=== PATIENT | female | born 1945 | race Caucasian/White ===

== ENCOUNTER 2018-12-29 05:45 | Inpatient (IN) | payer OTHER ==
[2018-12-29] MEDS ORDERED: NA CHLORIDE 0.9% 1,000 ML ONE (06:03)
[2018-12-29 06:37] LABS: Absolute Lymphocytes (CBC) 1.5 K/uL (0.7-4.9); Basophils % 0.6 % (0-1.3); Lymphocytes % 9.4 % (15.3-44.8); MPV 8.2 fL (7.6-11.3); RBC Red Blood Cell Count 4.22 M/uL (3.86-4.86)
[2018-12-29 06:40] LABS: Protime INR 1.18
[2018-12-29 07:00] LABS: ALT/SGPT 39 U/L (12-78); AST/SGOT 20 U/L (15-37); Albumin 3.2 g/dL (3.4-5.0); Alkaline Phosphatase 92 U/L (45-117); BUN Blood Urea Nitrogen 15 mg/dL (7-18); Bicarbonate 20 mmol/L (21-32); Bilirubin Direct 0.2 mg/dL (0-0.2); Bilirubin Total 0.7 mg/dL (0.2-1.0); Lipase 77 U/L (73-393); Magnesium 1.7 mg/dL (1.8-2.4); NT PRO-BNP 267 pg/mL (<125); Potassium 4.3 mmol/L (3.5-5.1); Protein, Total 8.7 g/dL (6.4-8.2); Sodium Level 134 mmol/L (136-145); Troponin (Emerg Dept Use Only) < 0.02 ng/mL (0.0-0.045)
[2018-12-29 07:01] LABS: Glucose Level 401 mg/dL (74-106)
--- NOTE | 2018-12-29 07:37 | EDPHYS ---
Physician Documentation [facility] Name: Sissy Padron Age: 73 yrs Sex: Female : 1945 Arrival Date: 12/29/2018 Time: 05:49 Bed 13 Private MD: Rolando Ward T ED Physician Jd Herrera HPI: 12/29 06:22 This 73 yrs old Female presents to ER via Ambulatory with complaints of krystle Abdominal Pain. 06:22 The patient presents with abdominal pain in the upper abdomen, in the right upper krystle quadrant, right lower quadrant, abdominal distention. Onset: The symptoms/episode began/occurred last night. The symptoms radiate to both flanks. Associated signs and symptoms: none. Severity of pain: At its worst the pain was moderate in the emergency department the pain is unchanged. The patient has not experienced similar symptoms in the past. Historical: - Allergies: 06:06 PENICILLINS; ak1 06:06 Codeine; ak1 - Home Meds: 06:06 aspirin 81 mg Oral TbEC 1 tab once daily [Active]; gabapentin 600 mg oral tab [Active]; ak1 Lovastatin 18mg Oral [Active]; alprazolam 1 mg Oral tab [Active]; tramadol 50 mg Oral tab [Active]; metformin 500 mg Oral tab [Active]; metoprolol tartrate 100 mg Oral tab [Active]; losartan oral 10mg oral [Active]; - PSHx: 06:06 Hysterectomy; Cholecystectomy; right ankle; right knee sx; left hip replacement; ak1 - Immunization history:: Adult Immunizations unknown. - Social history:: Smoking status: Patient/guardian denies using tobacco. - Ebola Screening: : No symptoms or risks identified at this time. - Family history:: not pertinent. ROS: 06:22 Constitutional: Negative for fever, chills, and weight loss, Eyes: Negative for injury, krystle pain, redness, and discharge, ENT: Negative for injury, pain, and discharge, Neck: Negative for injury, pain, and swelling, Cardiovascular: Negative for chest pain, palpitations, and edema, Respiratory: Negative for shortness of breath, cough, wheezing, and pleuritic chest pain, Back: Negative for injury and pain, : Negative for injury, bleeding, discharge, and swelling, MS/Extremity: Negative for injury and deformity, Skin: Negative for injury, rash, and discoloration, Neuro: Negative for headache, weakness, numbness, tingling, and seizure. 06:22 Abdomen/GI: Positive for abdominal pain, of the right upper quadrant. Exam: 06:22 Constitutional: This is a well developed, well nourished patient who is awake, alert, krystle and in no acute distress. Head/Face: Normocephalic, atraumatic. Eyes: Pupils equal round and reactive to light, extra-ocular motions intact. Lids and lashes normal. Conjunctiva and sclera are non-icteric and not injected. Cornea within normal limits. Periorbital areas with no swelling, redness, or edema. ENT: Nares patent. No nasal discharge, no septal abnormalities noted. Tympanic membranes are normal and external auditory canals are clear. Oropharynx with no redness, swelling, or masses, exudates, or evidence of obstruction, uvula midline. Mucous membranes moist. Neck: Trachea midline, no thyromegaly or masses palpated, and no cervical lymphadenopathy. Supple, full range of motion without nuchal rigidity, or vertebral point tenderness. No Meningismus. Chest/axilla: Normal chest wall appearance and motion. Nontender with no deformity. No lesions are appreciated. Cardiovascular: Regular rate and rhythm with a normal S1 and S2. No gallops, murmurs, or rubs. Normal PMI, no JVD. No pulse deficits. Respiratory: Lungs have equal breath sounds bilaterally, clear to auscultation and percussion. No rales, rhonchi or wheezes noted. No increased work of breathing, no retractions or nasal flaring. Back: No spinal tenderness. No costovertebral tenderness. Full range of motion. Female : Normal external genitalia. Skin: Warm, dry with normal turgor. Normal color with no rashes, no lesions, and no evidence of cellulitis. Neuro: Awake and alert, GCS 15, oriented to person, place, time, and situation. Cranial nerves II-XII grossly intact. Motor strength 5/5 in all extremities. Sensory grossly intact. Cerebellar exam normal. Normal gait. Psych: Awake, alert, with orientation to person, place and time. Behavior, mood, and affect are within normal limits. 06:22 Abdomen/GI: Inspection: abdomen appears normal, Bowel sounds: normal, Palpation: mild abdominal tenderness, in the right upper quadrant and right lower quadrant. Vital Signs: 06:00 BP 180 / 100; Pulse 92; Resp 16; Temp 97.6; Pulse Ox 98% on R/A; Weight 90.72 kg (R); ak1 Height 5 ft. 5 in. (165.10 cm) (R); Pain 9/10; 07:00 BP 211 / 97; Pulse 87; Resp 16; Pulse Ox 99% on R/A; ph 08:00 BP 198 / 104; Pulse 112; Resp 18; Pulse Ox 97% on R/A; ph 09:14 BP 158 / 72; Pulse 108; Resp 20; Temp 98.3(TE); Pulse Ox 98% on R/A; ph 06:00 Body Mass Index 33.28 (90.72 kg, 165.10 cm) ak1 MDM: 05:55 Patient medically screened. [facility] 06:29 Data reviewed: vital signs, nurses notes, lab test result(s), EKG, radiologic studies. krystle 09:32 Physician consultation: Rose Noonan MD was contacted at 09:32, regarding admission, pm1 patient's condition, and will see patient would like further tests performed, lactate and blood cultures in ER. Place patient in observation. 12/29 05:56 Order name: Basic Metabolic Panel; Complete Time: 07:11 [facility] 12/29 05:56 Order name: CBC with Diff; Complete Time: 06:54 [facility] 12/29 05:56 Order name: LFT's; Complete Time: 07:11 [facility] 12/29 05:56 Order name: Magnesium; Complete Time: 07:11 [facility] 12/29 05:56 Order name: NT PRO-BNP; Complete Time: 07:11 [facility] 12/29 05:56 Order name: PT-INR; Complete Time: 06:54 [facility] 12/29 05:56 Order name: Troponin (emerg Dept Use Only); Complete Time: 07:11 [facility] 12/29 05:56 Order name: Lipase; Complete Time: 07:11 [facility] 12/29 05:56 Order name: Urine Culture [facility] 12/29 07:48 Order name: Urine Dipstick--Ancillary (enter results) bd 12/29 07:59 Order name: Urine Microscopic Only; Complete Time: 09:27 pm1 12/29 09:29 Order name: Blood Culture Adult (2) pm1 12/29 09:29 Order name: Lactate pm1 12/29 10:25 Order name: Glucose, Ancillary Testing EDMS 12/29 05:56 Order name: XRAY Chest (1 view); Complete Time: 09:20 [facility] 12/29 05:56 Order name: EKG; Complete Time: 05:58 [facility] 12/29 05:56 Order name: Cardiac monitoring; Complete Time: 06:23 krystle 12/29 05:56 Order name: EKG - Nurse/Tech; Complete Time: 06:23 [facility] 12/29 05:56 Order name: IV Saline Lock; Complete Time: 06:23 [facility] 12/29 07:11 Order name: Abdomen ; Complete Time: 07:56 EDMS 12/29 10:32 Order name: Glucose, Ancillary Testing EDME 12/29 05:56 Order name: Labs collected and sent; Complete Time: 06:22 [facility] 12/29 05:56 Order name: O2 Per Protocol; Complete Time: 06:23 [facility] 12/29 05:56 Order name: O2 Sat Monitoring; Complete Time: 06:23 [facility] 12/29 05:56 Order name: Urine Dipstick-Ancillary (obtain specimen); Complete Time: 08:22 [facility] Administered Medications: 06:20 Drug: NS 0.9% 1000 ml Route: IV; Rate: 125 ml/hr; Site: right hand; fu 08:15 Drug: Insulin Regular Human 10 units {Co-Signature: ss (Damaris Doan RN).} Route: IVP; ph Site: left antecubital; 08:21 Drug: Rocephin 1 grams Route: IV; Rate: per protocol; Site: left antecubital; ph 08:21 Drug: Magnesium Sulfate 1 grams Route: IVPB; Infused Over: 1 hrs; Site: left ph antecubital; 08:22 Drug: morphine 4 mg Route: IVP; Site: left antecubital; ph 08:24 Drug: Zofran 4 mg Route: IVP; Site: left antecubital; ph 08:46 Drug: Metoprolol 100 mg Route: PO; ph Point of Care Testing: Blood Glucose: 09:21 Blood Glucose: 365 mg/dL; ph Ranges: Critical Glucose Levels:Adult <50 mg/dl or >400 mg/dl <40 mg/dl or >180 mg/dl Disposition: 12/30 06:38 Co-signature as Attending Physician, Jd Herrera MD I agree with the assessment and [facility] plan of care. Disposition: 12/29/18 07:35 Hospitalization ordered by Rose Noonan for Observation. Preliminary diagnosis are Abdominal tenderness, Elevated white blood cell count, Type 2 diabetes mellitus, Hypomagnesemia. - Bed requested for Telemetry/MedSurg (observation). - Status is Observation. ph - Condition is Fair. - Problem is new. - Symptoms have improved. UTI on Admission? No Signatures: Dispatcher [employer] EDMS Leesa Mondragon Corey, MD MD cha Krenek, Amber, RN RN ak1 Jayde Barrera, RN RN Ruslan Nicholson, TOE CLOSING MACHINE TENDER TOE CLOSING MACHINE TENDER pm1 Romulo Parker, RN RN Tl Gómez, RN RN ja1 Damaris Doan RN ss Corrections: (The following items were deleted from the chart) 12/29 07:11 06:21 Abdomen Pelvis W Con+CT.RAD.BRZ ordered. EDME EDMS 07:27 06:21 Abdomen Limited+US.RAD.BRZ ordered. EDME EDME 07:40 07:35 Hospitalization Ordered by Rose Noonan MD for Inpatient Admission. Preliminary [facility] diagnosis is Abdominal tenderness; Elevated white blood cell count; Type 2 diabetes mellitus. Bed requested for Telemetry/MedSurg (Inpatient). Status is Inpatient Admission. Condition is Fair. Problem is new. Symptoms have improved. UTI on Admission? No. krystle 08:52 07:40 12/29/2018 07:35 Hospitalization Ordered by Rose Noonan MD for Inpatient ja1 Admission. Preliminary diagnosis is Abdominal tenderness; Elevated white blood cell count; Type 2 diabetes mellitus; Hypomagnesemia. Bed requested for Telemetry/MedSurg (Inpatient). Status is Inpatient Admission. Condition is Fair. Problem is new. Symptoms have improved. UTI on Admission? No. krystle 09:33 08:52 12/29/2018 07:35 Hospitalization Ordered by Rose Noonan MD for Inpatient pm1 Admission. Preliminary diagnosis is Abdominal tenderness; Elevated white blood cell count; Type 2 diabetes mellitus; Hypomagnesemia. Bed requested for Telemetry/MedSurg (Inpatient). Status is Inpatient Admission. Condition is Fair. Problem is new. Symptoms have improved. UTI on Admission? No. ja1 09:40 09:33 12/29/2018 07:35 Hospitalization Ordered by Rose Noonan MD for Observation. bd Preliminary diagnosis is Abdominal tenderness; Elevated white blood cell count; Type 2 diabetes mellitus; Hypomagnesemia. Bed requested for Telemetry/MedSurg (observation). Status is Observation. Condition is Fair. Problem is new. Symptoms have improved. UTI on Admission? No. pm1 11:13 09:40 12/29/2018 07:35 Hospitalization Ordered by Rose Noonan MD for Observation. ph Preliminary diagnosis is Abdominal tenderness; Elevated white blood cell count; Type 2 diabetes mellitus; Hypomagnesemia. Bed requested for Telemetry/MedSurg (observation). Status is Observation. Condition is Fair. Problem is new. Symptoms have improved. UTI on Admission? No. bd
--- NOTE | 2018-12-29 07:37 | ER ---
Nurse's Notes [facility] Name: Sissy Padron Age: 73 yrs Sex: Female : 1945 Arrival Date: 12/29/2018 Time: 05:49 Bed 13 Private MD: Rolando Ward T Diagnosis: Abdominal tenderness;Elevated white blood cell count;Type 2 diabetes mellitus;Hypomagnesemia Presentation: 12/29 06:01 Presenting complaint: Patient states: right lower quadrant pain, right lower back pain ak1 since last night. increased urinary frequency. Transition of care: patient was not received from another setting of care. Onset of symptoms was December 29, 2018. Risk Assessment: Do you want to hurt yourself or someone else? Patient reports no desire to harm self or others. Initial Sepsis Screen: Does the patient meet any 2 criteria? No. Patient's initial sepsis screen is negative. Does the patient have a suspected source of infection? No. Patient's initial sepsis screen is negative. Care prior to arrival: None. 06:01 Method Of Arrival: Ambulatory ak1 06:01 Acuity: MARCELO 3 ak1 Triage Assessment: 06:06 General: Appears in no apparent distress. Behavior is calm, cooperative. ak1 Historical: - Allergies: 06:06 PENICILLINS; ak1 06:06 Codeine; ak1 - Home Meds: 06:06 aspirin 81 mg Oral TbEC 1 tab once daily [Active]; gabapentin 600 mg oral tab [Active]; ak1 Lovastatin 18mg Oral [Active]; alprazolam 1 mg Oral tab [Active]; tramadol 50 mg Oral tab [Active]; metformin 500 mg Oral tab [Active]; metoprolol tartrate 100 mg Oral tab [Active]; losartan oral 10mg oral [Active]; - PSHx: 06:06 Hysterectomy; Cholecystectomy; right ankle; right knee sx; left hip replacement; ak1 - Immunization history:: Adult Immunizations unknown. - Social history:: Smoking status: Patient/guardian denies using tobacco. - Ebola Screening: : No symptoms or risks identified at this time. - Family history:: not pertinent. Screenin:07 Abuse screen: Denies threats or abuse. Denies injuries from another. Nutritional ak1 screening: No deficits noted. Tuberculosis screening: No symptoms or risk factors identified. Fall Risk None identified. Assessment: 05:57 General: Appears uncomfortable, Behavior is calm, cooperative, appropriate for age, fu Denies fever, chills. Pain: Complains of pain in right lower quadrant Pain radiates to right mid back Pain currently is 8 out of 10 on a pain scale. Quality of pain is described as sharp, Pain began last night Is intermittent. Neuro: Level of Consciousness is awake, alert, obeys commands, Oriented to person, place, time, situation, Cardiovascular: Denies chest pain, Capillary refill < 3 seconds. Respiratory: No deficits noted. GI: Bowel sounds present X 4 quads. pain on palpation. : Reports frequency of urination. EENT:. Musculoskeletal: No signs and/or symptoms reported regarding the musculoskeletal system. 07:14 Reassessment: Patient appears in no apparent distress at this time. Patient and/or ph family updated on plan of care and expected duration. Pain level reassessed. Patient is alert, oriented x 3, equal unlabored respirations, skin warm/dry/pink. Pt taken to radiology via stretcher. Vital Signs: 06:00 BP 180 / 100; Pulse 92; Resp 16; Temp 97.6; Pulse Ox 98% on R/A; Weight 90.72 kg (R); ak1 Height 5 ft. 5 in. (165.10 cm) (R); Pain 9/10; 07:00 BP 211 / 97; Pulse 87; Resp 16; Pulse Ox 99% on R/A; ph 08:00 BP 198 / 104; Pulse 112; Resp 18; Pulse Ox 97% on R/A; ph 09:14 BP 158 / 72; Pulse 108; Resp 20; Temp 98.3(TE); Pulse Ox 98% on R/A; ph 06:00 Body Mass Index 33.28 (90.72 kg, 165.10 cm) ak1 ED Course: 05:49 Patient arrived in ED. es 05:50 Rolando Ward MD is Private Physician. es 05:55 Romulo Parker, FRAN is Primary Nurse. fu 05:55 Jd Herrera MD is Attending Physician. [facility] 06:00 Arm band placed on Patient placed in an exam room, on a stretcher, on pulse oximetry, ak1 Patient notified of wait time. 06:02 Triage completed. ak1 06:06 Patient has correct armband on for positive identification. ak1 06:20 Initial lab(s) drawn, by me, sent to lab. Inserted saline lock: 22 gauge in right hand, fu using aseptic technique. 06:48 Inserted saline lock: 20 gauge in left antecubital area, using aseptic technique. fu ,using aseptic technique. by histotechnician. 06:50 metal sash setter on. Pulse ox on. NIBP on. fu 06:57 Radiology exam delayed due to lab results not completed at this time. (BUN/Creatinine). kw1 07:07 XRAY Chest (1 view) In Process Unspecified. EDMS 07:33 Abdomen In Process Unspecified. EDMS 07:33 Rose Noonan MD is Hospitalizing Provider. krystle 09:16 No provider procedures requiring assistance completed. Patient admitted, IV remains in ph place. Administered Medications: 06:20 Drug: NS 0.9% 1000 ml Route: IV; Rate: 125 ml/hr; Site: right hand; fu 08:15 Drug: Insulin Regular Human 10 units {Co-Signature: ss (Damaris Doan RN).} Route: IVP; ph Site: left antecubital; 08:21 Drug: Rocephin 1 grams Route: IV; Rate: per protocol; Site: left antecubital; ph 08:21 Drug: Magnesium Sulfate 1 grams Route: IVPB; Infused Over: 1 hrs; Site: left ph antecubital; 08:22 Drug: morphine 4 mg Route: IVP; Site: left antecubital; ph 08:24 Drug: Zofran 4 mg Route: IVP; Site: left antecubital; ph 08:46 Drug: Metoprolol 100 mg Route: PO; ph Point of Care Testing: Blood Glucose: 09:21 Blood Glucose: 365 mg/dL; ph Ranges: Outcome: 07:35 Decision to Hospitalize by Provider. krystle 11:13 Patient left the ED. ph Signatures: Dispatcher [employer] Jd Ruiz MD MD cha Salyer, Edna es Krenek, Amber RN RN ak1 Jayde Barrera RN RN Romulo Parker, FRAN PETERS Rosario Shepherd kw1 Damaris Doan RN ss Corrections: (The following items were deleted from the chart) 07:27 07:12 In radiology for Abdomen Limited+US.RAD.BRZ. EDMS EDMS
[2018-12-29] MEDS ORDERED: INSULIN -REGULAR HUMAN 50 UNIT/0.5 ML ML ONE ×2 (07:48→07:50)
[2018-12-29] MEDS ORDERED: CEFTRIAXONE/SWI 1gm 1 GM/10 ML SYR ONE (07:49)
[2018-12-29] MEDS ORDERED: MAGNESIUM SULFATE 1 gm IVPB 1 GM/100 ML BAG IV ONE (07:49)
--- NOTE | 2018-12-29 07:50 | RAD REPORT ---
EXAM DESCRIPTION: CT - Abdomen Pelvis Wo Contrast - 12/29/2018 7:33 am CLINICAL HISTORY: ABD PAIN COMPARISON: Abdomen Pelvis W Contrast dated 11/14/2016 TECHNIQUE: Axial [address] imaging of the abdomen and pelvis was performed without IV contrast. No IV contrast was given because of allergy, abnormal renal function, patient refusal or physician re quest. No oral contrast was given. All CT scans are performed using dose optimization technique as appropriate and may include automated exposure control or mA/KV adjustment according to patient size. FINDINGS: No suspicious findings in the lung bases. Fatty infiltration pattern is present in the liver. No focal liver lesion is identifiable. Spleen and pancreas show no suspicious findings. Cholecystectomy clips are present. No biliary tree dilatation. Moderately severe right-sided hydronephrosis and hydroureter are present down to the UVJ. No obstruct ing or nonobstructing calculi present. Urinary bladder is fully contracted. The pelvic floor assessme nt is limited by left hip prosthesis spray artifact. A UVJ or bladder calculus is not suspected. No s imilar finding seen in 2017. Patient could have had a recently passed stone with hydronephrosis due t o edema at the UVJ. Stricture or small mass lesion are possible as well. Blood or inflammatory debris within the ureter can result in hydronephrosis. Perinephric stranding is present on the right with r ight-sided renal parenchymal edema evident. Left kidney shows no hydronephrosis or acute process. No significant adrenal finding. Isodense renal masses and pyelonephritis cannot be excluded in the absence of IV contrast. No dilated bowel loops or bowel wall thickening. Moderate sigmoid diverticulosis present without dive rticulitis. No acute GI process seen. No free air, free fluid or pneumatosis. No other area of inflam matory stranding. No hernia, mass or bulky lymphadenopathy. Disc and bony degenerative changes are present. No acute bone process seen. IMPRESSION: Moderately severe right hydronephrosis and hydroureter down to the UVJ. No obstructing o r nonobstructing calculi seen. Hydronephrosis could be due to a recently passed stone with edema at the UVJ. Blood and inflammatory debris within the ureter can cause hydronephrosis. Post inflammatory stricture or mass at the UVJ als o considerations. Urinary bladder is fully contracted. This limits assessment. Left hip prosthesis spray artifact also limits pelvic floor assessment. Fatty infiltration of the liver. Patient is status post cholecystectomy. Full assessment is limited is the absence of IV contrast.
[2018-12-29] MEDS ORDERED: ONDANSETRON 4 MG/2 ML VIAL ONE (07:59)
[2018-12-29] MEDS ORDERED: MORPHINE 4 MG/ML SYR ONE (07:59)
[2018-12-29] MEDS ORDERED: METOPROLOL TAR 50 MG TAB ONE (08:37)
--- NOTE | 2018-12-29 08:43 | RAD REPORT ---
EXAM DESCRIPTION: RAD - Chest Single View - 12/29/2018 7:07 am CLINICAL HISTORY: Abdominal pain, abdominal distention COMPARISON: May 2011 chest film TECHNIQUE: AP portable chest image was obtained [id number] hours . FINDINGS: Lungs are clear. Heart and vasculature are normal. No measurable pleural effusion and no p neumothorax. No acute bony abnormality seen. No acute aortic findings suspected. IMPRESSION: No acute cardiopulmonary process.
[2018-12-29 09:20] LABS: Urine Bacteria NONE SEEN /HPF (<20); Urine Culture Reflex Order NOT NEEDED; Urine RBC <5 /HPF (NONE SEEN)
[2018-12-29] MEDS ORDERED: ONDANSETRON 4 MG/2 ML VIAL IV PRN (11:40)
[2018-12-29] MEDS ORDERED: NA CHLORIDE 0.9% 1,000 ML IV SCH ×2 (11:40→17:00)
[2018-12-29] MEDS ORDERED: D50W 25 GM/50 ML SYRINGE IV PRN (11:40)
[2018-12-29] MEDS ORDERED: GLUCAGON 1 MG/VIAL IM PRN (11:40)
[2018-12-29] MEDS ORDERED: MORPHINE 4 MG/ML SYR IV PRN (11:40)
[2018-12-29] MEDS: INSULIN -REGULAR HUMAN 50 UNIT/0.5 ML ML SQ SCH ×3 (11:40→21:19)
[2018-12-29] MEDS ORDERED: NA CHLORIDE 0.9% 500 ML ONE (11:57)
--- NOTE | 2018-12-29 12:08 | P.HP ---
Certification for Inpatient Patient admitted to: Observation With expected LOS: <2 Midnights Patient will require the following post-hospital care: None Practitioner: I am a practitioner with admitting privileges, knowledge of patient current condition, hospital course, and medical plan of care. Services: Services provided to patient in accordance with Admission requirements found in Title 42 Section 412.3 of the Code of Federal Regulations Patient History Date of Service: 12/29/18 Primary Care Provider: Dr DE LEON Reason for admission: LLQ abdominal pain History of Present Illness: This is a 73-year-old female with significant past medical history of hypertension, hyperlipidemia, diabetes, obesity who presented to the ED complaining of having left lower quadrant abdominal pain. Patient stated that the pain started about 9 p.m. last night and has gotten progressively worse. Patient also complained of having some nausea vomiting whenever abdominal pain started. Patient has been having increased urination recently and has been having a lot of pain every time she goes to the bathroom. Patient's at bedside denies having any fever chills diarrhea or any other associated symptoms at this time. Patient has not had similar complaints in the past. Patient has also been taking Victoza for her diabetes however has not been able to take it for past 2 days that she forgot to take her home medication. Patient does have a history of noncompliance with medication due to being forgetful. In the ER patient was seen and evaluated lab work and imaging was done. Patient was initially found to be hyperglycemic along with CT scan findings of hydronephrosis with a KI and thus patient was admitted to the hospital for further care. Allergies naproxen Allergy (Intermediate, Verified 06/05/11 13:29) Hives/Rash Home medications list reviewed: Yes - Past Medical/Surgical History Has patient received pneumonia vaccine in the past: Yes Diabetic: Yes -: Hypertension -: Diabetes -: Hyperlipidemia -: Obesity Past Surgical History: Reviewed- Non-Contributory - Family History Family History: Reviewed- Non-Contributory - Social History Smoking Status: Never smoker Counseled patient to stop smoking for: less than 10 minutes Smoking therapy provided: Yes Patient receptive to therapy: Yes Alcohol use: No CD- Drugs: No Caffeine use: Yes Place of Residence: Home Review of Systems 10-point ROS is otherwise unremarkable Physical Examination - Vital Signs Temperature: 98.3 F Blood Pressure: 158/72 Pulse: 108 Respirations: 20 - Physical Exam General: In no apparent distress, Oriented x3, Other (Lethargic but he is easily arousable) HEENT: Atraumatic, PERRLA, Mucous membr. moist/pink, EOMI, Sclerae nonicteric Neck: Supple, 2+ carotid pulse no bruit, No LAD, Without JVD or thyroid abnormality Respiratory: Clear to auscultation bilaterally, Normal air movement Cardiovascular: Regular rate/rhythm, Normal S1 S2 Gastrointestinal: Normal bowel sounds, Tenderness (Left lower quadrant tenderness and right upper quadrant tenderness noted) Musculoskeletal: No tenderness Integumentary: No rashes Neurological: Normal speech, Normal tone Lymphatics: No axilla or inguinal lymphadenopathy - Studies Laboratory Data (last 24 hrs) 12/29/18 06:17: PT 13.8 H, INR 1.18 12/29/18 06:17: WBC 15.9 H, Hgb 12.6, Hct 37.0, Plt Count 256 12/29/18 06:17: Sodium 134 L, Potassium 4.3, BUN 15, Creatinine 1.63 H, Glucose 401 H*, Magnesium 1.7 L, Total Bilirubin 0.7, AST 20, ALT 39, Alkaline Phosphatase 92, Lipase 77 Assessment and Plan - Problems (Diagnosis) (1) Abdominal pain Current Visit: Yes Status: Acute Plan: Left lower quadrant abdominal pain with nausea and vomiting -abdominal CT consistent with hydronephrosis and inflammation and agrees by UPJ. Patient may have passed a kidney stone -lab work also consistent with hyperglycemia with anion gap of 12 -will go ahead and start patient on IV Rocephin at this time along with insulin sliding scale -urology has been consulted. Awaiting recommendations -blood cultures and urine cultures pending at this time as well Qualifiers: Abdominal location: left lower quadrant Qualified Code(s): R10.32 - Left lower quadrant pain (2) Hyperglycemia Current Visit: Yes Status: Acute Plan: Patient with hyperglycemia due to noncompliance with her medication -anion gap is 12 at this time. Patient wear well may have HHS, -will get acetone level at this time and repeat BMP -patient received 10 units of long-acting insulin in the ER -was give patient bolus of 500 mL ns and start patient on NS at 125 mL an hr after the (3) Acute renal failure Current Visit: Yes Status: Acute Plan: Patient with acute renal failure most likely secondary to obstructive uropathy versus UTI -abdominal CT consistent with hydronephrosis with inflammation and possible degrees at the UPJ -IV fluids at this time -await nephrotoxic agent and monitor for improvement Qualifiers: Acute renal failure type: unspecified Qualified Code(s): N17.9 - Acute kidney failure, unspecified (4) Hydronephrosis Current Visit: Yes Status: Acute Plan: Hydronephrosis with possible stone passage and debris collection at the UPJ -urology is consulted. Awaiting recommendations -will place patient on Gramajo catheter at this time Qualifiers: Hydronephrosis type: with ureteropelvic junction obstruction Qualified Code (s): Q62.11 - Congenital occlusion of ureteropelvic junction (5) Hypertension Current Visit: Yes Status: Chronic Plan: Will restart home medication Qualifiers: Hypertension type: essential hypertension Qualified Code(s): I10 - Essential (primary) hypertension (6) Diabetes Current Visit: Yes Status: Chronic Plan: Will start patient on insulin sliding scale and a.c.hs at this time Qualifiers: Diabetes mellitus type: type 2 Diabetes mellitus [facility] insulin use: with [facility] use Diabetes mellitus complication status: with hyperglycemia Qualified Code(s): E11.65 - Type 2 diabetes mellitus with hyperglycemia; 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
--- NOTE | 2018-12-29 12:10 | EKG ---
Test Date: 2018-12-29 Test Time: 06:19:02 Mathematics Instructor: BLUE MEASUREMENT RESULTS: Intervals: Rate: 88 NC: 190 QRSD: 82 QT: 382 QTc: 462 [place]: P: 51 NC: 190 QRS: -11 T: 47 INTERPRETIVE STATEMENTS: Normal sinus rhythm Anterior infarct, age undetermined Abnormal ECG Compared to ECG 06/05/2011 12:50:13 No significant changes Electronically Signed On 12-29-18 12:08:52 CDT by Spencer Marquez
[2018-12-29] MEDS ORDERED: NA CHLORIDE 0.9% 500 ML IV ONE (13:00)
[2018-12-29] MEDS ORDERED: SODIUM CHL 0.9% 1000 ML BAG IV SCH (13:00)
[2018-12-29 13:10] LABS: Urine Blood TRACE (NEG); Urine Glucose 2+ (NEG); Urine Protein TRACE (NEG); Urine pH 5.5 (5.0-7.0)
[2018-12-29 13:54] LABS: Albumin 3.2 g/dL (3.4-5.0); Bilirubin Total 0.8 mg/dL (0.2-1.0); Potassium 4.5 mmol/L (3.5-5.1)
[2018-12-29] MEDS: METOPROLOL TAR 50 MG TAB PO SCH (17:00)
[2018-12-29 17:22] LABS: BUN Blood Urea Nitrogen 17 mg/dL (7-18); Bicarbonate 23 mmol/L (21-32); Glucose Level 322 mg/dL (74-106); Potassium 4.3 mmol/L (3.5-5.1); Sodium Level 135 mmol/L (136-145)
--- NOTE | 2018-12-29 17:56 | CON ---
History Of Present Illness: A 73-year-old female with medical history hypertension, hyperlipidemia, diabetes, obesity, presented to the ER, complaining of left lower quadr ant pain. She also gives me a history of right lower quadrant pain that happened in the last 24 hour s. She had a CT scan that showed moderate right hydronephrosis with hydroureter down to the UVJ with no stones seen. She is not a smoker. She has never had any gross hematuria, never had a history of stones, but she may have possibly passed the stone when she did have some pain on that side. I have to observe her and see how she does. Now I think it could be a stricture versus a possible ureteral tumor or bladder tumor, but this does not go along with her history and the fact that she does not h ave any hematuria and that she is not a smoker either, but we could follow up as an outpatient for th is issue, hematuria resolves or possibly do further workup if necessary. She is admitted now because she did have some nausea and vomiting and abdominal pain and the left-sided pain, not really sure wh at the etiology for that is either. Allergies: NAPROSYN. Past Medical History: Hypertension, diabetes, hyperlipidemia, obesity. Past Surgical History: Noncontributory. Social History: Patient never smoked. Drugs, none. Caffeine use at home. Resides at home. Review of Systems: 10-point review of systems otherwise unremarkable. Physical Examination: Vital Signs: Latest vital signs; 98.3, 108, 20, BP 158/72, 90% saturation. HEENT: Atraumatic, normocephalic. Neck: Supple. Respiratory: Clear. Cardiovascular: S1, S2. Gastrointestinal: Normal sounds. No tenderness. Musculoskeletal: Normal. Skin: No rashes. Neurologic: Normal speech, normal tone. Laboratory Data: White count 15.9, H and H is 12.6 and 37.0, platelet count 256. Coagulation normal . Chemistry; glucose 341, the latest sodium 134, potassium 4.3, chloride 102, carbon dioxide 20, BUN 15, creatinine 1.3, GFR 31. Urine study shows pH 5.5, specific gravity 1.010, ketones 1+, blood tra ce, but rbc's less than 5. Assessment And Plan: History of right lower quadrant pain. Now CT scan shows right hydroureter down to the right UVJ. Patient may have possibly passed a stone, could have some inflammation there now, possible stricture, possible tumor. We will have to follow and see how she does, if she needs any f urther workup. The hydro does not resolve in a few weeks or so and she may need cystoscopy, possible retrogrades. We can follow up as an outpatient for this. History of hyperglycemia, acute renal malaika lure, hypertension, and diabetes. Continue plan of care for the patient. We will follow with you. BETINA Voice ID: [id number] Report ID: [id number]
--- NOTE | 2018-12-29 17:59 | RAD REPORT ---
EXAM DESCRIPTION: [facility] Single View12/29/2018 4:30 pm CLINICAL HISTORY: sob COMPARISON: December 29, 2017 FINDINGS: The lungs appear clear of acute infiltrate. The heart is normal size IMPRESSION: No acute abnormalities displayed
[2018-12-29] MEDS: LOSARTAN POTASSIUM 50 MG TABLET PO SCH (18:38)
[2018-12-29] MEDS: ATORVASTATIN 10 MG TAB PO SCH (21:19)
[2018-12-30 01:33] LABS: BUN Blood Urea Nitrogen 20 mg/dL (7-18); Bicarbonate 24 mmol/L (21-32); Glucose Level 241 mg/dL (74-106); Potassium 4.4 mmol/L (3.5-5.1); Sodium Level 135 mmol/L (136-145)
[2018-12-30 05:39] LABS: Absolute Lymphocytes (CBC) 1.7 K/uL (0.7-4.9); Basophils % 0.7 % (0-1.3); Hematocrit 34.4 % (36.0-45.0); Lymphocytes % 10.5 % (15.3-44.8); MPV 8.2 fL (7.6-11.3); RBC Red Blood Cell Count 3.93 M/uL (3.86-4.86)
[2018-12-30 06:13] LABS: Albumin 2.6 g/dL (3.4-5.0); Bilirubin Direct 0.2 mg/dL (0-0.2); Bilirubin Total 0.6 mg/dL (0.2-1.0); Potassium 4.2 mmol/L (3.5-5.1); Protein, Total 7.8 g/dL (6.4-8.2)
[2018-12-30] MEDS: LOSARTAN POTASSIUM 50 MG TABLET PO SCH (08:28)
[2018-12-30] MEDS: METOPROLOL TAR 50 MG TAB PO SCH (08:28)
[2018-12-30] MEDS: GABAPENTIN 300 MG CAP PO SCH (08:28)
[2018-12-30] MEDS: INSULIN -REGULAR HUMAN 50 UNIT/0.5 ML ML SQ SCH ×4 (08:29→20:22)
[2018-12-30] MEDS: CEFTRIAXONE/SWI 1gm 1 GM/10 ML SYR IV SCH (08:32)
[2018-12-30] MEDS ORDERED: HOME MED 1 EA UNK (Lovastatin [Lovastatin] 10 MG) PO SCH (09:00)
[2018-12-30] MEDS ORDERED: ATORVASTATIN 10 MG TAB PO SCH (09:00)
[2018-12-30] MEDS ORDERED: HOME MED 1 EA UNK (Gabapentin [Gabapentin] 600 MG) PO SCH (09:00)
[2018-12-30] MEDS ORDERED: ASPIRIN 81 MG CHEWABLE TABLET PO SCH (09:00)
[2018-12-30] MEDS ORDERED: CEFTRIAXONE 1 GM/NS 50 ML 1 GM/50 ML BAG IV SCH (09:00)
[2018-12-30] MEDS ORDERED: HOME MED 1 EA UNK (Losartan Potassium [Cozaar] 1 TAB) PO SCH (09:00)
[2018-12-30] MEDS ORDERED: NA CIT/CITRIC AC 30 ML ORAL UDC ONE (11:21)
[2018-12-30] MEDS ORDERED: NA CHLORIDE 0.9% 1,000 ML ONE (11:23)
[2018-12-30] MEDS ORDERED: PROPOFOL 200 MG/20 ML VIAL IV ONE (11:52)
[2018-12-30] MEDS ORDERED: FENTANYL CITR 100 MCG/2 ML ONE (11:53)
[2018-12-30] MEDS ORDERED: LIDOCAINE 1% MPF 5 ML VIAL ONE (11:53)
[2018-12-30] MEDS: NA CHLORIDE 0.9% 1,000 ML IV SCH ×2 (12:00→20:22)
--- NOTE | 2018-12-30 12:00 | P.PN ---
Subjective Date of Service: 12/30/18 Primary Care Provider: Dr DE LEON Chief Complaint: LLQ abdominal pain Subjective: Ambulating, C/O voiced (c.o LLQ pain and difficulity urinating), NPO , Working w/ PT Review of Systems 10-point ROS is otherwise unremarkable Physical Examination - Vital Signs Temperature: 98.9 F Blood Pressure: 110/56 Pulse: 104 Respirations: 20 Pulse Ox (%): 93 - Physical Exam General: Alert, In no apparent distress HEENT: Atraumatic, PERRLA, EOMI Neck: Supple, JVD not distended Respiratory: Clear to auscultation bilaterally, Normal air movement Cardiovascular: Regular rate/rhythm, Normal S1 S2 Gastrointestinal: Normal bowel sounds, No tenderness Musculoskeletal: No tenderness Integumentary: No rashes Neurological: Normal speech, Normal tone, Normal affect Lymphatics: No axilla or inguinal lymphadenopathy - Studies Medications List Reviewed: Yes Assessment And Plan - Current Problems (Diagnosis) (1) Abdominal pain Current Visit: Yes Status: Acute Plan: Left lower quadrant abdominal pain with nausea and vomiting -abdominal CT consistent with hydronephrosis and inflammation and debris by UPJ. Patient may have passed a kidney stone -urology has been consulted. Recommendations appreciated -blood cultures and urine cultures pending at this time as well -CR elevated today with abdominal pain still persistent. Qualifiers: Abdominal location: left lower quadrant Qualified Code(s): R10.32 - Left lower quadrant pain (2) Acute renal failure Current Visit: Yes Status: Acute Plan: Patient with acute renal failure most likely secondary to obstructive uropathy versus UTI -BUN/CR worse today. Pt with difficulity urinating. -abdominal CT consistent with hydronephrosis with inflammation and possible debris or stricture at the UPJ -Nephrology consulted. Appreciated Reccs -Hold fluids for now and proceed with cystoscopy -await nephrotoxic agent and monitor for improvement Qualifiers: Acute renal failure type: unspecified Qualified Code(s): N17.9 - Acute kidney failure, unspecified (3) Hydronephrosis Current Visit: Yes Status: Acute Plan: Hydronephrosis with possible stone passage and debris collection at the UPJ -urology is consulted. appreciated recommendations -S/P Gramajo placement and cystoscopy scheduled for today Qualifiers: Hydronephrosis type: with ureteropelvic junction obstruction Qualified Code (s): Q62.11 - Congenital occlusion of ureteropelvic junction (4) Hyperglycemia Current Visit: Yes Status: Acute Plan: Patient with hyperglycemia due to noncompliance with her medication. 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
[2018-12-30] MEDS ORDERED: GENTAMICIN 100 MG/100 ML BAG 100 ML IV ONE (12:29)
[2018-12-30] MEDS ORDERED: NS 0.9% VIAL 10 ML ONE (12:48)
[2018-12-30] MEDS ORDERED: EPHEDRINE SULF 50 MG/ML VIAL ONE (12:48)
[2018-12-30] MEDS ORDERED: ONDANSETRON 4 MG/2 ML VIAL ONE (13:08)
--- NOTE | 2018-12-30 13:21 | RAD REPORT ---
EXAM DESCRIPTION: RAD - Urography Retrograde - 12/30/2018 1:12 pm CLINICAL HISTORY: ICD N 20.0 FINDINGS: Thirteen fluoroscopic spot images obtained. Fluoroscopy time 1.1 minutes Right ureter was cannulated and contrast administered. Subsequently a right ureteral stent was placed . Examination was performed by
[2018-12-30 14:16] LABS: Urine Appearance TURBID; Urine Bilirubin NEGATIVE (NEG); Urine Blood 3+ (NEG); Urine Color DK YELLOW; Urine Glucose NEGATIVE (NEG); Urine Protein 3+ (NEG); Urine Urobilinogen 0.2 mg/dL (0.2-1.0); Urine pH 6.5 (5.0-7.0)
[2018-12-30 15:00] LABS: Urine Amorphous Sediment 1+ /HPF (NONE SEEN); Urine Bacteria >50 /HPF (<20); Urine Culture Reflex Order REFLEXED; Urine RBC >50 /HPF (NONE SEEN)
[2018-12-30 17:25] LABS: Absolute Lymphocytes (CBC) 2.3 K/uL (0.7-4.9); Basophils % 0.4 % (0-1.3); Hematocrit 37.7 % (36.0-45.0); Lymphocytes % 15.5 % (15.3-44.8); MPV 8.6 fL (7.6-11.3); RBC Red Blood Cell Count 4.27 M/uL (3.86-4.86)
[2018-12-30 17:47] LABS: Albumin 2.8 g/dL (3.4-5.0); Bilirubin Total 0.6 mg/dL (0.2-1.0); Potassium 4.4 mmol/L (3.5-5.1); Protein, Total 8.4 g/dL (6.4-8.2)
[2018-12-30] MEDS: ATORVASTATIN 10 MG TAB PO SCH (20:21)
[2018-12-31 00:31] LABS: Urine Protein/Creatinine Ratio 1.78 ratio (<0.15)
[2018-12-31 05:40] LABS: Albumin 2.2 g/dL (3.4-5.0); Phosphorus 3.5 mg/dL (2.5-4.9); Potassium 3.7 mmol/L (3.5-5.1); Thyroid Stimulating Hormone 1.29 uIU/mL (0.360-3.740)
[2018-12-31] MEDS: NA CHLORIDE 0.9% 1,000 ML IV SCH ×2 (05:50→17:13)
[2018-12-31 06:47] LABS: Absolute Lymphocytes (CBC) 1.4 K/uL (0.7-4.9); Basophils % 0.5 % (0-1.3); Hematocrit 28.5 % (36.0-45.0); MPV 8.3 fL (7.6-11.3); RBC Red Blood Cell Count 3.26 M/uL (3.86-4.86)
[2018-12-31] MEDS: CEFTRIAXONE/SWI 1gm 1 GM/10 ML SYR IV SCH (07:54)
[2018-12-31] MEDS: METOPROLOL TAR 25 MG TAB PO SCH (07:54)
[2018-12-31] MEDS: GABAPENTIN 300 MG CAP PO SCH (07:54)
[2018-12-31] MEDS: INSULIN -REGULAR HUMAN 50 UNIT/0.5 ML ML SQ SCH ×4 (07:55→21:24)
[2018-12-31] MEDS: TAMSULOSIN 0.4 MG SR CAP PO SCH (07:55)
[2018-12-31 11:52] VITALS: BMI 37.1
--- NOTE | 2018-12-31 15:14 | P.PN ---
Subjective Date of Service: 12/31/18 Primary Care Provider: Dr DE LEON Chief Complaint: LLQ abdominal pain Subjective: Improving Physical Examination - Vital Signs Temperature: 98.2 F Blood Pressure: 107/52 Pulse: 99 Respirations: 20 Pulse Ox (%): 92 - Physical Exam General: Alert, In no apparent distress, Cooperative HEENT: Atraumatic Neck: Supple Respiratory: Clear to auscultation bilaterally, Normal air movement Cardiovascular: Normal pulses, Regular rate/rhythm Gastrointestinal: Normal bowel sounds, Soft and benign, Non-distended, No tenderness, No masses, No rebound, No guarding Musculoskeletal: No erythema, No tenderness, No warmth Integumentary: No erythema, No warmth, No cyanosis Neurological: Normal speech, Normal strength at 5/5 x4 extr, Normal tone, Normal affect - Studies Microbiology Data (last 24 hrs): 12/30/18 12:59 Wound - Drainage Gram Stain - Final 12/29/18 07:45 Clean Catch Urine [place] Count - Final <10,000 CFU/ML. 12/29/18 07:45 Clean Catch Urine - Final MIXED DENITA. Medications List Reviewed: Yes Assessment & Plan Discharge Plan: Home Plan to discharge in: 48 Hours Physician Review Additional Text: Impression: Abdominal pain secondary to hydronephrosis, inflammation/debride by UPJ, pyelonephritis secondary to recently passed stone status post cystoscopy/right ureteral stent Acute renal failure secondary to above Hypertension Diabetes mellitus type 2 insulin dependent with hyperglycemia Plan: Abdominal pain secondary to hydronephrosis, inflammation/debride by UPJ, pyelonephritis secondary to recently passed stone status post cystoscopy/right ureteral stent: Case discussed with nephrology and urology. Culture still pending showing Gram negative rods. Continue IV antibiotic therapy. Continue IV fluid for hydration and improvement of renal function. Patient will likely require 2 weeks of antibiotic therapy. Patient may be able to be discharged with oral antibiotic therapy. Await culture results. Will discuss further with specialty care. Acute renal failure secondary to above: Continue with recommendations by nephrology. Continue to monitor renal function closely. IV fluids to be continued and adjusted. Hypertension: Continue current medication. Will monitor and adjust appropriately. 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 Will monitor and adjust appropriately. A1c 10.2. Patient will require insulin therapy at discharge. Time Spent Managing Pts Care (In Minutes): 55
--- NOTE | 2018-12-31 17:08 | PN ---
Date of Progress Note: 12/31/2018 Subjective: Patient was admitted with acute kidney injury secondary to obstructive uropathy, complic ated UTI. Patient undergo cystoscopy yesterday, tolerated the procedure without any complication. Physical Examination: Vital Signs: When I saw the patient, blood pressure 111/59, pulse of 94. Patient had good urine out put of 1300. Chest: Clear to auscultation. Heart: S1, S2. Regular. Abdomen: Mild tenderness on the left quadrant. No guarding or rebound. Extremities: Trace edema. Laboratory Data: WBC 10.1; H and H of 10.2/28.5; platelets 180. Sodium 137; potassium 3.7; bicarb 2 3; BUN 35; creatinine 2.6, trending down; GFR 18; calcium 7.9; phosphorus 3.5; PTH 158. Medications: Current medications the patient on include Flomax, ceftriaxone, atorvastatin, metoprolo l 25 b.i.d., gabapentin, IV fluid, normal saline at 100 per hour. Assessment And Plan: 1.Acute kidney injury secondary to obstructive uropathy/acute tubular necrosis secondary to toxic ac tone tubular necrosis secondary to urosepsis, status post cystoscopy showing pulse coming from the ure thra. We are going to continue current antibiotic. We will follow up culture. 2.Hypertension, controlled, optimal. Continue current treatment. 3.Obstructive uropathy, status post cystoscopy as above. Continue Flomax. 4.Complicated urinary tract infection, urosepsis. Continue current antibiotic. Follow up with . Advice for full 2 weeks of IV antibiotic. YASIR/SAMUEL Voice ID: [id number] Report ID: [id number]
--- NOTE | 2018-12-31 18:53 | PN ---
The white count came down from 15,000 to 10,000 today. Her GFR is gone up to 35. Her creatinine akila t was at 3.0, is now 2.6. So it seems like the stent has helped her that was placed on the right marck e. She has a Gramajo catheter in. We will need to remove that soon and the patient can go home and fo llow up with me in a week or 2 for cystoscopy, ureteroscopy, and stent removal. KAYLA/SAMUEL Voice ID: [id number] Report ID: [id number]
[2018-12-31] MEDS: HEPARIN 5000 UNIT/ML 1 ML VIAL SQ SCH (21:24)
[2018-12-31] MEDS: ATORVASTATIN 10 MG TAB PO SCH (21:24)
[2019-01-01] MEDS ORDERED: NACHLORIDE 0.45% 1,000 ML IV ONE (02:35)
[2019-01-01] MEDS: NACHLORIDE 0.45% 1,000 ML IV SCH ×2 (03:00→14:58)
[2019-01-01 06:02] LABS: Basophils % 0.7 % (0-1.3); Hematocrit 27.7 % (36.0-45.0); Lymphocytes % 16.2 % (15.3-44.8); MPV 8.4 fL (7.6-11.3); RBC Red Blood Cell Count 3.16 M/uL (3.86-4.86)
[2019-01-01 06:23] LABS: Albumin 2.1 g/dL (3.4-5.0); Phosphorus 3.3 mg/dL (2.5-4.9); Potassium 3.9 mmol/L (3.5-5.1)
[2019-01-01] MEDS ORDERED: INSULIN GLARGINE 100 UNITS/ML SQ SCH (08:00)
[2019-01-01 08:16] LABS: Ferritin 189.9 ng/mL (8-388)
[2019-01-01] MEDS: TAMSULOSIN 0.4 MG SR CAP PO SCH (09:10)
[2019-01-01] MEDS: GABAPENTIN 300 MG CAP PO SCH (09:10)
[2019-01-01] MEDS: HEPARIN 5000 UNIT/ML 1 ML VIAL SQ SCH ×2 (09:10→20:05)
[2019-01-01] MEDS: CEFTRIAXONE/SWI 1gm 1 GM/10 ML SYR IV SCH (09:10)
[2019-01-01] MEDS: METOPROLOL TAR 25 MG TAB PO SCH (09:10)
[2019-01-01] MEDS: INSULIN -REGULAR HUMAN 50 UNIT/0.5 ML ML SQ SCH ×4 (09:11→20:11)
[2019-01-01] MEDS: INSULIN GLARGINE 100 UNITS/ML SQ SCH (09:12)
[2019-01-01] MEDS ORDERED: CYANOCOBALAMIN 1000MCG/ML INJ IM ONE (12:17)
--- NOTE | 2019-01-01 12:17 | P.PN ---
Subjective Date of Service: 01/01/19 Primary Care Provider: Dr DE LEON Chief Complaint: LLQ abdominal pain Subjective: Improving Physical Examination - Vital Signs Temperature: 98.4 F Blood Pressure: 141/77 Pulse: 97 Respirations: 18 Pulse Ox (%): 95 - Physical Exam General: Alert, In no apparent distress, Oriented x3, Cooperative HEENT: Atraumatic Neck: Supple Respiratory: Clear to auscultation bilaterally, Normal air movement Cardiovascular: Normal pulses, Regular rate/rhythm Gastrointestinal: Normal bowel sounds, Soft and benign, Non-distended, No tenderness, No masses, No rebound, No guarding Musculoskeletal: No erythema, No tenderness, No warmth Integumentary: No erythema, No warmth, No cyanosis Neurological: Normal speech, Normal strength at 5/5 x4 extr, Normal tone, Normal affect - Studies Microbiology Data (last 24 hrs): 12/30/18 12:59 Wound - Drainage Gram Stain - Final 12/30/18 12:59 Catheterized Urine [place] Count - Final 12/30/18 12:59 Catheterized Urine - Final No growth. 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 Culture still pending showing Gram negative rods. Await results. Continue current IV antibiotic therapy. Renal function improved. Will continue with IV fluids. Anticipate transition to oral medication tomorrow with possible discharge if cultures return. Acute renal failure secondary to above: Continue with recommendations by nephrology. Renal function improved. Continue with IV fluids. Hypertension: Continue current medication. Will monitor and adjust appropriately. 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 Will monitor and adjust appropriately. A1c 10.2. Patient will likely require insulin therapy at discharge. Anemia with iron and B12 deficiency: Will start IV iron. Will also provide B12 supplementation. This will need to be continued as an outpatient by mouth. Will monitor hemoglobin. Time Spent Managing Pts Care (In Minutes): 55
--- NOTE | 2019-01-01 12:27 | P.PN ---
Subjective Date of Service: 01/01/19 Primary Care Provider: Dr DE LEON Chief Complaint: LLQ abdominal pain Subjective: Improving Pt admitted for abdominal pain, found to have MALGORZATA and Hydronephrosis with pyleonephritis Today Cr improved feels much better can DC IVF tomorrow plan to remove chan today pending culture results Physical Examination - Vital Signs Temperature: 98.4 F Blood Pressure: 141/77 Pulse: 97 Respirations: 18 Pulse Ox (%): 95 - Physical Exam General: In no apparent distress, Oriented x3, Obese HEENT: Atraumatic Neck: Supple, JVD not distended Respiratory: Clear to auscultation bilaterally, Normal air movement Cardiovascular: No edema, Regular rate/rhythm, No gallops, No rubs, No murmurs Gastrointestinal: Soft and benign - Studies Microbiology Data (last 24 hrs): 12/30/18 12:59 Wound - Drainage Gram Stain - Final 12/30/18 12:59 Catheterized Urine [place] Count - Final 12/30/18 12:59 Catheterized Urine - Final No growth. Medications List Reviewed: Yes Assessment And Plan - Plan Acute kidney injury DUe to obstructive uropath S/P Rt stent placement cont IVF for 1 more day renal dose med Hydronephrosis S/P Rt stent placement DM as per primary Pyleonephritis cont Abx F/U culture results to ont 2 wks of Abx
[2019-01-01] MEDS: ATORVASTATIN 10 MG TAB PO SCH (20:05)
--- NOTE | 2019-01-01 21:03 | PN ---
Subjective: Patient feels well, feels great and wants to go home soon. Objective: General: She is afebrile and stable. Laboratory Data: Her white count today is 6.1, down from 10.1 yesterday, going in the right direction; H and H stable at 9.5 and 27.7; platelet count 195. Chemistries show creatinine is 2.0 which is down from yesterday of 2.6, high was 3.0 few days ago. DJ Stent really help her kidneys to improve. At this point, await on the urine culture and will adjust antibiotics to be given for about 2 weeks. She can follow up with me in the office and plan is to do cysto, stent removal, ureteroscopy to evaluate obstruction. KAYLA/SAMUEL Voice ID: [id number] Report ID: [id number] MTDD
[2019-01-02] MEDS: NACHLORIDE 0.45% 1,000 ML IV SCH ×2 (03:24→18:52)
[2019-01-02 04:57] LABS: Absolute Lymphocytes (CBC) 1.3 K/uL (0.7-4.9); Basophils % 0.9 % (0-1.3); Hematocrit 28.1 % (36.0-45.0); Lymphocytes % 22.1 % (15.3-44.8); MPV 8.2 fL (7.6-11.3); RBC Red Blood Cell Count 3.22 M/uL (3.86-4.86)
[2019-01-02 05:10] LABS: Albumin 2.1 g/dL (3.4-5.0); Magnesium 1.7 mg/dL (1.8-2.4); Phosphorus 3.1 mg/dL (2.5-4.9); Potassium 3.5 mmol/L (3.5-5.1)
[2019-01-02] MEDS: CEFTRIAXONE/SWI 1gm 1 GM/10 ML SYR IV SCH (08:40)
[2019-01-02] MEDS: GABAPENTIN 300 MG CAP PO SCH (08:41)
[2019-01-02] MEDS: METOPROLOL TAR 25 MG TAB PO SCH (08:41)
[2019-01-02] MEDS: CYANOCOBALAMIN 1,000 MCG TAB PO SCH (08:41)
[2019-01-02] MEDS: TAMSULOSIN 0.4 MG SR CAP PO SCH (08:41)
[2019-01-02] MEDS: INSULIN -REGULAR HUMAN 50 UNIT/0.5 ML ML SQ SCH ×4 (08:42→21:51)
[2019-01-02] MEDS: HEPARIN 5000 UNIT/ML 1 ML VIAL SQ SCH ×2 (08:43→21:51)
[2019-01-02] MEDS: INSULIN GLARGINE 100 UNITS/ML SQ SCH (08:43)
[2019-01-02] MEDS ORDERED: MAGNESIUM SULFATE 1 gm IVPB 1 GM/100 ML BAG IV ONE (09:00)
[2019-01-02] MEDS: SOD FERRIC GLUC COMPLX/SUCROSE 125 MG in NA CHLORIDE 0.9% 100 ML IV SCH (09:33)
--- NOTE | 2019-01-02 13:14 | P.PN ---
Subjective Date of Service: 01/02/19 Primary Care Provider: Dr DE LEON Chief Complaint: LLQ abdominal pain Subjective: No new changes, Doing well Patient denies any complaint today. Culture result is still pending. Serum creatinine has trended down. No fever. Physical Examination - Vital Signs Temperature: 97.4 F Blood Pressure: 153/76 Pulse: 81 Respirations: 15 Pulse Ox (%): 99 - Physical Exam General: Alert, In no apparent distress, Oriented x3 HEENT: Mucous membr. moist/pink Neck: JVD not distended Respiratory: Clear to auscultation bilaterally, Normal air movement Cardiovascular: No edema, Normal pulses, Regular rate/rhythm, Normal S1 S2, No murmurs Capillary refill: <2 Seconds Gastrointestinal: Normal bowel sounds, Soft and benign, Non-distended, No tenderness Musculoskeletal: No swelling Integumentary: No rashes Neurological: Normal speech - Studies Microbiology Data (last 24 hrs): 12/30/18 12:59 Wound - Drainage Gram Stain - Final Medications List Reviewed: Yes Assessment And Plan - Current Problems (Diagnosis) (1) Abdominal pain Current Visit: Yes Status: Acute Qualifiers: Abdominal location: left lower quadrant Qualified Code(s): R10.32 - Left lower quadrant pain (2) Acute renal failure Current Visit: Yes Status: Acute Qualifiers: Acute renal failure type: unspecified Qualified Code(s): N17.9 - Acute kidney failure, unspecified (3) Hydronephrosis Current Visit: Yes Status: Acute Qualifiers: Hydronephrosis type: with ureteropelvic junction obstruction Qualified Code (s): Q62.11 - Congenital occlusion of ureteropelvic junction (4) Diabetes Current Visit: Yes Status: Chronic Qualifiers: Diabetes mellitus type: type 2 Diabetes mellitus longterm insulin use: 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 Nephrology input appreciated Culture is growing gram-negative rods. I called microbiology and was told sample had to be recultured and organism identification and sensitivity will be available tomorrow. Continue current antibiotics Discontinue IV fluids for nephrology Increase activity as tolerated. Continue IV iron and B12 supplementation Continue Lantus insulin and insulin sliding scale for glucose management. Physician Review Additional Text: Impression:
[2019-01-02] MEDS: ATORVASTATIN 10 MG TAB PO SCH (21:51)
--- NOTE | 2019-01-03 00:16 | PN ---
Subjective: The patient is stable. We are just waiting for the culture from right renal pelvis to return. She seems to be growing gram-negative rods. Would like to know the culture and sensitivity prior to send her home on 14 days of antibiotics. Otherwise, should be ready to go back tomorrow once the cultures are finalized. KAYLA/SAMUEL Voice ID: [id number] Report ID: [id number] YARELI
--- NOTE | 2019-01-03 03:11 | PN ---
Date of Progress Note: 01/02/2019 Chief Complaint: Acute kidney injury, urinary tract infection, hydronephrosis with pyelonephritis. Creatinine level has improved. History Of Present Illness: Patient responded to IV fluids. Patient has been treated with antibiotics for urinary tract infection. Review of Systems: Denies fever or chills. Physical Examination: Lungs: Few crackles at bases. Heart: S1, S2. Abdomen: Soft and benign. Extremities: Slight edema. Laboratory Work: Hemoglobin 9.8, WBC 6.0, platelet count 236,000. Sodium 143, potassium 3.5, chloride 113, CO2 of 22, BUN 22, creatinine 1.7, glucose 187, magnesium 1.7, phosphorus 3.1, calcium 8.0. Impression And Plan: 1. Acute kidney injury. Creatinine level has gradually improved from 3.02 to 1.7. Continue IV fluids as needed. Patient is advancing with p.o. hydration. Continue antibiotics for urinary tract infection. Monitor electrolytes. Patient will receive replacement for hypomagnesemia, monitor potassium level and adjust replacement as needed. 2. Diabetes mellitus. Continue insulin. 3. Hydronephrosis, status post right stent placement. Follow up with Urology. VITOR/MODL Voice ID: [id number] Report ID: [id number] YARELI
[2019-01-03 06:07] LABS: Absolute Lymphocytes (CBC) 1.6 K/uL (0.7-4.9); Basophils % 1.3 % (0-1.3); Hematocrit 28.2 % (36.0-45.0); Lymphocytes % 25.5 % (15.3-44.8); MPV 8.2 fL (7.6-11.3); RBC Red Blood Cell Count 3.24 M/uL (3.86-4.86)
[2019-01-03 06:24] LABS: Albumin 2.2 g/dL (3.4-5.0); Magnesium 1.9 mg/dL (1.8-2.4); Phosphorus 3.6 mg/dL (2.5-4.9); Potassium 3.4 mmol/L (3.5-5.1)
[2019-01-03] MEDS: METOPROLOL TAR 25 MG TAB PO SCH (09:17)
[2019-01-03] MEDS: INSULIN GLARGINE 100 UNITS/ML SQ SCH (09:18)
[2019-01-03] MEDS: GABAPENTIN 300 MG CAP PO SCH (09:18)
[2019-01-03] MEDS: CYANOCOBALAMIN 1,000 MCG TAB PO SCH (09:18)
[2019-01-03] MEDS: TAMSULOSIN 0.4 MG SR CAP PO SCH (09:18)
[2019-01-03] MEDS: CEFTRIAXONE/SWI 1gm 1 GM/10 ML SYR IV SCH (09:18)
[2019-01-03] MEDS: INSULIN -REGULAR HUMAN 50 UNIT/0.5 ML ML SQ SCH (09:19)
[2019-01-03] MEDS: HEPARIN 5000 UNIT/ML 1 ML VIAL SQ SCH (09:19)
--- NOTE | 2019-01-03 09:34 | P.DS ---
Admission Date: 12/30/18 Discharge Date: 01/03/19 Primary Care Provider: Dr WARD Disposition: ROUTINE DISCHARGE Discharge Condition: GOOD Reason for Admission: LLQ abdominal pain Consultations: Nephrology Urology Procedures: Urography and Ureteral stent placement. 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 Patient was noted to be hyperglycemic in the ED. Blood work suggested the presence of MALGORZATA. CT abdomen and pelvis reported right hydronephrosis and hydroureter right down to the UPJ. UA also suggested the presence of UTI. Patient was admitted for further management. Hospital Course: Patient admitted to the medical floor and started on IV antibiotics. Nephrology and urology were consulted. Urogram was done and right ureteral stent was placed by Dr. Garcia. Her renal function and urine output improved after the ureteral stent placement. Her pain also resolved. Urine culture grew Escherichia Fergusoni which is murphy sensitive to several antibiotics. The patient will be discharged with oral Bactrim for [address] Garcia recommendation. Noted patient blood sugar was elevated. She was on Victoza for glucose management. Her hemoglobin A1c was 10. Patient was placed on Lantus insulin and insulin sliding scale. She will be discharged with Lantus insulin 15 units daily. She is informed to stop using the Victoza. Patient was noted to be anemic. Vitamin B12 level checked was borderline low and she was mildly iron deficient. Patient is prescribed by to B12 and iron supplementation. Vital Signs/Physical Exam: Temp Pulse Resp BP Pulse Ox 98.0 F 105 H 18 142/71 H 94 01/03/19 04:00 01/03/19 04:00 01/03/19 04:00 01/03/19 04:00 01/03/19 04:00 General: Alert, In no apparent distress, Oriented x3 HEENT: Mucous membr. moist/pink Neck: Supple, JVD not distended Respiratory: Clear to auscultation bilaterally, Normal air movement Cardiovascular: No edema, Regular rate/rhythm, Normal S1 S2, No murmurs Capillary refill: <2 Seconds Gastrointestinal: Normal bowel sounds, Soft and benign, Non-distended, No tenderness Musculoskeletal: No swelling, No tenderness Integumentary: No rashes Laboratory Data at Discharge: WBC 6.3 K/uL (4.3-10.9) 01/03/19 05:18 Hgb 9.8 g/dL (12.0-15.0) L 01/03/19 05:18 Hct 28.2 % (36.0-45.0) L 01/03/19 05:18 Plt Count 269 K/uL (152-406) 01/03/19 05:18 PT 13.8 SECONDS (9.5-12.5) H 12/29/18 06:17 INR 1.18 12/29/18 06:17 Sodium 144 mmol/L (136-145) 01/03/19 05:18 Potassium 3.4 mmol/L (3.5-5.1) L 01/03/19 05:18 BUN 16 mg/dL (7-18) 01/03/19 05:18 Creatinine 1.55 mg/dL (0.55-1.3) H 01/03/19 05:18 Glucose 167 mg/dL (74-106) H 01/03/19 05:18 Phosphorus 3.6 mg/dL (2.5-4.9) 01/03/19 05:18 Magnesium 1.9 mg/dL (1.8-2.4) 01/03/19 05:18 Total Bilirubin 0.6 mg/dL (0.2-1.0) 12/30/18 17:02 AST 28 U/L (15-37) 12/30/18 17:02 ALT 31 U/L (12-78) 12/30/18 17:02 Alkaline Phosphatase 86 U/L (45-117) 12/30/18 17:02 Lipase 41 U/L (73-393) L 12/30/18 05:29 Home Medications: ALPRAZolam [Alprazolam] 1 mg PO DAILY 12/29/18 Aspirin [Doug Chewable Aspirin] 1 tab PO DAILY 12/29/18 Gabapentin 600 mg PO DAILY 12/29/18 Losartan Potassium [Cozaar] 1 tab PO DAILY 12/29/18 Lovastatin 10 mg PO DAILY 12/29/18 Tramadol HCl [Ultram] 1 tab PO DAILY 12/29/18 Cyanocobalamin [Vitamin B-12*] 1,000 mcg PO DAILY 30 Days #30 tab 01/03/19 Ferrous Gluconate 324 mg PO DAILY 30 Days #30 tablet 01/03/19 Insulin Glargine Human [Lantus*] 15 units SQ DAILY WITH BREAKFAST 30 Days #1 vial 01/03/19 Metoprolol Tartrate [Lopressor*] 25 mg PO DAILY 30 Days #30 tab 01/03/19 Sulfamethoxazole/Trimethoprim [Bactrim Ds Tablet] 1 each PO BID #14 tablet 01/03 Tamsulosin [Flomax*] 0.4 mg PO DAILY 30 Days #30 cap 01/03/19 New Medications: Cyanocobalamin [Vitamin B-12*] 1,000 mcg PO DAILY 30 Days #30 tab Ferrous Gluconate 324 mg PO DAILY 30 Days #30 tablet Insulin Glargine Human [Lantus*] 15 units SQ DAILY WITH BREAKFAST 30 Days #1 vial Metoprolol Tartrate [Lopressor*] 25 mg PO DAILY 30 Days #30 tab Sulfamethoxazole/Trimethoprim [Bactrim Ds Tablet] 1 each PO BID #14 tablet Tamsulosin [Flomax*] 0.4 mg PO DAILY 30 Days #30 cap Diet: ADA Activity: Ad mata Followup: Rolando Ward MD [Primary Care Provider] - 1-2 Weeks (Call to schedule an appointment) Franchesca Garcia MD [ACTIVE - CAN ADMIT] - 1-2 Weeks (urologist- Call to schedule an appointment within 2 weeks) Time spent managing pt's care (in minutes): 38
[2019-01-03 09:36] VITALS: BP 182/84; TEMP 96.9
[2019-01-03] MEDS: SOD FERRIC GLUC COMPLX/SUCROSE 125 MG in NA CHLORIDE 0.9% 100 ML IV SCH (09:49)
[2019-01-03 10:29] VITALS: O2SAT 96
--- NOTE | 2019-01-04 15:00 | PN ---
Date of Progress Note: 01/03/2019 Ms. Padron is stable. Her urine culture finally came back that was sent from the right renal pelvis gr owing E coli, sensitive to Bactrim. We will send her home on 2 weeks of Bactrim DS 1 p.o. b.i.d. x14 days. Should follow up with me after that for ureteroscopy to evaluate the right distal ureter. KAYLA/SAMUEL Voice ID: [id number] Report ID: [id number]
== END 2019-01-03 11:23 | disposition home or self-care (01) | DRG 690 ==
LOC: ER 05:45 → ERHOLD 08:12 → INTOOBSV 08:12 → 4TH 10:36 → OBSVTOIN 12-30 16:23
PROVIDERS: ADMIT Family Medicine; ATTEND Family Medicine
PROC: 0T767DZ Dilation of Right Ureter with Intraluminal Device, Via Natural or Artificial Opening (ICD-10-PCS; 2018-12-30)
PROC: BT1DYZZ Fluoroscopy of Right Kidney, Ureter and Bladder using Other Contrast (ICD-10-PCS; principal; 2018-12-30 12:00)
DX: N13.6 Pyonephrosis (principal); B96.20 Unspecified Escherichia coli [E. coli] as the cause of diseases classified elsewhere; N17.0 Acute kidney failure with tubular necrosis; E11.65 Type 2 diabetes mellitus with hyperglycemia; Z79.4 Long term (current) use of insulin; N12 Tubulo-interstitial nephritis, not specified as acute or chronic; E66.9 Obesity, unspecified; Z68.37 Body mass index [BMI] 37.0-37.9, adult
CPT/HCPCS: 36415; 71045; 74176; 74420; 80048; 80053; 80069; 80076; 81001; 81003; 81015; 82010; 82570; 82607; 82728; 82947; 83036; 83540; 83605; 83690; 83735; 83880; 83970; 84156; 84443; 84466; 84484; 85025; 85610; 87070; 87077; 87086; 87088; 87186; 87205; 93005; 96374; 96375; 97116; 97161; 97530; 99284; G0378; J0696; J1580; J1644; J1815; J2405; J2704; J2916; J3010; J3420; J3475; J7030; J7040

== ENCOUNTER 2019-07-08 10:18 | Inpatient (IN) | payer OTHER ==
--- NOTE | 2019-07-08 11:00 | RAD REPORT ---
EXAM DESCRIPTION: [facility] Single View07/08/2019 10:48 am CLINICAL HISTORY: Chest pain COMPARISON: 2018 FINDINGS: The lungs appear clear of acute infiltrate. The heart is normal size IMPRESSION: No acute abnormalities displayed
[2019-07-08 11:17] LABS: Absolute Lymphocytes (CBC) 1.6 K/uL (0.7-4.9); Basophils % 0.8 % (0-1.3); Hematocrit 38.7 % (36.0-45.0); Lymphocytes % 16.9 % (15.3-44.8); MPV 8.5 fL (7.6-11.3); RBC Red Blood Cell Count 4.36 M/uL (3.86-4.86)
--- NOTE | 2019-07-08 11:17 | RAD REPORT ---
EXAM DESCRIPTION: CT - Head Brain Wo Cont - 07/08/2019 10:53 am CLINICAL HISTORY: Alteration of awareness/confusion COMPARISON: None TECHNIQUE: Computed axial tomography of the head was obtained. IV contrast was not requested. All CT scans are performed using dose optimization technique as appropriate and may include automated exposure control or mA/KV adjustment according to patient size. FINDINGS: An intracranial bleed is not seen . The ventricles are normal in caliber. No extra-axial fluid collection is noted. A 8.5 centimeter low-density area prominently left occipital lobe. A portion of left temporal lobe is involved Fluid within the sinuses/ mastoids is not seen. IMPRESSION: 8.5 centimeter low-density area predominantly left occipital lobe consistent with acute infarction. Julian of the emergency room notified 11:10 a.m. July 08, 2019
[2019-07-08 11:18] LABS: Protime INR 1.12
[2019-07-08 11:25] LABS: Urine Blood TRACE (NEG); Urine Glucose 2+ (NEG); Urine Protein 1+ (NEG); Urine Specific Gravity 1.025 (1.005-1.030); Urine pH 5.5 (5.0-7.0)
[2019-07-08 11:25] LABS: ALT/SGPT 29 U/L (12-78); AST/SGOT 22 U/L (15-37); Albumin 3.1 g/dL (3.4-5.0); Alkaline Phosphatase 83 U/L (45-117); BUN Blood Urea Nitrogen 16 mg/dL (7-18); Bicarbonate 26 mmol/L (21-32); Bilirubin Direct < 0.1 mg/dL (0-0.2); Bilirubin Total 0.3 mg/dL (0.2-1.0); Creatine Phosphokinase 65 U/L (26-192); Glucose Level 327 mg/dL (74-106); Lipase 88 U/L (73-393); Potassium 4.5 mmol/L (3.5-5.1); Protein, Total 8.5 g/dL (6.4-8.2); Sodium Level 135 mmol/L (136-145); Troponin (Emerg Dept Use Only) < 0.02 ng/mL (0.0-0.045)
[2019-07-08 11:31] LABS: Barbiturates NEGATIVE (NEGATIVE); Benzodiazepines POSITIVE (NEGATIVE); Cocaine NEGATIVE (NEGATIVE); METHAMPHETAM NEGATIVE (NEGATIVE); Methadone NEGATIVE (NEGATIVE); Opiates NEGATIVE (NEGATIVE); Phencyclidine NEGATIVE (NEGATIVE); THC Cannibis NEGATIVE (NEGATIVE)
[2019-07-08 11:35] LABS: Urine Bacteria >50 /HPF (<20); Urine Culture Reflex Order REFLEXED; Urine RBC 20-50 /HPF (NONE SEEN); Urine White Blood Cell Casts 0-5 /LPF (NONE SEEN)
--- NOTE | 2019-07-08 12:10 | ER ---
Nurse's Notes [facility] Name: Sissy Padron Age: 73 yrs Sex: Female : 1945 Arrival Date: 07/08/2019 Time: 10:19 Bed 4 Private MD: Diagnosis: Cerebral infarction;Urinary tract infection, site not specified;Altered mental status, unspecified Presentation: 07/07 10:19 Chief complaint: EMS states: Son reports that he heard pt fall 2 nights ago, helped her ph back into bed, states that pt has been confused since fall, pt able to ambulate to stretcher w/ no difficulty, oriented to person only, BP 175/90, HR 80s, BGL 354, pt is a diabetic but it is unknown if pt has been taking medication. Coronavirus screen: Patient denies a cough. Patient denies shortness of breath or difficulty breathing. Patient denies measured and/or subjective temperature greater than 100.4F prior to today's visit. Patient denies travel on a cruise ship or to a country the [facility] currently lists as an affected area. Patient denies contact with known and/or suspected case of COVID-19. Ebola Screen: No symptoms or risks identified at this time. Onset of symptoms was July 08, 2019. 10:19 Method Of Arrival: EMS: [facility] ph 10:19 Acuity: MARCELO 2 ph 10:24 Initial Sepsis Screen: Does the patient meet any 2 criteria? Altered Mental Status. ph Does the patient have a suspected source of infection? No. Patient's initial sepsis screen is negative. Risk Assessment: Do you want to hurt yourself or someone else? Patient reports no desire to harm self or others. Historical: - Allergies: 10:24 Codeine; ph 10:24 PENICILLINS; ph - Home Meds: 10:26 aspirin 81 mg Oral TbEC 1 tab once daily [Active]; duloxetine 60 mg oral cpDR 1 cap em once daily [Active]; tramadol 50 mg Oral tab [Active]; losartan 50 mg oral tab [Active]; gabapentin 600 mg Oral tab [Active]; omeprazole 20 mg Oral cpDR [Active]; metoprolol tartrate 100 mg Oral tab [Active]; alprazolam 1 mg Oral tab [Active]; - PMHx: 10:24 Diabetes - IDDM; Hypertension; Anxiety; neuropathy; ph - PSHx: 10:24 Hysterectomy; Cholecystectomy; right ankle; right knee sx; left hip replacement; ph - Immunization history:: Adult Immunizations unknown. - Social history:: Smoking status: unknown. Screenin:25 Abuse screen: Denies threats or abuse. Denies injuries from another. Nutritional ph screening: No deficits noted. Tuberculosis screening: No symptoms or risk factors identified. Fall Risk None identified. 12:24 Patient has been NPO before screening. The patient is alert, able to follow commands. ph The patient does not exhibit slurred or garbled speech The patient is not exhibiting difficulty speaking. The patient does not exhibit difficulty understanding words. The patient is able to swallow own secretions with no drooling or need for suction. Patient tolerated one teaspoon of water. No drooling, immediate coughing, gurgling, or clearing of the throat was noted. The patient tolerated 90mL of water. No drooling, immediate coughing, gurgling, or clearing of the throat was noted. The patient passed the bedside swallow screening. Oral medications may be given as ordered. Contact Physician for further diet orders. Provider notified of bedside swallow screening results: Melo PONCE. Assessment: 10:43 General: Appears in no apparent distress. comfortable, obese, well groomed, Behavior is ph cooperative, flat, quiet. Pain: Denies pain. Neuro: Level of Consciousness is awake, obeys commands, confused, Oriented to person, Moves all extremities. Cardiovascular: Capillary refill < 3 seconds in bilateral fingers Patient's skin is warm and dry. Respiratory: Airway is patent Respiratory effort is even, unlabored. GI: Abdomen is round non-distended, Patient currently denies abdominal pain. Derm: Skin is intact, Skin is pink, warm \T\ dry. redness noted to forehead and bilateral cheeks. Musculoskeletal: Circulation, motion, and sensation intact. Range of motion: intact in all extremities. 12:27 Reassessment: Patient appears in no apparent distress at this time. Patient and/or ph family updated on plan of care and expected duration. Pain level reassessed. Pt awake and alert, oriented to person only, passed swallow screen w/ no difficulty noted, VSS, awaiting room assignment. 15:00 Reassessment: Patient appears in no apparent distress at this time. Patient and/or ph family updated on plan of care and expected duration. Pain level reassessed. Pt taken to MRI via stretcher. 15:28 Reassessment: Report called to Arabella PETERS, pt to be taken to floor after returning from MRI. 16:09 Reassessment: Pt remains in MRI. ph 17:05 Reassessment: Pt returned from MRI, preparing to go to inpatient room. ph 17:28 Reassessment: Patient appears in no apparent distress at this time. No changes from previously documented assessment. Patient and/or family updated on plan of care and expected duration. Pain level reassessed. PT d/c own IV, catheter appears intact. Vital Signs: 10:24 BP 164 / 93; Pulse 90; Resp 18; Pulse Ox 95% on R/A; ph 10:31 Temp 98.3(O); em 11:15 BP 171 / 78; Pulse 74; Resp 16; Pulse Ox 98% on R/A; ph 12:06 BP 160 / 93; Pulse 74; Resp 16; Temp 98.1; Pulse Ox 100% on R/A; mh5 17:08 BP 156 / 93; Pulse 59; Resp 18; Temp 97.9; Pulse Ox 95% on R/A; ph NIH Stroke Scale Scores: 11:49 NIHSS Score: 7 jr8 ED Course: 10:19 Patient arrived in ED. ph 10:22 Triage completed. ph 10:25 Melo Sands PA is PHCP. jr8 10:25 Jd Herrera MD is Attending Physician. jr8 10:25 Patient has correct armband on for positive identification. Bed in low position. Call ph light in reach. Side rails up X 1. Pulse ox on. NIBP on. Door closed. Noise minimized. Warm blanket given. 10:25 Arm band placed on Patient placed in an exam room. ph 10:27 Jayde Barrera, FRAN is Primary Nurse. ph 10:44 Initial lab(s) drawn, by me, sent to lab. Maintain EMS IV. Dressing intact. Good blood ph return noted. Site clean \T\ dry. Gauge \T\ site: 20 LAC. 10:48 Chest Single View XRAY In Process Unspecified. EDMS 10:52 CT Head Brain wo Cont In Process Unspecified. EDMS 11:14 Straight cath inserted, using sterile technique, 14 Fr. Specimen obtained. Returned ph clear yellow urine. Patient tolerated well. 12:10 Ana Maria Laughlin MD is Hospitalizing Provider. jr8 15:29 No provider procedures requiring assistance completed. Patient transferred, IV remains ph in place. 17:28 Inserted saline lock: 22 gauge in left antecubital area, using aseptic technique. ph Administered Medications: 12:26 Drug: foLIC Acid 1 mg Route: IVPB; Site: left forearm; ph 15:16 Follow up: Response: No adverse reaction; IV Status: Completed infusion ph 12:26 Drug: PlaVIX 75 mg Route: PO; ph 15:16 Follow up: Response: No adverse reaction ph 12:26 Drug: Aspirin 81 mg Route: PO; ph 15:16 Follow up: Response: No adverse reaction ph 14:25 Drug: Insulin Regular Human 10 units {Co-Signature: elizabeth (Mich Blake RN).} Route: IVP; ph Site: left antecubital; 15:17 Follow up: Response: No adverse reaction ph 14:25 Drug: NS 0.9% 500 ml Route: IV; Rate: bolus; Site: left antecubital; ph 15:15 Follow up: Response: No adverse reaction; IV Status: Completed infusion; IV Intake: ph 500ml 14:28 Drug: Rocephin 1 grams Route: IV; Rate: calculated rate; Site: left antecubital; ph 14:45 Follow up: Response: No adverse reaction; IV Status: Completed infusion ph 15:35 Drug: Ativan 1 mg Route: IVP; Site: left antecubital; hb 17:29 Follow up: Response: No adverse reaction ph 16:20 Drug: Ativan 1 mg Route: IVP; Site: left antecubital; ph 17:29 Follow up: Response: No adverse reaction ph Intake: 15:15 IV: 500ml; Total: 500ml. ph Outcome: 12:10 Decision to Hospitalize by Provider. jr8 17:28 Admitted to Tele accompanied by tech, via stretcher, room 213, with chart, Report ph called to Barb PETERS 17:28 Condition: stable 17:28 Instructed on the need for admit. 17:31 Patient left the ED. ph NIH Stroke Scale - NIH Stroke Score Date: 07/08/2019 Time: 11:49 Total Score = 7 1a. Level of Consciousness (LOC) - 0(Alert) 1b. Level of Consciousness (LOC) (Year \T\ Age) - 2(Neither) 1c. LOC Commands (Open \T\ Closes Eyes/Nutrition Worker) - 0(Both) 2. Best Gaze (Lateral Gaze Paresis) - 0(Normal) 3. Visual Field Loss - 1(Partial hemianopia) 4. Facial Palsy - 0(Normal) 5a. Left Arm: Motor (10-second hold) - 0(No drift) 5b. Right Arm: Motor (10-second hold) - 0(No drift) 6a. Left Leg: Motor (5-second hold - always test supine) - 0(No drift) 6b. Right Leg: Motor (5-second hold - always test supine) - 0(No drift) 7. Limb Ataxia (finger/nose \T\ heel/[place] - test with eyes open) - 2(Present in two limbs) 8. Sensory Loss (pinprick arms/legs/face) - 0(Normal) 9. Best Language: Aphasia (description/naming/reading) - 2(Severe aphasia) 10. Dysarthria (speech clarity - read or repeat words) - 0(Normal) 11. Extinction and Inattention (visual/tactile/auditory/spatial/personal) - 0(No abnormality) Initials: isaac Signatures: Dispatcher [employer] Mich Tim, FRAN PETERS em Melo Sands PA PA jr8 Jayde Barrera RN RN Yasmin Bowman RN RN hb Martinez, Maria [facility] Mich Blake RN
--- NOTE | 2019-07-08 12:11 | EDPHYS ---
Physician Documentation [facility] Name: Sissy Padron Age: 73 yrs Sex: Female : 1945 Arrival Date: 07/08/2019 Time: 10:19 Bed 4 Private MD: ED Physician Jd Herrera HPI: 07/07 11:37 This 73 yrs old Female presents to ER via EMS with complaints of Altered jr8 Mental Status. 11:37 The patient presents with confusion, decreased mental status, decreased responsiveness. jr8 Onset: The symptoms/episode began/occurred gradually, 2 week(s) ago, and became persistent 2 days ago. Possible causes: unknown. Associated signs and symptoms: Pertinent positives: gait abnormality, falls. Current symptoms: In the emergency department the patient's symptoms are unchanged from the initial presentation. Patient's baseline: Neuro: alert and fully oriented, Motor: no deficits, Ambulation: walks without assistance, Speech: normal. The patient has not experienced similar symptoms in the past. The patient has not recently seen a physician. 11:37 Family called EMS after altered mentation became worse. Thought it may be her diabetes jr8 which is why they had not brought her in until now. EMS stated that they had told them that they were hoping it was going to resolve . Historical: - Allergies: 10:24 Codeine; ph 10:24 PENICILLINS; ph - Home Meds: 10:26 aspirin 81 mg Oral TbEC 1 tab once daily [Active]; duloxetine 60 mg oral cpDR 1 cap em once daily [Active]; tramadol 50 mg Oral tab [Active]; losartan 50 mg oral tab [Active]; gabapentin 600 mg Oral tab [Active]; omeprazole 20 mg Oral cpDR [Active]; metoprolol tartrate 100 mg Oral tab [Active]; alprazolam 1 mg Oral tab [Active]; - PMHx: 10:24 Diabetes - IDDM; Hypertension; Anxiety; neuropathy; ph - PSHx: 10:24 Hysterectomy; Cholecystectomy; right ankle; right knee sx; left hip replacement; ph - Immunization history:: Adult Immunizations unknown. - Social history:: Smoking status: unknown. ROS: 11:37 Unable to obtain ROS due to altered mental status. jr8 Exam: 11:37 Head/Face: Normocephalic, atraumatic. jr8 11:37 Constitutional: The patient appears alert, awake, non-toxic. 11:37 Eyes: Periorbital structures: appear normal, Pupils: right pupil slow/sluggish to respond with direct visual light. Accommodated appropriately. Left pupil normal , Extraocular movements: intact throughout, Conjunctiva: normal, Corneas: are normal, Sclera: no appreciated abnormality, Anterior chamber: normal, Lids and lashes: appear normal. 11:37 ENT: Exam is negative for nasal discharge, pharyngitis, exudate, abnormal voice. 11:37 Neck: External neck: is normal, ROM/movement: is normal, Lymph nodes: no appreciated lymphadenopathy. 11:37 Cardiovascular: Rate: normal, Rhythm: regular, Pulses: Pulses are 2+ in right radial artery and left radial artery. Heart sounds: normal, normal S1and S2, no S3 or S4, no murmur, no rub, no gallop, Edema: is not appreciated, JVD: is not appreciated. 11:37 ECG was reviewed by the Attending Physician. 11:49 Respiratory: Lungs have equal breath sounds bilaterally, clear to auscultation and jr8 percussion. No rales, rhonchi or wheezes noted. No increased work of breathing, no retractions or nasal flaring. Abdomen/GI: Soft, non-tender, with normal bowel sounds. No distension or tympany. No guarding or rebound. No evidence of tenderness throughout. Back: No spinal tenderness. No costovertebral tenderness. Full range of motion. Skin: Warm, dry with normal turgor. Normal color with no rashes, no lesions, and no evidence of cellulitis. 11:49 Neuro: Orientation: to person, Not oriented to place, time, situation, Mentation: able to follow commands, slow to respond, confused, Memory: unable to test, Cranial nerves: CN I not tested, hononymous hemianopia noted, extraocular movements are intact, Facial palsy and sensory deficits are absent. Cerebellar function: dysmetria is noted on both sides, Motor: moves all fours, Sensation: no obvious gross deficits, Gait: not tested. seizure activity, is not displayed by the patient, Abnormal movements: there are no abnormal movements. Vital Signs: 10:24 BP 164 / 93; Pulse 90; Resp 18; Pulse Ox 95% on R/A; ph 10:31 Temp 98.3(O); em 11:15 BP 171 / 78; Pulse 74; Resp 16; Pulse Ox 98% on R/A; ph 12:06 BP 160 / 93; Pulse 74; Resp 16; Temp 98.1; Pulse Ox 100% on R/A; mh5 17:08 BP 156 / 93; Pulse 59; Resp 18; Temp 97.9; Pulse Ox 95% on R/A; ph NIH Stroke Scale Scores: 11:49 NIHSS Score: 7 jr8 MDM: 10:25 Patient medically screened. jr8 12:09 Data reviewed: vital signs, nurses notes, lab test result(s), EKG, radiologic studies, jr CT scan, plain films. Data interpreted: Pulse oximetry: on room air is 100 %. Interpretation: normal. Counseling: I had a detailed discussion with the patient and/or guardian regarding: the historical points, exam findings, and any diagnostic results supporting the discharge/admit diagnosis, lab results, radiology results, the need for further work-up and treatment in the hospital. Physician consultation: Yordan Gomez MD regarding consult, and will see patient in inpatient room. ED course: Dr. Laughlin will admit to [facility] . 07/07 10:27 Order name: Basic Metabolic Panel [facility] 07/07 10:27 Order name: Blood Culture Adult (2) [facility] 07/07 10:27 Order name: CBC with Diff 07/07 10:27 Order name: CPK; Complete Time: 11:30 07/07 10:27 Order name: Lactate; Complete Time: 11:30 [facility] 07/07 10:27 Order name: LFT's; Complete Time: 11:30 07/07 10:27 Order name: Lipase; Complete Time: 11:30 07/07 10:27 Order name: Procalcitonin; Complete Time: 12:07 07/07 10:27 Order name: Protime (+inr); Complete Time: 11:30 07/07 10:27 Order name: Ptt, Activated; Complete Time: 11:30 07/07 10:27 Order name: Troponin (emerg Dept Use Only); Complete Time: 11:30 07/07 10:27 Order name: Urine Microscopic Only; Complete Time: 11:36 07/07 10:27 Order name: AMMONIA; Complete Time: 11:30 jr8 07/07 10:27 Order name: ABG jr8 07/07 10:27 Order name: Chest Single View XRAY; Complete Time: 11:29 jr8 07/07 10:27 Order name: CT Head Brain wo Cont; Complete Time: 11:30 jr8 07/07 10:27 Order name: UDS; Complete Time: 11:32 jr8 07/07 10:27 Order name: Basic Metabolic Panel; Complete Time: 11:30 EDMS 07/07 10:27 Order name: Blood Culture EDMS 07/07 10:27 Order name: CBC with Automated Diff; Complete Time: 11:30 EDMS 07/07 10:40 Order name: Glucose, Ancillary Testing; Complete Time: 11:29 EDMS 07/07 11:15 Order name: Urine Dipstick--Ancillary (enter results); Complete Time: 11:30 em1 07/07 11:37 Order name: Urine Culture EDMS 07/07 13:44 Order name: Echo with Doppler EDMS 07/07 13:44 Order name: Protime (+INR); Complete Time: 16:47 EDMS 07/07 13:44 Order name: PTT, Activated Partial Thromb; Complete Time: 16:47 EDMS 07/07 13:44 Order name: Troponin I; Complete Time: 16:47 EDMS 07/07 13:44 Order name: Troponin I; Complete Time: 21:32 EDMS 07/07 13:44 Order name: MRA Head Wo Cont; Complete Time: 21:32 EDMS 07/07 15:17 Order name: Lactate Sepsis 2 HR Follow-up; Complete Time: 16:47 EDMS 07/07 10:27 Order name: Cath; Complete Time: 11:14 8 07/07 10:27 Order name: Accucheck; Complete Time: 10:31 jr8 07/07 10:27 Order name: Cardiac monitoring; Complete Time: 10:31 jr8 07/07 10:27 Order name: EKG - Nurse/Tech; Complete Time: 10:55 8 07/07 10:27 Order name: IV Saline Lock - Large Bore; Complete Time: 10:31 8 07/07 10:27 Order name: Labs collected and sent; Complete Time: 10:8 07/07 10:27 Order name: O2 Per Protocol; Complete Time: 10:31 jr8 07/07 10:27 Order name: O2 Sat Monitoring; Complete Time: 10:31 jr8 07/07 10:27 Order name: Urine Dipstick-Ancillary (obtain specimen); Complete Time: 11:14 jr8 07/07 13:43 Order name: Case Management Consult EDMS 07/07 13:43 Order name: CONS Pharmacy Consult EDMS 07/07 13:44 Order name: CONS Physician Consult EDMS 07/07 13:44 Order name: CONS Physician Consult EDMS 07/07 13:44 Order name: CONS Rehab Consult EDMS 07/07 13:44 Order name: Occupational Therapy Consult EDMS 07/07 13:44 Order name: Physical Therapy Consult EDMS 07/07 13:44 Order name: Consistent Carb (ADA) [address] EDMS 07/07 13:44 Order name: MRA Neck With Cont EDMS 07/07 13:44 Order name: Carotid Artery Bilateral; Complete Time: 16:47 EDMS 07/07 17:06 Order name: MRI; Complete Time: 21:32 EDMS EC:37 Rate is 79 beats/min. Rhythm is regular, Normal Sinus Rhythm. QRS [place] is Normal. [place] jr8 interval is normal at 196 msec. QRS interval is normal at 78 msec. QT interval is normal at 410 msec. Q waves are Present in leads III, V1. T waves are Flattened. No ST changes noted. Clinical impression: NSR w/ Non-specific ST/T Changes and No evidence of ischemia. Interpreted by me. Reviewed by me. Administered Medications: 12:26 Drug: foLIC Acid 1 mg Route: IVPB; Site: left forearm; ph 15:16 Follow up: Response: No adverse reaction; IV Status: Completed infusion ph 12:26 Drug: PlaVIX 75 mg Route: PO; ph 15:16 Follow up: Response: No adverse reaction ph 12:26 Drug: Aspirin 81 mg Route: PO; ph 15:16 Follow up: Response: No adverse reaction ph 14:25 Drug: Insulin Regular Human 10 units {Co-Signature: em (Mich Blake RN).} Route: IVP; ph Site: left antecubital; 15:17 Follow up: Response: No adverse reaction ph 14:25 Drug: NS 0.9% 500 ml Route: IV; Rate: bolus; Site: left antecubital; ph 15:15 Follow up: Response: No adverse reaction; IV Status: Completed infusion; IV Intake: ph 500ml 14:28 Drug: Rocephin 1 grams Route: IV; Rate: calculated rate; Site: left antecubital; ph 14:45 Follow up: Response: No adverse reaction; IV Status: Completed infusion ph 15:35 Drug: Ativan 1 mg Route: IVP; Site: left antecubital; hb 17:29 Follow up: Response: No adverse reaction ph 16:20 Drug: Ativan 1 mg Route: IVP; Site: left antecubital; ph 17:29 Follow up: Response: No adverse reaction ph Disposition: 07/08 11:27 Co-signature as Attending Physician, Jd Herrera MD I agree with the assessment and krystle plan of care. Disposition: 07/08/19 12:10 Hospitalization ordered by Ana Maria Laughlin for Inpatient Admission. Preliminary diagnosis are Cerebral infarction, Urinary tract infection, site not specified, Altered mental status, unspecified. - Bed requested for Telemetry/MedSurg (Inpatient). - Status is Inpatient Admission. ph - Condition is Fair. - Problem is new. - Symptoms are unchanged. NIH Stroke Scale - NIH Stroke Score Date: 07/08/2019 Time: 11:49 Total Score = 7 1a. Level of Consciousness (LOC) - 0(Alert) 1b. Level of Consciousness (LOC) (Year \T\ Age) - 2(Neither) 1c. LOC Commands (Open \T\ Closes Eyes/Software Engineer Backend) - 0(Both) 2. Best Gaze (Lateral Gaze Paresis) - 0(Normal) 3. Visual Field Loss - 1(Partial hemianopia) 4. Facial Palsy - 0(Normal) 5a. Left Arm: Motor (10-second hold) - 0(No drift) 5b. Right Arm: Motor (10-second hold) - 0(No drift) 6a. Left Leg: Motor (5-second hold - always test supine) - 0(No drift) 6b. Right Leg: Motor (5-second hold - always test supine) - 0(No drift) 7. Limb Ataxia (finger/nose \T\ heel/[place] - test with eyes open) - 2(Present in two limbs) 8. Sensory Loss (pinprick arms/legs/face) - 0(Normal) 9. Best Language: Aphasia (description/naming/reading) - 2(Severe aphasia) 10. Dysarthria (speech clarity - read or repeat words) - 0(Normal) 11. Extinction and Inattention (visual/tactile/auditory/spatial/personal) - 0(No abnormality) Initials: jr8 Signatures: Dispatcher [employer] Jd Ruiz MD MD cha Munoz, Edgar, FRAN RN em Jaren Barbosa em1 Melo Sands PA PA jr8 Jayde Barrera RN RN Yasmin Bowman RN RN Mich Blake RN em Corrections: (The following items were deleted from the chart) 07/07 12:48 12:10 Hospitalization Ordered by Ana Maria Laughlin MD for Inpatient Admission. jr8 Preliminary diagnosis is Cerebral infarction. Bed requested for Telemetry/MedSurg (Inpatient). Status is Inpatient Admission. Condition is Fair. Problem is new. Symptoms are unchanged. jr8 14:21 12:48 07/08/2019 12:10 Hospitalization Ordered by Ana Maria Laughlin MD for em1 Inpatient Admission. Preliminary diagnosis is Cerebral infarction; Urinary tract infection, site not specified; Altered mental status, unspecified. Bed requested for Telemetry/MedSurg (Inpatient). Status is Inpatient Admission. Condition is Fair. Problem is new. Symptoms are unchanged. jr8 17:31 14:21 07/08/2019 12:10 Hospitalization Ordered by Ana Maria Laughlin MD for ph Inpatient Admission. Preliminary diagnosis is Cerebral infarction; Urinary tract infection, site not specified; Altered mental status, unspecified. Bed requested for Telemetry/MedSurg (Inpatient). Status is Inpatient Admission. Condition is Fair. Problem is new. Symptoms are unchanged. em1
[2019-07-08] MEDS ORDERED: CLOPIDOGREL 75 MG TABLET ONE (12:25)
[2019-07-08] MEDS ORDERED: ASPIRIN 81 MG CHEWABLE TABLET ONE (12:25)
[2019-07-08] MEDS ORDERED: FOLIC ACID 5 MG/ML VIAL ONE (12:27)
[2019-07-08] MEDS ORDERED: ONDANSETRON 4 MG/2 ML VIAL IV PRN (13:35)
[2019-07-08] MEDS ORDERED: ACETAMINOPHEN 500 MG TAB PO PRN (13:35)
[2019-07-08] MEDS ORDERED: ALBUTEROL 2.5 MG/3 ML NEB SOL NEB PRN (13:35)
--- NOTE | 2019-07-08 13:35 | P.HP ---
Certification for Inpatient With expected LOS: >2 Midnights Patient will require the following post-hospital care: Custodial Practitioner: I am a practitioner with admitting privileges, knowledge of patient current condition, hospital course, and medical plan of care. Services: Services provided to patient in accordance with Admission requirements found in Title 42 Section 412.3 of the Code of Federal Regulations Patient History Date of Service: 07/08/19 Reason for admission: Recurrent falls, altered mental status History of Present Illness: 73-year-old female with past medical history of HTN, dm, HLD, admitted because of progressive weakness, lethargy and intermittent confusion since the last 3 weeks. She has also been having recurrent falls. Family has initially felt it was due to her own controlled diabetes. However patient had a fall yesterday and shows but today because of persistent confusion. In the ER she had elevated glucose as well as evidence of urinary tract infection. A head CT done for noted poor right eye movement shows evidence of left occipital lobe infarct of 8 mm size. Neurology has been consulted. She has been admitted for CVA with encephalopathy. Allergies naproxen Allergy (Intermediate, Verified 06/05/11 13:29) Hives/Rash codeine Allergy (Verified 12/29/18 16:30) Itching/Hives/Rash Penicillins Allergy (Verified 12/29/18 16:30) Itching/Hives/Rash morphine Adverse Reaction (Mild, Verified 12/30/18 01:10) confusion Home Medications: ALPRAZolam [Alprazolam] 1 mg PO DAILY 12/29/18 Aspirin [Doug Chewable Aspirin] 1 tab PO DAILY 12/29/18 Gabapentin 600 mg PO DAILY 12/29/18 Losartan Potassium [Cozaar] 1 tab PO DAILY 12/29/18 Lovastatin 10 mg PO DAILY 12/29/18 Tramadol HCl [Ultram] 1 tab PO DAILY 12/29/18 Cyanocobalamin [Vitamin B-12*] 1,000 mcg PO DAILY 30 Days #30 tab 01/03/19 Ferrous Gluconate 324 mg PO DAILY 30 Days #30 tablet 01/03/19 Insulin Glargine Human [Lantus*] 15 units SQ DAILY WITH BREAKFAST 30 Days #1 vial 01/03/19 Metoprolol Tartrate [Lopressor*] 25 mg PO DAILY 30 Days #30 tab 01/03/19 Sulfamethoxazole/Trimethoprim [Bactrim Ds Tablet] 1 each PO BID #14 tablet 01/03/19 Tamsulosin [Flomax*] 0.4 mg PO DAILY 30 Days #30 cap 01/03/19 - Past Medical/Surgical History Diabetic: Yes -: Hypertension -: Diabetes -: Hyperlipidemia -: Obesity -: hysterectomy -: right knee surgery -: left hip replacement -: both wrist surgery -: cholecystectomy - Social History Alcohol use: No CD- Drugs: No Caffeine use: Yes Physical Examination - Studies Laboratory Data (last 24 hrs) 07/08/19 10:35: PT 13.2 H, INR 1.12, APTT 28.2 07/08/19 10:35: WBC 9.7, Hgb 13.1, Hct 38.7, Plt Count 227 07/08/19 10:35: Sodium 135 L, Potassium 4.5, BUN 16, Creatinine 1.39 H, Glucose 327 H, Total Bilirubin 0.3, AST 22, ALT 29, Alkaline Phosphatase 83, Lipase 88 Assessment and Plan - Advance Directives Does patient have a Living Will: No Does patient have a Durable POA for Healthcare: No
[2019-07-08] MEDS ORDERED: HYDRALAZINE HCL 20 MG/ML VIAL IV PRN (13:37)
[2019-07-08] MEDS ORDERED: GLUCAGON 1 MG/VIAL IM PRN (13:42)
[2019-07-08] MEDS ORDERED: D50W 25 GM/50 ML SYRINGE/VIAL IV PRN (13:42)
[2019-07-08] MEDS ORDERED: CLOPIDOGREL 75 MG TABLET PO SCH (13:52)
[2019-07-08] MEDS: FOLIC ACID 1 MG TABLET PO SCH (14:00)
[2019-07-08] MEDS ORDERED: NA CHLORIDE 0.9% 500 ML ONE (14:14)
[2019-07-08] MEDS ORDERED: INSULIN -REGULAR HUMAN 50 UNIT/0.5 ML ML ONE (14:14)
[2019-07-08] MEDS ORDERED: CEFTRIAXONE/SWI 1gm 1 GM/10 ML SYR ONE (14:14)
--- NOTE | 2019-07-08 15:06 | RAD REPORT ---
EXAM DESCRIPTION: - CP - 07/08/2019 2:51 pm CLINICAL HISTORY: cva Headache, drowsiness COMPARISON: CAROTID ARTERY BILATERAL dated 03/26/2007 TECHNIQUE: Real-time sonographic evaluation of both carotid systems was performed. Doppler interroga tion was performed with waveform tracing bilaterally. FINDINGS: Normal high resistance waveforms are noted in both external carotid arteries. The common c arotid arteries and internal carotid arteries show normal low resistance waveforms. The right internal carotid artery could not be well visualized. The left internal carotid artery show s mild hard plaque in the proximal left ICA. Antegrade flow seen in both vertebral arteries. IMPRESSION: Mild hard plaquing proximal left internal carotid artery. The right internal carotid artery could not be well visualized or evaluated sonographically.
[2019-07-08 15:16] LABS: Protime INR 1.16
--- NOTE | 2019-07-08 15:21 | ECHO ---
HEIGHT: ft in WEIGHT: lb oz DATE OF STUDY: 07/08/[address]: Ana Maria Laughlin MD 2-DIMENSIONAL: YES M.MODE: YES DOPPLER: YES COLOR FLOW: YES TDS: PORTABLE: DEFINITY: BUBBLE STUDY: DIAGNOSIS: CEREBRAL VASCULAR ACCIDENT, RULE OUT VEGETATION CARDIAC HISTORY: CATHERIZATION: SURGERY: PROSTHETIC VALVE: PACEMAKER: MEASUREMENTS (cm) DIASTOLIC (NORMALS) SYSTOLIC (NORMALS) IVSd 0.8 (0.6-1.2) LA Diam 3.9 (1.9-4.0) LVEF 77% LVIDd 4.8 (3.5-5.7) LVIDs 2.6 (2.0-3.5) %FS 46% LVPWd 0.9 (0.6-1.2) Ao Diam 3.3 (2.0-3.7) 2 DIMENSIONAL ASSESSMENT: RIGHT ATRIUM: NORMAL LEFT ATRIUM: NORMAL RIGHT VENTRICLE: NORMAL LEFT VENTRICLE: NORMAL TRICUSPID VALVE: NORMAL MITRAL VALVE: NORMAL PULMONIC VALVE: NORMAL AORTIC VALVE: NORMAL PERICARDIAL EFFUSION: NONE AORTIC ROOT: NORMAL LEFT VENTRICULAR WALL MOTION: NORMAL DOPPLER/COLOR FLOW: NORMAL COMMENTS: NORMAL 2-DIMENSIONAL ECHOCARDIOGRAM. NO VEGETATION. NO THROMBUS. NO WALL MOTION ABNORMALITY. NO EFFUSION. TECHNOLOGIST: MAG VERA
[2019-07-08] MEDS ORDERED: LORazepam 2 MG/ML VIAL ONE ×2 (15:34→16:32)
--- NOTE | 2019-07-08 16:21 | P.HP ---
Certification for Inpatient With expected LOS: >2 Midnights Patient will require the following post-hospital care: Fdc Practitioner: I am a practitioner with admitting privileges, knowledge of patient current condition, hospital course, and medical plan of care. Services: Services provided to patient in accordance with Admission requirements found in Title 42 Section 412.3 of the Code of Federal Regulations Patient History Date of Service: 07/08/19 Reason for admission: Recurrent falls, altered mental status History of Present Illness: 73-year-old female with past medical history of HTN, dm, HLD, admitted because of progressive weakness, lethargy and intermittent confusion since the last 3 weeks. She has also been having recurrent falls. Family has initially felt it was due to her own controlled diabetes. However patient had a fall yesterday and shows but today because of persistent confusion. In the ER she had elevated glucose as well as evidence of urinary tract infection. A head CT done for noted poor right eye movement shows evidence of left occipital lobe infarct of 8 mm size. Neurology has been consulted. She has been admitted for CVA with encephalopathy. Patient is confused and an unable to give more history. Allergies naproxen Allergy (Intermediate, Verified 06/05/11 13:29) Hives/Rash codeine Allergy (Verified 12/29/18 16:30) Itching/Hives/Rash Penicillins Allergy (Verified 12/29/18 16:30) Itching/Hives/Rash morphine Adverse Reaction (Mild, Verified 12/30/18 01:10) confusion Home Medications: ALPRAZolam [Alprazolam] 1 mg PO DAILY 12/29/18 Aspirin [Doug Chewable Aspirin] 1 tab PO DAILY 12/29/18 Gabapentin 600 mg PO DAILY 12/29/18 Losartan Potassium [Cozaar] 1 tab PO DAILY 12/29/18 Lovastatin 10 mg PO DAILY 12/29/18 Tramadol HCl [Ultram] 1 tab PO DAILY 12/29/18 Cyanocobalamin [Vitamin B-12*] 1,000 mcg PO DAILY 30 Days #30 tab 01/03/19 Ferrous Gluconate 324 mg PO DAILY 30 Days #30 tablet 01/03/19 Insulin Glargine Human [Lantus*] 15 units SQ DAILY WITH BREAKFAST 30 Days #1 vial 01/03/19 Metoprolol Tartrate [Lopressor*] 25 mg PO DAILY 30 Days #30 tab 01/03/19 Sulfamethoxazole/Trimethoprim [Bactrim Ds Tablet] 1 each PO BID #14 tablet 01/03/19 Tamsulosin [Flomax*] 0.4 mg PO DAILY 30 Days #30 cap 01/03/19 - Past Medical/Surgical History Diabetic: Yes -: Hypertension -: Diabetes -: Hyperlipidemia -: Obesity -: hysterectomy -: right knee surgery -: left hip replacement -: both wrist surgery -: cholecystectomy - Family History Family History: Reviewed- Non-Contributory - Social History Smoking Status: Unknown if ever smoked Alcohol use: No CD- Drugs: No Caffeine use: Yes Review of Systems is unable to be obtained Physical Examination - Physical Exam General: Confused, Obese, Other (confused ) HEENT: Atraumatic, Normocephalic, Mucous membr. moist/pink Neck: 2+ carotid pulse no bruit, JVD not distended Respiratory: Clear to auscultation bilaterally, Normal air movement Cardiovascular: Normal pulses, Regular rate/rhythm, Normal S1 S2 Gastrointestinal: Normal bowel sounds, Soft and benign, No ascites, No tenderness Musculoskeletal: No erythema, No tenderness Neurological: Abnormal gait (non tested), Abnormal speech (marked receptive aphasia but poor comprehension , ) - Studies Laboratory Data (last 24 hrs) 07/08/19 10:35: PT 13.2 H, INR 1.12, APTT 28.2 07/08/19 10:35: WBC 9.7, Hgb 13.1, Hct 38.7, Plt Count 227 07/08/19 10:35: Sodium 135 L, Potassium 4.5, BUN 16, Creatinine 1.39 H, Glucose 327 H, Total Bilirubin 0.3, AST 22, ALT 29, Alkaline Phosphatase 83, Lipase 88 Assessment and Plan - Problems (Diagnosis) (1) Left sided cerebral hemisphere cerebrovascular accident (CVA) Current Visit: Yes Status: Acute (2) Wernicke's receptive aphasia Current Visit: Yes Status: Acute (3) Acute renal failure Current Visit: No Status: Acute Qualifiers: Acute renal failure type: unspecified Qualified Code(s): N17.9 - Acute kidney failure, unspecified (4) Diabetes Current Visit: No Status: Chronic Qualifiers: Diabetes mellitus type: type 2 Diabetes mellitus watermelon inspector insulin use: with fci use Diabetes mellitus complication status: with hyperglycemia Qualified Code(s): E11.65 - Type 2 diabetes mellitus with hyperglycemia; Z79.4 - superintendent terminal (current) use of insulin (5) Hypertension Current Visit: No Status: Chronic Qualifiers: Hypertension type: essential hypertension Qualified Code(s): I10 - Essential (primary) hypertension - Advance Directives Does patient have a Living Will: No Does patient have a Durable POA for Healthcare: No Physician Review: Patient Assessed, Agree with Above Assessment and Plan Physician Review Additional Text: # Left CVA - with receptive Aphasia- will admit to telemetry unit -will obtain MRI of the head and neck -will obtain carotid ultrasound to rule out stenosis -will obtain echo -will start patient on aspirin and Plavix -Monitor was swallowing eval -May need for mild dysphagia evaluation - will obtain lipid panel - rehab and case mgt consult now # Diabetes mellitus that is uncontrolled, restart home insulin regimen -Accu-Chek with insulin ski #Hypertension-elevated, keep him BP greater than 100 mm Hg given acute CVA -we do IV hydralazine p.r.n. -we start low-dose losartan for now #UTI-start empirical antibiotics with Levaquin #Advanced directive-will discussed with family Time Spent Managing Pts Care (In Minutes): 70
[2019-07-08] MEDS: INSULIN -REGULAR HUMAN 50 UNIT/0.5 ML ML SQ SCH ×2 (16:30→22:09)
[2019-07-08] MEDS: PANTOPRAZOLE 40MG TABLET PO SCH (16:30)
[2019-07-08] MEDS ORDERED: HEPARIN 5000 UNIT/ML 1 ML VIAL SQ SCH (17:00)
--- NOTE | 2019-07-08 17:00 | RAD REPORT ---
EXAM DESCRIPTION: MRI - MRA Head Wo Cont - 07/08/2019 4:48 pm CLINICAL HISTORY: cva CVA COMPARISON: Head Brain Wo Cont dated 07/08/2019 FINDINGS: 3D noncontrast [id number] MR angiography of the [place] was performed. No evidence of aneurysm or vascular malformation. Lack of flow is seen in the left posterior cerebral artery compatible with occlusion. Forward flow seen in right-sided dominant vertebral arteries. The visualized dural venous sinuses appear patent. 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
--- NOTE | 2019-07-08 17:03 | RAD REPORT ---
EXAM DESCRIPTION: MRI - MRA Neck W/Wo Cont - 07/08/2019 4:50 pm CLINICAL HISTORY: cva Headache, drowsiness, CVA COMPARISON: No comparisons FINDINGS: Contrast enhance 2D [id number] MR angiography of the neck vessels was performed. A left aortic arch is identified with normal great vessel branching pattern. Both subclavian arteries and common carotid arteries appear patent. Mild narrowing of the right proxi mal internal carotid artery is seen estimated at 50% or less based on NASCET criteria. Mild narrowing of the carotid bulb also seen estimated at less than 50% based on NASCET criteria. No significant in ternal carotid artery flow abnormality seen. Antegrade flow seen in both vertebral arteries, right-sided dominant. IMPRESSION: No significant carotid artery stenosis is seen.
[2019-07-08 19:54] VITALS: BMI 26.6
[2019-07-08] MEDS: Levofloxacin500mg IV 500 MG/100 ML BAG IV SCH (19:59)
[2019-07-08 22:52] LABS: Urine Appearance CLOUDY; Urine Bilirubin NEGATIVE (NEG); Urine Blood NEGATIVE (NEG); Urine Color YELLOW; Urine Glucose 3+ (NEG); Urine Protein 1+ (NEG); Urine Specific Gravity 1.025 (1.005-1.030); Urine Urobilinogen 0.2 mg/dL (0.2-1.0); Urine pH 5.5 (5.0-7.0)
[2019-07-08 22:59] LABS: Urine Microscopic Reflex ORDER UMIC
[2019-07-08 23:35] LABS: Urine Culture Reflex Order NOT NEEDED
[2019-07-08 23:40] LABS: Urine Yeast FEW (NONE SEEN)
[2019-07-08 23:41] LABS: Urine Bacteria <20 /HPF (<20); Urine RBC <5 /HPF (NONE SEEN)
[2019-07-09] MEDS: HEPARIN 5000 UNIT/ML 1 ML VIAL SQ SCH ×3 (04:52→20:35)
[2019-07-09 05:38] LABS: Absolute Lymphocytes (CBC) 1.9 K/uL (0.7-4.9); Basophils % 0.7 % (0-1.3); Hematocrit 38.3 % (36.0-45.0); Lymphocytes % 18.4 % (15.3-44.8); MPV 8.3 fL (7.6-11.3); RBC Red Blood Cell Count 4.35 M/uL (3.86-4.86)
[2019-07-09 06:01] LABS: Bilirubin Total 0.4 mg/dL (0.2-1.0); Potassium 4.5 mmol/L (3.5-5.1); Protein, Total 8.5 g/dL (6.4-8.2)
[2019-07-09] MEDS: PANTOPRAZOLE 40MG TABLET PO SCH ×2 (07:30→16:51)
[2019-07-09] MEDS ORDERED: INSULIN GLARGINE 100 UNITS/ML SQ SCH (08:00)
[2019-07-09] MEDS: CLOPIDOGREL 75 MG TABLET PO SCH (09:00)
[2019-07-09] MEDS: ASPIRIN EC 81 MG TAB PO SCH (09:00)
[2019-07-09] MEDS: LOSARTAN POTASSIUM 50 MG TABLET PO SCH (09:00)
[2019-07-09] MEDS ORDERED: VANCOMYCIN 1 GM in NA CHLORIDE 0.9% 250 ML IVPB SCH (09:00)
[2019-07-09] MEDS: FOLIC ACID 1 MG TABLET PO SCH (09:00)
[2019-07-09] MEDS ORDERED: HOME MED 1 EA UNK (Losartan Potassium [Cozaar] 1 TAB) PO SCH (09:00)
--- NOTE | 2019-07-09 09:53 | EKG ---
Test Date: 2019-07-08 Test Time: 10:43:38 Gas Combustion Engineer: HAILEY MEASUREMENT RESULTS: Intervals: Rate: 79 NH: 196 QRSD: 78 QT: 358 QTc: 410 [place]: P: 37 NH: 196 QRS: -7 T: 38 INTERPRETIVE STATEMENTS: Normal sinus rhythm Anterior infarct, age undetermined Abnormal ECG Compared to ECG 12/29/2018 06:19:02 No significant changes Electronically Signed On 07-09-19 09:53:26 CDT by Spencer Marquez
[2019-07-09] MEDS: VANCOMYCIN 1.25 GM in NA CHLORIDE 0.9% 250 ML IVPB SCH (10:28)
[2019-07-09] MEDS: INSULIN -REGULAR HUMAN 50 UNIT/0.5 ML ML SQ SCH ×4 (10:29→20:34)
--- NOTE | 2019-07-09 12:24 | RAD REPORT ---
EXAM DESCRIPTION: RAD - Barium Swallow Modified - 07/09/2019 11:41 am CLINICAL HISTORY: cva COMPARISON: None. TECHNIQUE: The patient was given liquid, semi-solid and solid forms of barium. Lateral view fluorosc opic imaging was performed in conjunction with speech pathology service. FINDINGS: Cineloop acquisitions: 19 Fluoro time: 3 minutes 0 seconds Pharyngeal residue: mild to moderate in the vallecular and pyriforms. Mild reduced lingual coordination. Oral transit time is approximately 2-3 sec, with pureed and mech soft. There is mild to moderate oral residue with mechanical soft. Swallow onset is timely for age. There is no penetration or aspiration observed with thin, nectar, pureed or mechanical soft. There was mild to moderate residue on the base of tongue, valleculae and pyriforms. Reswallow reduced res idue. The barium tablet was swallowed with thin liquid without penetration or aspiration. The final pureed bolus passed to the lower esophagus without incident. The upper esophageal sphincter could n ot be viewed clearly due to body habitus and positioning. IMPRESSION: Modified barium swallow as summarized above and fully detailed on speech pathology malachi queen
--- NOTE | 2019-07-09 14:24 | PN ---
Date of Progress Note: 07/09/2019 Subjective: Patient seen and examined. Chart reviewed and case discussed with RN. Code Status: Full. Medications: List reviewed. Physical Examination: Vital Signs: Temperature 97.8, heart rate 74, blood pressure 145/68, respirations 18, O2 95% on room air. General: Awake, alert, oriented x3. Elderly female, not in any acute distress. CV: S1, S2. Regular rate and rhythm. Peripheral pulses present. Respiratory: Moving air well bilaterally. No wheezing or stridor. Gastrointestinal: Abdomen is soft, nontender, nondistended. Positive bowel sounds. Extremities: No clubbing, cyanosis, or edema. Neuro: Patient has abnormal speech with receptive aphasia and abnormal gait. Does seem to move all 4 extremities. Strength in the upper extremities is 5/5. Lower extremities, patient either is unable to follow commands; however, did move both lower extremities, however, did not lift them off the bed. Laboratory Data: Sodium 139, potassium 4.5, chloride 106, CO2 of 22, BUN 16, creatinine 1.05, glucose 270, calcium 8.7, albumin is 3. Triglycerides 140, cholesterol 181, LDL 106, HDL 47. WBC 10.2, H and H 12.9 and 38.3, platelets 204. Urine culture growing out mixed kandy. Blood cultures showing gram- positive cocci in clusters. ID and sensitivities currently pending. 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 Neck MRA shows no significant carotid artery stenosis. Echocardiogram shows EF 77%. No vegetation. No thrombus. No wall motion abnormality. No effusion. Assessment: A 73-year-old female with: 1. Left-sided cerebrovascular accident with occlusion in the left posterior cerebral artery. We will continue with stroke guidelines. Neurology has been consulted. Continue with aspirin and statin. Lipid panel has been reviewed. Patient will likely need rehab placement. Case management has been made aware of and patient will be referred. 2. 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 3. Acute kidney injury. Creatinine is improved back to baseline. Appreciate Nephrology input. We will continue to monitor. 4. Bacteremia, unclear etiology, growing gram-positive cocci in clusters, currently on Levaquin and vancomycin. We will continue to monitor for ID and sensitivity. 5. Diabetes mellitus type 2 with long-term use of insulin with hyperglycemia. We will continue to monitoring blood glucose levels and continue sliding scale insulin. 6. Essential hypertension, stable. Reviewed echocardiogram, ejection fraction is normal. No thrombus. Continue with aspirin, Plavix, statin. PT, OT and ST evaluation. 7. Urinary tract infection, acute cystitis without hematuria. We will continue with IV antibiotics. Cultures growing mixed kandy. /SAMUEL Voice ID: [id number] Report ID: [id number] YARELI
--- NOTE | 2019-07-09 15:13 | RAD REPORT ---
EXAM DESCRIPTION: CT - Head Brain Wo Cont - 07/09/2019 3:02 pm CLINICAL HISTORY: acute CVA, r/out hemorrhagic conversion, AMS Headache, drowsiness, CVA COMPARISON: Head Brain Wo Cont dated 07/08/2019; MRA Head Wo Cont dated 07/08/2019 TECHNIQUE: All CT scans are performed using dose optimization technique as appropriate and may inclu de automated exposure control or mA/KV adjustment according to patient size. FINDINGS: Large area of diminished density is seen in the distribution of the left posterior cerebra l artery compatible with subacute infarction. No evidence of hemorrhagic conversion seen. No midline shift.No intracranial hemorrhage or hydrocephalus. Moderate generalized brain atrophy is seen. The paranasal sinuses and mastoids are clear. The calvarium is intact. IMPRESSION: Large subacute left posterior cerebral artery territory infarct is present without evide nce of hemorrhagic conversion.
[2019-07-09] MEDS ORDERED: FLUCONAZOLE 100 MG TAB PO ONE (15:25)
--- NOTE | 2019-07-09 16:17 | P.CNS ---
Date of Consult: 07/09/19 Reason for Consult: MALGORZATA Requesting Physician: Ana Maria Laughlin Chief Complaint: Recurrent falls, altered mental status History of Present Illness: 73 yo WF Obese presented to the ER with 2 days of severe, progressive confusion in the setting of a UTI. Limited HPI/ ROS due to AMS. 73-year-old female with past medical history of HTN, dm, HLD, admitted because of progressive weakness, lethargy and intermittent confusion since the last 3 weeks. She has also been having recurrent falls. Family has initially felt it was due to her own controlled diabetes. However patient had a fall yesterday and shows but today because of persistent confusion. In the ER she had elevated glucose as well as evidence of urinary tract infection. A head CT done for noted poor right eye movement shows evidence of left occipital lobe infarct of 8 mm size. Neurology has been consulted. She has been admitted for CVA with encephalopathy. Patient is confused and an unable to give more history 11:37 This 73 yrs old Female presents to ER via EMS with complaints of Altered jr8 Mental Status. 11:37 The patient presents with confusion, decreased mental status, decreased responsiveness. jr8 Onset: The symptoms/episode began/occurred gradually, 2 week(s) ago, and became persistent 2 days ago. Possible causes: unknown. Associated signs and symptoms: Pertinent positives: gait abnormality, falls. Current symptoms: In the emergency department the patient's symptoms are unchanged from the initial presentation. Patient's baseline: Neuro: alert and fully oriented, Motor: no deficits, Ambulation: walks without assistance, Speech: normal. The patient has not experienced similar symptoms in the past. The patient has not recently seen a physician. 11:37 Family called EMS after altered mentation became worse. Thought it may be her diabetes jr8 which is why they had not brought her in until now. EMS stated that they had told them that they were hoping it was going to resolve . Allergies naproxen Allergy (Intermediate, Verified 06/05/11 13:29) Hives/Rash codeine Allergy (Verified 12/29/18 16:30) Itching/Hives/Rash Penicillins Allergy (Verified 12/29/18 16:30) Itching/Hives/Rash morphine Adverse Reaction (Mild, Verified 12/30/18 01:10) confusion Home medications list reviewed: Yes Home Medications: ALPRAZolam [Alprazolam] 1 mg PO DAILY 12/29/18 Aspirin [Doug Chewable Aspirin] 1 tab PO DAILY 12/29/18 Gabapentin 600 mg PO DAILY 12/29/18 Losartan Potassium [Cozaar] 50 mg PO BID 12/29/18 Lovastatin 10 mg PO DAILY 12/29/18 Tramadol HCl [Ultram] 1 tab PO TID PRN 12/29/18 Insulin Glargine Human [Lantus*] 15 units SQ DAILY WITH BREAKFAST 30 Days #1 vial 01/03/19 Metoprolol Succinate [Toprol Xl] 100 mg PO DAILY 07/08/19 - Past Medical/Surgical History Diabetic: Yes -: Hypertension -: Diabetes I -: Hyperlipidemia -: Obesity -: cva L occipital lobe 07/06/19 -: neuropathy -: anxiety -: hysterectomy -: right knee surgery -: left hip replacement -: both wrist surgery -: cholecystectomy - Social History Smoking Status: Unknown if ever smoked Alcohol use: No CD- Drugs: No Caffeine use: Yes Place of Residence: Home Review of Systems is unable to be obtained ([facility]) Physical Examination Temp Pulse Resp BP Pulse Ox 97.6 F 62 18 182/98 H 96 07/09/19 12:00 07/09/19 12:00 07/09/19 12:00 07/09/19 12:00 07/09/19 12:00 General: In no apparent distress, Confused HEENT: Atraumatic Neck: Supple Respiratory: Clear to auscultation bilaterally Cardiovascular: No edema, Regular rate/rhythm Gastrointestinal: Non-distended, No rebound, No guarding, Tenderness Musculoskeletal: No clubbing, No contractures Integumentary: No rashes, No cyanosis Neurological: Abnormal speech Blood work reviewed in the chart. Na 135 Imagings Data: NORMAL 2-DIMENSIONAL ECHOCARDIOGRAM. NO VEGETATION. NO THROMBUS. NO WALL MOTION ABNORMALITY. NO EFFUSION. EXAM DESCRIPTION: [facility] Single View07/08/2019 10:48 am CLINICAL HISTORY: Chest pain COMPARISON: 2018 FINDINGS: The lungs appear clear of acute infiltrate. The heart is normal size IMPRESSION: No acute abnormalities displayed Conclusions/Impression: A/ MALGORZATA Hyponatremia CKD with proteinuria HTN with CKD DM I with CKD Toxic metabolic encephalopathy Acute cystitis P/ Continue current POC and Medications. Gentle IVF. Continue abx. Titrate insulin. May benefit from amlodipine. Advance diet as tolerated. No NSAIDs. AM labs. Daily weight. Thank you kindly for the consultation.
[2019-07-09] MEDS: Levofloxacin500mg IV 500 MG/100 ML BAG IV SCH (16:51)
[2019-07-09] MEDS: NACHLORIDE 0.45% 1,000 ML IV SCH (17:47)
[2019-07-09] MEDS: ATORVASTATIN 40 MG TAB PO SCH (20:34)
--- NOTE | 2019-07-09 21:09 | CON ---
Reason For Consultation: Consultation called because of stroke. History Of Present Illness: Ms. Padron is a 73-year-old right-handed patient with hypertensi on, diabetes mellitus, dyslipidemia, who was brought in by family after 3 weeks of intermittent progr essive confusion and falls. In the emergency room in [facility] on 07/07, she was found to have elevated blood glucose and have a urinary tract infection, on urinalysis. Her head CT scan iden tified a large left occipital infarct measuring 8.5 cm. She was not able to give a history because o f aphasia and disorientation and is not following verbal commands. Past Medical History: As indicated. Obesity. Allergies: NAPROSYN, CODEINE, PENICILLIN, MORPHINE. Home Medications: Alprazolam 1 mg daily, aspirin 81 mg daily, gabapentin 600 mg daily, Cozaar daily, losartan 10 mg daily, tramadol 50 mg daily as needed, vitamin B12 1000 mcg daily, ferrous gluconate 324 mg daily, Lantus insulin 15 units subcutaneously at breakfast, Lopressor 25 mg daily, is on Bactr im Double Strength 1 tablet twice daily and that should have completed, and Flomax 0.4 mg daily. Past Surgical History: Hysterectomy, right knee surgery, left hip replacement, wrist surgery, cholec ystectomy. Family History: Noncontributory. Social History: No reported alcohol, tobacco, or IV drug use. Review of Systems: The patient at this point is not capable of giving review of systems. Physical Examination: Neurologic: She is densely aphasic. Her NIH stroke scale on my evaluation is 26. She was arousable with little stimulation without the attention to face or arm presenting her specially on the right hemifield. She has had slight decreased nasolabial fold on the right. She then look aroun d eventually. She did have equal tone in the upper and lower extremities. She did move the right ar m across the chest and also the left. Not lift the lower extremities and could not fully assess coor dination and full strength and sensation, but seemed to react equally to touch on both sides to asses s her gait. Lungs: She is otherwise clear to auscultation. Abdomen: Soft. Extremities: Show no significant edema or cyanosis. Vital Signs: Show blood pressure 182/98, pulse 60, respiratory rate 18, temperature 97.6, oxygen sat uration 96% on room air. Weight 106 pounds, height 5 feet 5 inches. Laboratory Studies: Complete blood count with differential is unremarkable. Coagulation panel, INR 1.16. Chemistries showed glucose ranged from 263 to 310. Liver function studies are normal. Kidney function is normal. Total cholesterol 181, LDL cholesterol 106, HDL cholesterol 47. Urinalysis renée ws elevated white blood cells, greater than 50 bacteria, trace esterase, budding yeast present. Her blood and nitrite negative. Tox screen positive for benzodiazepines. Repeat head CT scan shows a la rge subacute left posterior cerebral artery territory stroke. No evidence of hemorrhagic conversion. Carotid artery ultrasound shows mild plaque in the left internal carotid artery. The right interna l carotid could not be well visualized. Brain MRA shows occlusion of the left posterior cerebral art rupert. Echocardiogram shows normal study with ejection fraction 77%. Assessment: Ms. Padron is a 73-year-old patient with a large left posterior cerebral artery stroke wit h occlusion and she has a marked global aphasia, right homonymous hemianopsia and neglect of the righ t side and arms and legs appear symmetrical and fully assess. Repeat head CT scan showed no hemorrha gic conversion compared to the study done yesterday and her clinical symptoms of been present for abo ut 3 weeks. She has multiple comorbid conditions and stroke risk factors including hypertension, dale betes mellitus, dyslipidemia. She is on aspirin 81 mg daily, Lipitor 40 mg at bedtime, Plavix 75 mg daily, folate 1 mg daily, and with management of hypertension, diabetes mellitus. Plan: Continue management as indicated at this stage depending on the level of responsiveness. She may be evaluated for intermediate. However, if she is completely unable to follow any instruction s and does not improve in functioning, the family may want to consider hospice care at this time. Ho melissa, we will see how the patient does and it should be noted that earlier in the day when the hospi talist evaluated the patient, said she was interactive, following instructions, although there were s ome degree of difficulty with communication. She appeared much different this afternoon than this mo rning. Consider EEG, although unavailable at this point and may consider starting Keppra. The patient does not have any rhythmic activity in the eyes, arms, face to suggest ongoing seizure, although she may h ave status partialis and become confused. In any event, we will consider antiepileptic medication an d EEG as soon as possible. AIDAN/MODL Voice ID: [id number] Report ID: [id number]
[2019-07-10] MEDS: HEPARIN 5000 UNIT/ML 1 ML VIAL SQ SCH ×3 (04:16→20:30)
[2019-07-10] MEDS: NACHLORIDE 0.45% 1,000 ML IV SCH (06:20)
[2019-07-10 06:49] LABS: Magnesium 1.8 mg/dL (1.8-2.4); Phosphorus 2.4 mg/dL (2.5-4.9); Potassium 3.5 mmol/L (3.5-5.1); Uric Acid 4.2 mg/dL (2.6-6.0)
[2019-07-10] MEDS: INSULIN -REGULAR HUMAN 50 UNIT/0.5 ML ML SQ SCH ×4 (09:46→20:30)
[2019-07-10] MEDS: VANCOMYCIN 1.25 GM in NA CHLORIDE 0.9% 250 ML IVPB SCH (09:47)
[2019-07-10] MEDS: CLOPIDOGREL 75 MG TABLET PO SCH (09:48)
[2019-07-10] MEDS: PANTOPRAZOLE 40MG TABLET PO SCH ×2 (09:48→16:59)
[2019-07-10] MEDS: ASPIRIN EC 81 MG TAB PO SCH (09:48)
[2019-07-10] MEDS: LOSARTAN POTASSIUM 50 MG TABLET PO SCH (09:48)
[2019-07-10] MEDS: FOLIC ACID 1 MG TABLET PO SCH (09:49)
[2019-07-10] MEDS: INSULIN GLARGINE 100 UNITS/ML SQ SCH (09:49)
--- NOTE | 2019-07-10 10:34 | PN ---
Date of Progress Note: 07/10/2019 History Of Present Illness: Patient seen and examined. Chart reviewed and case discussed with RN, Cesar Gomez. Patient is doing significantly better today than yesterday. Yesterday, she was unable to cooperate with physical therapist. The head CT scan was repeated to rule out hemorrhagic conversi on, which was negative. Spoke with the at length and updated him on the patient's condition and explained to him that she requires inpatient rehab. He was agreeable. Medications: List reviewed. Physical Examination: Vital Signs: Temperature 97.1, heart rate 63, blood pressure 172/78, respirations 17, O2 97% on room air. General: Awake, alert, oriented x3, not in any acute distress. Elderly female, obese. BMI 32. CV: S1, S2. Regular rate and rhythm. Peripheral pulses present. Respiratory: Moving air well bilaterally. No wheezing, no stridor. Gastrointestinal: Abdomen is soft, nontender, nondistended. Positive bowel sounds. Extremities: No clubbing, cyanosis, or edema. Neuro: Patient's strength is 5/5 bilateral upper and lower extremities. Speech is normal. Laboratory Data: Sodium 137, potassium 3.5, chloride 105, CO2 of 23, BUN 17, creatinine 1.11, glucos e 237, uric acid 4.2, calcium 9.1, phosphorus 2.4, magnesium 1.8. CBC is pending. Urine culture jazmine wing out mixed kandy. Blood culture growing out Staph, coagulase negative, 4/4 bottles, which is lik donta contaminant. Imaging: Head CT scan from yesterday shows large subacute left posterior cerebral artery territory i nfarct is present without evidence of hemorrhagic conversion. Assessment: A 73-year-old female with. 1.Acute left-sided cerebrovascular accident in the left posterior cerebral artery. Continue with as pirin and statin. Patient will likely need rehab placement. PT/OT eval today. Appreciate Dr. César stockton's input. 2.Receptive aphasia, likely Wernicke's, secondary to above, somewhat improved today. 3.Acute kidney injury. Creatinine is back to baseline. We will continue to monitor. Appreciate Ne phrology input. 4.Bacteremia. This is secondary to staph, coagulase negative, which is likely skin contaminant. We will discontinue vancomycin. 5.Diabetes mellitus type 2 with long-term use of insulin with hyperglycemia. We will continue monit oring blood glucose levels and sliding scale insulin. 6.Essential hypertension. We will allow permissive hypertension due to acute stroke, still within t he 72 hour window. 7.Acute cystitis without hematuria, cultures growing mixed kandy. We will discontinue Levaquin. 8.Deep vein thrombosis prophylaxis with heparin. Plan: Plan is to have patient referred to inpatient rehab. Patient was given a dose of fluconazole for yeast in the urine. SA/MODL Voice ID: [id number] Report ID: [id number]
[2019-07-10 14:31] LABS: Absolute Lymphocytes (CBC) 4.5 K/uL (0.7-4.9); Basophils % 0.9 % (0-1.3); Hematocrit 42.5 % (36.0-45.0); Lymphocytes % 27.9 % (15.3-44.8); MPV 8.5 fL (7.6-11.3); RBC Red Blood Cell Count 4.81 M/uL (3.86-4.86)
[2019-07-10] MEDS: ATORVASTATIN 40 MG TAB PO SCH (20:29)
--- NOTE | 2019-07-10 21:34 | P.PN ---
Date of Service: 07/10/19 Vital Signs Temp Pulse Resp BP Pulse Ox 98.2 F 95 H 16 155/81 H 100 07/10/19 20:00 07/10/19 20:00 07/10/19 20:00 07/10/19 20:00 07/10/19 20:00 Medications Acetaminophen (Tylenol -Extra Strength) 500 mg PO Q6H PRN PRN Reason: Pain scale 2-4 (Mild) Stop: 08/07/19 13:36 Albuterol Sulfate (Proventil 0.083% Neb Soln) 2.5 mg NEB [id number] PRN PRN Reason: SHORTNESS OF BREATH Stop: 08/07/19 13:36 Aspirin (Aspirin Ec) 81 mg PO DAILY [facility] Stop: 08/08/19 09:01 Last Admin: 07/10/19 09:48 Dose: 81 mg Documented by: Atorvastatin Calcium (Lipitor) 40 mg PO BEDTIME ALF Stop: 08/08/19 21:01 Last Admin: 07/10/19 20:29 Dose: 40 mg Documented by: Clopidogrel Bisulfate (Plavix) 75 mg PO DAILY [facility] Stop: 08/08/19 09:01 Last Admin: 07/10/19 09:48 Dose: 75 mg Documented by: Dextrose (Dextrose 50% Syringe/Vial) 12.5 gm IV PRN PRN; Protocol PRN Reason: HYPOGLYCEMIA Stop: 08/07/19 13:43 Folic Acid (Folic Acid) 5 mg PO DAILY [facility] Stop: 08/07/19 14:01 Last Admin: 07/10/19 09:49 Dose: 5 mg Documented by: Gabapentin (Neurontin) 600 mg PO DAILY [facility] Stop: 08/10/19 09:01 Glucagon (Glucagen) 1 mg IM 1X PRN; Protocol PRN Reason: HYPOGLYCEMIA Stop: 08/07/19 13:43 Heparin Sodium (Porcine) (Heparin 5,000 Units/Ml) 5,000 unit SQ Q8H ALF Stop: 08/08/19 04:01 Last Admin: 07/10/19 20:30 Dose: 5,000 unit Documented by: Hydralazine HCl (Apresoline) 10 mg IV Q6HP PRN PRN Reason: FOR SBP>160 OR DBP>100 MMHG Stop: 08/07/19 13:38 Last Admin: 07/10/19 04:25 Dose: 10 mg Documented by: Insulin Glargine (Lantus) 20 units SQ DAILY WITH BREAKFAST [facility] Stop: 08/09/19 08:01 Last Admin: 07/10/19 09:49 Dose: 20 units Documented by: Insulin Human Regular (Novolin -R) 0 unit SQ ACHS [facility]; Protocol Stop: 08/07/19 16:31 Last Admin: 07/10/19 20:30 Dose: 5 unit Documented by: Losartan Potassium (Cozaar) 100 mg PO DAILY [facility] Stop: 08/08/19 09:01 Last Admin: 07/10/19 09:48 Dose: 100 mg Documented by: Ondansetron HCl (Zofran) 4 mg IV Q8H PRN PRN Reason: NAUSEA / VOMITING Stop: 08/07/19 13:36 Pantoprazole Sodium (Protonix Tab) 40 mg PO BIDAC [facility]; Protocol Stop: 08/07/19 16:31 Last Admin: 07/10/19 16:59 Dose: 40 mg Documented by: Sodium Chloride (Normal Saline Flush) 10 ml IV BID [facility] Stop: 08/07/19 21:01 Last Admin: 07/10/19 20:31 Dose: 10 ml Documented by: Microbiology Results 07/08/19 11:10 Clean Catch Urine [place] Count - Final BETWEEN 10,000 & 100,000 CFU/ML 07/08/19 11:10 Clean Catch Urine - Final MIXED DENITA. 07/08/19 10:35 Blood - Blood Aerobic Blood Culture - Preliminary 07/08/19 10:35 Blood - Blood Blood Culture Gram Stain - Preliminary 07/08/19 10:35 Blood - Blood Anaerobic Blood Culture - Preliminary 07/08/19 10:35 Blood - Blood Gram Stain - Preliminary 07/08/19 11:00 Blood - Blood Aerobic Blood Culture - Preliminary 07/08/19 11:00 Blood - Blood Blood Culture Gram Stain - Final 07/08/19 11:00 Blood - Blood Anaerobic Blood Culture - Preliminary 07/08/19 11:00 Blood - Blood Gram Stain - Final Assessment/ Plan: Nephrology Feeling better today. Improved confusion and verbal communication. CPS stable without CP or SOB. No acute events overnight. Vitals, medications, blood work and imaging reviewed in the chart. General: In no apparent distress, Confused HEENT: Atraumatic Neck: Supple Respiratory: Clear to auscultation bilaterally Cardiovascular: No edema, Regular rate/rhythm Gastrointestinal: Non-distended, No rebound, No guarding, Tenderness Musculoskeletal: No clubbing, No contractures Integumentary: No rashes, No cyanosis Neurological: Abnormal speech Blood work reviewed in the chart. Na 135 Imagings Data: NORMAL 2-DIMENSIONAL ECHOCARDIOGRAM. NO VEGETATION. NO THROMBUS. NO WALL MOTION ABNORMALITY. NO EFFUSION. EXAM DESCRIPTION: [facility] Single View07/08/2019 10:48 am CLINICAL HISTORY: Chest pain COMPARISON: 2018 FINDINGS: The lungs appear clear of acute infiltrate. The heart is normal size IMPRESSION: No acute abnormalities displayed Conclusions/Impression: A/ MALGORZATA Hyponatremia CKD with proteinuria HTN with CKD DM I with CKD Toxic metabolic encephalopathy Acute cystitis P/ Continue current POC and Medications. Gentle IVF. Replete lytes as needed. Start amlodipine 5mg daily. Continue abx. Titrate insulin. Advance diet as tolerated. No NSAIDs. AM labs. Daily weight.
[2019-07-11] MEDS: HEPARIN 5000 UNIT/ML 1 ML VIAL SQ SCH ×3 (04:17→21:19)
[2019-07-11 04:45] LABS: Absolute Lymphocytes (CBC) 1.9 K/uL (0.7-4.9); Basophils % 0.8 % (0-1.3); Hematocrit 39.2 % (36.0-45.0); Lymphocytes % 19.7 % (15.3-44.8); MPV 8.2 fL (7.6-11.3); RBC Red Blood Cell Count 4.51 M/uL (3.86-4.86)
[2019-07-11 05:07] LABS: Phosphorus 3.4 mg/dL (2.5-4.9); Potassium 3.2 mmol/L (3.5-5.1); Uric Acid 4.4 mg/dL (2.6-6.0)
[2019-07-11] MEDS: PANTOPRAZOLE 40MG TABLET PO SCH ×2 (07:30→16:48)
[2019-07-11] MEDS ORDERED: HOME MED 1 EA UNK (Gabapentin [Gabapentin] 600 MG) PO SCH (09:00)
[2019-07-11] MEDS: GABAPENTIN 300 MG CAP PO SCH (09:00)
[2019-07-11] MEDS: INSULIN GLARGINE 100 UNITS/ML SQ SCH (09:03)
[2019-07-11] MEDS: INSULIN -REGULAR HUMAN 50 UNIT/0.5 ML ML SQ SCH ×4 (09:03→21:20)
[2019-07-11] MEDS: ASPIRIN EC 81 MG TAB PO SCH (09:04)
[2019-07-11] MEDS: LOSARTAN POTASSIUM 50 MG TABLET PO SCH (09:04)
[2019-07-11] MEDS: AMLODIPINE 5 MG TAB PO SCH (09:04)
[2019-07-11] MEDS: FOLIC ACID 1 MG TABLET PO SCH (09:05)
[2019-07-11] MEDS: CLOPIDOGREL 75 MG TABLET PO SCH (09:05)
--- NOTE | 2019-07-11 15:02 | PN ---
Date of Progress Note: 07/11/2019 Subjective: Patient seen and examined. Chart reviewed and case discussed with RN. Patient is doing significantly better. She is much more cooperative and talkative. Spoke with the yesterday and updated on the plan which is for rehab. Patient participated in PT. Medications: List reviewed. Physical Examination: Vital Signs: Temperature 98.3, heart rate 71, blood pressure 140/69, respirations 18, O2 of 98% on r oom air. General: Awake, alert, oriented x3. Elderly female, obese. CV: S1, S2. Regular rate and rhythm. Peripheral pulses present. Respiratory: Moving air well bilaterally. No wheezing or stridor. Gastrointestinal: Abdomen is soft, nontender, nondistended. Positive bowel sounds. No guarding or rigidity. Extremities: No clubbing, cyanosis, or edema. Neurologic: No focal neurological deficit. Patient states her vision has improved slightly. Does h ave symptoms consistent with hemianopsia. Laboratory Data: Sodium 136, potassium 3.2, chloride 102, CO2 of 23, BUN 16, creatinine 1.22, glucos e 194, calcium 8.6, uric acid is 4.4, phosphorus 3.4. BNP 565. WBC 9.4, H and H of 13.5 and 39.2, p latelets 221. Procalcitonin less than 0.05. Blood cultures growing Staphylococcus haemolyticus, 4/4 bottles; initially was being reported as staph coagulase negative. Assessment: A 73-year-old female with: 1.Acute left-sided cerebrovascular accident, left posterior cerebral artery distribution. We will c ontinue aspirin and statin. Continue rehab. Heparin for deep venous thrombosis prophylaxis. Contin ue PT/OT eval. Patient will likely benefit from rehab placement. Appreciate Neurology input. 2.Receptive aphasia, improving. 3.Acute kidney injury. Creatinine now back to baseline. Continue to monitor. Avoid NSAIDs. Appre félix Nephrology input. 4.Bacteremia, secondary to Staphylococcus haemolyticus. This may still be skin contaminant. We nasra l discuss with Infectious Disease. For now, we will start on doxycycline. 5.Diabetes mellitus type 2 with termite control servicer use of insulin with hyperglycemia. We will continue slidi ng scale insulin. Monitor Accu-Cheks. 6.Essential hypertension. Continue permissive hypertension for the acute 72-hour window. 7.Premature atrial contractions. Patient's beta-leydi currently being held due to permissive hype rtension. We will resume after a 72-hour period is over. 8.Acute cystitis without hematuria. Cultures growing mixed kandy. Levaquin is discontinued. 9.Deep venous thrombosis prophylaxis. Patient is on heparin. Plan: Discharge to inpatient rehab once accepted. /SAMUEL Voice ID: [id number] Report ID: [id number]
[2019-07-11] MEDS ORDERED: POTASSIUM CL SA 10 MEQ TAB PO ONE (16:48)
--- NOTE | 2019-07-11 16:50 | P.PN ---
Date of Service: 07/11/19 Vital Signs Temp Pulse Resp BP Pulse Ox 98 F 85 18 146/75 H 97 07/11/19 12:00 07/11/19 12:00 07/11/19 12:00 07/11/19 12:00 07/11/19 12:00 Medications Acetaminophen (Tylenol -Extra Strength) 500 mg PO Q6H PRN PRN Reason: Pain scale 2-4 (Mild) Stop: 08/07/19 13:36 Albuterol Sulfate (Proventil 0.083% Neb Soln) 2.5 mg NEB [id number] PRN PRN Reason: SHORTNESS OF BREATH Stop: 08/07/19 13:36 Amlodipine Besylate (Norvasc) 5 mg PO DAILY [facility] Stop: 08/10/19 09:01 Last Admin: 07/11/19 09:04 Dose: 5 mg Documented by: Aspirin (Aspirin Ec) 81 mg PO DAILY ALF Stop: 08/08/19 09:01 Last Admin: 07/11/19 09:04 Dose: 81 mg Documented by: Atorvastatin Calcium (Lipitor) 40 mg PO BEDTIME ALF Stop: 08/08/19 21:01 Last Admin: 07/10/19 20:29 Dose: 40 mg Documented by: Clopidogrel Bisulfate (Plavix) 75 mg PO DAILY ALF Stop: 08/08/19 09:01 Last Admin: 07/11/19 09:05 Dose: 75 mg Documented by: Dextrose (Dextrose 50% Syringe/Vial) 12.5 gm IV PRN PRN; Protocol PRN Reason: HYPOGLYCEMIA Stop: 08/07/19 13:43 Folic Acid (Folic Acid) 5 mg PO DAILY ALF Stop: 08/07/19 14:01 Last Admin: 07/11/19 09:05 Dose: 5 mg Documented by: Gabapentin (Neurontin) 600 mg PO DAILY [facility]F Stop: 08/10/19 09:01 Last Admin: 07/11/19 09:00 Dose: 600 mg Documented by: Glucagon (Glucagen) 1 mg IM 1X PRN; Protocol PRN Reason: HYPOGLYCEMIA Stop: 08/07/19 13:43 Heparin Sodium (Porcine) (Heparin 5,000 Units/Ml) 5,000 unit SQ Q8H [facility] Stop: 08/08/19 04:01 Last Admin: 07/11/19 11:53 Dose: 5,000 unit Documented by: Hydralazine HCl (Apresoline) 10 mg IV Q6HP PRN PRN Reason: FOR SBP>160 OR DBP>100 MMHG Stop: 08/07/19 13:38 Last Admin: 07/10/19 04:25 Dose: 10 mg Documented by: Doxycycline Hyclate 100 mg/ (Sodium Chloride) 100 mls @ 100 mls/hr IVPB Q12HR [facility]; Protocol Stop: 08/10/19 21:01 Insulin Glargine (Lantus) 20 units SQ DAILY WITH BREAKFAST [facility] Stop: 08/09/19 08:01 Last Admin: 07/11/19 09:03 Dose: 20 units Documented by: Insulin Human Regular (Novolin -R) 0 unit SQ ACHS [facility]; Protocol Stop: 08/07/19 16:31 Last Admin: 07/11/19 11:52 Dose: 5 unit Documented by: Losartan Potassium (Cozaar) 100 mg PO DAILY [facility] Stop: 08/08/19 09:01 Last Admin: 07/11/19 09:04 Dose: 100 mg Documented by: Ondansetron HCl (Zofran) 4 mg IV Q8H PRN PRN Reason: NAUSEA / VOMITING Stop: 08/07/19 13:36 Pantoprazole Sodium (Protonix Tab) 40 mg PO BIDAC [facility]; Protocol Stop: 08/07/19 16:31 Last Admin: 07/11/19 07:30 Dose: 40 mg Documented by: Sodium Chloride (Normal Saline Flush) 10 ml IV BID [facility] Stop: 08/07/19 21:01 Last Admin: 07/11/19 09:06 Dose: 10 ml Documented by: Microbiology Results 07/08/19 10:35 Blood - Blood Aerobic Blood Culture - Final Staphylococcus Haemolyticus 07/08/19 10:35 Blood - Blood Blood Culture Gram Stain - Final 07/08/19 10:35 Blood - Blood Anaerobic Blood Culture - Final Staphylococcus Haemolyticus 07/08/19 10:35 Blood - Blood Gram Stain - Final 07/08/19 11:00 Blood - Blood Aerobic Blood Culture - Final Staphylococcus Haemolyticus 07/08/19 11:00 Blood - Blood Blood Culture Gram Stain - Final 07/08/19 11:00 Blood - Blood Anaerobic Blood Culture - Final Staphylococcus Haemolyticus 07/08/19 11:00 Blood - Blood Gram Stain - Final 07/08/19 11:10 Clean Catch Urine [place] Count - Final BETWEEN 10,000 & 100,000 CFU/ML 07/08/19 11:10 Clean Catch Urine - Final MIXED DENITA. Assessment/ Plan: Nephrology Feeling better today. Nurse reports weakness and unsteadiness. CPS stable without CP or SOB. No acute events overnight. Vitals, medications, blood work and imaging reviewed in the chart. General: In no apparent distress, Confused HEENT: Atraumatic Neck: Supple Respiratory: Clear to auscultation bilaterally Cardiovascular: No edema, Regular rate/rhythm Gastrointestinal: Non-distended, No rebound, No guarding, Tenderness Musculoskeletal: No clubbing, No contractures Integumentary: No rashes, No cyanosis Neurological: Abnormal speech Blood work reviewed in the chart. Na 135 Imagings Data: NORMAL 2-DIMENSIONAL ECHOCARDIOGRAM. NO VEGETATION. NO THROMBUS. NO WALL MOTION ABNORMALITY. NO EFFUSION. EXAM DESCRIPTION: [facility] Single View07/08/2019 10:48 am CLINICAL HISTORY: Chest pain COMPARISON: 2019 FINDINGS: The lungs appear clear of acute infiltrate. The heart is normal size IMPRESSION: No acute abnormalities displayed Conclusions/Impression: A/ MALGORZATA Hyponatremia CKD with proteinuria HTN with CKD DM I with CKD Toxic metabolic encephalopathy Acute cystitis P/ Continue current POC and Medications. Stop IVF. Give potassium today. Titrate amlodipine as needed. Continue abx. Titrate insulin. Advance diet as tolerated. No NSAIDs. AM labs. Daily weight.
[2019-07-11] MEDS: ATORVASTATIN 40 MG TAB PO SCH (21:20)
[2019-07-11] MEDS: DOXYCYCLINE 100 MG in NA CHLORIDE 0.9% 100 ML IVPB SCH (21:20)
[2019-07-12] MEDS: HEPARIN 5000 UNIT/ML 1 ML VIAL SQ SCH ×2 (04:41→12:41)
[2019-07-12 05:45] LABS: Potassium 3.3 mmol/L (3.5-5.1)
[2019-07-12 06:07] LABS: Absolute Lymphocytes (CBC) 2.3 K/uL (0.7-4.9); Basophils % 0.9 % (0-1.3); Lymphocytes % 26.4 % (15.3-44.8); MPV 8.6 fL (7.6-11.3); RBC Red Blood Cell Count 4.51 M/uL (3.86-4.86)
[2019-07-12] MEDS: CLOPIDOGREL 75 MG TABLET PO SCH (08:41)
[2019-07-12] MEDS: FOLIC ACID 1 MG TABLET PO SCH (08:41)
[2019-07-12] MEDS: PANTOPRAZOLE 40MG TABLET PO SCH ×2 (08:43→16:15)
[2019-07-12] MEDS: ASPIRIN EC 81 MG TAB PO SCH (08:44)
[2019-07-12] MEDS: AMLODIPINE 5 MG TAB PO SCH (08:45)
[2019-07-12] MEDS: LOSARTAN POTASSIUM 50 MG TABLET PO SCH (08:45)
[2019-07-12] MEDS: INSULIN -REGULAR HUMAN 50 UNIT/0.5 ML ML SQ SCH ×3 (08:46→16:20)
[2019-07-12] MEDS: INSULIN GLARGINE 100 UNITS/ML SQ SCH (08:46)
[2019-07-12] MEDS: GABAPENTIN 300 MG CAP PO SCH (08:47)
[2019-07-12] MEDS: DOXYCYCLINE 100 MG in NA CHLORIDE 0.9% 100 ML IVPB SCH (08:50)
[2019-07-12] MEDS ORDERED: POTASSIUM CL SA 10 MEQ TAB PO ONE ×2 (09:10→17:00)
--- NOTE | 2019-07-12 10:53 | EKG ---
Test Date: 2019-07-11 Test Time: 00:31:39 Flag Decorator: RT MEASUREMENT RESULTS: Intervals: Rate: 94 UT: 84 QRSD: 134 QT: 446 QTc: 557 [place]: P: -29 UT: 84 QRS: -17 T: -9 INTERPRETIVE STATEMENTS: Sinus rhythm with short UT Nonspecific intraventricular block Inferior infarct, age undetermined Cannot rule out Anteroseptal infarct, age undetermined Abnormal ECG Compared to ECG 07/08/2019 10:43:38 Short UT interval now present Myocardial infarct finding still present Electronically Signed On 07-12-19 10:49:22 CDT by Spencer Marquez
[2019-07-12 13:33] VITALS: O2SAT 97
--- NOTE | 2019-07-12 15:36 | P.CNS ---
Date of Consult: 07/12/19 The subjective: Patient is a 73-year-old female was admitted for progressive weakness, lethargy and intermittent confusion and recurrent falls for the last 3 weeks. Patient was found to have hyperglycemia and left occipital lobe infarct. Patient also found to have bacteremia which I have been consulted for. Patient examined at bedside. PMH/surgical: Hypertension, diabetes, hyperlipidemia, obesity, hysterectomy, right knee surgery, left hip replacement, bilateral wrist surgery, cholecystectomy Famil history: Noncontributory Social: Denies tobacco and alcohol use Allergy/AdvReac Type Severity Reaction Status Date / Time naproxen Allergy Intermediate Hives/Rash Verified 06/05/11 13:29 codeine Allergy Itching/Hiv Verified 12/29/18 16:30 es/Rash Penicillins Allergy Itching/Hiv Verified 12/29/18 16:30 es/Rash morphine AdvReac Mild confusion Verified 12/30/18 01:10 Active Medications Acetaminophen (Tylenol -Extra Strength) 500 mg PO Q6H PRN PRN Reason: Pain scale 2-4 (Mild) Stop: 08/07/19 13:36 Albuterol Sulfate (Proventil 0.083% Neb Soln) 2.5 mg NEB [id number] PRN PRN Reason: SHORTNESS OF BREATH Stop: 08/07/19 13:36 Amlodipine Besylate (Norvasc) 5 mg PO DAILY ALF Stop: 08/10/19 09:01 Last Admin: 07/12/19 08:45 Dose: 5 mg Documented by: Aspirin (Aspirin Ec) 81 mg PO DAILY ALF Stop: 08/08/19 09:01 Last Admin: 07/12/19 08:44 Dose: 81 mg Documented by: Atorvastatin Calcium (Lipitor) 40 mg PO BEDTIME ALF Stop: 08/08/19 21:01 Last Admin: 07/11/19 21:20 Dose: 40 mg Documented by: Clopidogrel Bisulfate (Plavix) 75 mg PO DAILY [facility] Stop: 08/08/19 09:01 Last Admin: 07/12/19 08:41 Dose: 75 mg Documented by: Dextrose (Dextrose 50% Syringe/Vial) 12.5 gm IV PRN PRN; Protocol PRN Reason: HYPOGLYCEMIA Stop: 08/07/19 13:43 Doxycycline Monohydrate (Vibramycin) 100 mg PO BID [facility] Stop: 08/11/19 21:01 Folic Acid (Folic Acid) 5 mg PO DAILY [facility] Stop: 08/07/19 14:01 Last Admin: 07/12/19 08:41 Dose: 5 mg Documented by: Gabapentin (Neurontin) 600 mg PO DAILY [facility] Stop: 08/10/19 09:01 Last Admin: 07/12/19 08:47 Dose: 600 mg Documented by: Glucagon (Glucagen) 1 mg IM 1X PRN; Protocol PRN Reason: HYPOGLYCEMIA Stop: 08/07/19 13:43 Heparin Sodium (Porcine) (Heparin 5,000 Units/Ml) 5,000 unit SQ Q8H [facility] Stop: 08/08/19 04:01 Last Admin: 07/12/19 12:41 Dose: 5,000 unit Documented by: Hydralazine HCl (Apresoline) 10 mg IV Q6HP PRN PRN Reason: FOR SBP>160 OR DBP>100 MMHG Stop: 08/07/19 13:38 Last Admin: 07/10/19 04:25 Dose: 10 mg Documented by: Insulin Glargine (Lantus) 20 units SQ DAILY WITH BREAKFAST [facility] Stop: 08/09/19 08:01 Last Admin: 07/12/19 08:46 Dose: 20 units Documented by: Insulin Human Regular (Novolin -R) 0 unit SQ ACHS [facility]; Protocol Stop: 08/07/19 16:31 Last Admin: 07/12/19 12:41 Dose: 5 unit Documented by: Losartan Potassium (Cozaar) 100 mg PO DAILY [facility] Stop: 08/08/19 09:01 Last Admin: 07/12/19 08:45 Dose: 100 mg Documented by: Ondansetron HCl (Zofran) 4 mg IV Q8H PRN PRN Reason: NAUSEA / VOMITING Stop: 08/07/19 13:36 Pantoprazole Sodium (Protonix Tab) 40 mg PO BIDAC [facility]; Protocol Stop: 08/07/19 16:31 Last Admin: 07/12/19 08:43 Dose: 40 mg Documented by: Sodium Chloride (Normal Saline Flush) 10 ml IV BID [facility] Stop: 08/07/19 21:01 Last Admin: 07/12/19 08:47 Dose: 10 ml Documented by: ROS: CV: Denies chest pain RESP: Denies shortness of breath, cough : Denies burning/difficulty urinating GI: Denies nausea, vomiting, diarrhea Neuro: Reports aphasia Objective: Temp Pulse Resp BP Pulse Ox 97.7 F 86 18 115/59 L 97 07/12/19 12:00 07/12/19 12:00 07/12/19 12:00 07/12/19 12:00 07/12/19 12:00 Labs: Sodium 137, potassium 3.3, BUN 19, creatinine 1.42, GFR 36, WBC 8.6 EXAM DESCRIPTION: CT - Head Brain Wo Cont - 07/08/2019 10:53 am CLINICAL HISTORY: Alteration of awareness/confusion COMPARISON: None TECHNIQUE: Computed axial tomography of the head was obtained. IV contrast was not requested. All CT scans are performed using dose optimization technique as appropriate and may include automated exposure control or mA/KV adjustment according to patient size. FINDINGS: An intracranial bleed is not seen . The ventricles are normal in caliber. No extra-axial fluid collection is noted. A 8.5 centimeter low-density area prominently left occipital lobe. A portion of left temporal lobe is involved Fluid within the sinuses/ mastoids is not seen. IMPRESSION: 8.5 centimeter low-density area predominantly left occipital lobe consistent with acute infarction. ROS: General: Awake, alert, talking on the phone, Aphasia noted CV: S1, S2 RESP: Clear to auscultation ABD: Round, soft, nontender Extremities: No edema Assessment and plan: Bacteremia, Blood cultures positive for Staphylococcus Haemolyticus Currently being treated with Doxycycline, continue Plan is for patient to go to rehab facility, spoke with the patient and she is wanting to be discharged home Will continue to monitor Patient discussed with Dr. Piper
--- NOTE | 2019-07-12 16:47 | P.PN ---
Date of Service: 07/12/19 Vital Signs Temp Pulse Resp BP Pulse Ox 97.7 F 86 18 115/59 L 97 07/12/19 12:00 07/12/19 12:00 07/12/19 12:00 07/12/19 12:00 07/12/19 12:00 Medications Acetaminophen (Tylenol -Extra Strength) 500 mg PO Q6H PRN PRN Reason: Pain scale 2-4 (Mild) Stop: 08/07/19 13:36 Albuterol Sulfate (Proventil 0.083% Neb Soln) 2.5 mg NEB [id number] PRN PRN Reason: SHORTNESS OF BREATH Stop: 08/07/19 13:36 Amlodipine Besylate (Norvasc) 5 mg PO DAILY [facility] Stop: 08/10/19 09:01 Last Admin: 07/12/19 08:45 Dose: 5 mg Documented by: Aspirin (Aspirin Ec) 81 mg PO DAILY [facility] Stop: 08/08/19 09:01 Last Admin: 07/12/19 08:44 Dose: 81 mg Documented by: Atorvastatin Calcium (Lipitor) 40 mg PO BEDTIME [facility] Stop: 08/08/19 21:01 Last Admin: 07/11/19 21:20 Dose: 40 mg Documented by: Clopidogrel Bisulfate (Plavix) 75 mg PO DAILY [facility] Stop: 08/08/19 09:01 Last Admin: 07/12/19 08:41 Dose: 75 mg Documented by: Dextrose (Dextrose 50% Syringe/Vial) 12.5 gm IV PRN PRN; Protocol PRN Reason: HYPOGLYCEMIA Stop: 08/07/19 13:43 Doxycycline Monohydrate (Vibramycin) 100 mg PO BID [facility] Stop: 08/11/19 21:01 Folic Acid (Folic Acid) 5 mg PO DAILY [facility] Stop: 08/07/19 14:01 Last Admin: 07/12/19 08:41 Dose: 5 mg Documented by: Gabapentin (Neurontin) 600 mg PO DAILY [facility] Stop: 08/10/19 09:01 Last Admin: 07/12/19 08:47 Dose: 600 mg Documented by: Glucagon (Glucagen) 1 mg IM 1X PRN; Protocol PRN Reason: HYPOGLYCEMIA Stop: 08/07/19 13:43 Heparin Sodium (Porcine) (Heparin 5,000 Units/Ml) 5,000 unit SQ Q8H [facility] Stop: 08/08/19 04:01 Last Admin: 07/12/19 12:41 Dose: 5,000 unit Documented by: Hydralazine HCl (Apresoline) 10 mg IV Q6HP PRN PRN Reason: FOR SBP>160 OR DBP>100 MMHG Stop: 08/07/19 13:38 Last Admin: 07/10/19 04:25 Dose: 10 mg Documented by: Insulin Glargine (Lantus) 20 units SQ DAILY WITH BREAKFAST [facility] Stop: 08/09/19 08:01 Last Admin: 07/12/19 08:46 Dose: 20 units Documented by: Insulin Human Regular (Novolin -R) 0 unit SQ ACHS [facility]; Protocol Stop: 08/07/19 16:31 Last Admin: 07/12/19 16:20 Dose: Not Given Documented by: Losartan Potassium (Cozaar) 100 mg PO DAILY [facility] Stop: 08/08/19 09:01 Last Admin: 07/12/19 08:45 Dose: 100 mg Documented by: Ondansetron HCl (Zofran) 4 mg IV Q8H PRN PRN Reason: NAUSEA / VOMITING Stop: 08/07/19 13:36 Pantoprazole Sodium (Protonix Tab) 40 mg PO BIDAC [facility]; Protocol Stop: 08/07/19 16:31 Last Admin: 07/12/19 16:15 Dose: 40 mg Documented by: Potassium Chloride (Klor-Con 10 Meq Tab) 40 meq PO 1X ONE Stop: 07/12/19 17:01 Sodium Chloride (Normal Saline Flush) 10 ml IV BID [facility] Stop: 08/07/19 21:01 Last Admin: 07/12/19 08:47 Dose: 10 ml Documented by: Microbiology Results 07/08/19 10:35 Blood - Blood Aerobic Blood Culture - Final Staphylococcus Haemolyticus 07/08/19 10:35 Blood - Blood Blood Culture Gram Stain - Final 07/08/19 10:35 Blood - Blood Anaerobic Blood Culture - Final Staphylococcus Haemolyticus 07/08/19 10:35 Blood - Blood Gram Stain - Final 07/08/19 11:00 Blood - Blood Aerobic Blood Culture - Final Staphylococcus Haemolyticus 07/08/19 11:00 Blood - Blood Blood Culture Gram Stain - Final 07/08/19 11:00 Blood - Blood Anaerobic Blood Culture - Final Staphylococcus Haemolyticus 07/08/19 11:00 Blood - Blood Gram Stain - Final 07/08/19 11:10 Clean Catch Urine [place] Count - Final BETWEEN 10,000 & 100,000 CFU/ML 07/08/19 11:10 Clean Catch Urine - Final MIXED DENITA. Assessment/ Plan: Nephrology Feeling better today. Nurse reports weakness and unsteadiness. CPS stable without CP or SOB. No acute events overnight. Vitals, medications, blood work and imaging reviewed in the chart. General: In no apparent distress, Confused HEENT: Atraumatic Neck: Supple Respiratory: Clear to auscultation bilaterally Cardiovascular: No edema, Regular rate/rhythm Gastrointestinal: Non-distended, No rebound, No guarding, Tenderness Musculoskeletal: No clubbing, No contractures Integumentary: No rashes, No cyanosis Neurological: Abnormal speech Blood work reviewed in the chart. Na 135 Imagings Data: NORMAL 2-DIMENSIONAL ECHOCARDIOGRAM. NO VEGETATION. NO THROMBUS. NO WALL MOTION ABNORMALITY. NO EFFUSION. EXAM DESCRIPTION: [facility] Single View07/08/2019 10:48 am CLINICAL HISTORY: Chest pain COMPARISON: 2018 FINDINGS: The lungs appear clear of acute infiltrate. The heart is normal size IMPRESSION: No acute abnormalities displayed Conclusions/Impression: A/ MALGORZATA, waxing and waning. Hyponatremia Hypokalemia CKD with proteinuria HTN with CKD DM I with CKD Toxic metabolic encephalopathy Staph bacteremia. Acute cystitis P/ Continue current POC and Medications. Restart IVF as needed. Give potassium today. Titrate amlodipine as needed. Continue abx. Titrate insulin. Encourage nutrition. No NSAIDs. AM labs. Daily weight.
[2019-07-12 18:00] VITALS: BP 131/62; TEMP 99.8
[2019-07-12] MEDS ORDERED: DOXYCYCLINE 100 MG CAP PO SCH (21:00)
--- NOTE | 2019-07-13 04:14 | DS ---
Date of Discharge: 07/12/2019 Consultants: 1.Dr. Barron, Nephrology. 2.Dr. Gomez with Neurology. 3.Dr. Piper with Infectious Disease. Admitting Diagnoses: 1.Acute cerebrovascular accident, left-sided. 2.Receptive aphasia. 3.Acute kidney injury. 4.Diabetes mellitus type 2 with long-term use of insulin with hyperglycemia. 5.Essential hypertension. 6.Obesity, BMI 32. 7.Mixed hyperlipidemia. Discharge Diagnoses: 1.Acute left-sided cerebrovascular accident in the left posterior cerebral artery distribution, on a spirin, statin. 2.Receptive aphasia, improved. 3.Acute kidney injury, improved back to baseline. 4.Bacteremia secondary to Staphylococcus haemolyticus. We will continue with doxycycline. 5.Diabetes mellitus type 2 with long-term use of insulin with hyperglycemia. We will continue slidi ng scale insulin. 6.Essential hypertension, stable. 7.Premature atrial contractions. Continue beta-leydi. 8.Acute cystitis without hematuria. Culture grew out mixed kandy, was treated with antibiotics. Hospital Course: Patient is a 73-year-old female with past medical history of hypertension, diabetes , hyperlipidemia, obesity, comes in with confusion, falls. Head CTA was done, which showed a left oc cipital lobe infarct of 8 mm size. Patient was admitted for acute CVA and Neurology was consulted. Further workup including MRI showed left SKID ADZER distribution. She was started on stroke guidelines with aspirin, statin. Echocardiogram showed EF of 77%. No thrombus or vegetation was seen. Patient was seen by neurologist, Dr. Gomez. Patient did have some acute kidney injury and was seen by Nephro logy. Kidney function improved, however, has bounced back up to 1.42. May need to adjust her losart an dose. Did have UTI with some budding yeast present, was given Diflucan. Her culture grew out mix ed kandy. Therefore, antibiotics were discontinued. Patient was then found to have Staphylococcus h aemolyticus in her blood, which had initially been treated with vancomycin. She was switched over to doxycycline. ID was also consulted. Patient overall did well. She was able to recover from her aph luis pretty quickly. She does have some hemianopsia and will need inpatient rehab. Patient was refe rred over to inpatient rehab and will be discharged once accepted. Medications: As per medication reconciliation list. Activity: As per rehab. Diet: Diabetic. Followup: 1.Follow up with primary care physician in 1 to 2 weeks. 2.Follow up with neurologist, Dr. Gomez in 2 to 4 weeks. 3.Return to ER for worsening condition. 4.Follow up with associate professor of media arts, Dr. Barron in 2 weeks. 5.Repeat blood cultures once antibiotics completed. Medications: As per medication reconciliation list. Physical Examination: General: Awake, alert, oriented x3. Elderly female, obese. CV: S1, S2. Respiratory: Moving air well bilaterally. Abdomen: Soft, nontender, nondistended. Positive bowel sounds. Extremities: No clubbing, cyanosis, edema. Neurologic: Nonfocal. Does have some visual disturbance. Time Spent: Total time spent discharging patient was 38 minutes. /SAMUEL Voice ID: [id number] Report ID: [id number]
== END 2019-07-12 18:49 | DRG 64 ==
LOC: ER 10:18 → ERHOLD 13:36 → 2ND 17:08
PROVIDERS: ADMIT Internal Medicine; ATTEND Family Medicine
DX: I63.9 Cerebral infarction, unspecified (principal); G92 Toxic encephalopathy; N17.9 Acute kidney failure, unspecified; N30.00 Acute cystitis without hematuria; R78.81 Bacteremia; E87.1 Hypo-osmolality and hyponatremia; Z91.81 History of falling; Z88.5 Allergy status to narcotic agent; Z88.0 Allergy status to penicillin; Z88.8 Allergy status to other drugs, medicaments and biological substances; Z79.82 Long term (current) use of aspirin; Z79.4 Long term (current) use of insulin; Z79.899 Other long term (current) drug therapy; Z90.710 Acquired absence of both cervix and uterus; Z96.642 Presence of left artificial hip joint; Z90.49 Acquired absence of other specified parts of digestive tract; E66.9 Obesity, unspecified; F80.2 Mixed receptive-expressive language disorder; E11.65 Type 2 diabetes mellitus with hyperglycemia; E11.40 Type 2 diabetes mellitus with diabetic neuropathy, unspecified; R29.707 NIHSS score 7; Z68.32 Body mass index [BMI] 32.0-32.9, adult; E78.2 Mixed hyperlipidemia; B95.7 Other staphylococcus as the cause of diseases classified elsewhere; I49.1 Atrial premature depolarization; H53.47 Heteronymous bilateral field defects; E87.6 Hypokalemia; I12.9 Hypertensive chronic kidney disease with stage 1 through stage 4 chronic kidney disease, or unspecified chronic kidney disease; E11.22 Type 2 diabetes mellitus with diabetic chronic kidney disease; N18.9 Chronic kidney disease, unspecified
CPT/HCPCS: 36415; 51702; 70450; 70544; 70548; 70549; 71045; 74230; 80048; 80053; 80061; 80076; 80202; 80307; 81003; 81015; 82140; 82550; 82570; 82947; 83605; 83690; 83735; 83880; 84100; 84145; 84300; 84484; 84550; 85025; 85610; 85730; 87040; 87077; 87086; 87088; 87186; 87205; 92611; 93005; 93306; 93880; 97112; 97116; 97161; 97530; 99285; A9577; J0360; J0696; J1644; J1815; J7030; J7040

== ENCOUNTER 2019-07-12 18:48 | Inpatient (IN) | payer OTHER ==
--- NOTE | 2019-07-12 17:26 | R.PREADM ---
SCREENING DATE AND TIME 07/12/2019 16:26 (CDT) ANTICIPATED REHAB ADMISSION DATE 07/14/2019 REFERRING FACILITY [facility] REFERRAL DATE AND TIME 07/08/2019 13:38 (CDT) REFERRAL ROOM# 213 ACUTE ADMIT DATE 07/08/2019 Previous Rehabilitation(s): No. 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 Carrasco REHAB FACILITY [facility] CLINICAL LIAISON Laura Carl PHYSICIAN REVIEWER Dr. Yordan Gomez M.D. [facility] [id number] [id number] NAME KEANU PADRON ADDRESS [address] [facility] [place]ONE ZIP [address] DATE OF 1945 AGE 73 SSN# [id number] GENDER female MARITAL STATUS RACE white ADMIT FROM 02 - [facility] [place] PRE-HOSPITAL LIVING SETTING 01 - Home (private home/apt. board/care, assisted living, [place] [facility], transitional living) HOME TYPE AND DETAILS Type of home: 2 story Home # of steps to enter the residence: 1 # of levels in the residence: 1 # of steps within the residence: 2 2 mainor home, 1 step to front door, ambulate w/o an A.D., has 2 showers, she stands in the shower pe r pt PRE-HOSPITAL LIVING WITH Family/Relatives FAMILY SUPPORT Yes PRIMARY FAMILY CONTACT NAME Baltazar Padron PRIMARY FAMILY CONTACT PHONE [phone] PRIMARY FAMILY CONTACT RELATIONSHIP IS PRIMARY FAMILY CONTACT AUTH. REP.? no 1ST EMERGENCY CONTACT Baltazar Padron 1ST CONTACT PHONE [phone] 1ST CONTACT RELATIONSHIP IS 1ST CONTACT AUTH. REP.? no PHONE 2ND CONTACT ON ADM.? no PATIENT EMPLOYMENT STATUS Retired (for age) PATIENT EMPLOYER No Employer PAYOR INFORMATION: 1ST PAYOR NAME Medicare 1ST PAYOR PHONE 1ST PAYOR INJURY/ILLNESS DUE TO ACCIDENT? No ANOTHER REPUBLICAN RESPONSIBLE? 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 ONSET DATE 07/08/2019 REHAB IMPAIRMENT CATEGORY (CLAUDETTE): 01 Stroke (STR) MEETS 60% rule AFFECTED EXTREMITIES: RLE, and RUE PRIMARY DIAGNOSIS-RELATED SURGERIES: Emergency Stroke(Right Body (Left Brain)) - performed by Dr. Carrasco on 07/08/2019 SUMMARY OF ACUTE HOSPITALIZATION: Pt. is a 73 yo Right-handed white female. On 07/08/2019 Pt. presented to [facility] with sudden onset of right-side weakness. On 07/08/2019 she was admitted to [facility] and underwent emergency surgery for Large subacute left posterior cerebral artery territory infarct is present without evidence of hemorrhagic conversion. (Stroke(Right Body (Left Brain))) by Dr. Carrasco. Pre-morbidly, Pt. was independent/mod-I in Transfers Control, Locomotion, and Self-Care; and she had good Balance, Safety Awareness, Social Cognition, Sphincter Control, and Communication. Currently, she has deficits of Transfers Control, Balance, Locomotion, Self-Care, Safety Awareness, a nd Social Cognition. Pt. is now referred to [facility] for acute in-patient rehabilitation in order to maximize patient's functional independence in activities of daily living, strength, ROM, and mobi lity. Patient has realistic goal of being discharged at assistance level 6-Angelica to reside at Home with Fam renny/Relatives. PAST MEDICAL HISTORY Diabetes HTN HLD Obesity PAST SURGICAL HISTORY: HYSTERECTOMY Right Knee Arthroplasty Left Hip Arthroplasty Both Wrists SX Aneurysmrepair, right hip nailing, and cholecystectomy. MEDICATION ALLERGIES: naproxen CODEINE Penicillins Morphine ENVIRONMENTAL ALLERGIES: None Known - Substance Allergies None Known - Other Allergies None Known CODE STATUS: Full code WEIGHT/HEIGHT/BMI: WEIGHT 196 lbs HEIGHT 5' 5" BMI 32.6 DIET: - Diet Type Regular - Diet - Solid Texture Regular - Diet - Liquid Texture Regular - Tube Feed N/A REVIEW OF SYSTEMS: - Gen Alert and awake Lying in bed No apparent distress Oriented to: person, time, and place - Vital Signs Vital signs stable, afebrile - CVS RRR VITAL SIGNS Temperature: 97.7 F SBP/DBP: 115/59 Pulse: 86 Resp: 18 Vital signs stable, afebrile MEDICATIONS/TREATMENT: Other- See attached MAR (Medication Administration Record). CURRENT SPHINCTER CONTROL: Pre-hospital bladder status: continent Pre-hospital bowel status: continent Last Bowel Movement Date: 07/12/2019 CURRENT LOCOMOTION STATUS: distance walked 210 feet DETAILED CURRENT FUNCTIONAL STATUS: - Walking score based on distance walked: 3(>=150ft) QI SCORES: - Self-Care A. Eating 05-Setup or clean-up assistance B. Oral hygiene 05-Setup or clean-up assistance C. Toileting hygiene 03-Partial/moderate assistance E. Shower/bathe self 10-Not attempted due to environmental limitations F. Upper body dressing 03-Partial/moderate assistance G. Lower body dressing 01-Dependent H. Putting on/taking off footwear 01-Dependent - Mobility A. Roll left and right 03-Partial/moderate assistance B. Sit to lying 03-Partial/moderate assistance C. Lying to sitting on side of bed 03-Partial/moderate assistance D. Sit to stand 03-Partial/moderate assistance E. Chair/tck-js-jemwa transfer 03-Partial/moderate assistance F. Toilet transfer 03-Partial/moderate assistance G. Car transfer 88-Not attempted due to medical condition or safety concerns I. Walk 10 feet 03-Partial/moderate assistance J. Walk 50 feet with two turns 03-Partial/moderate assistance K. Walk 150 feet 03-Partial/moderate assistance L. Walking 10 feet on uneven surfaces 88-Not attempted due to medical condition or safety concerns M. 1 step (curb) 88-Not attempted due to medical condition or safety concerns N. 4 steps 88-Not attempted due to medical condition or safety concerns O. 12 steps 88-Not attempted due to medical condition or safety concerns P. Picking up object 88-Not attempted due to medical condition or safety concerns - Bladder and Bowel Bladder continence 0-Always continent Bowel continence 0-Always continent - Endurance Poor - Balance Poor - Safety Awareness Poor CURRENT FUNC. DEFICITS: Self-Care, Mobility, Endurance, Balance, and Safety Awareness CURRENT / PREVIOUS ASSISTIVE DEVICES: Rolling Walker HISTORY OF FALLS. HAS THE PATIENT HAD TWO OR MORE FALLS IN THE PAST YEAR OR ANY FALL WITH INJURY IN T HE PAST YEAR?: Yes PRIOR SURGERY. DID THE PATIENT HAVE MAJOR SURGERY DURING THE 100 DAYS PRIOR TO ADMISSION?: No THERAPY NOTES FROM ACUTE CARE: Attached. SPECIAL NEEDS: - Safety Concerns Skin breakdown precautions needed due to skin breakdown risk PRECAUTIONS: - Weight Bearing Precaution WBAT right LE PATIENT NEEDS ACTIVE AND ONGOING THERAPEUTIC INTERVENTION OF MULTIPLE THERAPY DISCIPLINES, INCLUDING: - Occupational Therapy Cognitive Retraining. Visual Perceptual Training. - Dietary and Nutrition Adequate Nutrition. Nutritional Education. Nutritional Supplements. - Speech Therapy Cognitive Training. Expressive Language Skills. Memory Strategies. Receptive Language Skills. Speech Intelligibility Training. PATIENT NEEDS CLOSE MEDICAL SUPERVISION BY A REHABILITATION PHYSICIAN FOR: Coordination of Treatment Team Post-Op Complications PATIENT REQUIRES 24X7 REHAB NURSING FOR MEDICAL AND FUNCTIONAL MGT. OF THE FOLLOWING DEFICITS: Disease Management Medication Management Patient/Family Education Providing Safe Environment PATIENT REQUIRES INTENSIVE, COORDINATED INTERDISCIPLINARY APPROACH TO REHAB: Arranging Home Equipment/Services Discharge Planning Family Intervention/Training Crosscutter/Case Management PATIENT REHAB POTENTIAL: Nandini LEE is able and expected to receive 3 hours of individualized therapy daily on at least 5 of every 7 days Nandini LEE's prognosis for significant practical improvement within a reasonable period of time appe ars Good Expected level of measurable improvement will be of a practical value to Nandini LEE's functional cap acity or adaptations to impairments Has a viable Discharge Plan Medically appropriate; condition is sufficiently stable to participate in intensive rehab program DISCHARGE PLAN: - Estimated Length of Stay (days) 17. - Consensus on plan Discharge plan has been discussed with primary caregiver. Patient/Family is in agreement with the dia n. Primary caregiver is in agreement with the plan. - Patient/Family Goals Return home with assistance. - Planned Living Setting Upon Discharge Home, to live with Family/Relatives. RECOMMENDED CARE LEVEL: IRF RECOMMENDATION DETAILS: Recommended Admission to Comprehensive Rehabilitation Program to Increase Functional [place] SCREENER'S COMPLETENESS CONFIRMATION: - Screening Confirmation The patient data collection on this preadmission screening form is finished PHYSICIANS REVIEW AND ADMISSION DETERMINATION Admit - Based on my review of the Pre-Admission Screening results, in my medical judgment and experie nce, I concur with the findings and recommend admission to [facility], as this patient requires an IRF level of care. SIGNATURE PANEL: Clinical Liaison - [electronically] signed by Jocelyn Meza Outreach Analyst on 07/12/2019 at 16:46 (C DT) Clinical Liaison - [electronically] signed by Laura Montanez RN on 07/12/2019 at 16:55 (CDT) Physician Reviewer - [electronically] signed by Dr. Yordan Gomez M.D. on 07/12/2019 at 17:25 (CDT )
[2019-07-12] MEDS ORDERED: D50W 25 GM/50 ML SYRINGE/VIAL IV PRN (19:18)
[2019-07-12] MEDS ORDERED: GLUCAGON 1 MG/VIAL IM PRN (19:18)
[2019-07-12] MEDS: DOCUSATE NA/SENNA CONC 1 TAB PO PRN (20:55)
[2019-07-12] MEDS: ATORVASTATIN 40 MG TAB PO SCH (20:55)
[2019-07-12] MEDS: MELATONIN 3 MG TABLET PO PRN (20:55)
[2019-07-12] MEDS: DOXYCYCLINE 100 MG CAP PO SCH (20:55)
[2019-07-13 06:08] LABS: Absolute Lymphocytes (CBC) 2.4 K/uL (0.7-4.9); Basophils % 0.9 % (0-1.3); Hematocrit 37.3 % (36.0-45.0); Lymphocytes % 28.8 % (15.3-44.8); MPV 8.2 fL (7.6-11.3)
[2019-07-13 06:22] LABS: Albumin 2.9 g/dL (3.4-5.0); Magnesium 2.2 mg/dL (1.8-2.4); Potassium 4.3 mmol/L (3.5-5.1); Prealbumin 16.3 mg/dL (20-40)
[2019-07-13] MEDS: TRAMADOL HCL 50 MG TAB PO PRN (06:28)
[2019-07-13] MEDS: ENOXAPARIN 40 MG/0.4 ML SQ SCH (07:40)
[2019-07-13] MEDS ORDERED: GABAPENTIN 300 MG CAP PO SCH (08:00)
[2019-07-13] MEDS: ALPRAZOLAM 1 MG TABLET PO SCH (08:00)
[2019-07-13] MEDS: INSULIN -REGULAR HUMAN 50 UNIT/0.5 ML ML SQ SCH ×4 (08:19→20:29)
[2019-07-13] MEDS: INSULIN GLARGINE 100 UNITS/ML SQ SCH (08:20)
[2019-07-13] MEDS ORDERED: PNEUMOCOCCAL VACCINE 0.5 ML IMVAC ONE (09:00)
[2019-07-13] MEDS: DOXYCYCLINE 100 MG CAP PO SCH ×2 (09:27→20:22)
[2019-07-13] MEDS: METOPROLOL XL 100 MG TAB PO SCH (09:28)
[2019-07-13] MEDS: LOSARTAN POTASSIUM 50 MG TABLET PO SCH (09:28)
[2019-07-13] MEDS: AMLODIPINE 5 MG TAB PO SCH (09:29)
[2019-07-13] MEDS: ASPIRIN 81 MG CHEWABLE TABLET PO SCH (09:29)
[2019-07-13] MEDS: FOLIC ACID 1 MG TABLET PO SCH (09:30)
[2019-07-13] MEDS: CLOPIDOGREL 75 MG TABLET PO SCH (09:30)
[2019-07-13] MEDS: TOPIRAMATE 25 MG TAB PO SCH (10:37)
[2019-07-13] MEDS: GABAPENTIN 300 MG CAP PO SCH ×2 (16:39→20:23)
--- NOTE | 2019-07-13 17:14 | R.HP ---
FACILITY: [facility] ENCOUNTER DATE AND TIME: 07/13/2019 17:07 (CDT) MR#: [id number] NAME KEANU HARLEY ADDRESS: [address] CITY: [place] [address]IP [address] PHONE: DATE OF : 1945 AGE: 73 SSN# [id number] GENDER: Female DEXTERITY Right-handed MARITAL STATUS RACE White PRE-HOSPITAL LIVING SETTING 01 - Home (private home/apt. board/care, assisted living, half-way, transitional living) PRE-HOSPITAL LIVING WITH Family/Relatives ENCOUNTER PHYSICIAN: Dr. Yordan Gomez M.D. REFERRING DOCTOR: Dr. Carrasco DATE OF ADMISSION: 07/12/2019 18:48 (CDT) REFERRING FACILITY [facility] HOME TYPE AND DETAILS: Type of home: 2 story Home # of steps to enter the residence: 1 # of levels in the residence: 1 # of steps within the residence: 2 2 mainor home, 1 step to front door, ambulate w/o an A.D., has 2 showers, she stands in the shower pe r pt ONSET DATE: 07/08/2019 PRIMARY DIAGNOSIS-RELATED SURGERIES: Emergency Stroke(Right Body (Left Brain)) - performed by Dr. Carrasco on 07/08/2019 HISTORY OF PRESENT ILLNESS (HPI): Pt. is a 73 yo Right-handed white female. On 07/08/2019 Pt. presented to [facility] with sudden onset of right-side weakness. On 07/08/2019 she was admitted to [facility] and underwent emergency surgery for Large subacute left posterior cerebral artery territory infarct is present without evidence of hemorrhagic conversion. (Stroke(Right Body (Left Brain))) by Dr. Carrasco. Pre-morbidly, Pt. was independent/mod-I in Transfers Control, Locomotion, and Self-Care; and she had good Balance, Safety Awareness, Social Cognition, Sphincter Control, and Communication. Currently, she has deficits of Transfers Control, Balance, Locomotion, Self-Care, Safety Awareness, a nd Social Cognition. Pt. is now referred to [facility] for acute in-patient rehabilitation in order to maximize patient's functional independence in activities of daily living, strength, ROM, and mobi lity. Patient has realistic goal of being discharged at assistance level 6-Angelica to reside at Home with Fam renny/Relatives. MEDICATION ALLERGIES: naproxen CODEINE Penicillins Morphine ENVIRONMENTAL ALLERGIES: None Known - Substance Allergies None Known - Other Allergies None Known PAST MEDICAL HISTORY: Diabetes HTN HLD Obesity PAST SURGICAL HISTORY: HYSTERECTOMY Right Knee Arthroplasty Left Hip Arthroplasty Both Wrists SX Aneurysmrepair, right hip nailing, and cholecystectomy. FAMILY HISTORY: Family history is not contributory. SOCIAL HISTORY: - Home Living Family/Relatives REVIEW OF SYSTEMS: - Gen No Chills Fatigue No Fever - Eyes Double Vision No itchiness - ENMT Difficulty Swallowing - CVS No Chest Discomfort No Chest Pain Fatigue No Weight Gain - Resp No Cough No Shortness of Breath - GI Continent No Abdominal Pain No Constipation No Diarrhea - Continent No Kidney Pain No Painful Urination No Urinary Urgency - MSK No Joint Pain No Muscle Cramps No Stiffness - Skin No Itching No Rash No Suspicious Lesions - Neuro Coordination Difficulty Difficulty with Concentration Memory Loss No Seizures Weakness - Psych No Anxiety No Depression No HIV Exposure No Persistent Infections No Seasonal Allergies - Endo No Cold/Heat Intolerance No Excessive Hunger No Excessive Thirst No Excessive Urination PHYSICAL EXAM - Gen Alert and awake Lying in bed No apparent distress Oriented to: person, time, and place - Skin No skin breakdown. Normacephalic - Eyes No abnormalities - ENMT No abnormalities - Neck No abnormalities - CVS RRR - Chest No abnormalities - Resp Clear to auscultation - Abd Soft - GI Obese Deferred - No abnormalities - Ext No significant edema - MSK 4+/5 weakness in right lower extremity - Neuro 4/5 strength right lower extremity. - Psych Mild anxiety. VITAL SIGNS Temperature: 97.7 F SBP/DBP: 115/59 Pulse: 86 Resp: 18 NURSING: - Shower allowing shower - Bladder care per protocol - Skin care per protocol PRECAUTIONS: - Weight Bearing Precaution WBAT right LE ACTIVITIES OOB only with supervision QI SCORES: - Self-Care A. Eating 05-Setup or clean-up assistance B. Oral hygiene 05-Setup or clean-up assistance C. Toileting hygiene 03-Partial/moderate assistance E. Shower/bathe self 10-Not attempted due to environmental limitations F. Upper body dressing 03-Partial/moderate assistance G. Lower body dressing 01-Dependent H. Putting on/taking off footwear 01-Dependent - Mobility A. Roll left and right 03-Partial/moderate assistance B. Sit to lying 03-Partial/moderate assistance C. Lying to sitting on side of bed 03-Partial/moderate assistance D. Sit to stand 03-Partial/moderate assistance E. Chair/gjj-al-wmxoz transfer 03-Partial/moderate assistance F. Toilet transfer 03-Partial/moderate assistance G. Car transfer 88-Not attempted due to medical condition or safety concerns I. Walk 10 feet 03-Partial/moderate assistance J. Walk 50 feet with two turns 03-Partial/moderate assistance K. Walk 150 feet 03-Partial/moderate assistance L. Walking 10 feet on uneven surfaces 88-Not attempted due to medical condition or safety concerns M. 1 step (curb) 88-Not attempted due to medical condition or safety concerns N. 4 steps 88-Not attempted due to medical condition or safety concerns O. 12 steps 88-Not attempted due to medical condition or safety concerns P. Picking up object 88-Not attempted due to medical condition or safety concerns - Bladder and Bowel Bladder continence 0-Always continent Bowel continence 0-Always continent - Endurance Poor - Balance Poor - Safety Awareness Poor CURRENT FUNC. DEFICITS: Self-Care, Mobility, Endurance, Balance, and Safety Awareness MEDICATIONS: - Other See attached MAR (Medication Administration Record) ASSESSMENT: Pt. is a 73 yo Right-handed white female.On 07/08/2019 Pt. presented to [facility] with sudd en onset of right-side weakness.On 07/08/2019 she was admitted to [facility] and underwent e mergency surgery for Large subacute left posterior cerebral artery territory infarct is present without evidence of hemorrhagic conversion. (Stroke(Right Body (Left Brain))) by Dr. Carrasco.Pre-morbidly, Pt. was independent/mod-I in Transfers Control, Locomotion, and Self-Care; and she had good Balance, Safe ty Awareness, Social Cognition, Sphincter Control, and Communication.Currently, she has deficits of T ransfers Control, Balance, Locomotion, Self-Care, Safety Awareness, and Social Cognition.Pt. is now r eferred to [facility] for acute in-patient rehabilitation in order to maximize patient's functional independence in activities of daily living, strength, ROM, and mobility.- Rehab Goal Patient has realistic goal of being discharged at assistance level 6-Angelica to reside at Home with Fam renyn/Relatives. REHAB PLAN: for Dementia, TBI, Stroke, or others - Physical Therapy Gait dysfunction - to improve, our physical therapists will perform initial evaluation of pt's status upon admission and devise an individualized program for Gait Training, and Wheel Chair mobility Inability to transfer - to improve, our physical therapists will perform initial evaluation of pt's s tatus upon admission and devise an individualized program for Bed mobility Need for home safety evaluation - to improve, our physical therapists will perform initial evaluation of pt's status upon admission and devise an individualized program for Home Evaluation Need in caregiver upon discharge - to improve, our physical therapists will perform initial evaluatio n of pt's status upon admission and devise an individualized program for Caregiver Training Edema - to improve, our physical therapists will perform initial evaluation of pt's status upon admi ssion and devise an individualized program for Elevation Training, and Lymphedema Therapy New precaution - to improve, our physical therapists will perform initial evaluation of pt's status u dave admission and devise an individualized program for Patient precaution education Poor balance - to improve, our physical therapists will perform initial evaluation of pt's status upo n admission and devise an individualized program for Balance Training Weakness - to improve, our physical therapists will perform initial evaluation of pt's status upon ad mission and devise an individualized program for Aquatic Therapy, Neuromuscular Reeducation, and Stre ngthening Achieving independence - to improve, our physical therapists will perform initial evaluation of pt's status upon admission and devise an individualized program for Community Reintegration Activities - Occupational Therapy ADL deficits - to improve, our occupation therapists will perform initial evaluation of pt's status u dave admission and devise an individualized program for Bathing, Bed mobility, Community Reintegration , Cooking, Dressing, Eating, Fine Motor Skills, Grooming, Homemaking, Kitchen Mobility, Laundry, Alena ent Education, Safety Awareness, Splinting - Positioning, Transfers(Toilet, Tub, Shower), and Wheel C hair Management Cognitive deficits - to improve, our occupation therapists will perform initial evaluation of pt's st atus upon admission and devise an individualized program for Cognition - orientation Need for rn coronary care unit - to improve, our occupation therapists will perform initial evaluation of pt's s tatus upon admission and devise an individualized program for Caregiver Training Weakness - to improve, our occupation therapists will perform initial evaluation of pt's status upon admission and devise an individualized program for Aquatic Therapy, Balance, Endurance, UE ROM, and U E strengthening MEDICAL PLAN: - Diet Type Start Regular - Diet - Liquid Texture Start Regular - Tube Feed Start N/A - Bladder care per protocol - Weight Bearing Precaution WBAT right LE - Skin care per protocol - Other See attached MAR (Medication Administration Record) - Diet - Solid Texture Regular - Shower shower DISCHARGE PLAN: - Estimated Length of Stay (days) 17. - Consensus on plan Discharge plan has been discussed with primary caregiver. Patient/Family is in agreement with the dia n. Primary caregiver is in agreement with the plan. - Patient/Family Goals Return home with assistance. - Planned Living Setting Upon Discharge Home, to live with Family/Relatives. SIGNATURE PANEL: (CDT)
--- NOTE | 2019-07-13 17:17 | PAPE ---
PATIENT: [facility] MR# [id number] REFERRING DOCTOR Dr. Carrasco EVALUATION DATE AND TIME 07/13/2019 17:15 (CDT) NAME KEANU HARLEY DATE OF 1945 AGE 73 PHONE SSN# [id number] GENDER female EVALUATING PHYSICIAN Dr. Yordan Gomez M.D. 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 ONSET DATE 07/08/2019 POST-ADMISSION FUNCTIONAL/MEDICAL STATUS: - Walking Same score based on distance walked: 3(>=150ft) STATUS CHANGE EVALUATION: No change in Functional or Medical Status is identified compared with Pre-Admission screening. PATIENT NEEDS CLOSE MEDICAL SUPERVISION BY A REHABILITATION PHYSICIAN FOR: Coordination of Treatment Team Post-Op Complications PATIENT REQUIRES 24X7 REHAB NURSING FOR MEDICAL AND FUNCTIONAL MGT. OF THE FOLLOWING DEFICITS: Disease Management Medication Management Patient/Family Education Providing Safe Environment PATIENT REQUIRES INTENSIVE, COORDINATED INTERDISCIPLINARY APPROACH TO REHAB: Arranging Home Equipment/Services Discharge Planning Family Intervention/Training Hydraulic Jack Mechanic/Case Management LIST OF IDENTIFIED AND POTENTIAL PROBLEMS: Alteration in leisure activities Infection, Actual or Potential Mobility Impaired Pain, Alteration in Comfort Self Care Deficit Skin Integrity, Actual or Potential Urinary Tract Infection (UTI), Actual or Potential PATIENT COULD BE AT RISK FOR COMPLICATIONS FROM ADVERSE MEDICAL CONDITIONS DUE TO HIS/HER COMORBIDITI ES AND THE RIGORS OF THE INTENSIVE REHABILLITATION PROGRAM. METHODS OR INTERVENTIONS TO AVOID COMPLIC ATIONS INCLUDE: - Bleeding Stroke patients assessed for lethargy or change in status. - Infection Clinical staff to assess and manage the signs and symptoms of infection including fever, redness, war mth, etc. - Urinary Tract Infection - Aspiration Clinical staff will assess and manage coughing, drooling, congestion. - Falls Patient will be evaluated for Fall Precautions and will be placed on Fall Precautions as indicated pe r protocol. - Skin Breakdown Nursing will assess skin daily using assessment tool and will place on Skin Breakdown Precautions as indicated per protocol. - Pain Clinical staff may employ non-medication methods such as massage, distraction, decrease stimulus, etc . as needed. Clinical staff will assess patient's pain level every shift per protocol to assess and e nsure pain management effectiveness. Medications will be given and the pain level re-assessed. PRELIMINARY PLAN OF CARE: - Physical Therapy Patient needs Physical Therapy for a daily minimum of 1.5 hours at least 5 out of 7 days, to improve: Mobility, Strengthening, Transfers, Stretching, ROM, Endurance, Ability to manage stairs, Gait, and Balance. - Speech Therapy Patient needs Speech Therapy for a daily minimum of 0.5 hours at least 5 out of 7 days, to improve: S wallowing, Cognition, Language Skills, and Compensatory Strategies. - Rehabilitation Nursing Patient requires 24x7 Rehabilitation Nursing for: Pain Issues, Identifying and preventing risk factor s, Monitoring and reporting current medical conditions, Assisting with ambulation and transfer, Dena ting with all ADL-s, Teaching patients about disease process and medications, Family teaching, Provid ing safe environment, Bowel and Bladder Issues, Skin Integrity, and Medication Management. Patient needs Hydraulic Jack Mechanic and/or Case Management for: Discharge Planning, Arranging Home Equipmen t or Services, and Family Interventions. - Dietary and Nutrition Services Patient needs Dietary and Nutrition Services for: Adequate Nutrition, Nutritional Supplements, and Nu tritional Education. - Occupational Therapy Patient needs Occupational Therapy for a daily minimum of 1.5 hours at least 5 out of 7 days, to impr ove Activities of Daily Living, including: Eating, Grooming, Bathing, Dressing, Toileting, Toilet Tra nsfers, Community Reintegration, Higher functional activities, Adaptive Equipment, Splinting, Househo ld Tasks, and Other activities as determined. QI SCORES: - Self-Care A. Eating 05-Setup or clean-up assistance B. Oral hygiene 05-Setup or clean-up assistance C. Toileting hygiene 03-Partial/moderate assistance E. Shower/bathe self 10-Not attempted due to environmental limitations F. Upper body dressing 03-Partial/moderate assistance G. Lower body dressing 01-Dependent H. Putting on/taking off footwear 01-Dependent - Mobility A. Roll left and right 03-Partial/moderate assistance B. Sit to lying 03-Partial/moderate assistance C. Lying to sitting on side of bed 03-Partial/moderate assistance D. Sit to stand 03-Partial/moderate assistance E. Chair/[id number]-[id number] transfer 03-Partial/moderate assistance F. Toilet transfer 03-Partial/moderate assistance G. Car transfer 88-Not attempted due to medical condition or safety concerns I. Walk 10 feet 03-Partial/moderate assistance J. Walk 50 feet with two turns 03-Partial/moderate assistance K. Walk 150 feet 03-Partial/moderate assistance L. Walking 10 feet on uneven surfaces 88-Not attempted due to medical condition or safety concerns M. 1 step (curb) 88-Not attempted due to medical condition or safety concerns N. 4 steps 88-Not attempted due to medical condition or safety concerns O. 12 steps 88-Not attempted due to medical condition or safety concerns P. Picking up object 88-Not attempted due to medical condition or safety concerns - Bladder and Bowel Bladder continence 0-Always continent Bowel continence 0-Always continent - Endurance Poor - Balance Poor - Safety Awareness Poor POTENTIAL FUNCTIONAL GOALS FOR PATIENT TO ACHIEVE BY DISCHARGE: - Safety Precaution Patient will remain free from falls or injury at time of discharge. - Bed Mobility Patient will perform bed mobility at 4-Scott level of assistance. - Transfers Patient will complete transfers from bed to chair at 4-Scott level of assistance. - Mobility Patient will ambulate 150 ft with 4-Scott level of assistance with RW. PATIENT REHAB POTENTIAL Nandini LEE is able and expected to receive 3 hours of individualized therapy daily on at least 5 of every 7 days Nandini LEE's prognosis for significant practical improvement within a reasonable period of time appe ars Good Expected level of measurable improvement will be of a practical value to Nandini HARLEYCHERRI's functional cap acity or adaptations to impairments Has a viable Discharge Plan Medically appropriate; condition is sufficiently stable to participate in intensive rehab program DISCHARGE PLAN: - Estimated Length of Stay (days) 17. - Consensus on plan Discharge plan has been discussed with primary caregiver. Patient/Family is in agreement with the dia n. Primary caregiver is in agreement with the plan. - Patient/Family Goals Return home with assistance. - Planned Living Setting Upon Discharge Home, to live with Family/Relatives. CONCLUSION ON REHABILITATION NECESSITY: I have evaluated patient's pre-admission functional status and, comparing it to the patient's post-ad mission functional status now, I conclude that the pre-admission assessment was accurate. Patient's c ondition on admission supports the medical necessity of admission to IR[facility]. It is safe to proceed with patient's therapy program. SIGNATURE PANEL: (CDT)
[2019-07-13] MEDS: DOCUSATE NA/SENNA CONC 1 TAB PO PRN (20:22)
[2019-07-13] MEDS: MELATONIN 3 MG TABLET PO PRN (20:23)
[2019-07-13] MEDS: ATORVASTATIN 40 MG TAB PO SCH (20:23)
[2019-07-13] MEDS: PROMOD 30 ML DOSE PO SCH (20:23)
[2019-07-14] MEDS: INSULIN -REGULAR HUMAN 50 UNIT/0.5 ML ML SQ SCH ×4 (07:30→20:37)
[2019-07-14] MEDS ORDERED: PANTOPRAZOLE 40MG TABLET PO SCH (07:30)
[2019-07-14] MEDS: ENOXAPARIN 40 MG/0.4 ML SQ SCH (07:31)
[2019-07-14] MEDS: METOPROLOL XL 100 MG TAB PO SCH (08:00)
[2019-07-14] MEDS: ALPRAZOLAM 1 MG TABLET PO SCH (08:00)
[2019-07-14] MEDS: GABAPENTIN 300 MG CAP PO SCH ×3 (08:59→20:36)
[2019-07-14] MEDS: DOXYCYCLINE 100 MG CAP PO SCH ×2 (08:59→20:37)
[2019-07-14] MEDS: ENSURE HIGH PROTEIN 237 ML CAN PO SCH ×2 (09:00→14:37)
[2019-07-14] MEDS: CLOPIDOGREL 75 MG TABLET PO SCH (09:00)
[2019-07-14] MEDS: ASPIRIN 81 MG CHEWABLE TABLET PO SCH (09:00)
[2019-07-14] MEDS: FOLIC ACID 1 MG TABLET PO SCH (09:00)
[2019-07-14] MEDS: TOPIRAMATE 25 MG TAB PO SCH (09:00)
[2019-07-14] MEDS: LOSARTAN POTASSIUM 50 MG TABLET PO SCH (09:01)
[2019-07-14] MEDS: AMLODIPINE 5 MG TAB PO SCH (09:01)
[2019-07-14] MEDS: INSULIN GLARGINE 100 UNITS/ML SQ SCH (10:01)
[2019-07-14] MEDS: PROMOD 30 ML DOSE PO SCH ×2 (10:02→20:37)
[2019-07-14] MEDS: TRAMADOL HCL 50 MG TAB PO PRN (10:35)
[2019-07-14] MEDS ORDERED: ALPRAZOLAM 1 MG TABLET PO PRN (16:07)
[2019-07-14] MEDS: MELATONIN 3 MG TABLET PO PRN (20:36)
[2019-07-14] MEDS: TAMSULOSIN 0.4 MG SR CAP PO SCH (20:36)
[2019-07-14] MEDS: ATORVASTATIN 40 MG TAB PO SCH (20:36)
[2019-07-14] MEDS: DOCUSATE NA/SENNA CONC 1 TAB PO PRN (20:37)
[2019-07-14] MEDS: CRANBERRY FRUIT EXTRACT 200 MG CAP PO SCH (20:37)
[2019-07-14] MEDS ORDERED: ALPRAZOLAM 1 MG TABLET PO SCH (21:00)
[2019-07-15 06:02] LABS: Albumin 3.1 g/dL (3.4-5.0); Magnesium 2.2 mg/dL (1.8-2.4); Potassium 3.9 mmol/L (3.5-5.1); Prealbumin 17.1 mg/dL (20-40)
[2019-07-15 06:40] LABS: Absolute Lymphocytes (CBC) 2.8 K/uL (0.7-4.9); Basophils % 0.6 % (0-1.3); Hematocrit 38.7 % (36.0-45.0); Lymphocytes % 26.7 % (15.3-44.8); MPV 8.7 fL (7.6-11.3); RBC Red Blood Cell Count 4.31 M/uL (3.86-4.86)
[2019-07-15] MEDS: ENOXAPARIN 40 MG/0.4 ML SQ SCH (07:02)
[2019-07-15] MEDS: PANTOPRAZOLE 40MG TABLET PO SCH (07:02)
[2019-07-15] MEDS: INSULIN -REGULAR HUMAN 50 UNIT/0.5 ML ML SQ SCH ×4 (08:03→20:02)
[2019-07-15] MEDS: INSULIN GLARGINE 100 UNITS/ML SQ SCH (08:03)
[2019-07-15] MEDS: DOXYCYCLINE 100 MG CAP PO SCH ×2 (08:04→19:39)
[2019-07-15] MEDS: CRANBERRY FRUIT EXTRACT 200 MG CAP PO SCH ×2 (08:05→19:39)
[2019-07-15] MEDS: GABAPENTIN 300 MG CAP PO SCH ×3 (08:05→20:02)
[2019-07-15] MEDS: CLOPIDOGREL 75 MG TABLET PO SCH (08:05)
[2019-07-15] MEDS: TOPIRAMATE 25 MG TAB PO SCH (08:06)
[2019-07-15] MEDS: METOPROLOL XL 100 MG TAB PO SCH (08:06)
[2019-07-15] MEDS: AMLODIPINE 5 MG TAB PO SCH (08:06)
[2019-07-15] MEDS: FOLIC ACID 1 MG TABLET PO SCH (08:06)
[2019-07-15] MEDS: LOSARTAN POTASSIUM 50 MG TABLET PO SCH (08:07)
[2019-07-15] MEDS: TRAMADOL HCL 50 MG TAB PO PRN (08:07)
[2019-07-15] MEDS: ASPIRIN 81 MG CHEWABLE TABLET PO SCH (08:07)
[2019-07-15] MEDS: ENSURE HIGH PROTEIN 237 ML CAN PO SCH ×3 (08:10→12:56)
[2019-07-15] MEDS: PROMOD 30 ML DOSE PO SCH ×2 (08:26→19:43)
--- NOTE | 2019-07-15 09:47 | FAST ---
SHIFT START DATE/TIME: 07/15/2019 07:00 (CDT) SHIFT END DATE/TIME: 07/15/2019 19:00 (CDT) NAME KEANU HARLEY DATE OF : 1945 DATE OF ADMISSION: 07/12/2019 18:48 (CDT) PHONE: AGE: 73 N# [id number] GENDER: Female ENCOUNTER PHYSICIAN: Dr. Yordan Gomez M.D. 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 EATING: EATING - STEP 1: Does the patient complete the activity by him/herself with no assistance (physical, verbal/nonverbal cueing, setup/clean-up)? No. EATING - STEP 2: Does the patient need only setup/clean-up assistance from one helper? No. EATING - STEP 3: Does the patient need only verbal/nonverbal cueing or touching/steadying/contact guard assistance fro m one helper? Yes. 1. [id number] ADMISSION PERFORMANCE: Supervision or touching assistance CODE: 04 ORAL HYGIENE: ORAL HYGIENE - STEP 1: Does the patient complete the activity by him/herself with no assistance (physical, verbal/nonverbal cueing, setup/clean-up)? No. ORAL HYGIENE - STEP 2: Does the patient need only setup/clean-up assistance from one helper? No. ORAL HYGIENE - STEP 3: Does the patient need only verbal/nonverbal cueing or touching/steadying/contact guard assistance fro m one helper? No. ORAL HYGIENE - STEP 4: Does the patient need physical assistance - for example lifting or trunk support from one helper - wi th the helper providing less than half of the effort? Yes. 1. [id number] ADMISSION PERFORMANCE: Partial/moderate assistance CODE: 03 TOILETING HYGIENE: TOILETING HYGIENE - STEP 1: Does the patient complete the activity by him/herself with no assistance (physical, verbal/nonverbal cueing, setup/clean-up)? No. TOILETING HYGIENE - STEP 2: Does the patient need only setup/clean-up assistance from one helper? No. TOILETING HYGIENE - STEP 3: Does the patient need only verbal/nonverbal cueing or touching/steadying/contact guard assistance fro m one helper? Yes. 1. [id number] ADMISSION PERFORMANCE: Supervision or touching assistance CODE: 04 BATHING: Not assessed/no information CODE: - DRESSING - UPPER BODY: Not assessed/no information CODE: - DRESSING - LOWER BODY: Not assessed/no information CODE: - PUTTING ON/TAKING OFF FOOTWEAR: Not assessed/no information CODE: - ROLL LEFT AND RIGHT: Not assessed/no information CODE: - SIT TO LYING: Not assessed/no information CODE: - LYING TO SITTING: Not assessed/no information CODE: - SIT TO STAND: SIT TO STAND - STEP 1: Does the patient complete the activity by him/herself with no assistance (physical, verbal/nonverbal cueing, setup/clean-up)? No. SIT TO STAND - STEP 2: Does the patient need only setup/clean-up assistance from one helper? No. SIT TO STAND - STEP 3: Does the patient need only verbal/nonverbal cueing or touching/steadying/contact guard assistance fro m one helper? Yes. 1. [id number] ADMISSION PERFORMANCE: Supervision or touching assistance CODE: 04 TRANSFERS: BED, CHAIR: CHAIR/[id number] TRANSFER - STEP 1: Does the patient complete the activity by him/herself with no assistance (physical, verbal/nonverbal cueing, setup/clean-up)? No. CHAIR/[id number] TRANSFER - STEP 2: Does the patient need only setup/clean-up assistance from one helper? No. CHAIR/[id number] TRANSFER - STEP 3: Does the patient need only verbal/nonverbal cueing or touching/steadying/contact guard assistance fro m one helper? Yes. 1. [id number] ADMISSION PERFORMANCE: Supervision or touching assistance CODE: 04 TRANSFER TOILET: TOILET TRANSFER - STEP 1: Does the patient complete the activity by him/herself with no assistance (physical, verbal/nonverbal cueing, setup/clean-up)? No. TOILET TRANSFER - STEP 2: Does the patient need only setup/clean-up assistance from one helper? No. TOILET TRANSFER - STEP 3: Does the patient need only verbal/nonverbal cueing or touching/steadying/contact guard assistance fro m one helper? No. TOILET TRANSFER - STEP 4: Does the patient need physical assistance - for example lifting or trunk support from one helper - wi th the helper providing less than half of the effort? Yes. 1. [id number] ADMISSION PERFORMANCE: Partial/moderate assistance CODE: 03 TRANSFERS: CAR: Not assessed/no information CODE: - WALK 10 FEET: Not assessed/no information CODE: - 1 STEP (CURB): Not assessed/no information CODE: - PICKING UP OBJECT: Not assessed/no information CODE: - DOES THE PATIENT USE A WHEELCHAIR/SCOOTER? CODE: EXPR WHEEL 50 FEET WITH TWO TURNS: Not assessed/no information CODE: - INDICATE THE TYPE OF WHEELCHAIR/SCOOTER USED: CODE: EXPR WHEEL 150 FEET: Not assessed/no information CODE: - INDICATE THE TYPE OF WHEELCHAIR/SCOOTER USED: CODE: EXPR BLADDER AND BOWEL: H350. BLADDER CONTINENCE (3-DAY ASSESSMENT PERIOD): Always continent (no documented incontinence) CODE: 0 H400. BOWEL CONTINENCE (3-DAY ASSESSMENT PERIOD): Always continent CODE: 0 SIGNATURE PANEL: The following modified sections: 1. [id number] Admission Performance, 1. [id number] Admission Performance, 1. [id number] Admission Performance, 1. [id number] Admission Performance, 1. [id number] Admission Performance, 1. [id number] Admission Performance, Code, H350. Bladder Continence (3-day assessment period), H400. Janes wel Continence (3-day assessment period) were [electronically] signed by José Miguel Soto on FriJuly 14 0 09:47:37 GMT-0500 (Central Daylight Time)
[2019-07-15] MEDS: ACETAMINOPHEN 500 MG TAB PO PRN (10:11)
[2019-07-15] MEDS: LIDOCAINE 4% PATCH TOP SCH (13:50)
--- NOTE | 2019-07-15 17:07 | R.PN ---
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 Pt denied any Shortness of Breath. CBC with differential is normal. Flight Line Service Attendant is elevated to 1.53 with [id number] to 224, prealbumin 17.1. Ambulated 400' with minimum to contact guard assistance. VITAL SIGNS Temperature: 98.6 F SBP/DBP: 115/59 Pulse: 86 Resp: 16 MEDICATION ALLERGIES: naproxen CODEINE Penicillins Morphine ENVIRONMENTAL ALLERGIES: None Known - Substance Allergies None Known - Other Allergies None Known NURSING: - Shower allowing shower - Bladder care per protocol - Skin care per protocol PRECAUTIONS: - Weight Bearing Precaution WBAT right LE ACTIVITIES OOB only with supervision THERAPIES: - Occupational Therapy Cognitive Retraining. Visual Perceptual Training. - Dietary and Nutrition Adequate Nutrition. Nutritional Education. Nutritional Supplements. - Speech Therapy Cognitive Training. Expressive Language Skills. Memory Strategies. Receptive Language Skills. Speech Intelligibility Training. PHYSICAL EXAM - Gen Alert and awake Lying in bed No apparent distress Oriented to: person, time, and place - Skin No skin breakdown. Normacephalic - Eyes No abnormalities - ENMT No abnormalities - Neck No abnormalities - CVS RRR - Chest No abnormalities - Resp Clear to auscultation - Abd Soft - GI Obese Deferred - No abnormalities - Ext No significant edema - MSK 4+/5 weakness in right lower extremity - Neuro 4/5 strength right lower extremity. - Psych Mild anxiety. ASSESSMENT: Pt. is a 73 yo Right-handed white female.On 07/08/2019 Pt. 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 (Stroke(Right Body (Left Brain))) by Dr. Carrasco.Pre-morbidly, Pt. was independent/mod-I in Transfers Control, Locomotion, and Self-Care; and she had good Balance, Safe ty Awareness, Social Cognition, Sphincter Control, and Communication.Currently, she has deficits of T ransfers Control, Balance, Locomotion, Self-Care, Safety Awareness, and Social Cognition.Pt. is now r eferred to [facility] for acute in-patient rehabilitation in order to maximize patient's functional independence in activities of daily living, strength, ROM, and mobility.- Rehab Goal Patient has realistic goal of being discharged at assistance level 6-Angelica to reside at Home with Fam renny/Relatives. MDM/PLAN: - Physical Therapy Gait dysfunction - to improve, our physical therapists will perform initial evaluation of pt's statu s upon admission and devise an individualized program for Gait Training, and Wheel Chair mobility Inability to transfer - to improve, our physical therapists will perform initial evaluation of pt's status upon admission and devise an individualized program for Bed mobility Need for home safety evaluation - to improve, our physical therapists will perform initial evaluatio n of pt's status upon admission and devise an individualized program for Home Evaluation Need in caregiver upon discharge - to improve, our physical therapists will perform initial evaluati on of pt's status upon admission and devise an individualized program for Caregiver Training Edema - to improve, our physical therapists will perform initial evaluation of pt's status upon admis wero and devise an individualized program for Elevation Training, and Lymphedema Therapy New precaution - to improve, our physical therapists will perform initial evaluation of pt's status upon admission and devise an individualized program for Patient precaution education Poor balance - to improve, our physical therapists will perform initial evaluation of pt's status up on admission and devise an individualized program for Balance Training Weakness - to improve, our physical therapists will perform initial evaluation of pt's status upon a dmission and devise an individualized program for Aquatic Therapy, Neuromuscular Reeducation, and Str engthening Achieving independence - to improve, our physical therapists will perform initial evaluation of pt's status upon admission and devise an individualized program for Community Reintegration Activities - Occupational Therapy ADL deficits - to improve, our occupation therapists will perform initial evaluation of pt's status upon admission and devise an individualized program for Bathing, Bed mobility, Community Reintegratio n, Cooking, Dressing, Eating, Fine Motor Skills, Grooming, Homemaking, Kitchen Mobility, Laundry, Pat ient Education, Safety Awareness, Splinting - Positioning, Transfers(Toilet, Tub, Shower), and Wheel Chair Management Cognitive deficits - to improve, our occupation therapists will perform initial evaluation of pt's s tatus upon admission and devise an individualized program for Cognition - orientation Need for child care group leader - to improve, our occupation therapists will perform initial evaluation of pt's status upon admission and devise an individualized program for Caregiver Training Weakness - to improve, our occupation therapists will perform initial evaluation of pt's status upon admission and devise an individualized program for Aquatic Therapy, Balance, Endurance, UE ROM, and UE strengthening - Other See attached MAR (Medication Administration Record) - Diet Type Continue Regular - Diet - Liquid Texture Continue Regular - Tube Feed Continue N/A - Bladder care per protocol - Weight Bearing Precaution WBAT right LE - Skin care per protocol - Diet - Solid Texture Continue Regular - Shower allowing shower for Dementia, TBI, Stroke, or others FUNCTIONAL STATUS: UPDATED AT WEEKLY TEAM CONFERENCE - Walking Same score based on distance walked: 3(>=150ft) FUNCTIONAL STATUS: - Self-Care A. Eating Angelica B. Grooming Angelica C. Bathing Scott D. Dressing - Upper Scott E. Dressing - Lower modA F. Toileting Scott - Sphincter Control G. Bladder control Scott H. Bowel control Scott - Transfers Control I. Bed/Chair/Wheelchair Scott J. Toilet Scott K. Tub/Shower modA - Locomotion L. Walk/Wheelchair (B) modA M. Stairs ADNO - Communication N. Comprehension (B) sup O. Expression (B) Scott - Social Cognition P. Social Interaction sup Q. Problem Solving sup R. Memory sup - Endurance Fair - Balance Fair - Safety Awareness Fair QI SCORES: - Self-Care A. Eating 05-Setup or clean-up assistance B. Oral hygiene 05-Setup or clean-up assistance C. Toileting hygiene 03-Partial/moderate assistance E. Shower/bathe self 10-Not attempted due to environmental limitations F. Upper body dressing 03-Partial/moderate assistance G. Lower body dressing 01-Dependent H. Putting on/taking off footwear 01-Dependent - Mobility A. Roll left and right 03-Partial/moderate assistance B. Sit to lying 03-Partial/moderate assistance C. Lying to sitting on side of bed 03-Partial/moderate assistance D. Sit to stand 03-Partial/moderate assistance E. Chair/[id number]-[id number] transfer 03-Partial/moderate assistance F. Toilet transfer 03-Partial/moderate assistance G. Car transfer 88-Not attempted due to medical condition or safety concerns I. Walk 10 feet 03-Partial/moderate assistance J. Walk 50 feet with two turns 03-Partial/moderate assistance K. Walk 150 feet 03-Partial/moderate assistance L. Walking 10 feet on uneven surfaces 88-Not attempted due to medical condition or safety concerns M. 1 step (curb) 88-Not attempted due to medical condition or safety concerns N. 4 steps 88-Not attempted due to medical condition or safety concerns O. 12 steps 88-Not attempted due to medical condition or safety concerns P. Picking up object 88-Not attempted due to medical condition or safety concerns - Bladder and Bowel Bladder continence 0-Always continent Bowel continence 0-Always continent - Endurance Poor - Balance Poor - Safety Awareness Poor CURRENT FUNC. DEFICITS: Self-Care, Mobility, Endurance, Balance, and Safety Awareness SIGNATURE PANEL: (CDT)
[2019-07-15] MEDS: MELATONIN 3 MG TABLET PO PRN (20:02)
[2019-07-15] MEDS: TAMSULOSIN 0.4 MG SR CAP PO SCH (20:02)
[2019-07-15] MEDS: ATORVASTATIN 40 MG TAB PO SCH (20:02)
[2019-07-16] MEDS: ENOXAPARIN 40 MG/0.4 ML SQ SCH (06:46)
[2019-07-16] MEDS: INSULIN -REGULAR HUMAN 50 UNIT/0.5 ML ML SQ SCH ×4 (07:30→20:10)
[2019-07-16] MEDS: METOPROLOL XL 100 MG TAB PO SCH (08:00)
[2019-07-16] MEDS: PROMOD 30 ML DOSE PO SCH ×2 (08:00→19:21)
[2019-07-16] MEDS: LOSARTAN POTASSIUM 50 MG TABLET PO SCH (08:00)
[2019-07-16] MEDS: LIDOCAINE 4% PATCH TOP SCH (08:22)
[2019-07-16] MEDS: GABAPENTIN 300 MG CAP PO SCH ×3 (08:23→21:49)
[2019-07-16] MEDS: CRANBERRY FRUIT EXTRACT 200 MG CAP PO SCH ×2 (08:23→19:18)
[2019-07-16] MEDS: AMLODIPINE 5 MG TAB PO SCH (08:24)
[2019-07-16] MEDS: TRAMADOL HCL 50 MG TAB PO PRN (08:24)
[2019-07-16] MEDS: TOPIRAMATE 25 MG TAB PO SCH (08:24)
[2019-07-16] MEDS: FOLIC ACID 1 MG TABLET PO SCH (08:24)
[2019-07-16] MEDS: ASPIRIN 81 MG CHEWABLE TABLET PO SCH (08:25)
[2019-07-16] MEDS: PANTOPRAZOLE 40MG TABLET PO SCH (08:25)
[2019-07-16] MEDS: CLOPIDOGREL 75 MG TABLET PO SCH (08:25)
[2019-07-16] MEDS: DOXYCYCLINE 100 MG CAP PO SCH ×2 (08:26→19:18)
[2019-07-16] MEDS: INSULIN GLARGINE 100 UNITS/ML SQ SCH (08:26)
[2019-07-16] MEDS: ENSURE HIGH PROTEIN 237 ML CAN PO SCH (09:00)
--- NOTE | 2019-07-16 09:36 | P.RH.PN ---
Estimated Length of Stay: 15 Expected Discharge Date: 07/26/19 Discharge Disposition Plan: Home Family Support: Yes Group Home Goal: Mobility, Transfers, Self Care Vital Signs: Last Vital Signs Temp 99.1 F 07/16/19 07:00 Pulse 60 07/16/19 08:24 Resp 16 07/16/19 08:24 BP 131/65 07/16/19 08:24 Pulse Ox 96 07/16/19 08:24 Laboratory: Laboratory Last Values WBC 10.6 K/uL (4.3-10.9) D 07/15/19 05:33 RBC 4.31 M/uL (3.86-4.86) 07/15/19 05:33 Hgb 13.0 g/dL (12.0-15.0) 07/15/19 05:33 Hct 38.7 % (36.0-45.0) 07/15/19 05:33 MCV 89.7 fL (80-100) 07/15/19 05:33 MCH 30.2 pg (27.0-35.0) 07/15/19 05:33 MCHC 33.6 g/dL (32.0-36.0) 07/15/19 05:33 RDW 13.1 % (12.1-15.2) 07/15/19 05:33 Plt Count 264 K/uL (152-406) 07/15/19 05:33 MPV 8.7 fL (7.6-11.3) 07/15/19 05:33 Neutrophils % 62.4 % (41.7-73.7) 07/15/19 05:33 Lymphocytes % 26.7 % (15.3-44.8) 07/15/19 05:33 Monocytes % 7.4 % (3.3-12.3) 07/15/19 05:33 Eosinophils % 2.9 % (0-4.4) 07/15/19 05:33 Basophils % 0.6 % (0-1.3) 07/15/19 05:33 Absolute Neutrophils 6.6 K/uL (1.8-8.0) 07/15/19 05:33 Absolute Lymphocytes 2.8 K/uL (0.7-4.9) 07/15/19 05:33 Absolute Monocytes 0.8 K/uL (0.1-1.3) 07/15/19 05:33 Absolute Eosinophils 0.3 K/uL (0-0.5) 07/15/19 05:33 Absolute Basophils 0.1 K/uL (0-0.5) 07/15/19 05:33 Sodium 140 mmol/L (136-145) 07/15/19 05:33 Potassium 3.9 mmol/L (3.5-5.1) 07/15/19 05:33 Chloride 107 mmol/L (98-107) 07/15/19 05:33 Carbon Dioxide 25 mmol/L (21-32) 07/15/19 05:33 BUN 23 mg/dL (7-18) H 07/15/19 05:33 Creatinine 1.53 mg/dL (0.55-1.3) H 07/15/19 05:33 Estimated GFR 33 mL/min (=/>90) L 07/15/19 05:33 Glucose 207 mg/dL (74-106) H 07/15/19 05:33 POC Glucose 165 mg/dl (65-120) H 07/16/19 07:30 Calcium 8.9 mg/dL (8.5-10.1) 07/15/19 05:33 Magnesium 2.2 mg/dL (1.8-2.4) 07/15/19 05:33 Albumin 3.1 g/dL (3.4-5.0) L 07/15/19 05:33 Prealbumin 17.1 mg/dL (20-40) L 07/15/19 05:33 Weight: 196 lb Wound Present: No Closed Surgical Incision Present: No Negative Pressure Wound Therapy Present: No Physician Update: Labs reviewed and Power Transformer Assembler is elevated to 1.5, glucose is elevated to 242 with low of 177. Will increase insulin to 20 units daily. Walking min assistance at 150'. Her expressive aphasia and vision deficits cause moderate difficulty with activities of daily living. She has moderate with learned behavior. She has frequent post stroke headaches. Will increase topamax to 25 mg bid. She has marked difficulty identifying objects. She does not initiate conversations well. Speech Therapy Update: Moderate receptive/expressive aphasia. Oropharyngeal dysphagia also present; currently on pureed with thin liquids Summary: Patient's care plan and extermination supervisor goals have been reviewed and revised as necessary. Please see the Rehabilitation Signature page for all necessary signatures.
--- NOTE | 2019-07-16 10:59 | FAST ---
SHIFT START DATE/TIME: 07/16/2019 07:00 (CDT) SHIFT END DATE/TIME: 07/16/2019 19:00 (CDT) NAME KEANU HARLEY DATE OF : 1945 DATE OF ADMISSION: 07/12/2019 18:48 (CDT) PHONE: AGE: 73 N# [id number] GENDER: Female ENCOUNTER PHYSICIAN: Dr. Yordan Gomez M.D. 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 EATING: EATING - STEP 1: Does the patient complete the activity by him/herself with no assistance (physical, verbal/nonverbal cueing, setup/clean-up)? No. EATING - STEP 2: Does the patient need only setup/clean-up assistance from one helper? Yes. 1. [id number] ADMISSION PERFORMANCE: Setup or clean-up assistance CODE: 05 ORAL HYGIENE: ORAL HYGIENE - STEP 1: Does the patient complete the activity by him/herself with no assistance (physical, verbal/nonverbal cueing, setup/clean-up)? No. ORAL HYGIENE - STEP 2: Does the patient need only setup/clean-up assistance from one helper? No. ORAL HYGIENE - STEP 3: Does the patient need only verbal/nonverbal cueing or touching/steadying/contact guard assistance fro m one helper? Yes. 1. [id number] ADMISSION PERFORMANCE: Supervision or touching assistance CODE: 04 TOILETING HYGIENE: TOILETING HYGIENE - STEP 1: Does the patient complete the activity by him/herself with no assistance (physical, verbal/nonverbal cueing, setup/clean-up)? No. TOILETING HYGIENE - STEP 2: Does the patient need only setup/clean-up assistance from one helper? No. TOILETING HYGIENE - STEP 3: Does the patient need only verbal/nonverbal cueing or touching/steadying/contact guard assistance fro m one helper? Yes. 1. [id number] ADMISSION PERFORMANCE: Supervision or touching assistance CODE: 04 BATHING: Not assessed/no information CODE: - DRESSING - UPPER BODY: DRESSING - UPPER BODY - STEP 1: Does the patient complete the activity by him/herself with no assistance (physical, verbal/nonverbal cueing, setup/clean-up)? No. DRESSING - UPPER BODY - STEP 2: Does the patient need only setup/clean-up assistance from one helper? No. DRESSING - UPPER BODY - STEP 3: Does the patient need only verbal/nonverbal cueing or touching/steadying/contact guard assistance fro m one helper? No. DRESSING - UPPER BODY - STEP 4: Does the patient need physical assistance - for example lifting or trunk support from one helper - wi th the helper providing less than half of the effort? Yes. 1. [id number] ADMISSION PERFORMANCE: Partial/moderate assistance CODE: 03 DRESSING - LOWER BODY: DRESSING - LOWER BODY - STEP 1: Does the patient complete the activity by him/herself with no assistance (physical, verbal/nonverbal cueing, setup/clean-up)? No. DRESSING - LOWER BODY - STEP 2: Does the patient need only setup/clean-up assistance from one helper? No. DRESSING - LOWER BODY - STEP 3: Does the patient need only verbal/nonverbal cueing or touching/steadying/contact guard assistance fro m one helper? No. DRESSING - LOWER BODY - STEP 4: Does the patient need physical assistance - for example lifting or trunk support from one helper - wi th the helper providing less than half of the effort? Yes. 1. [id number] ADMISSION PERFORMANCE: Partial/moderate assistance CODE: 03 PUTTING ON/TAKING OFF FOOTWEAR: FOOTWEAR - STEP 1: Does the patient complete the activity by him/herself with no assistance (physical, verbal/nonverbal cueing, setup/clean-up)? No. FOOTWEAR - STEP 2: Does the patient need only setup/clean-up assistance from one helper? No. FOOTWEAR - STEP 3: Does the patient need only verbal/nonverbal cueing or touching/steadying/contact guard assistance fro m one helper? No. FOOTWEAR - STEP 4: Does the patient need physical assistance - for example lifting or trunk support from one helper - wi th the helper providing less than half of the effort? Yes. 1. [id number] ADMISSION PERFORMANCE: Partial/moderate assistance CODE: 03 ROLL LEFT AND RIGHT: ROLL LEFT AND RIGHT - STEP 1: Does the patient complete the activity by him/herself with no assistance (physical, verbal/nonverbal cueing, setup/clean-up)? No. ROLL LEFT AND RIGHT - STEP 2: Does the patient need only setup/clean-up assistance from one helper? No. ROLL LEFT AND RIGHT - STEP 3: Does the patient need only verbal/nonverbal cueing or touching/steadying/contact guard assistance fro m one helper? No. ROLL LEFT AND RIGHT - STEP 4: Does the patient need physical assistance - for example lifting or trunk support from one helper - wi th the helper providing less than half of the effort? Yes. 1. [id number] ADMISSION PERFORMANCE: Partial/moderate assistance CODE: 03 SIT TO LYING: SIT TO LYING - STEP 1: Does the patient complete the activity by him/herself with no assistance (physical, verbal/nonverbal cueing, setup/clean-up)? No. SIT TO LYING - STEP 2: Does the patient need only setup/clean-up assistance from one helper? No. SIT TO LYING - STEP 3: Does the patient need only verbal/nonverbal cueing or touching/steadying/contact guard assistance fro m one helper? No. SIT TO LYING - STEP 4: Does the patient need physical assistance - for example lifting or trunk support from one helper - wi th the helper providing less than half of the effort? Yes. 1. [id number] ADMISSION PERFORMANCE: Partial/moderate assistance CODE: 03 LYING TO SITTING: LYING TO SITTING ON SIDE OF BED - STEP 1: Does the patient complete the activity by him/herself with no assistance (physical, verbal/nonverbal cueing, setup/clean-up)? No. LYING TO SITTING ON SIDE OF BED - STEP 2: Does the patient need only setup/clean-up assistance from one helper? No. LYING TO SITTING ON SIDE OF BED - STEP 3: Does the patient need only verbal/nonverbal cueing or touching/steadying/contact guard assistance fro m one helper? No. LYING TO SITTING ON SIDE OF BED - STEP 4: Does the patient need physical assistance - for example lifting or trunk support from one helper - wi th the helper providing less than half of the effort? Yes. 1. [id number] ADMISSION PERFORMANCE: Partial/moderate assistance CODE: 03 SIT TO STAND: SIT TO STAND - STEP 1: Does the patient complete the activity by him/herself with no assistance (physical, verbal/nonverbal cueing, setup/clean-up)? No. SIT TO STAND - STEP 2: Does the patient need only setup/clean-up assistance from one helper? No. SIT TO STAND - STEP 3: Does the patient need only verbal/nonverbal cueing or touching/steadying/contact guard assistance fro m one helper? No. SIT TO STAND - STEP 4: Does the patient need physical assistance - for example lifting or trunk support from one helper - wi th the helper providing less than half of the effort? Yes. 1. [id number] ADMISSION PERFORMANCE: Partial/moderate assistance CODE: 03 TRANSFERS: BED, CHAIR: CHAIR/[id number] TRANSFER - STEP 1: Does the patient complete the activity by him/herself with no assistance (physical, verbal/nonverbal cueing, setup/clean-up)? No. CHAIR/MES-AX-CRTDA TRANSFER - STEP 2: Does the patient need only setup/clean-up assistance from one helper? No. CHAIR/[id number] TRANSFER - STEP 3: Does the patient need only verbal/nonverbal cueing or touching/steadying/contact guard assistance fro m one helper? No. CHAIR/TII-VW-[id number] TRANSFER - STEP 4: Does the patient need physical assistance - for example lifting or trunk support from one helper - wi th the helper providing less than half of the effort? Yes. 1. [id number] ADMISSION PERFORMANCE: Partial/moderate assistance CODE: 03 TRANSFER TOILET: TOILET TRANSFER - STEP 1: Does the patient complete the activity by him/herself with no assistance (physical, verbal/nonverbal cueing, setup/clean-up)? No. TOILET TRANSFER - STEP 2: Does the patient need only setup/clean-up assistance from one helper? No. TOILET TRANSFER - STEP 3: Does the patient need only verbal/nonverbal cueing or touching/steadying/contact guard assistance fro m one helper? No. TOILET TRANSFER - STEP 4: Does the patient need physical assistance - for example lifting or trunk support from one helper - wi th the helper providing less than half of the effort? Yes. 1. [id number] ADMISSION PERFORMANCE: Partial/moderate assistance CODE: 03 TRANSFERS: CAR: Not assessed/no information CODE: - WALK 10 FEET: Not assessed/no information CODE: - 1 STEP (CURB): Not assessed/no information CODE: - PICKING UP OBJECT: Not assessed/no information CODE: - DOES THE PATIENT USE A WHEELCHAIR/SCOOTER? CODE: EXPR INDICATE THE TYPE OF WHEELCHAIR/SCOOTER USED: RR1. INDICATE THE TYPE OF WHEELCHAIR/SCOOTER USED.: Manual CODE: 1 WHEEL 150 FEET: Not assessed/no information CODE: - INDICATE THE TYPE OF WHEELCHAIR/SCOOTER USED: SS1. INDICATE THE TYPE OF WHEELCHAIR/SCOOTER USED.: Manual CODE: 1 BLADDER AND BOWEL: H350. BLADDER CONTINENCE (3-DAY ASSESSMENT PERIOD): Incontinent daily (at least once a day) CODE: 3 H400. BOWEL CONTINENCE (3-DAY ASSESSMENT PERIOD): Occasionally incontinent (one episode of bowel incontinence) CODE: 1 SIGNATURE PANEL: The following modified sections: 1. [id number] Admission Performance, 1. [id number] Admission Performance, 1. RN8560S Admission Performance, 1. [id number] Admission Performance, 1. JY3875d Admission Performance, 1. GN3187u Admission Performance, 1. [id number] Admission Performance, 1. FD0849n Admission Performance , 1. [id number] Admission Performance, 1. [id number] Admission Performance, 1. [id number] Admission Performanc e, 1. [id number] Admission Performance, 1. [id number] Admission Performance, 1. [id number] Admission Performan ce, RR1. Indicate the type of wheelchair/scooter used., Code, SS1. Indicate the type of wheelchair/sc ooter used., H350. Bladder Continence (3-day assessment period), H400. Bowel Continence (3-day assess ment period) were [electronically] signed by Nicolasa MichaelNMicky on FriJul 16 2019 10:58:42 T-050 0 (Central Daylight Time)
[2019-07-16] MEDS: ACETAMINOPHEN 500 MG TAB PO PRN (14:30)
[2019-07-16] MEDS: GLUCERNA SHAKE 237 ML CAN PO SCH (19:21)
[2019-07-16] MEDS: ATORVASTATIN 40 MG TAB PO SCH (21:49)
[2019-07-16] MEDS: TAMSULOSIN 0.4 MG SR CAP PO SCH (21:49)
[2019-07-16] MEDS: MELATONIN 3 MG TABLET PO PRN (21:51)
[2019-07-16] MEDS: DOCUSATE NA/SENNA CONC 1 TAB PO PRN (21:51)
[2019-07-17] MEDS: PANTOPRAZOLE 40MG TABLET PO SCH (07:02)
[2019-07-17] MEDS: ENOXAPARIN 40 MG/0.4 ML SQ SCH ×2 (07:02→07:09)
[2019-07-17] MEDS: INSULIN -REGULAR HUMAN 50 UNIT/0.5 ML ML SQ SCH ×4 (07:30→20:43)
[2019-07-17] MEDS: LOSARTAN POTASSIUM 50 MG TABLET PO SCH (08:00)
[2019-07-17] MEDS: METOPROLOL XL 50 MG TAB PO SCH (08:00)
[2019-07-17] MEDS: GABAPENTIN 300 MG CAP PO SCH ×3 (08:16→20:43)
[2019-07-17] MEDS: INSULIN GLARGINE 100 UNITS/ML SQ SCH (08:16)
[2019-07-17] MEDS: CRANBERRY FRUIT EXTRACT 200 MG CAP PO SCH ×2 (08:17→18:53)
[2019-07-17] MEDS: DOXYCYCLINE 100 MG CAP PO SCH ×2 (08:17→18:53)
[2019-07-17] MEDS: TOPIRAMATE 25 MG TAB PO SCH (08:18)
[2019-07-17] MEDS: ASPIRIN 81 MG CHEWABLE TABLET PO SCH (08:18)
[2019-07-17] MEDS: DULOXETINE 20 MG CAP PO SCH (08:18)
[2019-07-17] MEDS: CLOPIDOGREL 75 MG TABLET PO SCH (08:18)
[2019-07-17] MEDS: FOLIC ACID 1 MG TABLET PO SCH (08:18)
[2019-07-17] MEDS: GLUCERNA SHAKE 237 ML CAN PO SCH ×2 (08:19→18:54)
[2019-07-17] MEDS: PROMOD 30 ML DOSE PO SCH ×2 (08:20→18:54)
[2019-07-17] MEDS: LIDOCAINE 4% PATCH TOP SCH (09:59)
[2019-07-17] MEDS: TRAMADOL HCL 50 MG TAB PO PRN (13:06)
[2019-07-17] MEDS: ATORVASTATIN 40 MG TAB PO SCH (18:53)
[2019-07-17] MEDS: TAMSULOSIN 0.4 MG SR CAP PO SCH (18:55)
[2019-07-18] MEDS: PANTOPRAZOLE 40MG TABLET PO SCH (06:59)
[2019-07-18] MEDS: ENOXAPARIN 40 MG/0.4 ML SQ SCH (07:00)
[2019-07-18] MEDS: LIDOCAINE 4% PATCH TOP SCH (07:00)
[2019-07-18] MEDS: INSULIN -REGULAR HUMAN 50 UNIT/0.5 ML ML SQ SCH ×4 (07:30→19:47)
[2019-07-18] MEDS: INSULIN GLARGINE 100 UNITS/ML SQ SCH (07:58)
[2019-07-18] MEDS: DOXYCYCLINE 100 MG CAP PO SCH ×2 (07:59→19:46)
[2019-07-18] MEDS: CRANBERRY FRUIT EXTRACT 200 MG CAP PO SCH ×2 (07:59→19:46)
[2019-07-18] MEDS: LOSARTAN POTASSIUM 50 MG TABLET PO SCH (07:59)
[2019-07-18] MEDS: GABAPENTIN 300 MG CAP PO SCH ×3 (07:59→19:46)
[2019-07-18] MEDS: PROMOD 30 ML DOSE PO SCH ×2 (07:59→19:46)
[2019-07-18] MEDS: DULOXETINE 20 MG CAP PO SCH (08:00)
[2019-07-18] MEDS: ASPIRIN 81 MG CHEWABLE TABLET PO SCH (08:00)
[2019-07-18] MEDS: METOPROLOL XL 50 MG TAB PO SCH (08:00)
[2019-07-18] MEDS: GLUCERNA SHAKE 237 ML CAN PO SCH ×2 (08:01→19:46)
[2019-07-18] MEDS: FOLIC ACID 1 MG TABLET PO SCH (08:01)
[2019-07-18] MEDS: TOPIRAMATE 25 MG TAB PO SCH (08:01)
[2019-07-18] MEDS: CLOPIDOGREL 75 MG TABLET PO SCH (08:02)
[2019-07-18] MEDS: ACETAMINOPHEN 500 MG TAB PO PRN (13:55)
[2019-07-18] MEDS: ATORVASTATIN 40 MG TAB PO SCH (19:46)
[2019-07-18] MEDS: TAMSULOSIN 0.4 MG SR CAP PO SCH (19:46)
[2019-07-19] MEDS: INSULIN -REGULAR HUMAN 50 UNIT/0.5 ML ML SQ SCH ×4 (07:30→20:11)
[2019-07-19] MEDS: ENOXAPARIN 40 MG/0.4 ML SQ SCH (07:43)
[2019-07-19] MEDS: INSULIN GLARGINE 100 UNITS/ML SQ SCH (08:50)
[2019-07-19] MEDS: FOLIC ACID 1 MG TABLET PO SCH (08:51)
[2019-07-19] MEDS: CLOPIDOGREL 75 MG TABLET PO SCH (08:51)
[2019-07-19] MEDS: LIDOCAINE 4% PATCH TOP SCH (08:51)
[2019-07-19] MEDS: DOXYCYCLINE 100 MG CAP PO SCH ×2 (08:52→20:10)
[2019-07-19] MEDS: METOPROLOL XL 50 MG TAB PO SCH (08:52)
[2019-07-19] MEDS: DULOXETINE 20 MG CAP PO SCH (08:52)
[2019-07-19] MEDS: TOPIRAMATE 25 MG TAB PO SCH ×2 (08:52→20:10)
[2019-07-19] MEDS: ASPIRIN 81 MG CHEWABLE TABLET PO SCH (08:53)
[2019-07-19] MEDS: PANTOPRAZOLE 40MG TABLET PO SCH (08:53)
[2019-07-19] MEDS: CRANBERRY FRUIT EXTRACT 200 MG CAP PO SCH ×2 (08:53→20:09)
[2019-07-19] MEDS: GABAPENTIN 300 MG CAP PO SCH ×3 (08:54→20:10)
[2019-07-19] MEDS: PROMOD 30 ML DOSE PO SCH ×2 (09:44→20:10)
[2019-07-19] MEDS: GLUCERNA SHAKE 237 ML CAN PO SCH ×2 (09:44→20:11)
[2019-07-19] MEDS: LOSARTAN POTASSIUM 50 MG TABLET PO SCH (09:44)
[2019-07-19] MEDS: TRAMADOL HCL 50 MG TAB PO PRN (16:59)
--- NOTE | 2019-07-19 17:04 | R.PN ---
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 Pt denied any Shortness of Breath. CBC with differential is normal. Plan Checker is elevated to 1.53 with glucose 134 to 209, prealbumin 17.1. Ambulated 500' with contact guard assistance. Up and down 5 steps with contact guard assistance. Self -propelled wheelchair 250' with standby assistance. VITAL SIGNS Temperature: 97.7 F SBP/DBP: 109/53 Pulse: 69 Resp: 18 MEDICATION ALLERGIES: naproxen CODEINE Penicillins Morphine ENVIRONMENTAL ALLERGIES: None Known - Substance Allergies None Known - Other Allergies None Known NURSING: - Shower allowing shower - Bladder care per protocol - Skin care per protocol PRECAUTIONS: - Weight Bearing Precaution WBAT right LE ACTIVITIES OOB only with supervision THERAPIES: - Occupational Therapy Cognitive Retraining. Visual Perceptual Training. - Dietary and Nutrition Adequate Nutrition. Nutritional Education. Nutritional Supplements. - Speech Therapy Cognitive Training. Expressive Language Skills. Memory Strategies. Receptive Language Skills. Speech Intelligibility Training. PHYSICAL EXAM - Gen Alert and awake Lying in bed No apparent distress Oriented to: person, time, and place - Skin No skin breakdown. Normacephalic - Eyes No abnormalities - ENMT No abnormalities - Neck No abnormalities - CVS RRR - Chest No abnormalities - Resp Clear to auscultation - Abd Soft - GI Obese Deferred - No abnormalities - Ext No significant edema - MSK 4+/5 weakness in right lower extremity - Neuro 4/5 strength right lower extremity. - Psych Mild anxiety. ASSESSMENT: Pt. is a 73 yo Right-handed white female.On 07/08/2019 Pt. 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 (Stroke(Right Body (Left Brain))) by Dr. Carrasco.Pre-morbidly, Pt. was independent/mod-I in Transfers Control, Locomotion, and Self-Care; and she had good Balance, Safe ty Awareness, Social Cognition, Sphincter Control, and Communication.Currently, she has deficits of T ransfers Control, Balance, Locomotion, Self-Care, Safety Awareness, and Social Cognition.Pt. is now r eferred to [facility] for acute in-patient rehabilitation in order to maximize patient's functional independence in activities of daily living, strength, ROM, and mobility.- Rehab Goal Patient has realistic goal of being discharged at assistance level 6-Angelica to reside at Home with Fam renny/Relatives. MDM/PLAN: - Physical Therapy Gait dysfunction - to improve, our physical therapists will perform initial evaluation of pt's statu s upon admission and devise an individualized program for Gait Training, and Wheel Chair mobility Inability to transfer - to improve, our physical therapists will perform initial evaluation of pt's status upon admission and devise an individualized program for Bed mobility Need for home safety evaluation - to improve, our physical therapists will perform initial evaluatio n of pt's status upon admission and devise an individualized program for Home Evaluation Need in caregiver upon discharge - to improve, our physical therapists will perform initial evaluati on of pt's status upon admission and devise an individualized program for Caregiver Training Edema - to improve, our physical therapists will perform initial evaluation of pt's status upon admi ssion and devise an individualized program for Elevation Training, and Lymphedema Therapy New precaution - to improve, our physical therapists will perform initial evaluation of pt's status upon admission and devise an individualized program for Patient precaution education Poor balance - to improve, our physical therapists will perform initial evaluation of pt's status up on admission and devise an individualized program for Balance Training Weakness - to improve, our physical therapists will perform initial evaluation of pt's status upon a dmission and devise an individualized program for Aquatic Therapy, Neuromuscular Reeducation, and Str engthening Achieving independence - to improve, our physical therapists will perform initial evaluation of pt's status upon admission and devise an individualized program for Community Reintegration Activities - Occupational Therapy ADL deficits - to improve, our occupation therapists will perform initial evaluation of pt's status upon admission and devise an individualized program for Bathing, Bed mobility, Community Reintegratio n, Cooking, Dressing, Eating, Fine Motor Skills, Grooming, Homemaking, Kitchen Mobility, Laundry, Pat ient Education, Safety Awareness, Splinting - Positioning, Transfers(Toilet, Tub, Shower), and Wheel Chair Management Cognitive deficits - to improve, our occupation therapists will perform initial evaluation of pt's s tatus upon admission and devise an individualized program for Cognition - orientation Need for manager urgent care - to improve, our occupation therapists will perform initial evaluation of pt's status upon admission and devise an individualized program for Caregiver Training Weakness - to improve, our occupation therapists will perform initial evaluation of pt's status upon admission and devise an individualized program for Aquatic Therapy, Balance, Endurance, UE ROM, and UE strengthening - Other See attached MAR (Medication Administration Record) - Diet Type Continue Regular - Diet - Liquid Texture Continue Regular - Tube Feed Continue N/A - Bladder care per protocol - Weight Bearing Precaution WBAT right LE - Skin care per protocol - Diet - Solid Texture Continue Regular - Shower allowing shower for Dementia, TBI, Stroke, or others FUNCTIONAL STATUS: UPDATED AT WEEKLY TEAM CONFERENCE - Walking Same score based on distance walked: 3(>=150ft) FUNCTIONAL STATUS: - Self-Care A. Eating Angelica B. Grooming Angelica C. Bathing Scott D. Dressing - Upper Scott E. Dressing - Lower modA F. Toileting Scott - Sphincter Control G. Bladder control Scott H. Bowel control Scott - Transfers Control I. Bed/Chair/Wheelchair Scott J. Toilet Scott K. Tub/Shower modA - Locomotion L. Walk/Wheelchair (B) modA M. Stairs ADNO - Communication N. Comprehension (B) sup O. Expression (B) Scott - Social Cognition P. Social Interaction sup Q. Problem Solving sup R. Memory sup - Endurance Fair - Balance Fair - Safety Awareness Fair QI SCORES: - Self-Care A. Eating 05-Setup or clean-up assistance B. Oral hygiene 05-Setup or clean-up assistance C. Toileting hygiene 03-Partial/moderate assistance E. Shower/bathe self 10-Not attempted due to environmental limitations F. Upper body dressing 03-Partial/moderate assistance G. Lower body dressing 01-Dependent H. Putting on/taking off footwear 01-Dependent - Mobility A. Roll left and right 03-Partial/moderate assistance B. Sit to lying 03-Partial/moderate assistance C. Lying to sitting on side of bed 03-Partial/moderate assistance D. Sit to stand 03-Partial/moderate assistance E. Chair/qtr-ix-[id number] transfer 03-Partial/moderate assistance F. Toilet transfer 03-Partial/moderate assistance G. Car transfer 88-Not attempted due to medical condition or safety concerns I. Walk 10 feet 03-Partial/moderate assistance J. Walk 50 feet with two turns 03-Partial/moderate assistance K. Walk 150 feet 03-Partial/moderate assistance L. Walking 10 feet on uneven surfaces 88-Not attempted due to medical condition or safety concerns M. 1 step (curb) 88-Not attempted due to medical condition or safety concerns N. 4 steps 88-Not attempted due to medical condition or safety concerns O. 12 steps 88-Not attempted due to medical condition or safety concerns P. Picking up object 88-Not attempted due to medical condition or safety concerns - Bladder and Bowel Bladder continence 0-Always continent Bowel continence 0-Always continent - Endurance Poor - Balance Poor - Safety Awareness Poor CURRENT FUNC. DEFICITS: Self-Care, Mobility, Endurance, Balance, and Safety Awareness SIGNATURE PANEL: (CDT)
[2019-07-19] MEDS: ATORVASTATIN 40 MG TAB PO SCH (20:09)
[2019-07-19] MEDS: TAMSULOSIN 0.4 MG SR CAP PO SCH (20:10)
[2019-07-20] MEDS: ENOXAPARIN 40 MG/0.4 ML SQ SCH (06:53)
[2019-07-20] MEDS: PANTOPRAZOLE 40MG TABLET PO SCH (06:53)
[2019-07-20] MEDS: LIDOCAINE 4% PATCH TOP SCH (06:53)
[2019-07-20] MEDS: INSULIN -REGULAR HUMAN 50 UNIT/0.5 ML ML SQ SCH ×4 (07:30→20:05)
[2019-07-20] MEDS: PROMOD 30 ML DOSE PO SCH ×2 (07:53→18:59)
[2019-07-20] MEDS: GLUCERNA SHAKE 237 ML CAN PO SCH ×2 (07:53→18:59)
[2019-07-20] MEDS: TRAMADOL HCL 50 MG TAB PO PRN (07:55)
[2019-07-20] MEDS: LOSARTAN POTASSIUM 50 MG TABLET PO SCH (07:56)
[2019-07-20] MEDS: CRANBERRY FRUIT EXTRACT 200 MG CAP PO SCH ×2 (07:56→18:59)
[2019-07-20] MEDS: GABAPENTIN 300 MG CAP PO SCH ×3 (07:56→20:04)
[2019-07-20] MEDS: CLOPIDOGREL 75 MG TABLET PO SCH (07:57)
[2019-07-20] MEDS: DULOXETINE 20 MG CAP PO SCH (07:57)
[2019-07-20] MEDS: FOLIC ACID 1 MG TABLET PO SCH (07:57)
[2019-07-20] MEDS: TOPIRAMATE 25 MG TAB PO SCH ×2 (07:57→18:59)
[2019-07-20] MEDS: ASPIRIN 81 MG CHEWABLE TABLET PO SCH (07:57)
[2019-07-20] MEDS: METOPROLOL XL 50 MG TAB PO SCH (07:57)
[2019-07-20] MEDS: DOXYCYCLINE 100 MG CAP PO SCH ×2 (07:57→18:59)
[2019-07-20] MEDS: INSULIN GLARGINE 100 UNITS/ML SQ SCH (07:58)
[2019-07-20] MEDS: MAGNESIUM OXIDE 400 MG TAB PO SCH (15:18)
--- NOTE | 2019-07-20 17:29 | R.PN ---
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 Pt denied any Shortness of Breath. CBC with differential is normal. Osd Clerk is elevated to 1.53 with glucose 160 to 171, prealbumin 17.1. Ambulated 500' with contact guard assistance. Up and down 5 steps with contact guard assistance. Self -propelled wheelchair 250' with standby assistance. She was dizzy when climbing steps. Her blood pres sure dropped to 95/56. After lying down her BP improved to 114/62. VITAL SIGNS Temperature: 97.7 F SBP/DBP: 123/55 Pulse: 64 Resp: 16 MEDICATION ALLERGIES: naproxen CODEINE Penicillins Morphine ENVIRONMENTAL ALLERGIES: None Known - Substance Allergies None Known - Other Allergies None Known NURSING: - Shower allowing shower - Bladder care per protocol - Skin care per protocol PRECAUTIONS: - Weight Bearing Precaution WBAT right LE ACTIVITIES OOB only with supervision THERAPIES: - Occupational Therapy Cognitive Retraining. Visual Perceptual Training. - Dietary and Nutrition Adequate Nutrition. Nutritional Education. Nutritional Supplements. - Speech Therapy Cognitive Training. Expressive Language Skills. Memory Strategies. Receptive Language Skills. Speech Intelligibility Training. PHYSICAL EXAM - Gen Alert and awake Lying in bed No apparent distress Oriented to: person, time, and place - Skin No skin breakdown. Normacephalic - Eyes No abnormalities - ENMT No abnormalities - Neck No abnormalities - CVS RRR - Chest No abnormalities - Resp Clear to auscultation - Abd Soft - GI Obese Deferred - No abnormalities - Ext No significant edema - MSK 4+/5 weakness in right lower extremity - Neuro 4/5 strength right lower extremity. - Psych Mild anxiety. ASSESSMENT: Pt. is a 73 yo Right-handed white female.On 07/08/2019 Pt. 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 (Stroke(Right Body (Left Brain))) by Dr. Carrasco.Pre-morbidly, Pt. was independent/mod-I in Transfers Control, Locomotion, and Self-Care; and she had good Balance, Safe ty Awareness, Social Cognition, Sphincter Control, and Communication.Currently, she has deficits of T ransfers Control, Balance, Locomotion, Self-Care, Safety Awareness, and Social Cognition.Pt. is now r eferred to [facility] for acute in-patient rehabilitation in order to maximize patient's functional independence in activities of daily living, strength, ROM, and mobility.- Rehab Goal Patient has realistic goal of being discharged at assistance level 6-Angelica to reside at Home with Fam renny/Relatives. MDM/PLAN: - Physical Therapy Gait dysfunction - to improve, our physical therapists will perform initial evaluation of pt's statu s upon admission and devise an individualized program for Gait Training, and Wheel Chair mobility Inability to transfer - to improve, our physical therapists will perform initial evaluation of pt's status upon admission and devise an individualized program for Bed mobility Need for home safety evaluation - to improve, our physical therapists will perform initial evaluatio n of pt's status upon admission and devise an individualized program for Home Evaluation Need in caregiver upon discharge - to improve, our physical therapists will perform initial evaluati on of pt's status upon admission and devise an individualized program for Caregiver Training Edema - to improve, our physical therapists will perform initial evaluation of pt's status upon admi ssion and devise an individualized program for Elevation Training, and Lymphedema Therapy New precaution - to improve, our physical therapists will perform initial evaluation of pt's status upon admission and devise an individualized program for Patient precaution education Poor balance - to improve, our physical therapists will perform initial evaluation of pt's status up on admission and devise an individualized program for Balance Training Weakness - to improve, our physical therapists will perform initial evaluation of pt's status upon a dmission and devise an individualized program for Aquatic Therapy, Neuromuscular Reeducation, and Str engthening Achieving independence - to improve, our physical therapists will perform initial evaluation of pt's status upon admission and devise an individualized program for Community Reintegration Activities - Occupational Therapy ADL deficits - to improve, our occupation therapists will perform initial evaluation of pt's status upon admission and devise an individualized program for Bathing, Bed mobility, Community Reintegratio n, Cooking, Dressing, Eating, Fine Motor Skills, Grooming, Homemaking, Kitchen Mobility, Laundry, Pat ient Education, Safety Awareness, Splinting - Positioning, Transfers(Toilet, Tub, Shower), and Wheel Chair Management Cognitive deficits - to improve, our occupation therapists will perform initial evaluation of pt's s tatus upon admission and devise an individualized program for Cognition - orientation Need for senior caregiver - to improve, our occupation therapists will perform initial evaluation of pt's status upon admission and devise an individualized program for Caregiver Training Weakness - to improve, our occupation therapists will perform initial evaluation of pt's status upon admission and devise an individualized program for Aquatic Therapy, Balance, Endurance, UE ROM, and UE strengthening - Other See attached MAR (Medication Administration Record) - Diet Type Continue Regular - Diet - Liquid Texture Continue Regular - Tube Feed Continue N/A - Bladder care per protocol - Weight Bearing Precaution WBAT right LE - Skin care per protocol - Diet - Solid Texture Continue Regular - Shower allowing shower for Dementia, TBI, Stroke, or others FUNCTIONAL STATUS: UPDATED AT WEEKLY TEAM CONFERENCE - Walking Same score based on distance walked: 3(>=150ft) FUNCTIONAL STATUS: - Self-Care A. Eating Angelica B. Grooming Angelica C. Bathing Scott D. Dressing - Upper Scott E. Dressing - Lower modA F. Toileting Scott - Sphincter Control G. Bladder control Scott H. Bowel control Scott - Transfers Control I. Bed/Chair/Wheelchair Scott J. Toilet Scott K. Tub/Shower modA - Locomotion L. Walk/Wheelchair (B) modA M. Stairs ADNO - Communication N. Comprehension (B) sup O. Expression (B) Scott - Social Cognition P. Social Interaction sup Q. Problem Solving sup R. Memory sup - Endurance Fair - Balance Fair - Safety Awareness Fair QI SCORES: - Self-Care A. Eating 05-Setup or clean-up assistance B. Oral hygiene 05-Setup or clean-up assistance C. Toileting hygiene 03-Partial/moderate assistance E. Shower/bathe self 10-Not attempted due to environmental limitations F. Upper body dressing 03-Partial/moderate assistance G. Lower body dressing 01-Dependent H. Putting on/taking off footwear 01-Dependent - Mobility A. Roll left and right 03-Partial/moderate assistance B. Sit to lying 03-Partial/moderate assistance C. Lying to sitting on side of bed 03-Partial/moderate assistance D. Sit to stand 03-Partial/moderate assistance E. Chair/[id number] transfer 03-Partial/moderate assistance F. Toilet transfer 03-Partial/moderate assistance G. Car transfer 88-Not attempted due to medical condition or safety concerns I. Walk 10 feet 03-Partial/moderate assistance J. Walk 50 feet with two turns 03-Partial/moderate assistance K. Walk 150 feet 03-Partial/moderate assistance L. Walking 10 feet on uneven surfaces 88-Not attempted due to medical condition or safety concerns M. 1 step (curb) 88-Not attempted due to medical condition or safety concerns N. 4 steps 88-Not attempted due to medical condition or safety concerns O. 12 steps 88-Not attempted due to medical condition or safety concerns P. Picking up object 88-Not attempted due to medical condition or safety concerns - Bladder and Bowel Bladder continence 0-Always continent Bowel continence 0-Always continent - Endurance Poor - Balance Poor - Safety Awareness Poor CURRENT FUNC. DEFICITS: Self-Care, Mobility, Endurance, Balance, and Safety Awareness SIGNATURE PANEL: (CDT)
[2019-07-20] MEDS: MELATONIN 3 MG TABLET PO PRN (20:05)
[2019-07-20] MEDS: ATORVASTATIN 40 MG TAB PO SCH (20:05)
[2019-07-20] MEDS: TAMSULOSIN 0.4 MG SR CAP PO SCH (20:05)
--- NOTE | 2019-07-21 01:50 | FAST ---
SHIFT START DATE/TIME: 07/16/2019 19:00 (CDT) SHIFT END DATE/TIME: 07/17/2019 07:00 (CDT) NAME KEANU HARLEY DATE OF : 1945 DATE OF ADMISSION: 07/12/2019 18:48 (CDT) PHONE: AGE: 73 N# [id number] GENDER: Female ENCOUNTER PHYSICIAN: Dr. Yordan Gomez M.D. 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 EATING: Not assessed/no information CODE: - ORAL HYGIENE: Not assessed/no information CODE: - TOILETING HYGIENE: TOILETING HYGIENE - STEP 1: Does the patient complete the activity by him/herself with no assistance (physical, verbal/nonverbal cueing, setup/clean-up)? No. TOILETING HYGIENE - STEP 2: Does the patient need only setup/clean-up assistance from one helper? No. TOILETING HYGIENE - STEP 3: Does the patient need only verbal/nonverbal cueing or touching/steadying/contact guard assistance fro m one helper? No. TOILETING HYGIENE - STEP 4: Does the patient need physical assistance - for example lifting or trunk support from one helper - wi th the helper providing less than half of the effort? Yes. 1. [id number] ADMISSION PERFORMANCE: Partial/moderate assistance CODE: 03 BATHING: Not assessed/no information CODE: - DRESSING - UPPER BODY: Not assessed/no information CODE: - DRESSING - LOWER BODY: Not assessed/no information CODE: - PUTTING ON/TAKING OFF FOOTWEAR: Not assessed/no information CODE: - ROLL LEFT AND RIGHT: ROLL LEFT AND RIGHT - STEP 1: Does the patient complete the activity by him/herself with no assistance (physical, verbal/nonverbal cueing, setup/clean-up)? No. ROLL LEFT AND RIGHT - STEP 2: Does the patient need only setup/clean-up assistance from one helper? No. ROLL LEFT AND RIGHT - STEP 3: Does the patient need only verbal/nonverbal cueing or touching/steadying/contact guard assistance fro m one helper? Yes. 1. [id number] ADMISSION PERFORMANCE: Supervision or touching assistance CODE: 04 SIT TO LYING: SIT TO LYING - STEP 1: Does the patient complete the activity by him/herself with no assistance (physical, verbal/nonverbal cueing, setup/clean-up)? No. SIT TO LYING - STEP 2: Does the patient need only setup/clean-up assistance from one helper? No. SIT TO LYING - STEP 3: Does the patient need only verbal/nonverbal cueing or touching/steadying/contact guard assistance fro m one helper? Yes. 1. [id number] ADMISSION PERFORMANCE: Supervision or touching assistance CODE: 04 LYING TO SITTING: LYING TO SITTING ON SIDE OF BED - STEP 1: Does the patient complete the activity by him/herself with no assistance (physical, verbal/nonverbal cueing, setup/clean-up)? No. LYING TO SITTING ON SIDE OF BED - STEP 2: Does the patient need only setup/clean-up assistance from one helper? No. LYING TO SITTING ON SIDE OF BED - STEP 3: Does the patient need only verbal/nonverbal cueing or touching/steadying/contact guard assistance fro m one helper? Yes. 1. [id number] ADMISSION PERFORMANCE: Supervision or touching assistance CODE: 04 SIT TO STAND: SIT TO STAND - STEP 1: Does the patient complete the activity by him/herself with no assistance (physical, verbal/nonverbal cueing, setup/clean-up)? No. SIT TO STAND - STEP 2: Does the patient need only setup/clean-up assistance from one helper? No. SIT TO STAND - STEP 3: Does the patient need only verbal/nonverbal cueing or touching/steadying/contact guard assistance fro m one helper? Yes. 1. [id number] ADMISSION PERFORMANCE: Supervision or touching assistance CODE: 04 TRANSFERS: BED, CHAIR: CHAIR/[id number] TRANSFER - STEP 1: Does the patient complete the activity by him/herself with no assistance (physical, verbal/nonverbal cueing, setup/clean-up)? No. CHAIR/[id number] TRANSFER - STEP 2: Does the patient need only setup/clean-up assistance from one helper? No. CHAIR/[id number] TRANSFER - STEP 3: Does the patient need only verbal/nonverbal cueing or touching/steadying/contact guard assistance fro m one helper? Yes. 1. [id number] ADMISSION PERFORMANCE: Supervision or touching assistance CODE: 04 TRANSFER TOILET: TOILET TRANSFER - STEP 1: Does the patient complete the activity by him/herself with no assistance (physical, verbal/nonverbal cueing, setup/clean-up)? No. TOILET TRANSFER - STEP 2: Does the patient need only setup/clean-up assistance from one helper? No. TOILET TRANSFER - STEP 3: Does the patient need only verbal/nonverbal cueing or touching/steadying/contact guard assistance fro m one helper? Yes. 1. [id number] ADMISSION PERFORMANCE: Supervision or touching assistance CODE: 04 TRANSFERS: CAR: Not assessed/no information CODE: - WALK 10 FEET: Not assessed/no information CODE: - 1 STEP (CURB): Not assessed/no information CODE: - PICKING UP OBJECT: Not assessed/no information CODE: - DOES THE PATIENT USE A WHEELCHAIR/SCOOTER? CODE: EXPR WHEEL 50 FEET WITH TWO TURNS: Not assessed/no information CODE: - INDICATE THE TYPE OF WHEELCHAIR/SCOOTER USED: CODE: EXPR WHEEL 150 FEET: Not assessed/no information CODE: - INDICATE THE TYPE OF WHEELCHAIR/SCOOTER USED: CODE: EXPR BLADDER AND BOWEL: H350. BLADDER CONTINENCE (3-DAY ASSESSMENT PERIOD): Always continent (no documented incontinence) CODE: 0 H400. BOWEL CONTINENCE (3-DAY ASSESSMENT PERIOD): Always continent CODE: 0
[2019-07-21] MEDS: ENOXAPARIN 40 MG/0.4 ML SQ SCH (07:00)
[2019-07-21] MEDS: INSULIN -REGULAR HUMAN 50 UNIT/0.5 ML ML SQ SCH ×4 (07:30→20:02)
[2019-07-21] MEDS: METOPROLOL XL 50 MG TAB PO SCH (08:00)
[2019-07-21] MEDS: PROMOD 30 ML DOSE PO SCH ×2 (08:00→19:41)
[2019-07-21] MEDS: LIDOCAINE 4% PATCH TOP SCH (08:15)
[2019-07-21] MEDS: CRANBERRY FRUIT EXTRACT 200 MG CAP PO SCH ×2 (08:16→19:40)
[2019-07-21] MEDS: GABAPENTIN 300 MG CAP PO SCH ×3 (08:16→20:02)
[2019-07-21] MEDS: DOXYCYCLINE 100 MG CAP PO SCH ×2 (08:17→19:41)
[2019-07-21] MEDS: PANTOPRAZOLE 40MG TABLET PO SCH (08:17)
[2019-07-21] MEDS: TOPIRAMATE 25 MG TAB PO SCH ×2 (08:17→19:40)
[2019-07-21] MEDS: LOSARTAN POTASSIUM 50 MG TABLET PO SCH (08:17)
[2019-07-21] MEDS: MAGNESIUM OXIDE 400 MG TAB PO SCH (08:17)
[2019-07-21] MEDS: FOLIC ACID 1 MG TABLET PO SCH (08:18)
[2019-07-21] MEDS: CLOPIDOGREL 75 MG TABLET PO SCH (08:18)
[2019-07-21] MEDS: ACETAMINOPHEN 500 MG TAB PO PRN (08:18)
[2019-07-21] MEDS: DULOXETINE 20 MG CAP PO SCH (08:18)
[2019-07-21] MEDS: ASPIRIN 81 MG CHEWABLE TABLET PO SCH (08:18)
[2019-07-21] MEDS: INSULIN GLARGINE 100 UNITS/ML SQ SCH (08:25)
[2019-07-21] MEDS: GLUCERNA SHAKE 237 ML CAN PO SCH ×2 (12:18→19:41)
[2019-07-21] MEDS: TRAMADOL HCL 50 MG TAB PO PRN (12:31)
--- NOTE | 2019-07-21 14:19 | FAST ---
ENCOUNTER DATE AND TIME: 07/21/2019 08:00 (CDT) NAME KEANU HARLEY DATE OF : 1945 DATE OF ADMISSION: 07/12/2019 18:48 (CDT) PHONE: AGE: 73 N# [id number] GENDER: Female ENCOUNTER PHYSICIAN: Dr. Yordan Gomez M.D. 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 EATING: Not assessed/no information CODE: - ORAL HYGIENE: ORAL HYGIENE - STEP 1: Does the patient complete the activity by him/herself with no assistance (physical, verbal/nonverbal cueing, setup/clean-up)? No. ORAL HYGIENE - STEP 2: Does the patient need only setup/clean-up assistance from one helper? No. ORAL HYGIENE - STEP 3: Does the patient need only verbal/nonverbal cueing or touching/steadying/contact guard assistance fro m one helper? Yes. 1. [id number] ADMISSION PERFORMANCE: Supervision or touching assistance CODE: 04 TOILETING HYGIENE: Not assessed/no information CODE: - BATHING: SHOWER/BATHE SELF - STEP 1: Does the patient complete the activity by him/herself with no assistance (physical, verbal/nonverbal cueing, setup/clean-up)? No. SHOWER/BATHE SELF - STEP 2: Does the patient need only setup/clean-up assistance from one helper? No. SHOWER/BATHE SELF - STEP 3: Does the patient need only verbal/nonverbal cueing or touching/steadying/contact guard assistance fro m one helper? Yes. 1. [id number] ADMISSION PERFORMANCE: Supervision or touching assistance CODE: 04 DRESSING - UPPER BODY: DRESSING - UPPER BODY - STEP 1: Does the patient complete the activity by him/herself with no assistance (physical, verbal/nonverbal cueing, setup/clean-up)? No. DRESSING - UPPER BODY - STEP 2: Does the patient need only setup/clean-up assistance from one helper? No. DRESSING - UPPER BODY - STEP 3: Does the patient need only verbal/nonverbal cueing or touching/steadying/contact guard assistance fro m one helper? Yes. 1. [id number] ADMISSION PERFORMANCE: Supervision or touching assistance CODE: 04 DRESSING - LOWER BODY: DRESSING - LOWER BODY - STEP 1: Does the patient complete the activity by him/herself with no assistance (physical, verbal/nonverbal cueing, setup/clean-up)? No. DRESSING - LOWER BODY - STEP 2: Does the patient need only setup/clean-up assistance from one helper? No. DRESSING - LOWER BODY - STEP 3: Does the patient need only verbal/nonverbal cueing or touching/steadying/contact guard assistance fro m one helper? Yes. 1. [id number] ADMISSION PERFORMANCE: Supervision or touching assistance CODE: 04 PUTTING ON/TAKING OFF FOOTWEAR: FOOTWEAR - STEP 1: Does the patient complete the activity by him/herself with no assistance (physical, verbal/nonverbal cueing, setup/clean-up)? No. FOOTWEAR - STEP 2: Does the patient need only setup/clean-up assistance from one helper? No. FOOTWEAR - STEP 3: Does the patient need only verbal/nonverbal cueing or touching/steadying/contact guard assistance fro m one helper? No. FOOTWEAR - STEP 4: Does the patient need physical assistance - for example lifting or trunk support from one helper - wi th the helper providing less than half of the effort? Yes. 1. [id number] ADMISSION PERFORMANCE: Partial/moderate assistance CODE: 03 DOES THE PATIENT USE A WHEELCHAIR/SCOOTER? CODE: EXPR INDICATE THE TYPE OF WHEELCHAIR/SCOOTER USED: CODE: EXPR INDICATE THE TYPE OF WHEELCHAIR/SCOOTER USED: CODE: EXPR BLADDER AND BOWEL: CODE: EXPR CODE: EXPR SIGNATURE PANEL: The following modified sections: 1. [id number] Admission Performance, 1. [id number] Admission Performance, 1. [id number] Admission Performance, 1. [id number] Admission Performance, 1. [id number] Admission Performance, 1. [id number] Admission Performance were [electronically] signed by SUGEY Bro on FriJul 21 2019 14:18:47 GMT-0500 (Central Daylight Time)
--- NOTE | 2019-07-21 17:02 | R.PN ---
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 Pt denied any Shortness of Breath. CBC with differential is normal. Cut To Length Operator is elevated to 1.53 with glucose 156 to 212, prealbumin 17.1. Ambulated 500' with contact guard assistance. Up and down 5 steps with contact guard assistance. Self -propelled wheelchair 250' with standby assistance. She was dizzy when climbing steps. Her blood pres sure dropped to 95/56. After lying down her BP improved to 114/62. VITAL SIGNS Temperature: 97.9 F SBP/DBP: 111/57 Pulse: 58 Resp: 16 MEDICATION ALLERGIES: naproxen CODEINE Penicillins Morphine ENVIRONMENTAL ALLERGIES: None Known - Substance Allergies None Known - Other Allergies None Known NURSING: - Shower allowing shower - Bladder care per protocol - Skin care per protocol PRECAUTIONS: - Weight Bearing Precaution WBAT right LE ACTIVITIES OOB only with supervision THERAPIES: - Occupational Therapy Cognitive Retraining. Visual Perceptual Training. - Dietary and Nutrition Adequate Nutrition. Nutritional Education. Nutritional Supplements. - Speech Therapy Cognitive Training. Expressive Language Skills. Memory Strategies. Receptive Language Skills. Speech Intelligibility Training. PHYSICAL EXAM - Gen Alert and awake Lying in bed No apparent distress Oriented to: person, time, and place - Skin No skin breakdown. Normacephalic - Eyes No abnormalities - ENMT No abnormalities - Neck No abnormalities - CVS RRR - Chest No abnormalities - Resp Clear to auscultation - Abd Soft - GI Obese Deferred - No abnormalities - Ext No significant edema - MSK 4+/5 weakness in right lower extremity - Neuro 4/5 strength right lower extremity. - Psych Mild anxiety. ASSESSMENT: Pt. is a 73 yo Right-handed white female.On 07/08/2019 Pt. 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 (Stroke(Right Body (Left Brain))) by Dr. Carrasco.Pre-morbidly, Pt. was independent/mod-I in Transfers Control, Locomotion, and Self-Care; and she had good Balance, Safe ty Awareness, Social Cognition, Sphincter Control, and Communication.Currently, she has deficits of T ransfers Control, Balance, Locomotion, Self-Care, Safety Awareness, and Social Cognition.Pt. is now r eferred to [facility] for acute in-patient rehabilitation in order to maximize patient's functional independence in activities of daily living, strength, ROM, and mobility.- Rehab Goal Patient has realistic goal of being discharged at assistance level 6-Angelica to reside at Home with Fam renny/Relatives. MDM/PLAN: - Physical Therapy Gait dysfunction - to improve, our physical therapists will perform initial evaluation of pt's statu s upon admission and devise an individualized program for Gait Training, and Wheel Chair mobility Inability to transfer - to improve, our physical therapists will perform initial evaluation of pt's status upon admission and devise an individualized program for Bed mobility Need for home safety evaluation - to improve, our physical therapists will perform initial evaluatio n of pt's status upon admission and devise an individualized program for Home Evaluation Need in caregiver upon discharge - to improve, our physical therapists will perform initial evaluati on of pt's status upon admission and devise an individualized program for Caregiver Training Edema - to improve, our physical therapists will perform initial evaluation of pt's status upon admi ssion and devise an individualized program for Elevation Training, and Lymphedema Therapy New precaution - to improve, our physical therapists will perform initial evaluation of pt's status upon admission and devise an individualized program for Patient precaution education Poor balance - to improve, our physical therapists will perform initial evaluation of pt's status up on admission and devise an individualized program for Balance Training Weakness - to improve, our physical therapists will perform initial evaluation of pt's status upon a dmission and devise an individualized program for Aquatic Therapy, Neuromuscular Reeducation, and Str engthening Achieving independence - to improve, our physical therapists will perform initial evaluation of pt's status upon admission and devise an individualized program for Community Reintegration Activities - Occupational Therapy ADL deficits - to improve, our occupation therapists will perform initial evaluation of pt's status upon admission and devise an individualized program for Bathing, Bed mobility, Community Reintegratio n, Cooking, Dressing, Eating, Fine Motor Skills, Grooming, Homemaking, Kitchen Mobility, Laundry, Pat ient Education, Safety Awareness, Splinting - Positioning, Transfers(Toilet, Tub, Shower), and Wheel Chair Management Cognitive deficits - to improve, our occupation therapists will perform initial evaluation of pt's s tatus upon admission and devise an individualized program for Cognition - orientation Need for child day care teacher - to improve, our occupation therapists will perform initial evaluation of pt's status upon admission and devise an individualized program for Caregiver Training Weakness - to improve, our occupation therapists will perform initial evaluation of pt's status upon admission and devise an individualized program for Aquatic Therapy, Balance, Endurance, UE ROM, and UE strengthening - Other See attached MAR (Medication Administration Record) - Diet Type Continue Regular - Diet - Liquid Texture Continue Regular - Tube Feed Continue N/A - Bladder care per protocol - Weight Bearing Precaution WBAT right LE - Skin care per protocol - Diet - Solid Texture Continue Regular - Shower allowing shower for Dementia, TBI, Stroke, or others FUNCTIONAL STATUS: UPDATED AT WEEKLY TEAM CONFERENCE - Walking Same score based on distance walked: 3(>=150ft) FUNCTIONAL STATUS: - Self-Care A. Eating Angelica B. Grooming Angelica C. Bathing Scott D. Dressing - Upper Scott E. Dressing - Lower modA F. Toileting Scott - Sphincter Control G. Bladder control Scott H. Bowel control Scott - Transfers Control I. Bed/Chair/Wheelchair Scott J. Toilet Scott K. Tub/Shower modA - Locomotion L. Walk/Wheelchair (B) modA M. Stairs ADNO - Communication N. Comprehension (B) sup O. Expression (B) Scott - Social Cognition P. Social Interaction sup Q. Problem Solving sup R. Memory sup - Endurance Fair - Balance Fair - Safety Awareness Fair QI SCORES: - Self-Care A. Eating 05-Setup or clean-up assistance B. Oral hygiene 05-Setup or clean-up assistance C. Toileting hygiene 03-Partial/moderate assistance E. Shower/bathe self 10-Not attempted due to environmental limitations F. Upper body dressing 03-Partial/moderate assistance G. Lower body dressing 01-Dependent H. Putting on/taking off footwear 01-Dependent - Mobility A. Roll left and right 03-Partial/moderate assistance B. Sit to lying 03-Partial/moderate assistance C. Lying to sitting on side of bed 03-Partial/moderate assistance D. Sit to stand 03-Partial/moderate assistance E. Chair/yif-nn-elzet transfer 03-Partial/moderate assistance F. Toilet transfer 03-Partial/moderate assistance G. Car transfer 88-Not attempted due to medical condition or safety concerns I. Walk 10 feet 03-Partial/moderate assistance J. Walk 50 feet with two turns 03-Partial/moderate assistance K. Walk 150 feet 03-Partial/moderate assistance L. Walking 10 feet on uneven surfaces 88-Not attempted due to medical condition or safety concerns M. 1 step (curb) 88-Not attempted due to medical condition or safety concerns N. 4 steps 88-Not attempted due to medical condition or safety concerns O. 12 steps 88-Not attempted due to medical condition or safety concerns P. Picking up object 88-Not attempted due to medical condition or safety concerns - Bladder and Bowel Bladder continence 0-Always continent Bowel continence 0-Always continent - Endurance Poor - Balance Poor - Safety Awareness Poor CURRENT FUNC. DEFICITS: Self-Care, Mobility, Endurance, Balance, and Safety Awareness SIGNATURE PANEL: (CDT)
[2019-07-21] MEDS: ATORVASTATIN 40 MG TAB PO SCH (20:02)
[2019-07-21] MEDS: MELATONIN 3 MG TABLET PO PRN (20:02)
[2019-07-21] MEDS: TAMSULOSIN 0.4 MG SR CAP PO SCH (20:02)
[2019-07-22 06:11] LABS: Absolute Lymphocytes (CBC) 1.9 K/uL (0.7-4.9); Basophils % 1.1 % (0-1.3); Hematocrit 36.5 % (36.0-45.0); Lymphocytes % 27.9 % (15.3-44.8); MPV 8.3 fL (7.6-11.3); RBC Red Blood Cell Count 4.09 M/uL (3.86-4.86)
[2019-07-22 06:59] LABS: Albumin 2.9 g/dL (3.4-5.0); Magnesium 2.3 mg/dL (1.8-2.4); Potassium 4.2 mmol/L (3.5-5.1); Prealbumin 17.5 mg/dL (20-40)
[2019-07-22] MEDS: INSULIN -REGULAR HUMAN 50 UNIT/0.5 ML ML SQ SCH ×4 (07:24→20:41)
[2019-07-22] MEDS: ENOXAPARIN 40 MG/0.4 ML SQ SCH (07:26)
[2019-07-22] MEDS: INSULIN GLARGINE 100 UNITS/ML SQ SCH (07:27)
[2019-07-22] MEDS: GLUCERNA SHAKE 237 ML CAN PO SCH ×2 (07:29→19:23)
[2019-07-22] MEDS: PROMOD 30 ML DOSE PO SCH ×3 (07:29→19:23)
[2019-07-22] MEDS: PANTOPRAZOLE 40MG TABLET PO SCH (07:30)
[2019-07-22] MEDS: LIDOCAINE 4% PATCH TOP SCH (07:30)
[2019-07-22] MEDS: LOSARTAN POTASSIUM 50 MG TABLET PO SCH (07:31)
[2019-07-22] MEDS: METOPROLOL XL 50 MG TAB PO SCH (07:33)
[2019-07-22] MEDS: DOXYCYCLINE 100 MG CAP PO SCH ×2 (07:33→19:21)
[2019-07-22] MEDS: CRANBERRY FRUIT EXTRACT 200 MG CAP PO SCH ×2 (07:33→19:21)
[2019-07-22] MEDS: ASPIRIN 81 MG CHEWABLE TABLET PO SCH (07:34)
[2019-07-22] MEDS: TOPIRAMATE 25 MG TAB PO SCH ×2 (07:34→19:23)
[2019-07-22] MEDS: FOLIC ACID 1 MG TABLET PO SCH (07:34)
[2019-07-22] MEDS: GABAPENTIN 300 MG CAP PO SCH ×3 (07:34→20:41)
[2019-07-22] MEDS: DULOXETINE 20 MG CAP PO SCH (07:34)
[2019-07-22] MEDS: CLOPIDOGREL 75 MG TABLET PO SCH (07:35)
[2019-07-22] MEDS: MAGNESIUM OXIDE 400 MG TAB PO SCH (07:35)
[2019-07-22] MEDS: TRAMADOL HCL 50 MG TAB PO PRN ×2 (09:00→13:55)
--- NOTE | 2019-07-22 16:53 | R.PN ---
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 Pt denied any Shortness of Breath. CBC with differential is normal. Package Delivery Room Service Runner is elevated to 1.33 with glucose 145 to 170, prealbumin 17.5. Ambulated 750' with contact guard assistance. Up and down 5 steps with contact guard assistance. Self -propelled wheelchair 250' with standby assistance. She was dizzy when climbing steps. VITAL SIGNS Temperature: 97.5 F SBP/DBP: 129/57 Pulse: 69 Resp: 16 MEDICATION ALLERGIES: naproxen CODEINE Penicillins Morphine ENVIRONMENTAL ALLERGIES: None Known - Substance Allergies None Known - Other Allergies None Known NURSING: - Shower allowing shower - Bladder care per protocol - Skin care per protocol PRECAUTIONS: - Weight Bearing Precaution WBAT right LE ACTIVITIES OOB only with supervision THERAPIES: - Occupational Therapy Cognitive Retraining. Visual Perceptual Training. - Dietary and Nutrition Adequate Nutrition. Nutritional Education. Nutritional Supplements. - Speech Therapy Cognitive Training. Expressive Language Skills. Memory Strategies. Receptive Language Skills. Speech Intelligibility Training. PHYSICAL EXAM - Gen Alert and awake Lying in bed No apparent distress Oriented to: person, time, and place - Skin No skin breakdown. Normacephalic - Eyes No abnormalities - ENMT No abnormalities - Neck No abnormalities - CVS RRR - Chest No abnormalities - Resp Clear to auscultation - Abd Soft - GI Obese Deferred - No abnormalities - Ext No significant edema - MSK 4+/5 weakness in right lower extremity - Neuro 4/5 strength right lower extremity. - Psych Mild anxiety. ASSESSMENT: Pt. is a 73 yo Right-handed white female.On 07/08/2019 Pt. 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 (Stroke(Right Body (Left Brain))) by Dr. Carrasco.Pre-morbidly, Pt. was independent/mod-I in Transfers Control, Locomotion, and Self-Care; and she had good Balance, Safe ty Awareness, Social Cognition, Sphincter Control, and Communication.Currently, she has deficits of T ransfers Control, Balance, Locomotion, Self-Care, Safety Awareness, and Social Cognition.Pt. is now r eferred to [facility] for acute in-patient rehabilitation in order to maximize patient's functional independence in activities of daily living, strength, ROM, and mobility.- Rehab Goal Patient has realistic goal of being discharged at assistance level 6-Angelica to reside at Home with Fam renny/Relatives. MDM/PLAN: - Physical Therapy Gait dysfunction - to improve, our physical therapists will perform initial evaluation of pt's statu s upon admission and devise an individualized program for Gait Training, and Wheel Chair mobility Inability to transfer - to improve, our physical therapists will perform initial evaluation of pt's status upon admission and devise an individualized program for Bed mobility Need for home safety evaluation - to improve, our physical therapists will perform initial evaluatio n of pt's status upon admission and devise an individualized program for Home Evaluation Need in caregiver upon discharge - to improve, our physical therapists will perform initial evaluati on of pt's status upon admission and devise an individualized program for Caregiver Training Edema - to improve, our physical therapists will perform initial evaluation of pt's status upon admi ssion and devise an individualized program for Elevation Training, and Lymphedema Therapy New precaution - to improve, our physical therapists will perform initial evaluation of pt's status upon admission and devise an individualized program for Patient precaution education Poor balance - to improve, our physical therapists will perform initial evaluation of pt's status up on admission and devise an individualized program for Balance Training Weakness - to improve, our physical therapists will perform initial evaluation of pt's status upon a dmission and devise an individualized program for Aquatic Therapy, Neuromuscular Reeducation, and Str engthening Achieving independence - to improve, our physical therapists will perform initial evaluation of pt's status upon admission and devise an individualized program for Community Reintegration Activities - Occupational Therapy ADL deficits - to improve, our occupation therapists will perform initial evaluation of pt's status upon admission and devise an individualized program for Bathing, Bed mobility, Community Reintegratio n, Cooking, Dressing, Eating, Fine Motor Skills, Grooming, Homemaking, Kitchen Mobility, Laundry, Pat ient Education, Safety Awareness, Splinting - Positioning, Transfers(Toilet, Tub, Shower), and Wheel Chair Management Cognitive deficits - to improve, our occupation therapists will perform initial evaluation of pt's s tatus upon admission and devise an individualized program for Cognition - orientation Need for childbirth and infant care teacher - to improve, our occupation therapists will perform initial evaluation of pt's status upon admission and devise an individualized program for Caregiver Training Weakness - to improve, our occupation therapists will perform initial evaluation of pt's status upon admission and devise an individualized program for Aquatic Therapy, Balance, Endurance, UE ROM, and UE strengthening - Other See attached MAR (Medication Administration Record) - Diet Type Continue Regular - Diet - Liquid Texture Continue Regular - Tube Feed Continue N/A - Bladder care per protocol - Weight Bearing Precaution WBAT right LE - Skin care per protocol - Diet - Solid Texture Continue Regular - Shower allowing shower for Dementia, TBI, Stroke, or others FUNCTIONAL STATUS: UPDATED AT WEEKLY TEAM CONFERENCE - Walking Same score based on distance walked: 3(>=150ft) FUNCTIONAL STATUS: - Self-Care A. Eating Angelica B. Grooming Angelica C. Bathing Scott D. Dressing - Upper Scott E. Dressing - Lower modA F. Toileting Scott - Sphincter Control G. Bladder control cSott H. Bowel control Scott - Transfers Control I. Bed/Chair/Wheelchair Scott J. Toilet Scott K. Tub/Shower modA - Locomotion L. Walk/Wheelchair (B) modA M. Stairs ADNO - Communication N. Comprehension (B) sup O. Expression (B) Scott - Social Cognition P. Social Interaction sup Q. Problem Solving sup R. Memory sup - Endurance Fair - Balance Fair - Safety Awareness Fair QI SCORES: - Self-Care A. Eating 05-Setup or clean-up assistance B. Oral hygiene 05-Setup or clean-up assistance C. Toileting hygiene 03-Partial/moderate assistance E. Shower/bathe self 10-Not attempted due to environmental limitations F. Upper body dressing 03-Partial/moderate assistance G. Lower body dressing 01-Dependent H. Putting on/taking off footwear 01-Dependent - Mobility A. Roll left and right 03-Partial/moderate assistance B. Sit to lying 03-Partial/moderate assistance C. Lying to sitting on side of bed 03-Partial/moderate assistance D. Sit to stand 03-Partial/moderate assistance E. Chair/cgc-gl-xjfga transfer 03-Partial/moderate assistance F. Toilet transfer 03-Partial/moderate assistance G. Car transfer 88-Not attempted due to medical condition or safety concerns I. Walk 10 feet 03-Partial/moderate assistance J. Walk 50 feet with two turns 03-Partial/moderate assistance K. Walk 150 feet 03-Partial/moderate assistance L. Walking 10 feet on uneven surfaces 88-Not attempted due to medical condition or safety concerns M. 1 step (curb) 88-Not attempted due to medical condition or safety concerns N. 4 steps 88-Not attempted due to medical condition or safety concerns O. 12 steps 88-Not attempted due to medical condition or safety concerns P. Picking up object 88-Not attempted due to medical condition or safety concerns - Bladder and Bowel Bladder continence 0-Always continent Bowel continence 0-Always continent - Endurance Poor - Balance Poor - Safety Awareness Poor CURRENT FUNC. DEFICITS: Self-Care, Mobility, Endurance, Balance, and Safety Awareness SIGNATURE PANEL: (CDT)
[2019-07-22] MEDS: DOCUSATE NA/SENNA CONC 1 TAB PO PRN (19:22)
[2019-07-22] MEDS: ATORVASTATIN 40 MG TAB PO SCH (20:41)
[2019-07-22] MEDS: MELATONIN 3 MG TABLET PO PRN (20:41)
[2019-07-22] MEDS: TAMSULOSIN 0.4 MG SR CAP PO SCH (20:41)
[2019-07-23] MEDS: ENOXAPARIN 40 MG/0.4 ML SQ SCH (06:50)
[2019-07-23] MEDS: INSULIN -REGULAR HUMAN 50 UNIT/0.5 ML ML SQ SCH ×4 (07:05→20:18)
[2019-07-23] MEDS: LOSARTAN POTASSIUM 50 MG TABLET PO SCH (08:00)
[2019-07-23] MEDS: GLUCERNA SHAKE 237 ML CAN PO SCH ×2 (08:00→20:17)
[2019-07-23] MEDS: LIDOCAINE 4% PATCH TOP SCH (08:39)
[2019-07-23] MEDS: DOXYCYCLINE 100 MG CAP PO SCH ×2 (08:40→20:11)
[2019-07-23] MEDS: CRANBERRY FRUIT EXTRACT 200 MG CAP PO SCH ×2 (08:41→20:10)
[2019-07-23] MEDS: ACETAMINOPHEN 500 MG TAB PO PRN (08:41)
[2019-07-23] MEDS: MAGNESIUM OXIDE 400 MG TAB PO SCH (08:42)
[2019-07-23] MEDS: PANTOPRAZOLE 40MG TABLET PO SCH (08:43)
[2019-07-23] MEDS: ASPIRIN 81 MG CHEWABLE TABLET PO SCH (08:43)
[2019-07-23] MEDS: DULOXETINE 20 MG CAP PO SCH (08:43)
[2019-07-23] MEDS: TOPIRAMATE 25 MG TAB PO SCH ×2 (08:43→20:17)
[2019-07-23] MEDS: FOLIC ACID 1 MG TABLET PO SCH (08:43)
[2019-07-23] MEDS: CLOPIDOGREL 75 MG TABLET PO SCH (08:44)
[2019-07-23] MEDS: INSULIN GLARGINE 100 UNITS/ML SQ SCH (08:45)
[2019-07-23] MEDS: GABAPENTIN 300 MG CAP PO SCH ×3 (09:29→20:16)
[2019-07-23] MEDS: PROMOD 30 ML DOSE PO SCH ×2 (09:29→20:17)
--- NOTE | 2019-07-23 09:31 | P.RH.PN ---
Estimated Length of Stay: 15 Expected Discharge Date: 07/26/19 Discharge Disposition Plan: Home Family Support: Yes Vital Signs: Last Vital Signs Temp 97.9 F 07/23/19 07:16 Pulse 67 07/23/19 07:16 Resp 16 07/23/19 07:16 BP 125/64 07/23/19 07:16 Pulse Ox 93 07/23/19 07:16 Laboratory: Laboratory Last Values WBC 7.0 K/uL (4.3-10.9) D 07/22/19 05:47 RBC 4.09 M/uL (3.86-4.86) 07/22/19 05:47 Hgb 12.2 g/dL (12.0-15.0) 07/22/19 05:47 Hct 36.5 % (36.0-45.0) 07/22/19 05:47 MCV 89.3 fL (80-100) 07/22/19 05:47 MCH 29.7 pg (27.0-35.0) 07/22/19 05:47 MCHC 33.3 g/dL (32.0-36.0) 07/22/19 05:47 RDW 12.9 % (12.1-15.2) 07/22/19 05:47 Plt Count 291 K/uL (152-406) 07/22/19 05:47 MPV 8.3 fL (7.6-11.3) 07/22/19 05:47 Neutrophils % 60.9 % (41.7-73.7) 07/22/19 05:47 Lymphocytes % 27.9 % (15.3-44.8) 07/22/19 05:47 Monocytes % 6.5 % (3.3-12.3) 07/22/19 05:47 Eosinophils % 3.6 % (0-4.4) 07/22/19 05:47 Basophils % 1.1 % (0-1.3) 07/22/19 05:47 Absolute Neutrophils 4.3 K/uL (1.8-8.0) 07/22/19 05:47 Absolute Lymphocytes 1.9 K/uL (0.7-4.9) 07/22/19 05:47 Absolute Monocytes 0.5 K/uL (0.1-1.3) 07/22/19 05:47 Absolute Eosinophils 0.3 K/uL (0-0.5) 07/22/19 05:47 Absolute Basophils 0.1 K/uL (0-0.5) 07/22/19 05:47 Sodium 140 mmol/L (136-145) 07/22/19 05:47 Potassium 4.2 mmol/L (3.5-5.1) 07/22/19 05:47 Chloride 108 mmol/L (98-107) H 07/22/19 05:47 Carbon Dioxide 24 mmol/L (21-32) 07/22/19 05:47 BUN 20 mg/dL (7-18) H 07/22/19 05:47 Creatinine 1.33 mg/dL (0.55-1.3) H 07/22/19 05:47 Estimated GFR 39 mL/min (=/>90) L 07/22/19 05:47 Glucose 156 mg/dL (74-106) H 07/22/19 05:47 POC Glucose 137 mg/dl (65-120) H 07/23/19 07:02 Calcium 9.7 mg/dL (8.5-10.1) 07/22/19 05:47 Magnesium 2.3 mg/dL (1.8-2.4) 07/22/19 05:47 Albumin 2.9 g/dL (3.4-5.0) L 07/22/19 05:47 Prealbumin 17.5 mg/dL (20-40) L 07/22/19 05:47 Weight: 196 lb 11.2 oz Wound Present: No Closed Surgical Incision Present: No Negative Pressure Wound Therapy Present: No Physician Update: Her blood work was reviewed and her CBC with differential is normal. Her Caddie Supervisor is mildly elevated to 1.33. Will encourage more watera intake. Her glucose ranged 125 to 170. Prealbumin is 17.4. She is walking 250' and up a nd down 15 steps with contact guard to supervision. She requires verbal ques to do some self care activities. She has difficulty initiating some activities including eating and dressing. She is a moderate impairment with cognitive functioning. She follows one step commands better. Functional Improvement: Patient has met all short-term goals at this time and is progressing toward long-term goals. Patient continues to require VC for proper hand placement w/ transfers and pacing and alignment w/ RW for gait tx. Speech Therapy Update: Moderate receptive/expressive aphasia. Oropharyngeal dysphagia also present; currently on pureed with thin liquids Summary: Patient's care plan and superintendent terminal goals have been reviewed and revised as necessary. Please see the Rehabilitation Signature page for all necessary signatures.
[2019-07-23] MEDS: METOPROLOL XL 50 MG TAB PO SCH (09:42)
--- NOTE | 2019-07-23 11:24 | EKG ---
Test Date: 2019-07-21 Test Time: 10:49:04 Social Media Marketing Manager: XAVIER MEASUREMENT RESULTS: Intervals: Rate: 67 DC: 186 QRSD: 74 QT: 418 QTc: 441 [place]: P: 25 DC: 186 QRS: -31 T: 12 INTERPRETIVE STATEMENTS: Normal sinus rhythm Left axis deviation Inferior infarct, age undetermined Anteroseptal infarct, age undetermined Abnormal ECG Compared to ECG 07/11/2019 00:31:39 Left-axis deviation now present Short DC interval no longer present Myocardial infarct finding still present Electronically Signed On 07-23-19 11:21:59 CDT by Spencer Marquez
--- NOTE | 2019-07-23 12:20 | FAST ---
ENCOUNTER DATE AND TIME: 07/23/2019 08:00 (CDT) NAME KEANU HARLEY DATE OF : 1945 DATE OF ADMISSION: 07/12/2019 18:48 (CDT) PHONE: AGE: 73 N# [id number] GENDER: Female ENCOUNTER PHYSICIAN: Dr. Yordan Gomez M.D. 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 EATING: Not assessed/no information CODE: - ORAL HYGIENE: ORAL HYGIENE - STEP 1: Does the patient complete the activity by him/herself with no assistance (physical, verbal/nonverbal cueing, setup/clean-up)? Yes. 1. [id number] ADMISSION PERFORMANCE: Independent CODE: 06 TOILETING HYGIENE: Not assessed/no information CODE: - BATHING: SHOWER/BATHE SELF - STEP 1: Does the patient complete the activity by him/herself with no assistance (physical, verbal/nonverbal cueing, setup/clean-up)? No. SHOWER/BATHE SELF - STEP 2: Does the patient need only setup/clean-up assistance from one helper? No. SHOWER/BATHE SELF - STEP 3: Does the patient need only verbal/nonverbal cueing or touching/steadying/contact guard assistance fro m one helper? Yes. 1. [id number] ADMISSION PERFORMANCE: Supervision or touching assistance CODE: 04 DRESSING - UPPER BODY: DRESSING - UPPER BODY - STEP 1: Does the patient complete the activity by him/herself with no assistance (physical, verbal/nonverbal cueing, setup/clean-up)? Yes. 1. [id number] ADMISSION PERFORMANCE: Independent CODE: 06 DRESSING - LOWER BODY: DRESSING - LOWER BODY - STEP 1: Does the patient complete the activity by him/herself with no assistance (physical, verbal/nonverbal cueing, setup/clean-up)? No. DRESSING - LOWER BODY - STEP 2: Does the patient need only setup/clean-up assistance from one helper? No. DRESSING - LOWER BODY - STEP 3: Does the patient need only verbal/nonverbal cueing or touching/steadying/contact guard assistance fro m one helper? Yes. 1. [id number] ADMISSION PERFORMANCE: Supervision or touching assistance CODE: 04 PUTTING ON/TAKING OFF FOOTWEAR: FOOTWEAR - STEP 1: Does the patient complete the activity by him/herself with no assistance (physical, verbal/nonverbal cueing, setup/clean-up)? No. FOOTWEAR - STEP 2: Does the patient need only setup/clean-up assistance from one helper? No. FOOTWEAR - STEP 3: Does the patient need only verbal/nonverbal cueing or touching/steadying/contact guard assistance fro m one helper? Yes. 1. [id number] ADMISSION PERFORMANCE: Supervision or touching assistance CODE: 04 DOES THE PATIENT USE A WHEELCHAIR/SCOOTER? CODE: EXPR INDICATE THE TYPE OF WHEELCHAIR/SCOOTER USED: CODE: EXPR INDICATE THE TYPE OF WHEELCHAIR/SCOOTER USED: CODE: EXPR BLADDER AND BOWEL: CODE: EXPR CODE: EXPR SIGNATURE PANEL: The following modified sections: 1. [id number] Admission Performance, 1. [id number] Admission Performance, 1. [id number] Admission Performance, 1. [id number] Admission Performance, 1. [id number] Admission Performance, 1. [id number] Admission Performance were [electronically] signed by SUGEY Bro on FriJul 23 2019 12:19:21 GMT-0500 (Central Daylight Time)
--- NOTE | 2019-07-23 18:25 | RAD REPORT ---
EXAM DESCRIPTION: CT - Head Brain Wo Cont - 07/23/2019 5:04 pm CLINICAL HISTORY: increase headache History of CVA, headache, drowsiness COMPARISON: Head Brain Wo Cont dated 07/09/2019; Head Brain Wo Cont dated 07/08/2019 TECHNIQUE: All CT scans are performed using dose optimization technique as appropriate and may inclu de automated exposure control or mA/KV adjustment according to patient size. FINDINGS: No intracranial hemorrhage, hydrocephalus or extra-axial fluid collection.Moderate area of diminished density is seen in the distribution of the left posterior cerebral artery compatible with subacute infarct. No evidence of hemorrhagic conversion seen.No areas of brain edema or evidence of midline shift. The paranasal sinuses and mastoids are clear. The calvarium is intact. IMPRESSION: No acute intracranial abnormality. Subacute infarct left [employer]MI[employer]ER territory is noted without evidence of hemorrhagic conversion.
[2019-07-23] MEDS: TAMSULOSIN 0.4 MG SR CAP PO SCH (20:12)
[2019-07-23] MEDS: ATORVASTATIN 40 MG TAB PO SCH (20:12)
[2019-07-23] MEDS: MELATONIN 3 MG TABLET PO PRN (20:15)
[2019-07-23] MEDS: DOCUSATE NA/SENNA CONC 1 TAB PO PRN (20:16)
--- NOTE | 2019-07-24 02:10 | FAST ---
SHIFT START DATE/TIME: 07/24/2019 19:00 (CDT) SHIFT END DATE/TIME: 07/25/2019 07:00 (CDT) NAME KEANU HARLEY DATE OF : 1945 DATE OF ADMISSION: 07/12/2019 18:48 (CDT) PHONE: AGE: 73 N# [id number] GENDER: Female ENCOUNTER PHYSICIAN: Dr. Yordan Gomez M.D. 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 EATING: Not assessed/no information CODE: - ORAL HYGIENE: Not assessed/no information CODE: - TOILETING HYGIENE: TOILETING HYGIENE - STEP 1: Does the patient complete the activity by him/herself with no assistance (physical, verbal/nonverbal cueing, setup/clean-up)? No. TOILETING HYGIENE - STEP 2: Does the patient need only setup/clean-up assistance from one helper? No. TOILETING HYGIENE - STEP 3: Does the patient need only verbal/nonverbal cueing or touching/steadying/contact guard assistance fro m one helper? No. TOILETING HYGIENE - STEP 4: Does the patient need physical assistance - for example lifting or trunk support from one helper - wi th the helper providing less than half of the effort? Yes. 1. [id number] ADMISSION PERFORMANCE: Partial/moderate assistance CODE: 03 BATHING: Not assessed/no information CODE: - DRESSING - UPPER BODY: Not assessed/no information CODE: - DRESSING - LOWER BODY: Not assessed/no information CODE: - PUTTING ON/TAKING OFF FOOTWEAR: Not assessed/no information CODE: - ROLL LEFT AND RIGHT: ROLL LEFT AND RIGHT - STEP 1: Does the patient complete the activity by him/herself with no assistance (physical, verbal/nonverbal cueing, setup/clean-up)? No. ROLL LEFT AND RIGHT - STEP 2: Does the patient need only setup/clean-up assistance from one helper? No. ROLL LEFT AND RIGHT - STEP 3: Does the patient need only verbal/nonverbal cueing or touching/steadying/contact guard assistance fro m one helper? No. ROLL LEFT AND RIGHT - STEP 4: Does the patient need physical assistance - for example lifting or trunk support from one helper - wi th the helper providing less than half of the effort? Yes. 1. [id number] ADMISSION PERFORMANCE: Partial/moderate assistance CODE: 03 SIT TO LYING: SIT TO LYING - STEP 1: Does the patient complete the activity by him/herself with no assistance (physical, verbal/nonverbal cueing, setup/clean-up)? No. SIT TO LYING - STEP 2: Does the patient need only setup/clean-up assistance from one helper? No. SIT TO LYING - STEP 3: Does the patient need only verbal/nonverbal cueing or touching/steadying/contact guard assistance fro m one helper? No. SIT TO LYING - STEP 4: Does the patient need physical assistance - for example lifting or trunk support from one helper - wi th the helper providing less than half of the effort? Yes. 1. [id number] ADMISSION PERFORMANCE: Partial/moderate assistance CODE: 03 LYING TO SITTING: LYING TO SITTING ON SIDE OF BED - STEP 1: Does the patient complete the activity by him/herself with no assistance (physical, verbal/nonverbal cueing, setup/clean-up)? No. LYING TO SITTING ON SIDE OF BED - STEP 2: Does the patient need only setup/clean-up assistance from one helper? No. LYING TO SITTING ON SIDE OF BED - STEP 3: Does the patient need only verbal/nonverbal cueing or touching/steadying/contact guard assistance fro m one helper? Yes. 1. [id number] ADMISSION PERFORMANCE: Supervision or touching assistance CODE: 04 SIT TO STAND: SIT TO STAND - STEP 1: Does the patient complete the activity by him/herself with no assistance (physical, verbal/nonverbal cueing, setup/clean-up)? No. SIT TO STAND - STEP 2: Does the patient need only setup/clean-up assistance from one helper? No. SIT TO STAND - STEP 3: Does the patient need only verbal/nonverbal cueing or touching/steadying/contact guard assistance fro m one helper? Yes. 1. [id number] ADMISSION PERFORMANCE: Supervision or touching assistance CODE: 04 TRANSFERS: BED, CHAIR: CHAIR/[id number] TRANSFER - STEP 1: Does the patient complete the activity by him/herself with no assistance (physical, verbal/nonverbal cueing, setup/clean-up)? No. CHAIR/[id number] TRANSFER - STEP 2: Does the patient need only setup/clean-up assistance from one helper? No. CHAIR/[id number] TRANSFER - STEP 3: Does the patient need only verbal/nonverbal cueing or touching/steadying/contact guard assistance fro m one helper? Yes. 1. [id number] ADMISSION PERFORMANCE: Supervision or touching assistance CODE: 04 TRANSFER TOILET: TOILET TRANSFER - STEP 1: Does the patient complete the activity by him/herself with no assistance (physical, verbal/nonverbal cueing, setup/clean-up)? No. TOILET TRANSFER - STEP 2: Does the patient need only setup/clean-up assistance from one helper? No. TOILET TRANSFER - STEP 3: Does the patient need only verbal/nonverbal cueing or touching/steadying/contact guard assistance fro m one helper? Yes. 1. [id number] ADMISSION PERFORMANCE: Supervision or touching assistance CODE: 04 TRANSFERS: CAR: Not assessed/no information CODE: - WALK 10 FEET: Not assessed/no information CODE: - 1 STEP (CURB): Not assessed/no information CODE: - PICKING UP OBJECT: Not assessed/no information CODE: - DOES THE PATIENT USE A WHEELCHAIR/SCOOTER? CODE: EXPR WHEEL 50 FEET WITH TWO TURNS: Not assessed/no information CODE: - INDICATE THE TYPE OF WHEELCHAIR/SCOOTER USED: CODE: EXPR WHEEL 150 FEET: Not assessed/no information CODE: - INDICATE THE TYPE OF WHEELCHAIR/SCOOTER USED: CODE: EXPR BLADDER AND BOWEL: H350. BLADDER CONTINENCE (3-DAY ASSESSMENT PERIOD): Incontinent less than daily (e.g., once or twice during the 3-day assessment period) CODE: 2 H400. BOWEL CONTINENCE (3-DAY ASSESSMENT PERIOD): Always continent CODE: 0
[2019-07-24 05:30] VITALS: BMI 32.3
[2019-07-24] MEDS: INSULIN -REGULAR HUMAN 50 UNIT/0.5 ML ML SQ SCH ×4 (07:01→20:12)
[2019-07-24] MEDS: ENOXAPARIN 40 MG/0.4 ML SQ SCH (07:34)
[2019-07-24] MEDS: PROMOD 30 ML DOSE PO SCH ×3 (08:00→20:11)
[2019-07-24] MEDS: LIDOCAINE 4% PATCH TOP SCH (08:02)
[2019-07-24] MEDS: INSULIN GLARGINE 100 UNITS/ML SQ SCH (08:03)
[2019-07-24] MEDS: CRANBERRY FRUIT EXTRACT 200 MG CAP PO SCH ×2 (08:04→20:11)
[2019-07-24] MEDS: MAGNESIUM OXIDE 400 MG TAB PO SCH (08:04)
[2019-07-24] MEDS: FOLIC ACID 1 MG TABLET PO SCH (08:05)
[2019-07-24] MEDS: PANTOPRAZOLE 40MG TABLET PO SCH (08:05)
[2019-07-24] MEDS: DULOXETINE 20 MG CAP PO SCH (08:05)
[2019-07-24] MEDS: GABAPENTIN 300 MG CAP PO SCH ×3 (08:05→20:10)
[2019-07-24] MEDS: CLOPIDOGREL 75 MG TABLET PO SCH (08:06)
[2019-07-24] MEDS: ASPIRIN 81 MG CHEWABLE TABLET PO SCH (08:07)
[2019-07-24] MEDS: TOPIRAMATE 25 MG TAB PO SCH ×2 (08:07→20:10)
[2019-07-24] MEDS: METOPROLOL XL 50 MG TAB PO SCH (08:08)
[2019-07-24] MEDS: ACETAMINOPHEN 500 MG TAB PO PRN (08:08)
[2019-07-24] MEDS: DOXYCYCLINE 100 MG CAP PO SCH ×2 (08:09→20:10)
[2019-07-24] MEDS: GLUCERNA SHAKE 237 ML CAN PO SCH ×2 (08:10→20:11)
[2019-07-24] MEDS ORDERED: BISACODYL 10 MG RECTAL SUPP PR PRN (09:15)
[2019-07-24] MEDS ORDERED: TRAMADOL HCL 50 MG TAB PO PRN (11:45)
[2019-07-24] MEDS: LOSARTAN POTASSIUM 50 MG TABLET PO SCH (12:15)
[2019-07-24] MEDS: ATORVASTATIN 40 MG TAB PO SCH (20:09)
[2019-07-24] MEDS: DOCUSATE NA/SENNA CONC 1 TAB PO SCH (20:10)
[2019-07-24] MEDS: TAMSULOSIN 0.4 MG SR CAP PO SCH (20:10)
[2019-07-25] MEDS: PANTOPRAZOLE 40MG TABLET PO SCH (06:41)
[2019-07-25] MEDS: ENOXAPARIN 40 MG/0.4 ML SQ SCH (06:42)
[2019-07-25] MEDS: LIDOCAINE 4% PATCH TOP SCH (06:42)
[2019-07-25] MEDS: INSULIN -REGULAR HUMAN 50 UNIT/0.5 ML ML SQ SCH ×4 (07:30→20:06)
[2019-07-25] MEDS: INSULIN GLARGINE 100 UNITS/ML SQ SCH (08:12)
[2019-07-25] MEDS: CRANBERRY FRUIT EXTRACT 200 MG CAP PO SCH ×2 (08:13→19:11)
[2019-07-25] MEDS: DULOXETINE 20 MG CAP PO SCH (08:13)
[2019-07-25] MEDS: DOXYCYCLINE 100 MG CAP PO SCH ×2 (08:13→19:12)
[2019-07-25] MEDS: TOPIRAMATE 25 MG TAB PO SCH ×2 (08:13→19:12)
[2019-07-25] MEDS: GABAPENTIN 300 MG CAP PO SCH ×3 (08:13→20:05)
[2019-07-25] MEDS: ASPIRIN 81 MG CHEWABLE TABLET PO SCH (08:13)
[2019-07-25] MEDS: PROMOD 30 ML DOSE PO SCH ×2 (08:15→19:11)
[2019-07-25] MEDS: GLUCERNA SHAKE 237 ML CAN PO SCH ×2 (08:16→19:12)
[2019-07-25] MEDS: METOPROLOL XL 50 MG TAB PO SCH (08:16)
[2019-07-25] MEDS: CLOPIDOGREL 75 MG TABLET PO SCH (08:16)
[2019-07-25] MEDS: FOLIC ACID 1 MG TABLET PO SCH (08:17)
[2019-07-25] MEDS: MAGNESIUM OXIDE 400 MG TAB PO SCH (08:17)
[2019-07-25] MEDS: LOSARTAN POTASSIUM 50 MG TABLET PO SCH (11:22)
[2019-07-25] MEDS: TAMSULOSIN 0.4 MG SR CAP PO SCH (20:05)
[2019-07-25] MEDS: DOCUSATE NA/SENNA CONC 1 TAB PO SCH (20:06)
[2019-07-25] MEDS: MELATONIN 3 MG TABLET PO PRN (20:06)
[2019-07-25] MEDS: ATORVASTATIN 40 MG TAB PO SCH (20:06)
[2019-07-26] MEDS: ENOXAPARIN 40 MG/0.4 ML SQ SCH (06:52)
[2019-07-26 07:23] VITALS: BP 143/73; TEMP 97.6
[2019-07-26] MEDS: INSULIN -REGULAR HUMAN 50 UNIT/0.5 ML ML SQ SCH ×2 (07:30→11:30)
[2019-07-26] MEDS: LIDOCAINE 4% PATCH TOP SCH (08:00)
[2019-07-26] MEDS: PROMOD 30 ML DOSE PO SCH (08:00)
[2019-07-26] MEDS: GLUCERNA SHAKE 237 ML CAN PO SCH (08:00)
[2019-07-26] MEDS: INSULIN GLARGINE 100 UNITS/ML SQ SCH (08:00)
[2019-07-26] MEDS: ACETAMINOPHEN 500 MG TAB PO PRN (08:01)
[2019-07-26] MEDS: CRANBERRY FRUIT EXTRACT 200 MG CAP PO SCH (08:01)
[2019-07-26] MEDS: PANTOPRAZOLE 40MG TABLET PO SCH (08:02)
[2019-07-26] MEDS: GABAPENTIN 300 MG CAP PO SCH (08:02)
[2019-07-26] MEDS: CLOPIDOGREL 75 MG TABLET PO SCH (08:03)
[2019-07-26] MEDS: METOPROLOL XL 50 MG TAB PO SCH (08:03)
[2019-07-26] MEDS: ASPIRIN 81 MG CHEWABLE TABLET PO SCH (08:04)
[2019-07-26] MEDS: MAGNESIUM OXIDE 400 MG TAB PO SCH (08:04)
[2019-07-26] MEDS: DULOXETINE 20 MG CAP PO SCH (08:04)
[2019-07-26] MEDS: FOLIC ACID 1 MG TABLET PO SCH (08:05)
[2019-07-26] MEDS: TOPIRAMATE 25 MG TAB PO SCH (08:05)
[2019-07-26] MEDS: LOSARTAN POTASSIUM 50 MG TABLET PO SCH (12:00)
== END 2019-07-26 13:40 | disposition home health service (06) | DRG 57 ==
LOC: 5TH 18:48
PROVIDERS: ADMIT Psychiatry & Neurology Neurology with Special Qualifications in Child Neurology; ATTEND Psychiatry & Neurology Neurology with Special Qualifications in Child Neurology
DX: I69.351 Hemiplegia and hemiparesis following cerebral infarction affecting right dominant side (principal); Z88.5 Allergy status to narcotic agent; Z88.0 Allergy status to penicillin; Z88.8 Allergy status to other drugs, medicaments and biological substances; E11.9 Type 2 diabetes mellitus without complications; I10 Essential (primary) hypertension; E78.5 Hyperlipidemia, unspecified; Z90.710 Acquired absence of both cervix and uterus; Z90.49 Acquired absence of other specified parts of digestive tract; R13.12 Dysphagia, oropharyngeal phase
CPT/HCPCS: 36415; 70450; 80048; 82040; 82947; 83735; 84134; 85025; 92507; 92523; 92526; 93005; 97110; 97112; 97116; 97161; 97530; 97542; J1650; J1815

== ENCOUNTER 2019-10-25 16:27 | Inpatient (IN) | payer OTHER ==
[2019-10-25 17:30] LABS: Absolute Lymphocytes (CBC) 1.9 K/uL (0.7-4.9); Basophils % 0.7 % (0-1.3); Hematocrit 38.6 % (36.0-45.0); Lymphocytes % 18.7 % (15.3-44.8); MPV 8.3 fL (7.6-11.3); RBC Red Blood Cell Count 4.39 M/uL (3.86-4.86)
[2019-10-25] MEDS ORDERED: NA CHLORIDE 0.9% 2,000 ML ONE (17:33)
[2019-10-25 17:38] LABS: Protime INR 1.16
[2019-10-25 17:49] LABS: ALT/SGPT 22 U/L (12-78); AST/SGOT 17 U/L (15-37); Albumin 3.4 g/dL (3.4-5.0); Alkaline Phosphatase 89 U/L (45-117); Amylase 68 U/L (25-115); BUN Blood Urea Nitrogen 17 mg/dL (7-18); Bicarbonate 19 mmol/L (21-32); Bilirubin Direct 0.1 mg/dL (0-0.2); Bilirubin Total 0.5 mg/dL (0.2-1.0); CKMB Creatine Kinase MB < 1.0 ng/mL (0.3-3.6); Creatine Phosphokinase 34 U/L (26-192); Glucose Level 127 mg/dL (74-106); Lipase 88 U/L (73-393); Potassium 3.5 mmol/L (3.5-5.1); Protein, Total 8.3 g/dL (6.4-8.2); Sodium Level 138 mmol/L (136-145); Troponin (Emerg Dept Use Only) < 0.02 ng/mL (0.0-0.045)
--- NOTE | 2019-10-25 18:56 | RAD REPORT ---
EXAM DESCRIPTION: CT - Head Brain Wo Cont - 10/25/2019 6:26 pm CLINICAL HISTORY: MENTAL STATUS CHANGE Headache, drowsiness COMPARISON: Head Brain Wo Cont dated 07/23/2019; Head Brain Wo Cont dated 07/09/2019 TECHNIQUE: All CT scans are performed using dose optimization technique as appropriate and may inclu de automated exposure control or mA/KV adjustment according to patient size. FINDINGS: 5 cm area of subacute infarction, nonhemorrhagic, seen in the right parietal lobe.Old left occipital lobe infarct present, unchanged.No hemorrhage seen. No hydrocephalus or midline shift. The paranasal sinuses and mastoids are clear. The calvarium is intact. IMPRESSION: Nonhemorrhagic, 5 cm subacute infarct noted right parietal lobe.
--- NOTE | 2019-10-25 19:06 | RAD REPORT ---
EXAM DESCRIPTION: RAD - Chest Single View - 10/25/2019 6:12 pm CLINICAL HISTORY: AMS Chest pain. COMPARISON: Chest Single View dated 07/08/2019; Chest Single View dated 12/29/2018; Chest Single View dated 12/29/2018; CHEST SINGLE VIEW dated 06/05/2011 FINDINGS: Portable technique limits examination quality. The lungs are grossly clear. The heart is mildly enlarged in size. No displaced fractures. IMPRESSION: No acute intrathoracic process suspected.
[2019-10-25 19:43] LABS: Urine Amorphous Sediment 2+ /HPF (NONE SEEN); Urine Bacteria 20-50 /HPF (<20); Urine Culture Reflex Order NOT NEEDED; Urine Mucus 2+ /HPF (NONE SEEN); Urine RBC <5 /HPF (NONE SEEN)
--- NOTE | 2019-10-25 19:51 | EDPHYS ---
Physician Documentation [facility] Name: Sissy Padron Age: 73 yrs Sex: Female : 1945 Arrival Date: 10/25/2019 Time: 16:29 Bed 15 Private MD: ED Physician Eliu Ludn HPI: 10/24 19:58 This 73 yrs old Female presents to ER via Wheelchair with complaints of jr8 Altered Mental Status. 19:58 The patient presents with confusion, disorientation. Onset: The symptoms/episode jr8 began/occurred acutely, yesterday. Possible causes: unknown. Associated signs and symptoms: The patient has no apparent associated signs or symptoms. Current symptoms: In the emergency department the patient's symptoms are unchanged from the initial presentation. Patient's baseline: Neuro: alert and fully oriented, Motor: no deficits, Ambulation: walks with assist only, Speech: normal, Periods of short term memory loss. It is unknown whether or not the patient has had similar symptoms in the past. The patient has not recently seen a physician. Patients stated that patient suffered from a CVA several weeks ago. Had rehab and was doing much better. Still has some mild deficits and short term memory loss. Within past 24 hours has had abrupt decline in mental status. Saw PCP today and though she may have UTI but because of the CVA history wanted her evaluated in ED. Patient was brought to ED at that time . Historical: - Allergies: 16:51 Codeine; em 16:51 PENICILLINS; em - Home Meds: 17:14 atorvastatin 40 mg oral tab 1 tab once daily [Active]; duloxetine 60 mg Oral cpDR 1 cap tw2 once daily [Active]; metformin 500 mg Oral tab [Active]; clopidogrel 75 mg oral tab 1 tab once daily [Active]; metoprolol succinate 25 mg oral Tb24 1 tab once daily [Active]; topiramate 25 mg oral CSpX 1 cap twice daily [Active]; losartan 50 mg Oral tab 0.5 tab once daily [Active]; pantoprazole 40 mg oral TbEC 1 tab once daily [Active]; aspirin 81 mg Oral TbEC 1 tab once daily [Active]; alprazolam 1 mg Oral tab as needed [Active]; - PMHx: 16:51 Anxiety; Diabetes - IDDM; Hypertension; neuropathy; em - PSHx: 16:51 Hysterectomy; Cholecystectomy; left hip replacement; em - Immunization history:: Adult Immunizations up to date. - Social history:: Smoking status: Patient denies any tobacco usage or history of. ROS: 19:58 Unable to obtain ROS due to altered mental status. jr8 Exam: 19:58 Eyes: Pupils equal round and reactive to light, extra-ocular motions intact. Lids and jr8 lashes normal. Conjunctiva and sclera are non-icteric and not injected. Cornea within normal limits. Periorbital areas with no swelling, redness, or edema. ENT: Nares patent. No nasal discharge, no septal abnormalities noted. Tympanic membranes are normal and external auditory canals are clear. Oropharynx with no redness, swelling, or masses, exudates, or evidence of obstruction, uvula midline. Mucous membranes moist. Cardiovascular: Regular rate and rhythm with a normal S1 and S2. No gallops, murmurs, or rubs. Normal PMI, no JVD. No pulse deficits. Respiratory: Lungs have equal breath sounds bilaterally, clear to auscultation and percussion. No rales, rhonchi or wheezes noted. No increased work of breathing, no retractions or nasal flaring. Abdomen/GI: Soft, non-tender, with normal bowel sounds. No distension or tympany. No guarding or rebound. No evidence of tenderness throughout. Skin: Warm, dry with normal turgor. Normal color with no rashes, no lesions, and no evidence of cellulitis. MS/ Extremity: Pulses equal, no cyanosis. Neurovascular intact. Full, normal range of motion. 19:58 Neuro: Orientation: to person, Mentation: able to follow commands, slow to respond, confused, Memory: immediate memory is impaired, remote memory is impaired, recent memory is impaired, Cranial nerves: CN I not tested, extraocular movements are intact, Facial palsy and sensory deficits are absent. Speech is clear and appropriate. Tongue strength is normal, Cerebellar function: dysmetria is noted on the left, Motor: is normal, moves all fours, strength is 5/5 in all extremities, Sensation: no obvious gross deficits, Gait: is unsteady, seizure activity, is not displayed by the patient, Abnormal movements: there are no abnormal movements. Vital Signs: 16:46 BP 107 / 72; Pulse 107; Resp 20; Temp 98.5(O); Pulse Ox 98% on R/A; Weight 90.72 kg em (R); Height 5 ft. 6 in. (167.64 cm); 17:28 BP 117 / 78; Pulse 90; Resp 20; Pulse Ox 98% on R/A; tw2 18:30 BP 135 / 76; Pulse 89; Resp 17; Pulse Ox 97% on R/A; tw2 20:13 Pulse 83; Resp 18; Pulse Ox 97% on R/A; mg2 21:08 BP 146 / 110; mg2 16:46 Body Mass Index 32.28 (90.72 kg, 167.64 cm) em NIH Stroke Scale Scores: 19:58 NIHSS Score: 7 jr8 MDM: 17:11 Patient medically screened. jr8 19:49 Data reviewed: vital signs, nurses notes, lab test result(s), EKG, radiologic studies, jr8 CT scan, plain films. Data interpreted: Pulse oximetry: on room air is 97 %. Interpretation: normal. Counseling: I had a detailed discussion with the patient and/or guardian regarding: the historical points, exam findings, and any diagnostic results supporting the discharge/admit diagnosis, lab results, radiology results, the need for further work-up and treatment in the hospital. ED course: Discussed case with Dr. Gomez. Agrees patient needs admission and will add eliquis to regimen and d/c plavix but also keep 81 mg ASA . 10/24 17:08 Order name: Amylase, Serum tw2 10/24 17:08 Order name: Basic Metabolic Panel tw2 10/24 17:08 Order name: Blood Culture Adult (2) tw2 10/24 17:08 Order name: CBC with Diff; Complete Time: 17:42 tw2 10/24 17:08 Order name: Ckmb; Complete Time: 19:23 tw2 10/24 17:08 Order name: CPK; Complete Time: 19:23 tw2 10/24 17:08 Order name: Lactate; Complete Time: 19:23 tw2 10/24 17:08 Order name: LFT's; Complete Time: 19:23 tw2 10/24 17:08 Order name: Lipase; Complete Time: 19:23 tw2 10/24 17:08 Order name: Procalcitonin; Complete Time: 19:23 tw2 10/24 17:08 Order name: Protime (+inr); Complete Time: 19:23 2 10/24 17:08 Order name: Ptt, Activated; Complete Time: 19:23 2 10/24 17:08 Order name: Troponin (emerg Dept Use Only); Complete Time: 19:23 tw2 10/24 17:08 Order name: Urine Microscopic Only; Complete Time: 19:49 tw2 10/24 17:08 Order name: Chest Single View XRAY; Complete Time: 19:23 tw2 10/24 17:08 Order name: Accucheck; Complete Time: 17:21 tw2 10/24 17:08 Order name: Cardiac monitoring; Complete Time: 17:21 tw2 10/24 17:08 Order name: EKG - Nurse/Tech; Complete Time: 17:38 tw2 10/24 17:09 Order name: Amylase; Complete Time: 19:23 [facility] 10/24 17:09 Order name: Basic Metabolic Panel; Complete Time: 19:23 [facility] 10/24 17:19 Order name: Glucose, Ancillary Testing; Complete Time: 17:42 [facility] 10/24 17:38 Order name: Urine Culture [facility] 10/24 17:39 Order name: Urine Culture [facility] 10/24 17:42 Order name: CT Head Brain wo Cont; Complete Time: 19:56 8 10/24 18:58 Order name: Urine Dipstick--Ancillary (enter results); Complete Time: 19:56 10/24 20:32 Order name: Social Service Consult [facility] 10/24 21:18 Order name: Lactate Sepsis 2 HR Follow-up; Complete Time: 21:24 [facility] 10/24 17:08 Order name: IV Saline Lock - Large Bore; Complete Time: 17:21 2 10/24 17:08 Order name: Labs collected and sent; Complete Time: 17:21 2 10/24 17:08 Order name: O2 Per Protocol; Complete Time: 17:21 2 10/24 17:08 Order name: O2 Sat Monitoring; Complete Time: 17:21 2 10/24 17:08 Order name: Urine Dipstick-Ancillary (obtain specimen); Complete Time: 19:10 [facility] 10/24 17:38 Order name: Straight Cath - Urine; Complete Time: 18:57 tw2 Administered Medications: 17:26 Drug: NS 0.9% (30 ml/kg) 30 ml/kg Route: IV; Rate: bolus; Site: right wrist; tw2 21:12 Follow up: Response: No adverse reaction; IV Status: Completed infusion; IV Intake: mg2 2500ml 20:13 Drug: Rocephin 1 grams Route: IV; Rate: calculated rate; Site: right hand; mg2 21:11 Follow up: Response: No adverse reaction; IV Status: Completed infusion mg2 21:03 Drug: Tylenol 500 mg Route: PO; mg2 21:12 Follow up: Response: No adverse reaction mg2 Disposition: 10/25 05:58 Co-signature as Attending Physician, Eliu Lund MD. rn Disposition: 10/25/19 19:51 Hospitalization ordered by Aditya Du for Inpatient Admission. Preliminary diagnosis are Cerebral infarction, Urinary tract infection, site not specified. - Bed requested for Telemetry/MedSurg (Inpatient). - Status is Inpatient Admission. mg2 - Condition is Fair. - Problem is new. - Symptoms have improved. NIH Stroke Scale - NIH Stroke Score Date: 10/25/2019 Time: 19:58 Total Score = 7 1a. Level of Consciousness (LOC) - 0(Alert) 1b. Level of Consciousness (LOC) (Year \T\ Age) - 2(Neither) 1c. LOC Commands (Open \T\ Closes Eyes/Field Marketing Lead) - 0(Both) 2. Best Gaze (Lateral Gaze Paresis) - 1(Partial gaze palsy) 3. Visual Field Loss - 2(Complete hemianopia) 4. Facial Palsy - 0(Normal) 5a. Left Arm: Motor (10-second hold) - 0(No drift) 5b. Right Arm: Motor (10-second hold) - 0(No drift) 6a. Left Leg: Motor (5-second hold - always test supine) - 0(No drift) 6b. Right Leg: Motor (5-second hold - always test supine) - 0(No drift) 7. Limb Ataxia (finger/nose \T\ heel/[place] - test with eyes open) - 1(Present in one limb) 8. Sensory Loss (pinprick arms/legs/face) - 0(Normal) 9. Best Language: Aphasia (description/naming/reading) - 0(No aphasia) 10. Dysarthria (speech clarity - read or repeat words) - 0(Normal) 11. Extinction and Inattention (visual/tactile/auditory/spatial/personal) - 1(Present) Initials: jr8 Signatures: Dispatcher [employer] Mich Tim, RN RN Eliu Boykin MD MD rn Roszak, Josh, PA PA jr8 Ye Allen, FARM TRACTOR OPERATOR-C FARM TRACTOR OPERATOR-Cla1 Orquidea Mosley, RN RN cg Renee Woody RN RN tw2 Dex Booth RN RN mg2 Corrections: (The following items were deleted from the chart) 10/24 19:57 19:51 Hospitalization Ordered by Aditya Prezas DO for Inpatient Admission. jr8 Preliminary diagnosis is Cerebral infarction. Bed requested for Telemetry/MedSurg (Inpatient). Status is Inpatient Admission. Condition is Fair. Problem is new. Symptoms have improved. jr8 21:03 19:57 10/25/2019 19:51 Hospitalization Ordered by [facility] DO for cg Inpatient Admission. Preliminary diagnosis is Cerebral infarction; Urinary tract infection, site not specified. Bed requested for Telemetry/MedSurg (Inpatient). Status is Inpatient Admission. Condition is Fair. Problem is new. Symptoms have improved. jr8 21:32 21:03 10/25/2019 19:51 Hospitalization Ordered by [facility] DO for mg2 Inpatient Admission. Preliminary diagnosis is Cerebral infarction; Urinary tract infection, site not specified. Bed requested for Telemetry/MedSurg (Inpatient). Status is Inpatient Admission. Condition is Fair. Problem is new. Symptoms have improved.
--- NOTE | 2019-10-25 19:51 | ER ---
Nurse's Notes [facility] Name: Sissy Padron Age: 73 yrs Sex: Female : 1945 Arrival Date: 10/25/2019 Time: 16:29 Bed 15 Private MD: Diagnosis: Cerebral infarction;Urinary tract infection, site not specified Presentation: 10/24 16:46 Chief complaint: Spouse and/or significant other states: Dr. Ward sent over pt because em she has been having AMS since yesterday, wanted her to get her urine checked, had a stroke in July lost short term memory, pt currently A\T\O 1, denies fever. Coronavirus screen: Client denies travel out of the [place] in the last 14 days. Ebola Screen: Patient negative for fever greater than or equal to 101.5 degrees Fahrenheit, and additional compatible Ebola Virus Disease symptoms Patient denies exposure to infectious person. Patient denies travel to an Ebola-affected area in the 21 days before illness onset. No symptoms or risks identified at this time. Initial Sepsis Screen: Does the patient meet any 2 criteria? Altered Mental Status. HR > 90 bpm. Does the patient have a suspected source of infection? Yes: Dysuria/Frequency/Urgency/UTI. Risk Assessment: Do you want to hurt yourself or someone else? Patient reports no desire to harm self or others. Onset of symptoms was October 24, 2019. 16:46 Method Of Arrival: Wheelchair em 16:46 Acuity: MARCEOL 2 em Historical: - Allergies: 16:51 Codeine; em 16:51 PENICILLINS; em - Home Meds: 17:14 atorvastatin 40 mg oral tab 1 tab once daily [Active]; duloxetine 60 mg Oral cpDR 1 cap tw2 once daily [Active]; metformin 500 mg Oral tab [Active]; clopidogrel 75 mg oral tab 1 tab once daily [Active]; metoprolol succinate 25 mg oral Tb24 1 tab once daily [Active]; topiramate 25 mg oral CSpX 1 cap twice daily [Active]; losartan 50 mg Oral tab 0.5 tab once daily [Active]; pantoprazole 40 mg oral TbEC 1 tab once daily [Active]; aspirin 81 mg Oral TbEC 1 tab once daily [Active]; alprazolam 1 mg Oral tab as needed [Active]; - PMHx: 16:51 Anxiety; Diabetes - IDDM; Hypertension; neuropathy; em - PSHx: 16:51 Hysterectomy; Cholecystectomy; left hip replacement; em - Immunization history:: Adult Immunizations up to date. - Social history:: Smoking status: Patient denies any tobacco usage or history of. Screenin:09 Abuse screen: Denies threats or abuse. Nutritional screening: No deficits noted. tw2 Tuberculosis screening: No symptoms or risk factors identified. Fall Risk None identified. 20:14 Patient has been NPO before screening. The patient is alert, able to follow commands. mg2 The patient does not exhibit slurred or garbled speech The patient is not exhibiting difficulty speaking. The patient does not exhibit difficulty understanding words. The patient is able to swallow own secretions with no drooling or need for suction. Patient tolerated one teaspoon of water. No drooling, immediate coughing, gurgling, or clearing of the throat was noted. The patient tolerated 90mL of water. No drooling, immediate coughing, gurgling, or clearing of the throat was noted. The patient passed the bedside swallow screening. Oral medications may be given as ordered. Contact Physician for further diet orders. Assessment: 16:55 General: Appears in no apparent distress. well groomed, Behavior is calm, cooperative. tw2 Pain: Denies pain. Neuro: Level of Consciousness is awake, obeys commands, Oriented to person. Cardiovascular: Heart tones S1 S2 Patient's skin is warm and dry. Respiratory: Airway is patent Respiratory effort is even, unlabored, Respiratory pattern is regular, symmetrical, Breath sounds are clear bilaterally. GI: No signs and/or symptoms were reported involving the gastrointestinal system. Abdomen is round non-distended, Bowel sounds present X 4 quads. : No signs and/or symptoms were reported regarding the genitourinary system. EENT: No signs and/or symptoms were reported regarding the EENT system. Derm: No signs and/or symptoms reported regarding the dermatologic system. Musculoskeletal: Range of motion: intact in all extremities. 17:29 Reassessment: Patient appears in no apparent distress at this time. No changes from tw2 previously documented assessment. Patient and/or family updated on plan of care and expected duration. Pain level reassessed. 18:58 Reassessment: Patient appears in no apparent distress at this time. No changes from tw2 previously documented assessment. Patient and/or family updated on plan of care and expected duration. Pain level reassessed. 19:52 Reassessment: assisted patient to the bathroom. patient seems confused. mg2 21:31 Reassessment: LISE Belcher spoke to NUrsing shirt ironer supervisor on duty and agreed that will mg2 accompany the patient in the floor, charge nurse and primary nurse also informed. Vital Signs: 16:46 BP 107 / 72; Pulse 107; Resp 20; Temp 98.5(O); Pulse Ox 98% on R/A; Weight 90.72 kg em (R); Height 5 ft. 6 in. (167.64 cm); 17:28 BP 117 / 78; Pulse 90; Resp 20; Pulse Ox 98% on R/A; tw2 18:30 BP 135 / 76; Pulse 89; Resp 17; Pulse Ox 97% on R/A; tw2 20:13 Pulse 83; Resp 18; Pulse Ox 97% on R/A; mg2 21:08 BP 146 / 110; mg2 16:46 Body Mass Index 32.28 (90.72 kg, 167.64 cm) em NIH Stroke Scale Scores: 19:58 NIHSS Score: 7 jr8 ED Course: 16:29 Patient arrived in ED. as 16:50 Triage completed. em 16:51 Arm band placed on. em 16:55 Placed in gown. Bed in low position. Side rails up X2. Adult w/ patient. Cardiac tw2 monitor on. Pulse ox on. NIBP on. Warm blanket given. 16:55 Inserted saline lock: 20 gauge in right antecubital area, using aseptic technique. tw2 ,using aseptic technique. FRAN Epps Blood collected. 16:58 Renee Woody, FRAN is Primary Nurse. tw2 17:11 Melo Sands PA is PHCP. jr8 17:11 Eliu Lund MD is Attending Physician. jr8 18:12 Chest Single View XRAY In Process Unspecified. EDMS 18:26 CT Head Brain wo Cont In Process Unspecified. EDMS 19:00 Report given to FRAN Tao. tw2 19:10 Urine Culture Sent. tw2 19:50 Aditya Du DO is Hospitalizing Provider. jr8 19:53 No provider procedures requiring assistance completed. mg2 20:13 Patient admitted, IV remains in place. mg2 Administered Medications: 17:26 Drug: NS 0.9% (30 ml/kg) 30 ml/kg Route: IV; Rate: bolus; Site: right wrist; tw2 21:12 Follow up: Response: No adverse reaction; IV Status: Completed infusion; IV Intake: mg2 2500ml 20:13 Drug: Rocephin 1 grams Route: IV; Rate: calculated rate; Site: right hand; mg2 21:11 Follow up: Response: No adverse reaction; IV Status: Completed infusion mg2 21:03 Drug: Tylenol 500 mg Route: PO; mg2 21:12 Follow up: Response: No adverse reaction mg2 Intake: 21:12 IV: 2500ml; Total: 2500ml. mg2 Outcome: 19:51 Decision to Hospitalize by Provider. jr8 21:24 Admitted to Med/surg accompanied by jitendra, via stretcher, room 222, with chart, Report mg2 called to FRAN Scherer 21:24 Condition: stable 21:24 Instructed on the need for admit, Demonstrated understanding of instructions. 21:32 Patient left the ED. mg2 NIH Stroke Scale - NIH Stroke Score Date: 10/25/2019 Time: 19:58 Total Score = 7 1a. Level of Consciousness (LOC) - 0(Alert) 1b. Level of Consciousness (LOC) (Year \T\ Age) - 2(Neither) 1c. LOC Commands (Open \T\ Closes Eyes/Carbide Die Maker) - 0(Both) 2. Best Gaze (Lateral Gaze Paresis) - 1(Partial gaze palsy) 3. Visual Field Loss - 2(Complete hemianopia) 4. Facial Palsy - 0(Normal) 5a. Left Arm: Motor (10-second hold) - 0(No drift) 5b. Right Arm: Motor (10-second hold) - 0(No drift) 6a. Left Leg: Motor (5-second hold - always test supine) - 0(No drift) 6b. Right Leg: Motor (5-second hold - always test supine) - 0(No drift) 7. Limb Ataxia (finger/nose \T\ heel/alcala - test with eyes open) - 1(Present in one limb) 8. Sensory Loss (pinprick arms/legs/face) - 0(Normal) 9. Best Language: Aphasia (description/naming/reading) - 0(No aphasia) 10. Dysarthria (speech clarity - read or repeat words) - 0(Normal) 11. Extinction and Inattention (visual/tactile/auditory/spatial/personal) - 1(Present) Initials: isaac Signatures: Dispatcher [employer] Mich Tim, RN RN Esperanza Kim Josh, PA PA jr8 Renee Woody RN RN tw2 Dex Booth RN RN mg2
[2019-10-25 19:56] LABS: Urine Blood NEGATIVE (NEG); Urine Glucose NEGATIVE (NEG); Urine Protein NEGATIVE (NEG)
[2019-10-25] MEDS ORDERED: CEFTRIAXONE/SWI 1gm 1 GM/10 ML SYR ONE (20:10)
--- NOTE | 2019-10-25 20:29 | P.HP ---
Certification for Inpatient Patient admitted to: Inpatient With expected LOS: >2 Midnights Patient will require the following post-hospital care: Rehabilitation Practitioner: I am a practitioner with admitting privileges, knowledge of patient current condition, hospital course, and medical plan of care. Services: Services provided to patient in accordance with Admission requirements found in Title 42 Section 412.3 of the Code of Federal Regulations <Ye Allen - Last Filed: 10/25/19 20:24> Patient History Date of Service: 10/25/19 Primary Care Provider: DR. Ward Reason for admission: Ischemic CVA History of Present Illness: 73-year-old female with history of ischemic CVA, diabetes mellitus type 2, hypertension, hyperlipidemia presents emergency department for altered mental status. at bedside reports that the patient has been having altered mental status since yesterday at 8:00 a.m. when she woke up complaining of a headache. states she has behaved like this in the past when she had urinary tract infection and was sent here by her primary care doctor for further evaluation and management. During her evaluation in the emergency department patient was found to be alert, oriented only x1, only able to follow some simple commands but having lots of difficulty following others. Patient was found to have 5 cm subacute infarct to the right parietal area. Patient had history of CVA in June of this year and was placed on Plavix and aspirin at that time. Neurology was consulted while the patient was in the emergency department who recommended patient receive Eliquis 5 mg p.o. twice daily. Patient also found to have urinary tract infection. When I saw the patient in the emergency department she was awake, alert, oriented x1 to name only. Patient was able to squeeze my hands on command but otherwise unable to cooperate fully with exam due to mental status, patient appears to be having some expressive aphasia, gazing to the right with some neglect as well. Has been at bedside and is good historian. Patient be admitted for further evaluation and management. Home medications list reviewed: Yes - Past Medical/Surgical History Diabetic: Yes -: Hypertension -: Diabetes mellitus -: Hyperlipidemia -: Obesity -: cva L occipital lobe 07/06/19 -: neuropathy -: anxiety -: hysterectomy -: right knee surgery -: left hip replacement -: both wrist surgery -: cholecystectomy Psychosocial/ Personal History: Patient lives at home with her . - Family History Family History: Reviewed- Non-Contributory - Social History Smoking Status: Never smoker Alcohol use: No CD- Drugs: No Caffeine use: Yes Place of Residence: Home <Ye Allen - Last Filed: 10/25/19 20:24> Date of Service: 10/26/19 <Aditya Du - Last Filed: 10/26/19 15:49> Allergies naproxen Allergy (Intermediate, Verified 10/25/19 21:59) Hives/Rash codeine Allergy (Verified 10/25/19 21:59) Itching/Hives/Rash Penicillins Allergy (Verified 10/25/19 21:59) Itching/Hives/Rash morphine Adverse Reaction (Mild, Verified 10/25/19 21:59) confusion Home Medications: ALPRAZolam [Xanax*] 1 tab PO DAILY PRN 10/26/19 Aspirin [Lo-Dose Aspirin EC] 1 tab PO DAILY 10/26/19 Atorvastatin Calcium 1 tab PO BEDTIME 10/26/19 Clopidogrel Bisulfate [Plavix*] 1 tab PO DAILY 10/26/19 Duloxetine HCl 1 cap PO DAILY 10/26/19 Losartan Potassium 25 mg PO SEECOM 10/26/19 Metformin HCl 1 tab PO BID 10/26/19 Metoprolol Succinate [Toprol Xl] 1 tab PO DAILY 10/26/19 Pantoprazole Sodium 1 tab PO DAILY 10/26/19 Topiramate [Topamax] 1 tab PO BID 10/26/19 Review of Systems is unable to be obtained <Ye Allen - Last Filed: 10/25/19 20:24> Physical Examination - Physical Exam General: Alert, Oriented x1 HEENT: Atraumatic, Normocephalic, PERRLA Neck: Supple Respiratory: Clear to auscultation bilaterally, Normal air movement Cardiovascular: No edema Capillary refill: <2 Seconds Gastrointestinal: Normal bowel sounds, Soft and benign Musculoskeletal: No swelling, No contractures, No erythema Integumentary: No significant lesion, No erythema, No warmth Neurological: Other (Patient with some expressive aphasia, unable to identify simple objects, unable to follow simple commands, gaze to the right, patient oriented only to person.), Abnormal speech - Studies Laboratory Data (last 24 hrs) 10/25/19 16:55: PT 13.6 H, INR 1.16, APTT 29.7 10/25/19 16:55: WBC 10.3, Hgb 13.1, Hct 38.6, Plt Count 290 10/25/19 16:55: Sodium 138, Potassium 3.5, BUN 17, Creatinine 1.43 H, Glucose 127 H, Total Bilirubin 0.5, AST 17, ALT 22, Alkaline Phosphatase 89, Amylase 68, Lipase 88 <Ye Allen - Last Filed: 10/25/19 20:24> - Studies Laboratory Data (last 24 hrs) 10/25/19 16:55: PT 13.6 H, INR 1.16, APTT 29.7 10/25/19 16:55: WBC 10.3, Hgb 13.1, Hct 38.6, Plt Count 290 10/25/19 16:55: Sodium 138, Potassium 3.5, BUN 17, Creatinine 1.43 H, Glucose 127 H, Total Bilirubin 0.5, AST 17, ALT 22, Alkaline Phosphatase 89, Amylase 68, Lipase 88 <Aditya Du - Last Filed: 10/26/19 15:49> Assessment and Plan - Plan Assessment Altered mental status secondary to 5 cm subacute ischemic CVA in the right parietal region previously on Plavix Urinary tract infection Diabetes mellitus type 2 Hypertension Plan Altered mental status secondary to 5 cm subacute ischemic CVA in the right parietal region previously on Plavix: Patient be admitted for further evaluation and management. Neurology has been consulted on this case recommend discontinuing Plavix and continuing with Eliquis 5 mg p.o. twice daily. Speech and physical therapy consult in place. Fall and aspiration precautions in place. Q 4H neuro checks. Patient passed swallow screen in the emergency department will continue previously recommended mechanical soft diet at this time. technical services consultant consult will replace for evaluation of disposition needs including possibility of inpatient rehab. Urinary tract infection: Urine culture obtained in the emergency department continue with Rocephin at this time. Diabetes mellitus type 2: A.c. HS Accu-Cheks scale insulin therapy in place. Hypertension: Will continue to monitor blood pressure closely. Will allow for some permissive hypertension given circumstances. Discharge Plan: Other (Inpatient rehab) Plan to discharge in: 72 Hours - Advance Directives Does patient have a Living Will: No Does patient have a Durable POA for Healthcare: No - Code Status/Comfort Care Code Status Assessed: Yes (Patient is full code) Critical Care: No Time Spent Managing Pts Care (In Minutes): 55 <Ye Allen - Last Filed: 10/25/19 20:24> - Plan Case discussed with nurse practitioner. Agree with evaluation and assessment, plan of care. Patient reassessed. Continue with progress note recommendations. Nephrology to evaluate acute on chronic renal disease. Will discuss further with Neurology. Physical therapy to evaluate. Consider inpatient rehab or home health. <Aditya Du - Last Filed: 10/26/19 15:49>
[2019-10-25] MEDS ORDERED: ACETAMINOPHEN 500 MG TAB ONE (21:12)
[2019-10-25] MEDS ORDERED: ONDANSETRON 4 MG/2 ML VIAL IV PRN (21:47)
[2019-10-25] MEDS ORDERED: ATORVASTATIN 20 MG TAB PO SCH (21:47)
[2019-10-25] MEDS: INSULIN -REGULAR HUMAN 50 UNIT/0.5 ML ML SQ SCH (21:47)
[2019-10-25] MEDS ORDERED: ACETAMINOPHEN 500 MG TAB PO PRN (21:47)
[2019-10-25] MEDS: APIXABAN 5 MG TABLET PO SCH (22:55)
[2019-10-25] MEDS: NA CHLORIDE 0.9% 1,000 ML IV SCH (22:56)
[2019-10-25 23:38] VITALS: BMI 30.5
[2019-10-26 06:00] LABS: Potassium 3.2 mmol/L (3.5-5.1); T4,Total 11.7 ug/dL (4.8-13.9); Thyroid Stimulating Hormone 2.74 uIU/mL (0.360-3.740)
[2019-10-26 06:34] LABS: Hematocrit 36.2 % (36.0-45.0); RBC Red Blood Cell Count 4.15 M/uL (3.86-4.86)
[2019-10-26 06:35] LABS: Absolute Lymphocytes (CBC) 2.2 K/uL (0.7-4.9); Basophils % 0.5 % (0-1.3); Lymphocytes % 22.5 % (15.3-44.8); MPV 8.3 fL (7.6-11.3)
[2019-10-26] MEDS: INSULIN -REGULAR HUMAN 50 UNIT/0.5 ML ML SQ SCH ×4 (07:30→21:00)
[2019-10-26] MEDS ORDERED: ALPRAZOLAM 0.25 MG TABLET PO PRN (07:52)
--- NOTE | 2019-10-26 08:05 | P.PN ---
Subjective Date of Service: 10/26/19 Primary Care Provider: Dr. Ward Chief Complaint: Ischemic CVA Subjective: Doing well (Patient alert. at bedside) Physical Examination - Vital Signs Temperature: 97.3 F Blood Pressure: 131/81 Pulse: 86 Respirations: 18 Pulse Ox (%): 98 - Physical Exam General: Alert, Cooperative HEENT: Atraumatic Neck: Supple Respiratory: Clear to auscultation bilaterally, Normal air movement Cardiovascular: Normal pulses, Regular rate/rhythm Gastrointestinal: Normal bowel sounds, Soft and benign, Non-distended Neurological: Normal speech, Normal strength at 5/5 x4 extr, Normal tone, Normal affect - Studies Laboratory Data (last 24 hrs) 10/25/19 16:55: PT 13.6 H, INR 1.16, APTT 29.7 10/25/19 16:55: WBC 10.3, Hgb 13.1, Hct 38.6, Plt Count 290 10/25/19 16:55: Sodium 138, Potassium 3.5, BUN 17, Creatinine 1.43 H, Glucose 127 H, Total Bilirubin 0.5, AST 17, ALT 22, Alkaline Phosphatase 89, Amylase 68, Lipase 88 Medications List Reviewed: Yes Assessment & Plan Discharge Plan: Other (Inpatient rehab) Plan to discharge in: 24 Hours Physician Review Additional Text: Assessment Altered mental status/acute encephalopathy likely related to 5 cm subacute ischemic CVA in the right parietal region Acute on chronic renal failure stage 3 Diabetes mellitus type 2 [id number] Hypertension Hyperlipidemia Anxiety Plan Altered mental status/acute encephalopathy likely related to 5 cm subacute ischemic CVA in the right parietal region: Patient do well this time. Doubt UTI. Pro calcitonin negative. Blood and urine culture obtained. Discontinue Rocephin. Will discuss further with Neurology. Neurology did recommend discontinuing Plavix and added Eliquis. Continue Eliquis and aspirin. Will increase Lipitor to 80 mg daily. Will provide folic acid. Physical therapy, speech therapy and occupational therapy consulted. Case discussed with who agrees with plan of care. Patient previously did well with inpatient rehab. Will recommend inpatient rehab at this time. Await recommendations by physical therapy. Consult made for inpatient rehab. Nephrology consulted to address acute on chronic renal failure. Discontinue metformin and lisinopril. Continue IV fluids. Will obtain MRI brain, carotid Doppler, echocardiogram and renal ultrasound to further evaluate. Continue to monitor closely. I will turn the service over to the hospitalist team tomorrow. I will go over the plan of care. Anticipate discharge to inpatient rehab in the next 1-2 days. Advance care planning-30 min. Acute on chronic renal failure stage 3: Continue IV fluids. Will obtain renal ultrasound to further evaluate. Nephrology consulted. Await recommendation. Discontinue metformin and lisinopril at this time. Diabetes mellitus type 2 [id number]: Will obtain A1c. Continue Accu-Cheks and sliding scale. Discontinue metformin. Will need to consider other options for diabetes due to her renal disease. Hypertension: Discontinue lisinopril due to renal disease. Will continue metoprolol. Hyperlipidemia: Increase Lipitor to 80 mg daily. Anxiety: Continue with her home medication. Time Spent Managing Pts Care (In Minutes): 45
[2019-10-26] MEDS: POTASSIUM 25 MEQ EFFERV TAB PO ONE ×2 (09:00→10:52)
[2019-10-26] MEDS ORDERED: METOPROLOL XL 25 MG TAB PO SCH (09:00)
[2019-10-26] MEDS ORDERED: CEFTRIAXONE/SWI 1gm 1 GM/10 ML SYR IV SCH (09:00)
[2019-10-26] MEDS ORDERED: Magnesium Sulfate 2gm IVPB 2 G/50 ML BAG IV ONE (09:00)
[2019-10-26] MEDS: ASPIRIN EC 81 MG TAB PO SCH (10:52)
[2019-10-26] MEDS: DULOXETINE 30 MG CAP PO SCH (10:52)
[2019-10-26] MEDS: TOPIRAMATE 25 MG TAB PO SCH ×2 (10:53→21:58)
[2019-10-26] MEDS: APIXABAN 5 MG TABLET PO SCH ×2 (10:53→21:59)
[2019-10-26] MEDS: PANTOPRAZOLE 40MG TABLET PO SCH (10:53)
[2019-10-26] MEDS: FOLIC ACID 1 MG TABLET PO SCH (10:54)
--- NOTE | 2019-10-26 11:29 | ECHO ---
HEIGHT: 5 ft 7 in WEIGHT: 194 lb 14.4 oz DATE OF STUDY: 10/26/[address]: Aditya Du DO 2-DIMENSIONAL: YES M.MODE: YES DOPPLER: YES COLOR FLOW: YES TDS: NO PORTABLE: NO DEFINITY: NO BUBBLE STUDY: NO DIAGNOSIS: CEREBRAL VASCULAR ACCIDENT CARDIAC HISTORY: CATHERIZATION: NO SURGERY: NO PROSTHETIC VALVE: NO PACEMAKER: NO MEASUREMENTS (cm) DIASTOLIC (NORMALS) SYSTOLIC (NORMALS) IVSd 1.0 (0.6-1.2) LA Diam 3.3 (1.9-4.0) LVEF 61% LVIDd 3.5 (3.5-5.7) LVIDs 2.4 (2.0-3.5) %FS 32% LVPWd 1.1 (0.6-1.2) Ao Diam 2.5 (2.0-3.7) 2 DIMENSIONAL ASSESSMENT: RIGHT ATRIUM: NORMAL LEFT ATRIUM: NORMAL RIGHT VENTRICLE: NORMAL LEFT VENTRICLE: NORMAL TRICUSPID VALVE: NORMAL MITRAL VALVE: NORMAL PULMONIC VALVE: NORMAL AORTIC VALVE: NORMAL PERICARDIAL EFFUSION: NONE AORTIC ROOT: NORMAL LEFT VENTRICULAR WALL MOTION: NORMAL. DOPPLER/COLOR FLOW: NORMAL. COMMENTS: NORMAL 2D ECHO WITH DOPPLER. NO WALL MOTION ABNORMALITY. NO EFFUSION. NO VEGETATION OR THROMBUS. TECHNOLOGIST: SILVANA DIAZ
[2019-10-26] MEDS: KCL 20 MEQ/100 mL IVPB 20 MEQ/100 ML BAG IV SCH ×2 (12:02→17:37)
[2019-10-26] MEDS: clonazePAM 0.5 MG TAB PO PRN (14:30)
--- NOTE | 2019-10-26 16:58 | RAD REPORT ---
EXAM DESCRIPTION: US - Renal Ultrasound-Complete - 10/26/2019 4:37 pm CLINICAL HISTORY: Acute renal injury/chronic renal disease COMPARISON: None. FINDINGS: The right kidney measures 10 cm with an increased echotexture. The left kidney measures 9 cm with an increased echotexture. Mild left pyelocaliectasis No gross abnormality of bladder is seen IMPRESSION: Increased renal echotexture consistent with parenchymal disease Mild left pyelocaliectasis
[2019-10-26] MEDS: NA CHLORIDE 0.9% 1,000 ML IV SCH (17:00)
--- NOTE | 2019-10-26 17:13 | RAD REPORT ---
EXAM DESCRIPTION: MRI - Brain Wo Cont - 10/26/2019 3:49 pm CLINICAL HISTORY: CVA COMPARISON: October 25, 2019 cat scan TECHNIQUE: Axial, sagittal, and coronal magnetic images of the brain were obtained. Contrast was not requested FINDINGS: 5 centimeter acute infarct right parietal/occipital lobe Old left occipital lobe infarction. Areas of laminar necrosis present Mild to moderate signal within periventricular, deep and subcortical white matter ischemic changes se condary to small vessel. The ventricles are normal caliber. An extra-axial fluid collection is not present Fluid within the sinuses/mastoids is not noted IMPRESSION: 5 centimeter acute infarct right parietal/occipital
--- NOTE | 2019-10-26 18:32 | RAD REPORT ---
EXAM DESCRIPTION: USCarotid Artery Bilateral10/26/2019 4:37 pm CLINICAL HISTORY: cva COMPARISON: None FINDINGS: The velocity of the right internal carotid artery equals 71 cm/sec. The right ICA/CCA rati o 1.2. Flow could not be seen within distal right internal carotid artery. The velocity of the left internal carotid artery equals 84 cm/sec. The left ICA/CCA ratio 1.4 Mild plaque is present within the carotid arteries. The vertebral arteries demonstrate antegrade flow IMPRESSION: Flow could not be seen within the distal right internal carotid artery. It is uncertain if this is a real finding representing an occlusion or secondary to technical factors. It is recommen ded that the patient have an MRA neck for further evaluation NASCET criteria used. Mild 0-49% stenosis Moderate 50-69% stenosis Severe 70-99% stenosis
[2019-10-26] MEDS ORDERED: ATORVASTATIN 80 MG TAB PO SCH (21:00)
[2019-10-26] MEDS: METOPROLOL XL 25 MG TAB PO SCH (21:59)
--- NOTE | 2019-10-26 22:12 | CON ---
Reason For Consultation: Consultation called because of stroke. History Of Present Illness: Ms. Padron is a 73-year-old patient with multiple stroke risk factors incl uding hypertension, diabetes mellitus, dyslipidemia, and obesity and a recent stroke in June 2019, brinda hood comes in with a subacute new 5 cm right parietal stroke. It should be noted that the prior stroke was in the left occipital region on July 06, 2019. She is pending COVID-19 testing results. She w as taking aspirin at the time of the stroke and is therefore considered an aspirin failure and is now on Eliquis 5 mg twice daily plus aspirin 81 mg daily. Despite the stroke, she does have equal stren gth in the upper and lower extremities. She has right and left visual field deficits and is unable t o count fingers placed in front of her. She otherwise is somewhat disoriented at times and apparentl y pulled out her IV multiple times. She is also at some point agitated. Past Medical History: As indicated including peripheral neuropathy, anxiety. Past Surgical History: Hysterectomy, right knee surgery, left hip replacement, carpal tunnel surgery at wrist, cholecystectomy. Family History: Noncontributory. Social History: No alcohol, tobacco, or IV drug use. The patient resides at home. Allergies: NAPROSYN, CODEINE, PENICILLIN, AND MORPHINE. Medications: At home are Xanax 1 mg daily, aspirin 81 mg daily, Lipitor at bedtime, Plavix 75 mg stalin ly, 20 mg daily, losartan 25 mg daily, metformin twice daily, metoprolol, Protonix, and To pamax. Physical Examination: Vital Signs: Blood pressure 150/84, pulse 90, respiratory rate 16, temperature 98.5, oxygen saturati on 93%. Weight 194 pounds, height 5 feet 7 inches, BMI 30. General: Ms. Padron is resting comfortably in bed. She is in no acute distress. HEENT: She is normocephalic, atraumatic. She does have blood her gown after pulling out her IV from the right arm. Otherwise, atraumatic. Extremities: Lower extremities show no clubbing, cyanosis, or edema. Neurological: She is alert and oriented to person and situation. She follows all commands appropria tely. Moving arms and legs equally well and smiles well. However, she is unable to count fingers pl aced in front of her. She has extraocular movements being intact. Pupils are round, reactive to lig ht and accommodation and the face is symmetric with equal excursions on smiling. Motor examination, she lifts both arms equally well off the bed and legs equally well off the bed and holding them up fo r a count of 10 without drift. Sensory exam appears intact in the upper and lower extremities. Coor dination, she has difficulty reaching for fingers due to visual deficits and she will be ambulated [facility] physical therapy. Laboratory Studies: Complete blood count with differential is completely normal. Coagulation panel shows INR 1.16. Her glucose ranged from 117 to 146. Magnesium 2.1. Her lipid panel is now normal. Thyroid stimulating hormone normal. Procalcitonin less than 0.05. Urinalysis shows 5 to 10 white b lood cells, 2+ sediment, 20 to 50 bacteria, 1+ esterase. COVID-19 testing is pending. Assessment: Ms. Padron is a 73-year-old patient with a chronic left occipital stroke and now a subacut e right parietal stroke, who was unable to count fingers in front of her, but otherwise appears to jack ve no focal neurological deficits despite her multiple strokes. She was on aspirin and Plavix failur e and is now on aspirin plus Eliquis. She is pending COVID-19 testing results. She has multiple com orbid stroke risk factors, which may be addressed by aggressive management of blood pressure and bloo d sugars. Plan: May use aspirin 81 mg, Eliquis 5 mg daily. Also, Lipitor 80 mg at bedtime, folic acid 1 mg da renny. Continue topiramate 25 mg twice daily, which she is taking for poststroke headaches. She may b enefit from physical therapy to help with re-orienting her activities of daily living with limited vision and using her arms and legs to negotiate the household structures an d distances. AIDAN/SAMUEL Voice ID: [id number] Report ID: [id number]
[2019-10-27] MEDS: NA CHLORIDE 0.9% 1,000 ML IV SCH ×3 (00:27→13:06)
[2019-10-27 04:21] LABS: Potassium 3.3 mmol/L (3.5-5.1)
[2019-10-27 04:32] LABS: Absolute Lymphocytes (CBC) 2.3 K/uL (0.7-4.9); Basophils % 0.8 % (0-1.3); Hematocrit 34.8 % (36.0-45.0); MPV 8.3 fL (7.6-11.3); RBC Red Blood Cell Count 3.96 M/uL (3.86-4.86)
[2019-10-27] MEDS: KCL 20 MEQ/100 mL IVPB 20 MEQ/100 ML BAG IV SCH ×2 (05:34→09:24)
[2019-10-27] MEDS: INSULIN -REGULAR HUMAN 50 UNIT/0.5 ML ML SQ SCH ×2 (07:30→11:30)
--- NOTE | 2019-10-27 07:43 | EKG ---
Test Date: 2019-10-25 Test Time: 17:34:29 Real Estate Attorney: ОЛЬГА MEASUREMENT RESULTS: Intervals: Rate: 87 MD: 206 QRSD: 74 QT: 382 QTc: 459 [place]: P: 29 MD: 206 QRS: -42 T: 59 INTERPRETIVE STATEMENTS: Sinus rhythm with fusion complexes Left axis deviation Septal infarct, age undetermined Inferior infarct, age undetermined Abnormal ECG Compared to ECG 07/21/2019 10:49:04 Fusion complex(es) now present Myocardial infarct finding still present Electronically Signed On 10-27-19 07:40:04 CDT by Spencer Marquez
[2019-10-27] MEDS: PANTOPRAZOLE 40MG TABLET PO SCH (09:23)
[2019-10-27] MEDS: FOLIC ACID 1 MG TABLET PO SCH (09:23)
[2019-10-27] MEDS: APIXABAN 5 MG TABLET PO SCH (09:23)
[2019-10-27] MEDS: DULOXETINE 30 MG CAP PO SCH (09:23)
[2019-10-27] MEDS: TOPIRAMATE 25 MG TAB PO SCH (09:24)
[2019-10-27] MEDS: METOPROLOL XL 25 MG TAB PO SCH (09:24)
[2019-10-27] MEDS: ASPIRIN EC 81 MG TAB PO SCH (09:24)
[2019-10-27] MEDS: clonazePAM 0.5 MG TAB PO PRN (10:48)
[2019-10-27 11:33] VITALS: O2SAT 93
[2019-10-27 12:04] VITALS: BP 164/79; TEMP 97
--- NOTE | 2019-10-27 12:27 | RAD REPORT ---
EXAM DESCRIPTION: MRI - MRA Head Wo Cont - 10/27/2019 12:02 pm CLINICAL HISTORY: Right parietal CVA COMPARISON: CT head October 24, MRI October 25 TECHNIQUE: Axial and coronal 3D [id number] image acquisition was performed. 3D rotational images were generated with source and reconstruction images reviewed. Horizontal and vertical axis rotation al views generated using MIP protocol. FINDINGS: No aneurysm or vascular malformation identified. There is a bulbous appearance at the orig in of the left posterior cerebral and superior cerebellar arteries. This is believed to be the affect s of a common origin rather than aneurysm. The origin of the left posterior cerebral artery shows davin roximately 50% stenosis. The basilar artery shows nodes stenosis or dissection. Distal left vertebral artery is small is a normal variant. Distal right internal carotid artery shows no significant finding. Left supraclinoid portion of the i nternal carotid artery shows 60% stenosis. There is approximately 30% stenosis at the right MCA M1-M2 junction. Scattered atherosclerotic changes are seen in the far peripheral branches of the middle cerebral erica ry. A specific occluded or truncated branch supplying the area of infarction is not clearly evident. IMPRESSION: Approximately 60% stenosis left internal carotid artery supraclinoid portion. Approximately 30% stenosis at the right middle cerebral artery M1 - M2 junction. No specific occluded or trunk created branch supplying the area of infarction identifiable. Approximately 50% stenosis at the origin of the left posterior cerebral artery. Bulbous appearance to the left posterior cerebral artery is believed to be due to the common origin of the left [employer] and simons perior cerebellar artery.
--- NOTE | 2019-10-27 12:42 | RAD REPORT ---
EXAM DESCRIPTION: MRI - MRA Neck W/Wo Cont - 10/27/2019 12:02 pm CLINICAL HISTORY: Right parietal CVA COMPARISON: MR angio carotid arteries June 2019 TECHNIQUE: MR angiography of the cervical vasculature performed. Coronal imaging plane acquisition u tilized. A MultiHance contrast volume was utilized. Coronal reformatted images were generated and re viewed. Vertical axis 3D rotational projections obtained using maximum intensity projection protocol. FINDINGS: Aortic arch is 3 vessel configuration. No origin stenosis. Bilateral common carotid arteri es show no significant findings. The bilateral internal carotid arteries from origin to skullbase renée w mild tortuosity but no stenosis or dissection. Right vertebral artery is dominant and shows no susp icious finding. Origin is unremarkable. The left vertebral artery is smaller as a normal variant. The proximal half of the left vertebral artery is poorly visualized. The vessel falls on the posterior b oundary of the [id number]. A dissection or significant luminal narrowing atherosclerotic disease w ould be possible. Prior imaging shows the patient has an old medial left occipital and medial tempora l CVA. This could potentially arisen from left vertebral artery disease. The appearance is not consid ered different from the June study. IMPRESSION: MRA neck imaging shows no abnormality that is felt to be a cause or contributor to the r ight parietal acute CVA. Potential significant disease of the proximal left vertebral artery is not clearly different from Jun.
--- NOTE | 2019-10-27 13:57 | P.DS ---
Admission Date: 10/25/19 Discharge Date: 10/27/19 Primary Care Provider: Dr. Ward Disposition: DC HOME/HOME HEALTH CARE Reason for Admission: Ischemic CVA Brief History of Present Illness: 73-year-old woman with a prior history of CVA, history of diabetes and hypertension was brought to the emergency department due to altered mental status. initially attributed her symptoms to possible UTI. Workup in the ED with CT head revealed subacute right parietal CVA. Patient was not following orders in the ED. UA also suggested the presence of UTI. No leukocytosis. Patient was admitted for further management. Hospital Course: Patient admitted to the medical floor and started on IV Rocephin for UTI. She had been on aspirin and plavix for previous history of stroke. MRI of the brain confirmed acute right parietal stroke. Echocardiogram was unremarkable. Carotid Doppler done demonstrated no flow in the right internal carotid artery. This was followed by MRA of the brain, head and neck which suggested 60% stenosis in the left internal carotid. No hemodynamically significant stenosis to explain her CVA or to warrant intervention. Patient was seen and evaluated by neurology who recommended to increase anticoagulation by replacing Plavix with Eliquis. Her blood pressure was moderately elevated. She was on losartan what was initially held due to a creatinine level of 1.4 suggesting acute renal failure. This improved with IV hydration. Toprol-XL was increased to 25 mg b.i.d. most recent systolic blood pressure in the 160s. Losartan is resumed on discharge. She had no trouble with swallowing. Neurology suspect visual defect as part of the stroke deficit. Patient was declined admission to inpatient rehab. declined disposition to skilled rehab. Patient is discharged to home with home health. Fall precautions strongly advice given that patient has been started on full anticoagulation. Vital Signs/Physical Exam: Temp Pulse Resp BP Pulse Ox 97.0 F 72 18 164/79 H 96 10/27/19 12:00 10/27/19 12:00 10/27/19 12:00 10/27/19 12:00 10/27/19 12:00 General: In no apparent distress, Other (Awake) HEENT: PERRLA, Mucous membr. moist/pink, EOMI Neck: Supple Respiratory: Clear to auscultation bilaterally, Normal air movement Cardiovascular: No edema, Regular rate/rhythm, Normal S1 S2 Capillary refill: <2 Seconds Gastrointestinal: Normal bowel sounds, Soft and benign, Non-distended, No tenderness Musculoskeletal: No swelling, No erythema Integumentary: No rashes Neurological: Normal strength at 5/5 x4 extr, Other (Nonfocal) Laboratory Data at Discharge: WBC 8.1 K/uL (4.3-10.9) D 10/27/19 03:40 Hgb 11.9 g/dL (12.0-15.0) L 10/27/19 03:40 Hct 34.8 % (36.0-45.0) L 10/27/19 03:40 Plt Count 198 K/uL (152-406) 10/27/19 03:40 PT 13.6 SECONDS (9.5-12.5) H 10/25/19 16:55 INR 1.16 10/25/19 16:55 APTT 29.7 SECONDS (24.3-36.9) 10/25/19 16:55 Sodium 146 mmol/L (136-145) H 10/27/19 03:40 Potassium 3.3 mmol/L (3.5-5.1) L 10/27/19 03:40 BUN 9 mg/dL (7-18) 10/27/19 03:40 Creatinine 1.04 mg/dL (0.55-1.3) 10/27/19 03:40 Glucose 120 mg/dL (74-106) H 10/27/19 03:40 Magnesium 2.1 mg/dL (1.8-2.4) D 10/26/19 18:07 Total Bilirubin 0.5 mg/dL (0.2-1.0) 10/25/19 16:55 AST 17 U/L (15-37) 10/25/19 16:55 ALT 22 U/L (12-78) 10/25/19 16:55 Alkaline Phosphatase 89 U/L (45-117) 10/25/19 16:55 Triglycerides 117 mg/dL (<150) 10/26/19 05:29 Cholesterol 114 mg/dL (<200) 10/26/19 05:29 HDL Cholesterol 41 mg/dL (40-60) 10/26/19 05:29 Cholesterol/HDL Ratio 2.78 10/26/19 05:29 Amylase 68 U/L (25-115) 10/25/19 16:55 Lipase 88 U/L (73-393) 10/25/19 16:55 Home Medications: ALPRAZolam [Xanax*] 1 tab PO DAILY PRN 10/26/19 Aspirin [Lo-Dose Aspirin EC] 1 tab PO DAILY 10/26/19 Duloxetine HCl 1 cap PO DAILY 10/26/19 Losartan Potassium 25 mg PO SEECOM 10/26/19 Metformin HCl 1 tab PO BID 10/26/19 Pantoprazole Sodium 1 tab PO DAILY 10/26/19 Topiramate [Topamax] 1 tab PO BID 10/26/19 Apixaban [Eliquis] 5 mg PO BID #60 tablet 10/27/19 Atorvastatin Calcium [Lipitor] 80 mg PO BEDTIME #30 tab 10/27/19 Metoprolol Succinate [Toprol Xl*] 25 mg PO BID #60 tab 10/27/19 New Medications: Apixaban [Eliquis] 5 mg PO BID #60 tablet Atorvastatin Calcium [Lipitor] 80 mg PO BEDTIME #30 tab Metoprolol Succinate [Toprol Xl*] 25 mg PO BID #60 tab Diet: ADA (Mechanical diet) Activity: Fall precautions Followup: Yordan Gomez MD [ASSOCIATE-ACTIVE - CAN ADMIT] - 1-2 Weeks Time spent managing pt's care (in minutes): 36
== END 2019-10-27 15:02 | disposition home health service (06) | DRG 65 ==
LOC: ER 16:27 → ERHOLD 20:16 → 2ND 21:25
PROVIDERS: ADMIT Family Medicine; ATTEND Internal Medicine
DX: I63.9 Cerebral infarction, unspecified (principal); N17.9 Acute kidney failure, unspecified; G93.49 Other encephalopathy; I12.9 Hypertensive chronic kidney disease with stage 1 through stage 4 chronic kidney disease, or unspecified chronic kidney disease; N18.3 Chronic kidney disease, stage 3 (moderate); E11.22 Type 2 diabetes mellitus with diabetic chronic kidney disease; F41.9 Anxiety disorder, unspecified; E78.5 Hyperlipidemia, unspecified; R47.01 Aphasia; R29.707 NIHSS score 7; Z86.73 Personal history of transient ischemic attack (TIA), and cerebral infarction without residual deficits; Z90.710 Acquired absence of both cervix and uterus; Z96.642 Presence of left artificial hip joint; Z90.49 Acquired absence of other specified parts of digestive tract; Z88.5 Allergy status to narcotic agent; Z88.0 Allergy status to penicillin; Z88.8 Allergy status to other drugs, medicaments and biological substances; Z79.82 Long term (current) use of aspirin; Z79.02 Long term (current) use of antithrombotics/antiplatelets; Z79.84 Long term (current) use of oral hypoglycemic drugs; Z79.899 Other long term (current) drug therapy; Z11.59 Encounter for screening for other viral diseases
CPT/HCPCS: 36415; 70450; 70544; 70549; 70551; 71045; 76770; 80048; 80061; 80076; 81003; 81015; 82150; 82550; 82553; 82947; 83036; 83605; 83690; 83735; 84145; 84436; 84443; 84484; 85025; 85610; 85730; 87040; 87086; 87088; 92523; 92610; 93005; 93306; 93880; 96361; 96365; 97116; 97161; 97165; 99285; A9577; J0696; J3475; J3480; J7030; U0002

== ENCOUNTER 2020-02-24 07:40 | Inpatient (IN) | payer OTHER ==
[2020-02-24 08:23] LABS: Absolute Lymphocytes (CBC) 1.9 K/uL (0.7-4.9); Basophils % 0.5 % (0-1.3); Hematocrit 40.3 % (36.0-45.0); Lymphocytes % 37.9 % (15.3-44.8); MPV 8.5 fL (7.6-11.3); RBC Red Blood Cell Count 4.66 M/uL (3.86-4.86)
--- NOTE | 2020-02-24 08:38 | RAD REPORT ---
EXAM DESCRIPTION: CT - Head Brain Wo Cont - 02/24/2020 8:26 am CLINICAL HISTORY: Confused;Declining state Headache, drowsiness, CVA COMPARISON: Head Brain Wo Cont dated 10/25/2019; Head Brain Wo Cont dated 07/23/2019; MRA Head Wo Cont dated 10/27/2019; MRA Neck W/Wo Cont dated 10/27/2019; Brain Wo Cont dated 10/26/2019 TECHNIQUE: All CT scans are performed using dose optimization technique as appropriate and may inclu de automated exposure control or mA/KV adjustment according to patient size. FINDINGS: No intracranial hemorrhage, hydrocephalus or extra-axial fluid collection.Remote infarct i s seen in the left occipital lobe and right parietooccipital lobe. Mild brain atrophy with mild periv entricular and deep white matter chronic microvascular ischemic changes. The paranasal sinuses and mastoids are clear. The calvarium is intact. IMPRESSION: No acute intracranial abnormality.
--- NOTE | 2020-02-24 08:46 | RAD REPORT ---
EXAM DESCRIPTION: RAD - Chest Single View - 02/24/2020 8:40 am CLINICAL HISTORY: weakness possible UTI Chest pain. COMPARISON: Chest Single View dated 10/25/2019; Chest Single View dated 07/08/2019; Chest Single View dated 12/29/2018; Chest Single View dated 12/29/2018 FINDINGS: Portable technique limits examination quality. The lungs are grossly clear. The heart is normal in size. No displaced fractures.Aortic atheroscleros is. IMPRESSION: No acute intrathoracic process suspected.
[2020-02-24 08:49] LABS: ALT/SGPT 56 U/L (12-78); AST/SGOT 65 U/L (15-37); Albumin 3.3 g/dL (3.4-5.0); Alkaline Phosphatase 152 U/L (45-117); BUN Blood Urea Nitrogen 23 mg/dL (7-18); Bicarbonate 22 mmol/L (21-32); Bilirubin Direct 0.1 mg/dL (0-0.2); Bilirubin Total 0.4 mg/dL (0.2-1.0); Glucose Level 110 mg/dL (74-106); Magnesium 1.6 mg/dL (1.8-2.4); NT PRO-BNP 134 pg/mL (<125); Potassium 3.8 mmol/L (3.5-5.1); Protein, Total 8.6 g/dL (6.4-8.2); Sodium Level 138 mmol/L (136-145); Troponin (Emerg Dept Use Only) < 0.02 ng/mL (0.0-0.045)
[2020-02-24 10:04] LABS: Urine Blood NEGATIVE (NEG); Urine Glucose NEGATIVE (NEG); Urine Protein 1+ (NEG); Urine pH 5.5 (5.0-7.0)
[2020-02-24 10:14] LABS: Protime INR 2.17
--- NOTE | 2020-02-24 10:26 | ER ---
Nurse's Notes [facility] Name: Sissy Padron Age: 74 yrs Sex: Female : 1945 Arrival Date: 02/24/2020 Time: 07:45 Bed 14 Private MD: Diagnosis: Altered mental status, unspecified;Weakness Presentation: 02/23 07:48 Chief complaint: EMS states: family states patient has been experiencing generalized zb weakness and patient has peed in 24 hours. reported pt alert and oriented and negative VAN scale. Coronavirus screen: At this time, the client does not indicate any symptoms associated with coronavirus-19. Ebola Screen: No symptoms or risks identified at this time. Initial Sepsis Screen: Does the patient meet any 2 criteria? No. Patient's initial sepsis screen is negative. Does the patient have a suspected source of infection? No. Patient's initial sepsis screen is negative. Risk Assessment: Do you want to hurt yourself or someone else? Patient reports no desire to harm self or others. Onset of symptoms was February 23, 2020. 07:48 Method Of Arrival: EMS: [facility] zb 07:48 Acuity: MARCELO 3 zb Triage Assessment: 07:50 General: Appears in no apparent distress. comfortable, Behavior is calm, cooperative, zb flat. Pain: Denies pain. EENT: No signs and/or symptoms were reported regarding the EENT system. Neuro: Level of Consciousness is awake, alert, obeys commands, Oriented to person, Sales Attendant are weak on left Moves all extremities. Weakness in left Speech is normal, Facial symmetry appears normal, Pupils are PERRLA. Cardiovascular: Capillary refill < 3 seconds in bilateral fingers Patient's skin is warm and dry. Respiratory: Airway is patent Respiratory effort is even, unlabored, Respiratory pattern is regular, symmetrical. GI: Abdomen is round non-distended, Bowel sounds present X 4 quads. : Parent/caregiver report the patient having inability to void since 24 hours. Derm: Skin is intact, is healthy with good turgor. Musculoskeletal: Circulation, motion, and sensation intact. Capillary refill < 3 seconds, in bilateral fingers. Range of motion: limited in left leg. Historical: - Allergies: 08:19 Codeine; zb 08:19 PENICILLINS; zb 08:37 Morphine; zb - Home Meds: 08:19 metoprolol succinate 25 mg Oral Tb24 1 tab once daily [Active]; atorvastatin 40 mg Oral zb tab 1 tab once daily [Active]; alprazolam 1 mg Oral tab as needed [Active]; aspirin 81 mg Oral TbEC 1 tab once daily [Active]; duloxetine 60 mg Oral cpDR 1 cap once daily [Active]; topiramate 25 mg Oral CSpX 1 cap twice daily [Active]; pantoprazole 40 mg Oral TbEC 1 tab once daily [Active]; metformin 500 mg Oral tab 2 times per day [Active]; losartan 50 mg Oral tab 0.5 tab once daily [Active]; Eliquis 5 mg oral tab 1 tab 2 times per day [Active]; Toujeo SoloStar 300 unit/mL (1.5 mL) subcutaneous inpn 10 mL [Active]; - PMHx: 08:19 Anxiety; Diabetes - IDDM; Hypertension; neuropathy; zb - PSHx: 08: Hysterectomy; Cholecystectomy; zb - Immunization history:: Adult Immunizations up to date. - Social history:: Smoking status: unknown. Screenin:50 Abuse screen: Denies threats or abuse. Denies injuries from another. Nutritional zb screening: No deficits noted. Tuberculosis screening: No symptoms or risk factors identified. Fall Risk Fall in past 12 months (25 points). Secondary diagnosis (15 points) CVA, IV access (20 points). Ambulatory Aid- None/Bed Rest/Nurse Assist (0 pts). Gait- Impaired (20 pts.). Mental Status- Overestimates/Forgets Limitations (15 pts.). Total Land Fall Scale indicates High Risk Score (45 or more points). Fall prevention measures have been instituted. Side Rails Up X 2 Placed Close to Nursing Station Frequent Obs/Assessments Occuring As available patient and family educated on Fall Prevention Program and Strategies. 08:00 VAN Screening: Arm Drift: Patient shows no arm weakness. Patient is VAN negative. jd3 Assessment: 08:00 Reassessment: See triage note. zb 09:00 Reassessment: Patient appears in no apparent distress at this time. Patient and/or zb family updated on plan of care and expected duration. Pain level reassessed. no change to patient at this time. pt appears to be resting in bed. 10:00 Reassessment: Patient appears in no apparent distress at this time. Patient and/or zb family updated on plan of care and expected duration. Pain level reassessed. pt resting in bed. aox1-2. skin warm and dry. 11:00 Reassessment: Patient appears in no apparent distress at this time. Patient and/or zb family updated on plan of care and expected duration. Pain level reassessed. ECP at bedside to discuss care with patient and patient's son. 12:00 Reassessment: Patient appears in no apparent distress at this time. Patient and/or zb family updated on plan of care and expected duration. Pain level reassessed. Hospitalist came to bedside to discuss POC with patient. pt appears in no acute distress. AOX1-2. 13:00 Reassessment: Pt in MRI. zb 14:00 Reassessment: Patient appears in no apparent distress at this time. Patient and/or zb family updated on plan of care and expected duration. Pain level reassessed. EEG and US at bedside. pt aox1. Vital Signs: 07:48 BP 119 / 65; Pulse 94; Resp 16; Temp 97.0; Pulse Ox 95% on R/A; Weight 83.91 kg; Height zb 5 ft. 7 in. (170.18 cm); Pain 0/10; 08:50 BP 111 / 73; Pulse 92; Resp 20; Pulse Ox 95% on R/A; zb 10:00 BP 113 / 66; Pulse 94; Resp 18; Pulse Ox 96% on R/A; zb 11:00 BP 104 / 65; Pulse 94; Resp 16; Pulse Ox 95% on R/A; zb 12:00 BP 103 / 69; Pulse 90; Resp 16; Pulse Ox 95% on R/A; zb 14:00 BP 117 / 80; Pulse 95; Resp 16; Pulse Ox 94% on R/A; zb 07:48 Body Mass Index 28.97 (83.91 kg, 170.18 cm) zb ED Course: 07:45 Patient arrived in ED. aa5 07:46 Bhupinder Clark MD is Attending Physician. kdr 07:48 Silvina Benito RN is Primary Nurse. zb 07:50 Arm band placed on right wrist. EKG completed in triage. Results shown to MD. zb 07:57 Triage completed. zb 07:57 Radiology exam delayed due to IV insertion attempt and/or patient not having sw appropriate IV at this time. RN TO CALL WHEN PT IS READY FOR CT. 08:00 Inserted saline lock: 22 gauge in right antecubital area, using aseptic technique. zb 08:00 Door closed. Noise minimized. Warm blanket given. zb 08:09 EKG done, by ED staff, reviewed by Bhupinder Clark MD. jd3 08:24 CT completed. Patient tolerated procedure well. Patient moved to CT via stretcher. jt2 Patient moved back from CT. 08:25 CT Head Brain wo Cont In Process Unspecified. EDMS 08:26 Patient has correct armband on for positive identification. Bed in low position. Call zb light in reach. Side rails up X2. Pulse ox on. NIBP on. 08:41 XRAY Chest (1 view) In Process Unspecified. EDMS 09:40 Straight cath inserted, using sterile technique, 16 Fr. Specimen obtained. zb 12:11 Linda Jessica MD is Hospitalizing Provider. kdr 14:50 No provider procedures requiring assistance completed. Patient admitted, IV remains in zb place. Administered Medications: No medications were administered Output: 09:40 Urine: 700ml (Straight Cath); Total: 700ml. zb Outcome: 10:26 Discharge ordered by . kdr 12:12 Decision to Hospitalize by Provider. kdr 15:15 Admitted to Med/surg accompanied by tech, via stretcher, room 203, with chart, Report zb called to PJ 15:15 Condition: stable 15:15 Instructed on the need for admit, Demonstrated understanding of instructions. 15:34 Patient left the ED. jd3 Signatures: Dispatcher [employer] EDAZ Bhupinder Clark MD MD kdr Shea Jorge, RN RN aa5 Rossy Carrera Jonathon, RN RN jd3 Silvina Benito RN RN cristobalb Irving Nunez jt2 Corrections: (The following items were deleted from the chart) 08:29 07:48 Chief complaint: EMS states: family states patient has been experiencing zb generalized weakness and patient has peed in 24 hours zb 13:03 09:00 Reassessment: Patient appears in no apparent distress at this time. Patient zb and/or family updated on plan of care and expected duration. Pain level reassessed. Patient is alert, oriented x 3, equal unlabored respirations, skin warm/dry/pink. no change to patient at this time. pt appears to be resting in bed zb 13:03 10:00 Reassessment: Patient appears in no apparent distress at this time. Patient zb and/or family updated on plan of care and expected duration. Pain level reassessed. Patient is alert, oriented x 3, equal unlabored respirations, skin warm/dry/pink. pt resting in bed zb 15:26 07:48 Onset of symptoms was February 24, 2020 zb jd3
--- NOTE | 2020-02-24 10:26 | EDPHYS ---
Physician Documentation [facility] Name: Sissy Padron Age: 74 yrs Sex: Female : 1945 Arrival Date: 02/24/2020 Time: 07:45 Bed 14 Private MD: ED Physician Bhupinder Clark HPI: 02/23 07:54 This 74 yrs old Female presents to ER via Unassigned with complaints of kdr Urinary Problem. 07:54 Family apparently called EMS concerned that the patient may be more confused than usual kdr and has not urinated in 24 hours. The patient on exam has no focal c/o. She did not say her name but was able to follow commands on the right and while she moved the left, she was weaker on the left upper/lower. She is moving all extremities. Onset: The symptoms/episode began/occurred gradually, 24 hour(s) ago. Severity of symptoms: At their worst the symptoms were mild in the emergency department the symptoms are unchanged. It is unknown whether or not the patient has had similar symptoms in the past. It is unknown whether or not the patient has recently seen a physician. Historical: - Allergies: 08:19 Codeine; zb 08:19 PENICILLINS; zb 08:37 Morphine; zb - Home Meds: 08:19 metoprolol succinate 25 mg Oral Tb24 1 tab once daily [Active]; atorvastatin 40 mg Oral zb tab 1 tab once daily [Active]; alprazolam 1 mg Oral tab as needed [Active]; aspirin 81 mg Oral TbEC 1 tab once daily [Active]; duloxetine 60 mg Oral cpDR 1 cap once daily [Active]; topiramate 25 mg Oral CSpX 1 cap twice daily [Active]; pantoprazole 40 mg Oral TbEC 1 tab once daily [Active]; metformin 500 mg Oral tab 2 times per day [Active]; losartan 50 mg Oral tab 0.5 tab once daily [Active]; Eliquis 5 mg oral tab 1 tab 2 times per day [Active]; Toujeo SoloStar 300 unit/mL (1.5 mL) subcutaneous inpn 10 mL [Active]; - PMHx: 08:19 Anxiety; Diabetes - IDDM; Hypertension; neuropathy; zb - PSHx: 08:19 Hysterectomy; Cholecystectomy; zb - Immunization history:: Adult Immunizations up to date. - Social history:: Smoking status: unknown. ROS: 07:54 Constitutional: Negative for fever, chills, and weight loss, Eyes: Negative for injury, kdr pain, redness, and discharge, Neck: Negative for injury, pain, and swelling, Cardiovascular: Negative for chest pain, palpitations, and edema, Respiratory: Negative for shortness of breath, cough, wheezing, and pleuritic chest pain, Abdomen/GI: Negative for abdominal pain, nausea, vomiting, diarrhea, and constipation, Back: Negative for injury and pain, : Negative for injury, bleeding, discharge, and swelling, MS/Extremity: Negative for injury and deformity, Skin: Negative for injury, rash, and discoloration, Neuro: Negative for headache, new weakness, numbness, tingling, and seizure activity. Psych: Negative for depression, anxiety, suicide ideation, homicidal ideation, and hallucinations, Allergy/Immunology: Negative for hives, rash, and allergies, Endocrine: Negative for neck swelling, polydipsia, polyuria, polyphagia, and marked weight changes, Hematologic/Lymphatic: Negative for swollen nodes, abnormal bleeding, and unusual bruising. Exam: 08:02 Constitutional: This is a well developed, well nourished patient who is awake, alert, kdr and in no acute distress. Head/Face: Normocephalic, atraumatic. Eyes: Pupils equal round and reactive to light, extra-ocular motions intact. Lids and lashes normal. Conjunctiva and sclera are non-icteric and not injected. Cornea within normal limits. Periorbital areas with no swelling, redness, or edema. Neck: Trachea midline, no thyromegaly or masses palpated, and no cervical lymphadenopathy. Supple, full range of motion without nuchal rigidity, or vertebral point tenderness. No Meningismus. Chest/axilla: Normal chest wall appearance and motion. Nontender with no deformity. No lesions are appreciated. Cardiovascular: Regular rate and rhythm with a normal S1 and S2. No gallops, murmurs, or rubs. Normal PMI, no JVD. No pulse deficits. Respiratory: Lungs have equal breath sounds bilaterally, clear to auscultation and percussion. No rales, rhonchi or wheezes noted. No increased work of breathing, no retractions or nasal flaring. Abdomen/GI: Soft, non-tender, with normal bowel sounds. No distension or tympany. No guarding or rebound. No evidence of tenderness throughout. Back: No spinal tenderness. No costovertebral tenderness. Full range of motion. Skin: Warm, dry with normal turgor. Normal color with no rashes, no lesions, and no evidence of cellulitis. MS/ Extremity: Pulses equal, no cyanosis. Neurovascular intact. Full, normal range of motion. 08:02 Neuro: Orientation: unable to test, Mentation: able to follow commands, slow to respond, Memory: unable to test, Cerebellar function: unable to test, Motor: moves all fours, Strength is 3/5 in the left arm and left leg, Gait: unable to assess, the patient is nonambulatory. 08:43 ECG was reviewed by the Attending Physician. kdr Vital Signs: 07:48 BP 119 / 65; Pulse 94; Resp 16; Temp 97.0; Pulse Ox 95% on R/A; Weight 83.91 kg; Height zb 5 ft. 7 in. (170.18 cm); Pain 0/10; 08:50 BP 111 / 73; Pulse 92; Resp 20; Pulse Ox 95% on R/A; zb 10:00 BP 113 / 66; Pulse 94; Resp 18; Pulse Ox 96% on R/A; zb 11:00 BP 104 / 65; Pulse 94; Resp 16; Pulse Ox 95% on R/A; zb 12:00 BP 103 / 69; Pulse 90; Resp 16; Pulse Ox 95% on R/A; zb 14:00 BP 117 / 80; Pulse 95; Resp 16; Pulse Ox 94% on R/A; zb 07:48 Body Mass Index 28.97 (83.91 kg, 170.18 cm) zb MDM: 08:10 Data reviewed: vital signs, nurses notes, old medical records, EKG. Counseling: I had a kdr detailed discussion with the patient and/or guardian regarding: the historical points, exam findings, and any diagnostic results supporting the discharge/admit diagnosis, lab results, radiology results. 10:26 Patient medically screened. [facility] 02/23 07:53 Order name: Basic Metabolic Panel; Complete Time: 10:03 kdr 02/23 07:53 Order name: CBC with Diff; Complete Time: 10:03 kdr 02/23 07:53 Order name: LFT's; Complete Time: 10:03 kdr 02/23 07:53 Order name: Magnesium; Complete Time: 10:03 kdr 02/23 07:53 Order name: NT PRO-BNP; Complete Time: 10:03 kdr 02/23 07:53 Order name: PT-INR [facility] 02/23 07:53 Order name: Troponin (emerg Dept Use Only); Complete Time: 10:03 kdr 02/23 07:53 Order name: Urine Culture [facility] 02/23 09:43 Order name: Urine Dipstick--Ancillary (enter results); Complete Time: 10:19 bd 02/23 11:36 Order name: Urine Drug Screen [facility] 02/23 11:36 Order name: CBC with Automated Diff EDPR 02/23 11:36 Order name: CBC with Automated Diff EDPR 02/23 11:36 Order name: Comprehensive Metabolic Panel [facility] 02/23 11:36 Order name: Comprehensive Metabolic Panel [facility] 02/23 07:53 Order name: XRAY Chest (1 view); Complete Time: 10:03 [facility] 02/23 11:36 Order name: Lipid Profile [facility] 02/23 11:36 Order name: Lipid Profile EDPR 02/23 11:36 Order name: Magnesium EDPR 02/23 11:36 Order name: Magnesium EDPR 02/23 11:36 Order name: Phosphorus EDPR 02/23 11:36 Order name: Phosphorus EDPR 02/23 11:36 Order name: Sedimentation Rate, Westergren EDPR 02/23 11:36 Order name: Sedimentation Rate, [place]gren EDPR 02/23 11:36 Order name: T4,Total EDPR 02/23 11:36 Order name: T4,Total EDPR 02/23 11:36 Order name: Thyroid Stimulating Hormone EDPR 02/23 11:36 Order name: Thyroid Stimulating Hormone EDPR 02/23 11:36 Order name: Troponin I EDPR 02/23 11:36 Order name: Troponin I EDPR 02/23 11:36 Order name: Troponin I EDPR 02/23 07:53 Order name: EKG; Complete Time: 07:54 [facility] 02/23 07:53 Order name: Cardiac monitoring; Complete Time: 07:56 kdr 02/23 07:53 Order name: EKG - Nurse/Tech; Complete Time: 08:08 [facility] 02/23 07:53 Order name: IV Saline Lock; Complete Time: 08:08 [facility] 02/23 07:53 Order name: Labs collected and sent; Complete Time: 08:08 [facility] 02/23 07:53 Order name: O2 Per Protocol; Complete Time: 07:55 [facility] 02/23 07:53 Order name: O2 Sat Monitoring; Complete Time: 07:55 [facility] 02/23 07:53 Order name: CT Head Brain wo Cont; Complete Time: 10:03 [facility] 02/23 07:53 Order name: Urine Dipstick-Ancillary (obtain specimen): Cath; Complete Time: 10:25 [facility] 02/23 09:34 Order name: Straight Cath; Complete Time: 09:41 [facility] 02/23 10:30 Order name: MRI - Brain With Cont [facility] 02/23 11:36 Order name: Physical Therapy Consult [facility] 02/23 11:36 Order name: Speech Therapy Consult [facility] 02/23 11:36 Order name: NPO [facility] 02/23 11:36 Order name: NPO [facility] 02/23 11:36 Order name: NPO [facility] 02/23 11:36 Order name: Echo with Doppler [facility] 02/23 11:36 Order name: EEG Request [facility] 02/23 11:36 Order name: EKG Electrocardiogram [facility] 02/23 11:36 Order name: Stroke Protocol [facility] 02/23 14:26 Order name: MRI [facility] 02/23 14:31 Order name: MRI [facility] 02/23 14:43 Order name: MRI EDPR EC:43 Rate is 98 beats/min. Rhythm is regular, Sinus Rhythm with No ectopy. Left axis kdr deviation noted. MI interval is normal. QRS interval is normal. QT interval is normal. Clinical impression: NSR w/ Non-specific ST/T Changes. Administered Medications: No medications were administered Disposition: 02/24/20 12:12 Hospitalization ordered by Linda Jessica for Inpatient Admission. Preliminary diagnosis are Altered mental status, unspecified, Weakness. - Bed requested for Telemetry/MedSurg (Inpatient). - Status is Inpatient Admission. jd3 - Condition is Fair. - Problem is new. - Symptoms are unchanged. Signatures: Dispatcher [employer] EDPR Leesa Mondragon Kevin, MD MD kdr Davies, Jonathon, RN RN jd3 Brown, Zipporah, RN RN zb Corrections: (The following items were deleted from the chart) 11:34 10:26 02/24/2020 10:26 Discharged to Home. Impression: Decresae Urine Output, Renal kdr Insufficiency. Condition is Fair. Forms are Medication Reconciliation Form, Thank You Letter, Antibiotic Education, Prescription Opioid Use. Follow up: Private Physician; When: 2 - 3 days; Reason: If symptoms return, Further diagnostic work-up, Recheck today's complaints, Continuance of care, Re-evaluation by your physician. Problem is an acute exacerbation. Symptoms are resolved. kdr 11:41 11:36 Chest Pa And Lat (2 Views) ordered. EDPR EDMS 12:37 12:12 Hospitalization Ordered by Linda Jessica MD for Inpatient Admission. Preliminary bd diagnosis is Altered mental status, unspecified; Weakness. Bed requested for Telemetry/MedSurg (Inpatient). Status is Inpatient Admission. Condition is Fair. Problem is new. Symptoms are unchanged. kdr 15:34 12:37 02/24/2020 12:12 Hospitalization Ordered by Linda Jessica MD for Inpatient jd3 Admission. Preliminary diagnosis is Altered mental status, unspecified; Weakness. Bed requested for Telemetry/MedSurg (Inpatient). Status is Inpatient Admission. Condition is Fair. Problem is new. Symptoms are unchanged. bd
[2020-02-24] MEDS ORDERED: ONDANSETRON 4 MG/2 ML VIAL IV PRN (11:31)
[2020-02-24] MEDS ORDERED: NA CHLORIDE 0.9% 1,000 ML IV SCH (12:00)
[2020-02-24] MEDS: ENOXAPARIN 40 MG/0.4 ML SQ SCH ×2 (13:00→16:52)
--- NOTE | 2020-02-24 14:25 | RAD REPORT ---
EXAM DESCRIPTION: MRI - Brain W/Wo Cont - 02/24/2020 1:58 pm CLINICAL HISTORY: CONFUSED COMPARISON: MRA Head Wo Cont dated 02/24/2020; Head Brain Wo Cont dated 02/24/2020; MRA Neck W/Wo Co nt dated 10/27/2019; MRA Head Wo Cont dated 10/27/2019; Brain Wo Cont dated 10/26/2019 TECHNIQUE: Sagittal and axial T1-weighted images were obtained. Axial PD/heavily T2-weighted and T2- FLAIR images were obtained along with axial DWI/ADC mapping sequences. Axial T2 dark fluid FLAIR sequ ence obtained as well. Coronal heavily T2 weighted sequence obtained. Axial and coronal post-contras t T1-weighted images were also obtained. A 18 ml Multihance contrast following utilized. FINDINGS: No acute intracranial hemorrhage and no acute cortical based infarction identifiable. Alena ent has a baseline of moderate severity atrophy with ventricles in proportion to volume loss. A large area is encephalomalacia is present in the medial left occipital lobe extending into the posteromedi al aspect of the left temporal lobe. This is a hypointense T1 and hyperintense T2/IR signal pattern. Areas of gyriform hyperintense T1 signal present. This is an area of known remote infarction. There i s a smaller 3.5 centimeter area of encephalomalacia in the right temporal occipital junction. There i s cortical thinning with gyri showing hyperintense T1 signal. This is the remnant of the acute infarc tion seen on the October imaging. Gyriform enhancement is seen at the right temporal occipital CVA. Th ere is heterogeneous enhancement along the medial margins of the old left temporal-occipital CVA. The se are enhancement patterns expected for old CVA. No suspicious or unexpected enhancement pattern. No abnormal dural thickening or enhancement. No edema or shift of midline structures. Signal voids are seen as a normal finding in the major intracranial vessels. Mastoid air cells and paranasal sinuses are clear. IMPRESSION: No acute infarction changes identifiable. No hematoma, mass or mass effect seen. Encephalomalacia is present from a remote left posterior cerebral artery infarction involving the med ial left occipital lobe and medial left temporal lobe. There is encephalomalacia that has developed a t the site of infarction detailed October 2019 at the right temporal occipital junction. Underlying prominent atrophy and chronic ischemic change.
--- NOTE | 2020-02-24 14:30 | RAD REPORT ---
EXAM DESCRIPTION: MRI - MRA Neck W/Wo Cont - 02/24/2020 1:58 pm CLINICAL HISTORY: Weakness, stroke-like symptoms, syncope COMPARISON: MRA neck October 27, 2019 TECHNIQUE: MR angiography of the cervical vasculature performed. Coronal imaging plane acquisition u tilized. A 18 MultiHance contrast volume was utilized. Coronal reformatted images were generated and reviewed. Vertical axis 3D rotational projections obtained using maximum intensity projection protoco l. FINDINGS: Aortic arch is 3 vessel configuration with no origins stenosis. Right vertebral artery anabelle gin is well visualized with no stenosis. Left origin is not well visualized. The bilateral common carotid and internal carotid arteries show no significant stenosis or dissection . Patient probably has some mild stenosis at the right carotid bulb much less than 50%. Right vertebral artery shows no stenosis or dissection. The smaller left vertebral artery is better v isualized than on the prior study but shows areas of atherosclerotic narrowing in the proximal few cm . There is 1 focal area of stenosis approximately 70%. Stenosis at the origin cannot be excluded. No basilar artery abnormality seen. IMPRESSION: No significant finding in the cervical carotid circulation. No changes from the October xamination. Small left vertebral artery shows significant atherosclerotic change in the proximal few cm up to 70% in severity.
--- NOTE | 2020-02-24 14:42 | RAD REPORT ---
EXAM DESCRIPTION: MRI - MRA Head Wo Cont - 02/24/2020 1:57 pm CLINICAL HISTORY: CVA, stroke-like symptoms, prior heart. COMPARISON: MRI brain same date, MRI October 2019 TECHNIQUE: Axial and coronal 3D [id number] image acquisition was performed. 3D rotational images were generated with source and reconstruction images reviewed. Horizontal and vertical axis rotation al views generated using MIP protocol. FINDINGS: Right internal carotid artery from skullbase determination shows no significant disease. C avernous portion of the left internal carotid artery shows irregular luminal narrowing estimated 50%. The bilateral anterior cerebral arteries and the left middle cerebral artery show no significant abn ormalities. There is significant atherosclerotic change and luminal narrowing involving the distal M1 branch and multiple M2 branches of the right middle cerebral artery. This pattern would not be unexp ected given the October right cerebral CVA. Significant atherosclerotic changes cause luminal narrowin g of the right posterior cerebral artery. There is truncation of the left posterior cerebral artery a pproximately 1.5 cm from origin. This occlusion would be expected given the large medial occipital an d medial temporal lobe remote CVA. IMPRESSION: Significant irregular atherosclerotic narrowing of the right middle cerebral artery dist al M1 branch and multiple M2 branches. This is progressive from the October 2019 study. Right middle c erebral artery branch occlusion would be the source for the right cerebral infarction that occurred A 2019. Truncation of the left posterior cerebral artery similar to comparison. This would be the vessel that supplies the area of infarction in the medial left occipital and temporal lobes. Significant atherosclerotic change in the distal most left internal carotid artery estimated at 50%.
[2020-02-24 16:22] VITALS: BMI 29.0
[2020-02-24] MEDS: D5 0.9 NS 1,000 ML IV SCH (20:41)
[2020-02-24] MEDS: ATORVASTATIN 20 MG TAB PO SCH (20:44)
[2020-02-25 03:23] LABS: Barbiturates NEGATIVE (NEGATIVE); Benzodiazepines POSITIVE (NEGATIVE); Cocaine NEGATIVE (NEGATIVE); METHAMPHETAM NEGATIVE (NEGATIVE); Methadone NEGATIVE (NEGATIVE); Opiates NEGATIVE (NEGATIVE); Phencyclidine NEGATIVE (NEGATIVE); THC Cannibis NEGATIVE (NEGATIVE)
--- NOTE | 2020-02-25 08:24 | ECHO ---
HEIGHT: 5 ft 6 in WEIGHT: 180 lb 0 oz DATE OF STUDY: 02/24/[address]: Linda Jessica MD 2-DIMENSIONAL: YES M.MODE: YES DOPPLER: YES COLOR FLOW: YES TDS: YES PORTABLE: YES DEFINITY: BUBBLE STUDY: DIAGNOSIS: STROKE CARDIAC HISTORY: CATHERIZATION: SURGERY: PROSTHETIC VALVE: PACEMAKER: MEASUREMENTS (cm) DIASTOLIC (NORMALS) SYSTOLIC (NORMALS) IVSd 1.1 (0.6-1.2) LA Diam 2.9 (1.9-4.0) LVEF 62% LVIDd 2.8 (3.5-5.7) LVIDs 1.9 (2.0-3.5) %FS 32% LVPWd 1.2 (0.6-1.2) Ao Diam 2.7 (2.0-3.7) 2 DIMENSIONAL ASSESSMENT: RIGHT ATRIUM: NORMAL LEFT ATRIUM: NORMAL RIGHT VENTRICLE: NORMAL LEFT VENTRICLE: NORMAL TRICUSPID VALVE: NORMAL MITRAL VALVE: NORMAL PULMONIC VALVE: NORMAL AORTIC VALVE: NORMAL PERICARDIAL EFFUSION: SMALL AORTIC ROOT: NORMAL LEFT VENTRICULAR WALL MOTION: NORMAL DOPPLER/COLOR FLOW: NORMAL COMMENTS: NORMAL LEFT VENTRICULAR EJECTION FRACTION 55-60%. SMALL PERICARDIAL EFFUSION. TECHNOLOGIST: SILVANA DIAZ
[2020-02-25] MEDS: ASPIRIN EC 81 MG TAB PO SCH (08:34)
[2020-02-25] MEDS: CLOPIDOGREL 75 MG TABLET PO SCH (08:35)
[2020-02-25] MEDS: D5 0.9 NS 1,000 ML IV SCH ×3 (09:20→21:40)
[2020-02-25] MEDS: ENOXAPARIN 40 MG/0.4 ML SQ SCH (10:27)
--- NOTE | 2020-02-25 16:23 | P.HP ---
Certification for Inpatient Patient admitted to: Inpatient With expected LOS: >2 Midnights Patient will require the following post-hospital care: None Practitioner: I am a practitioner with admitting privileges, knowledge of patient current condition, hospital course, and medical plan of care. Services: Services provided to patient in accordance with Admission requirements found in Title 42 Section 412.3 of the Code of Federal Regulations Patient History Date of Service: 02/24/20 Reason for admission: Altered mental status; aphasia History of Present Illness: Patient is a 74-year-old female came to the hospital with altered mentation. Patient was not really following commands and was very lethargic. Whenever she would talk she would really not make a lot of sense. It appear patient had expressive aphasia. She has 2 major strokes and she has severe cerebral vascular disease. She came into the emergency room for further evaluation. In the emergency room her CT of the brain did not reveal any acute infarct. However clinically she appears to have had a stroke as her baseline is that she gets around with a walker on her own and she has normal conversations on the phone with her son. He told me that just a few days ago she had called him to talk. It was a normal conversation. She started getting an upper respiratory infection and was taking cough medication. Her son thinks the easier she took too much or she had a stroke. Which she had 1 prior stroke she also was not able to communicate like she is having issues today. At this time, we will admit the patient to the hospital for further evaluation. Allergies naproxen Allergy (Intermediate, Verified 10/25/19 21:59) Hives/Rash codeine Allergy (Verified 10/25/19 21:59) Itching/Hives/Rash Penicillins Allergy (Verified 10/25/19 21:59) Itching/Hives/Rash morphine Adverse Reaction (Mild, Verified 10/25/19 21:59) confusion Home Medications: ALPRAZolam [Xanax*] 1 tab PO DAILY PRN 10/26/19 Aspirin [Lo-Dose Aspirin EC] 1 tab PO DAILY 10/26/19 Duloxetine HCl 1 cap PO DAILY 10/26/19 Losartan Potassium 50 mg PO SEECOM 10/26/19 Metformin HCl 1 tab PO BID 10/26/19 Pantoprazole Sodium 1 tab PO DAILY 10/26/19 Topiramate [Topamax] 1 tab PO BID 10/26/19 Apixaban [Eliquis] 5 mg PO BID #60 tablet 10/27/19 Atorvastatin Calcium [Lipitor] 40 mg PO BEDTIME 02/24/20 Metoprolol Succinate [Toprol Xl*] 25 mg PO DAILY 02/24/20 - Past Medical/Surgical History Has patient received pneumonia vaccine in the past: Yes Diabetic: Yes -: Hypertension -: Diabetes mellitus -: Hyperlipidemia -: Obesity -: CVA L occipital lobe 07/06/19 -: neuropathy -: anxiety -: hysterectomy -: right knee surgery -: left hip replacement -: both wrist surgery -: cholecystectomy Psychosocial/ Personal History: Patient lives at home with her . - Family History Father Family History: Reviewed- Non-Contributory - Social History Smoking Status: Former smoker Review of Systems 10-point ROS is otherwise unremarkable Physical Examination - Vital Signs Temperature: 97.1 F Blood Pressure: 135/78 Pulse: 114 Respirations: 16 Pulse Ox (%): 93 - Physical Exam General: Alert, Confused HEENT: Atraumatic, PERRLA, Mucous membr. moist/pink, EOMI, Sclerae nonicteric Neck: Supple, 2+ carotid pulse no bruit, No LAD, Without JVD or thyroid abnormality Respiratory: Clear to auscultation bilaterally, Normal air movement Cardiovascular: Regular rate/rhythm, Normal S1 S2, Systolic murmur Gastrointestinal: Normal bowel sounds, Soft and benign, Non-distended, No tenderness Musculoskeletal: No clubbing, No swelling, No tenderness Neurological: Abnormal gait, Abnormal speech, Abnormal strength, Abnormal tone, Abnormal affect Lymphatics: No axilla or inguinal lymphadenopathy Assessment & Plan - Problems (Diagnosis) (1) Acute CVA (cerebrovascular accident) Current Visit: Yes Status: Acute (2) Expressive aphasia Current Visit: Yes Status: Acute (3) Chronic kidney disease Current Visit: Yes Status: Acute (4) Wernicke's receptive aphasia Current Visit: No Status: Acute (5) Diabetes Current Visit: No Status: Chronic Qualifiers: (6) Hypertension Current Visit: No Status: Chronic Qualifiers: - Plan 1. Physical therapy evaluation 2. Speech therapy evaluation 3. Anti-platelet therapy and statin therapy 4. Lipid profile in the morning 5. MRI of the brain/echocardiogram/carotid Doppler 6. Physically patient is not doing well and may benefit more from inpatient physical therapy and inpatient rehab 7. Neurology consultation appreciated 8. Permissive hypertension and gradual blood pressure control 9. Neuro checks every 4 hr 10. GI and DVT prophylaxis Discharge Plan: Other Plan to discharge in: Greater than 2 days - Advance Directives Does patient have a Living Will: Yes Does patient have a Durable POA for Healthcare: Yes - Code Status/Comfort Care Code Status Assessed: Yes Code Status: Full Code Critical Care: No Time Spent Managing PTS Care (In Minutes): 45
--- NOTE | 2020-02-25 16:24 | P.DS ---
Discharge Date: 02/25/20 Reason for Admission: Altered mental status; aphasia - Problems (1) Acute CVA (cerebrovascular accident) Current Visit: Yes Status: Acute (2) Expressive aphasia Current Visit: Yes Status: Acute (3) Chronic kidney disease Current Visit: Yes Status: Acute (4) Wernicke's receptive aphasia Current Visit: No Status: Acute (5) Diabetes Current Visit: No Status: Chronic Qualifiers: (6) Hypertension Current Visit: No Status: Chronic Qualifiers: Brief History of Present Illness: Patient is a 74-year-old female came to the hospital with altered mentation. Patient was not really following commands and was very lethargic. Whenever she would talk she would really not make a lot of sense. It appear patient had expressive aphasia. She has 2 major strokes and she has severe cerebral vascular disease. She came into the emergency room for further evaluation. In the emergency room her CT of the brain did not reveal any acute infarct. However clinically she appears to have had a stroke as her baseline is that she gets around with a walker on her own and she has normal conversations on the phone with her son. He told me that just a few days ago she had called him to talk. It was a normal conversation. She started getting an upper respiratory infection and was taking cough medication. Her son thinks the easier she took too much or she had a stroke. Which she had 1 prior stroke she also was not able to communicate like she is having issues today. At this time, we will admit the patient to the hospital for further evaluation. Vital Signs/Physical Exam: Temp Pulse Resp BP Pulse Ox 97.1 F 114 H 16 135/78 93 02/25/20 16:24 02/25/20 16:24 02/25/20 16:24 02/25/20 16:24 02/25/20 16:24 Laboratory Data at Discharge: WBC 4.9 K/uL (4.3-10.9) 02/24/20 08:09 Hgb 13.6 g/dL (12.0-15.0) 02/24/20 08:09 Hct 40.3 % (36.0-45.0) 02/24/20 08:09 Plt Count 166 K/uL (152-406) 02/24/20 08:09 PT 25.2 SECONDS (9.5-12.5) H 02/24/20 08:09 INR 2.17 02/24/20 08:09 Sodium 138 mmol/L (136-145) 02/24/20 08:09 Potassium 3.8 mmol/L (3.5-5.1) 02/24/20 08:09 BUN 23 mg/dL (7-18) H 02/24/20 08:09 Creatinine 1.37 mg/dL (0.55-1.3) H 02/24/20 08:09 Glucose 110 mg/dL (74-106) H 02/24/20 08:09 Magnesium 1.6 mg/dL (1.8-2.4) L D 02/24/20 08:09 Total Bilirubin 0.4 mg/dL (0.2-1.0) 02/24/20 08:09 AST 65 U/L (15-37) H 02/24/20 08:09 ALT 56 U/L (12-78) 02/24/20 08:09 Alkaline Phosphatase 152 U/L (45-117) H 02/24/20 08:09 Troponin I Cancelled 02/25/20 00:00 Home Medications: ALPRAZolam [Xanax*] 1 tab PO DAILY PRN 10/26/19 Aspirin [Lo-Dose Aspirin EC] 1 tab PO DAILY 10/26/19 Duloxetine HCl 1 cap PO DAILY 10/26/19 Losartan Potassium 50 mg PO SEECOM 10/26/19 Metformin HCl 1 tab PO BID 10/26/19 Pantoprazole Sodium 1 tab PO DAILY 10/26/19 Topiramate [Topamax] 1 tab PO BID 10/26/19 Apixaban [Eliquis] 5 mg PO BID #60 tablet 10/27/19 Atorvastatin Calcium [Lipitor] 40 mg PO BEDTIME 02/24/20 Metoprolol Succinate [Toprol Xl*] 25 mg PO DAILY 02/24/20 Followup: Unknown,U [Primary Care Provider] -
--- NOTE | 2020-02-25 18:22 | CON ---
Reason For Consultation: Consultation called because of altered mental status. History Of Present Illness: Ms. Padron is a 74-year-old right-handed patient, who was hospit alized twice in the last year with acute to subacute strokes affecting the posterior circulation and predominant deficits of cortical blindness and aphasia. She was sent to long term after she jack d terrell lomax in the inpatient rehabilitation unit in July and then came back with a second stroke in and was sent out to long term. Reportedly, the patient became more confused than usual and had difficulty following instructions, could not say her name, follow commands, and could not track a nd the staff thought there was perhaps some more left upper and lower extremity weakness. At [facility], she was evaluated yesterday by brain MRI, which identified chronic strokes, no acute st roke. There was encephalomalacia in the left posterior cerebral artery territory involving a prior s troke. It involved the medial left temporal lobe and the medial left occipital lobe areas that are i mportant for vision and language. There was also encephalomalacia at the stroke site from October in the right temporal occipital region. Further, the study was remarkable for prominent diffuse atrophy from chronic small-vessel ischemic disease. Her blood work revealed a normal complete blood count w ith differential, INR of 2.17. Chemistries show dehydration with creatinine 1.37. Liver function st udies show elevated alkaline phosphatase of 152, AST 65. Urinalysis showed 1+ protein, but was other hook negative and she was positive for benzodiazepines. Since her admission, the patient's friend erica stephens was in the room with her states she still has some difficulty with communication and appears to be somewhat confused as well. Past Medical History: Includes anxiety, insulin-dependent diabetes mellitus, hypertension, and diabe tic neuropathy. Past Surgical History: Hysterectomy, cholecystectomy. Allergies: CODEINE, PENICILLIN, AND MORPHINE. Medications: Metoprolol 25 mg daily, atorvastatin 40 mg daily, alprazolam 1 mg as needed daily, aspi rin 81 mg daily, duloxetine 60 mg daily, topiramate 25 mg twice daily, pantoprazole 40 mg daily, metf ormin 500 mg 2 daily, losartan 50 mg half daily, Eliquis 5 mg twice daily, Toujeo 300 units/mL and sh e has 1.5 mL subcutaneously daily. Social History: She is in a [facility] for care providers. Review of Systems: Not reliable. The patient does not give reliable answers at this point; however, chart review indica madhu no recent fevers or chills; no nausea, vomiting, or diarrhea. Physical Examination: Vital Signs: Blood pressure 135/78, pulse of 101 up to 114, temperature 97.1, oxygen saturation 93%, respiratory rate 16 to 20. General: Ms. Padron is resting in bed. She is in no significant distress. She is normocephalic and a traumatic. Her sclerae are anicteric. Oropharynx is moist and pink. Neck: Supple. Chest: Clear. Heart: Regular. She has some stasis changes in her feet with red discoloration in her feet up to th e ankles and thickening of her skin in the lower legs, likely related to chronic peripheral neuropath y and diabetes. Neurological: She is a somewhat sleepy, but easily arousable, and follows commands with some encoura gement. She has difficulty crossing the midline in terms of instructions to go from right to left or left to right. She did mention of the right hand when repeatedly asked to do so, and eventually the left as well. She is able to move both feet equally well. In terms of her ability to perceive in f ront of her, she did identify correctly 1 finger, but when multiple fingers were in front of her, she was unable to identify the fingers and she could not visually track properly. Cranial nerves otherw ise are intact. On motor, she had no focal weakness, just diffuse weakness in the upper and lower ex tremities. Her reflexes are symmetric in the upper and lower extremities and depressed. Unable to f ully assess coordination with visual deficits and she will be ambulated with physical therapy and she would likely require mod to max assist for therapy. Earlier today, the physical therapist did make attempts to have the patient ambulate, however, the patient did not follow instructions that is requi red to allow her to stand and attempt to ambulate. She did require moderate assistance for bed trans kan. In terms of gait, she did eventually walk 12 feet, but required moderate assistance and guidanc e with a walker to ambulate 12 feet. Assessment: Ms. Padron is a 74-year-old patient, who has multiple subacute strokes to acute stroke and has moderate to advanced small vessel ischemic disease with vascular dementia. 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 She has multiple stroke risk factors including hype rtension, diabetes, dyslipidemia. At her level of functioning, she will likely require skilled nursi ng to continue physical and occupational therapy as she is not likely to benefit much from acute invt tient rehabilitation given her lower level of cognitive functioning. Plan: 1.Continue with physical and occupational therapy on a long term basis. 2.Continue with aggressive management of hypertension, diabetes, dyslipidemia, and continue with man agement of antiplatelet medications including the aspirin, Plavix, high-dose statin. She is also deh ydrated and benefit from increased hydration, 8 glasses of water daily. AIDAN/SAMUEL Voice ID: [id number] Report ID: [id number]
[2020-02-25] MEDS: ATORVASTATIN 20 MG TAB PO SCH (21:39)
--- NOTE | 2020-02-26 05:55 | P.PN ---
Subjective Date of Service: 02/25/20 Subjective: No C/O voiced, Improving Patient is more ambulatory with physical therapy. Patient is more awake. However, she still does not answer my questions appropriately. EEG is also pending. Neurology will review. Possible rehab placement today as well. Review of Systems 10-point ROS is otherwise unremarkable Physical Examination - Vital Signs Temperature: 99.5 F Blood Pressure: 139/76 Pulse: 112 Respirations: 18 Pulse Ox (%): 92 - Physical Exam General: Alert, In no apparent distress, Oriented x3 HEENT: Atraumatic, PERRLA, EOMI Neck: Supple, JVD not distended Respiratory: Clear to auscultation bilaterally, Normal air movement Cardiovascular: Regular rate/rhythm, Normal S1 S2, No murmurs Gastrointestinal: Normal bowel sounds, Soft and benign, Non-distended, No tenderness, No rebound, No guarding Musculoskeletal: No clubbing, No tenderness Integumentary: No rashes Neurological: Normal speech, Normal tone, Normal affect Lymphatics: No axilla or inguinal lymphadenopathy - Studies Medications List Reviewed: Yes Assessment & Plan - Problems (Diagnosis) (1) Acute CVA (cerebrovascular accident) Current Visit: Yes Status: Acute (2) Expressive aphasia Current Visit: Yes Status: Acute (3) Chronic kidney disease Current Visit: Yes Status: Acute (4) Wernicke's receptive aphasia Current Visit: No Status: Acute (5) Diabetes Current Visit: No Status: Chronic Qualifiers: (6) Hypertension Current Visit: No Status: Chronic Qualifiers: - Plan 1. Physical therapy evaluation appreciated 2. Speech therapy evaluation appreciated 3. Anti-platelet therapy and statin therapy 4. Lipid profile in the morning 5. MRI of the brain/echocardiogram/carotid Doppler; no new infarct 6. Accepted by inpt rehab; covid positive and changes plan 7. Neurology consultation appreciated 8. Permissive hypertension and gradual blood pressure control 9. Neuro checks every 4 hr 10. GI and DVT prophylaxis Discharge Plan: Home - Advance Directives Does patient have a Living Will: Yes Does patient have a Durable POA for Healthcare: Yes - Code Status/Comfort Care Code Status: Full Code Critical Care: No Time Spent Managing PTS Care (In Minutes): 35
[2020-02-26 06:15] LABS: Basophils % 0.3 % (0-1.3); Hematocrit 36.8 % (36.0-45.0); Lymphocytes % 23.1 % (15.3-44.8); MPV 7.8 fL (7.6-11.3); RBC Red Blood Cell Count 4.34 M/uL (3.86-4.86)
[2020-02-26 07:05] LABS: Albumin 2.8 g/dL (3.4-5.0); Bilirubin Total 0.4 mg/dL (0.2-1.0); Magnesium 1.6 mg/dL (1.8-2.4); Phosphorus 1.7 mg/dL (2.5-4.9); Potassium 3.2 mmol/L (3.5-5.1); Protein, Total 7.9 g/dL (6.4-8.2); T4,Total 12.4 ug/dL (4.8-13.9); Thyroid Stimulating Hormone 0.587 uIU/mL (0.360-3.740)
[2020-02-26] MEDS: ENOXAPARIN 40 MG/0.4 ML SQ SCH (07:45)
[2020-02-26] MEDS: CLOPIDOGREL 75 MG TABLET PO SCH (07:46)
[2020-02-26] MEDS: ASPIRIN EC 81 MG TAB PO SCH (07:47)
[2020-02-26] MEDS: ACETAMINOPHEN 500 MG TAB PO PRN (07:59)
--- NOTE | 2020-02-26 10:59 | P.PN ---
Subjective Date of Service: 02/26/20 Chief Complaint: Altered mental status; aphasia Subjective: No new changes Review of Systems is unable to be obtained Physical Examination - Vital Signs Temperature: 98.9 F Blood Pressure: 133/75 Pulse: 93 Respirations: 24 Pulse Ox (%): 93 - Physical Exam General: Alert, Demented HEENT: Atraumatic, Normocephalic Neck: Supple Respiratory: Clear to auscultation bilaterally, Normal air movement Cardiovascular: No edema, Regular rate/rhythm, Normal S1 S2 Capillary refill: <2 Seconds Gastrointestinal: Soft and benign, W/out hepatosplenomegaly Musculoskeletal: No clubbing, No swelling Integumentary: No rashes Neurological: Other (Alert, Confused ) Lymphatics: No axilla or inguinal lymphadenopathy - Studies Microbiology Data (last 24 hrs): 02/24/20 09:40 Catheterized Urine [place] Count - Final BETWEEN 10,000 & 100,000 CFU/ML 02/24/20 09:40 Catheterized Urine - Final MIXED DENITA. Medications List Reviewed: Yes Assessment & Plan - Problems (Diagnosis) (1) Acute CVA (cerebrovascular accident) Current Visit: Yes Status: Acute (2) Chronic kidney disease Current Visit: Yes Status: Acute (3) Expressive aphasia Current Visit: Yes Status: Acute (4) Abdominal pain Current Visit: No Status: Acute Qualifiers: Abdominal location: left lower quadrant Qualified Code(s): R10.32 - Left lower quadrant pain (5) Acute renal failure Current Visit: No Status: Acute Qualifiers: Acute renal failure type: unspecified Qualified Code(s): N17.9 - Acute kidney failure, unspecified (6) Acute renal failure superimposed on stage 3 chronic kidney disease Current Visit: No Status: Acute (7) Anemia Current Visit: No Status: Acute (8) CVA (cerebral vascular accident) Current Visit: No Status: Acute (9) Hydronephrosis Current Visit: No Status: Acute Qualifiers: Hydronephrosis type: with ureteropelvic junction obstruction Qualified Cod e(s): Q62.11 - Congenital occlusion of ureteropelvic junction (10) Hyperglycemia Current Visit: No Status: Acute (11) Left sided cerebral hemisphere cerebrovascular accident (CVA) Current Visit: No Status: Acute (12) UTI (urinary tract infection) Current Visit: No Status: Acute (13) Wernicke's receptive aphasia Current Visit: No Status: Acute (14) Diabetes Current Visit: No Status: Chronic Qualifiers: (15) Hypertension Current Visit: No Status: Chronic Qualifiers: Physician Review Additional Text: Monitor closely under telemetry Continue antiplatelet Plavix and along with statin COVID 19 positive will get a repeat x-ray chest, CRP, LDH and ferritin Start on Decadron along with vitamin-C and zinc Electrolytes monitored replace accordingly PTOT evaluation appreciated Appreciate help from neurology MRI of the brain/echocardiogram/carotid Doppler; no new infarct Accepted by inpt rehab; covid positive and changes plan Neuro checks every 4 hr GI and DVT prophylaxis Time Spent Managing Pts Care (In Minutes): 42
[2020-02-26] MEDS: D5 0.9 NS 1,000 ML IV SCH (11:40)
[2020-02-26] MEDS: dexAMETHasone 4 MG/ML VIAL IV SCH (12:44)
--- NOTE | 2020-02-26 13:13 | RAD REPORT ---
EXAM DESCRIPTION: RAD - Chest Single View - 02/26/2020 12:55 pm CLINICAL HISTORY: SOB COMPARISON: February 23 TECHNIQUE: AP portable chest image was obtained 02/26/2020 12:55 pm . FINDINGS: Lung volumes are low. Stranding at the left base could be atelectasis or infiltrate. Ill-d efined opacification present in the mid left lung field potentially early infiltrate. This can be mon itored on a subsequent imaging, preferably with improved inspiratory effort. No diffuse pulmonary elsy ma pattern. Heart and vasculature are normal. No measurable pleural effusion and no pneumothorax. No acute bony abnormality seen. No acute aortic findings suspected. IMPRESSION: Limited shallow inspiration film showing atelectasis or infiltrate left base. Small ill-defined infiltrate pattern in the left mid lung field could be atelectasis or early early i nfiltrate. This can be monitored on subsequent imaging.
[2020-02-26] MEDS ORDERED: POTASSIUM PHOS IN 0.9 % NACL 15 MMOL/250 ML BAG IV ONE (13:50)
[2020-02-26] MEDS ORDERED: MAGNESIUM SULFATE 1 gm IVPB 1 GM/100 ML BAG IV ONE (13:50)
--- NOTE | 2020-02-26 14:04 | EKG ---
Test Date: 2020-02-24 Test Time: 08:03:10 Bomb Loader: BERONICA MEASUREMENT RESULTS: Intervals: Rate: 98 NC: 172 QRSD: 76 QT: 346 QTc: 441 [place]: P: 55 NC: 172 QRS: -81 T: 71 INTERPRETIVE STATEMENTS: Normal sinus rhythm Left axis deviation Inferior infarct, age undetermined Anteroseptal infarct, age undetermined Abnormal ECG Compared to ECG 10/25/2019 17:34:29 Fusion complex(es) no longer present Myocardial infarct finding still present Electronically Signed On 02-26-20 13:59:16 FLAME CUTTER by Spnecer Marquez
[2020-02-26] MEDS: FAMOTIDINE 20 MG TAB PO SCH (20:45)
[2020-02-26] MEDS: ATORVASTATIN 20 MG TAB PO SCH (20:45)
[2020-02-27 06:01] LABS: C-Reactive Protein 61.3 mg/L (<3.00)
[2020-02-27] MEDS: D5 0.9 NS 1,000 ML IV SCH ×2 (06:04→18:41)
[2020-02-27] MEDS: ASPIRIN EC 81 MG TAB PO SCH (09:03)
[2020-02-27] MEDS: FAMOTIDINE 20 MG TAB PO SCH ×2 (09:03→20:05)
[2020-02-27] MEDS: CLOPIDOGREL 75 MG TABLET PO SCH (09:03)
[2020-02-27] MEDS: dexAMETHasone 4 MG/ML VIAL IV SCH (09:03)
[2020-02-27] MEDS: ENOXAPARIN 40 MG/0.4 ML SQ SCH (09:04)
[2020-02-27] MEDS: ASCORBIC ACID 500 MG TABLET PO SCH (09:04)
[2020-02-27] MEDS: ZINC SULFATE 220 MG CAP PO SCH (09:04)
--- NOTE | 2020-02-27 09:56 | P.PN ---
Subjective Date of Service: 02/27/20 Chief Complaint: Altered mental status; aphasia Subjective: No new changes, Improving (Drowsy but arousable More alert than yesterday) Review of Systems is unable to be obtained Physical Examination - Vital Signs Temperature: 97.4 F Blood Pressure: 139/79 Pulse: 87 Respirations: 18 Pulse Ox (%): 95 - Physical Exam General: Alert, In no apparent distress HEENT: Atraumatic, Normocephalic Neck: Supple Respiratory: Diminished, Crackles/rales Cardiovascular: Regular rate/rhythm, Normal S1 S2 Capillary refill: <2 Seconds Gastrointestinal: Soft and benign, W/out hepatosplenomegaly Musculoskeletal: No clubbing, No swelling Integumentary: No rashes Neurological: Other (Drowsy but arousable) Lymphatics: No axilla or inguinal lymphadenopathy - Studies Microbiology Data (last 24 hrs): 02/24/20 09:40 Catheterized Urine [place] Count - Final BETWEEN 10,000 & 100,000 CFU/ML 02/24/20 09:40 Catheterized Urine - Final MIXED DENITA. Medications List Reviewed: Yes Assessment & Plan - Problems (Diagnosis) (1) Acute CVA (cerebrovascular accident) Current Visit: Yes Status: Acute (2) Chronic kidney disease Current Visit: Yes Status: Acute (3) Expressive aphasia Current Visit: Yes Status: Acute (4) Abdominal pain Current Visit: No Status: Acute Qualifiers: Abdominal location: left lower quadrant Qualified Code(s): R10.32 - Left lower quadrant pain (5) Acute renal failure Current Visit: No Status: Acute Qualifiers: Acute renal failure type: unspecified Qualified Code(s): N17.9 - Acute kidney failure, unspecified (6) Acute renal failure superimposed on stage 3 chronic kidney disease Current Visit: No Status: Acute (7) Anemia Current Visit: No Status: Acute (8) CVA (cerebral vascular accident) Current Visit: No Status: Acute (9) Hydronephrosis Current Visit: No Status: Acute Qualifiers: Hydronephrosis type: with ureteropelvic junction obstruction Qualified Code(s): Q62.11 - Congenital occlusion of ureteropelvic junction (10) Hyperglycemia Current Visit: No Status: Acute (11) Left sided cerebral hemisphere cerebrovascular accident (CVA) Current Visit: No Status: Acute (12) UTI (urinary tract infection) Current Visit: No Status: Acute (13) Wernicke's receptive aphasia Current Visit: No Status: Acute (14) Diabetes Current Visit: No Status: Chronic Qualifiers: (15) Hypertension Current Visit: No Status: Chronic Qualifiers: Physician Review Additional Text: Saturating well with nasal cannula 2 L start on steroids Monitor closely under telemetry Continue antiplatelet Plavix and along with statin COVID 19 positive Start on Decadron along with vitamin-C and zinc Electrolytes monitored , replace accordingly PTOT evaluation appreciated Appreciate help from neurology MRI of the brain/echocardiogram/carotid Doppler; no new infarct Accepted by inpt rehab; As she is covid positive , awaiting disposition plans from case management GI and DVT prophylaxis Time Spent Managing Pts Care (In Minutes): 42
--- NOTE | 2020-02-27 17:54 | RAD REPORT ---
EXAM DESCRIPTION: XR Chest 1 View CLINICAL HISTORY: S/P PICC insertion TECHNIQUE: Single frontal view of the chest is submitted. COMPARISON: None available for comparison FINDINGS: Heart: The cardiothoracic silhouette is within normal limits. Lungs: Minimal patchy bibasilar opacities. Mediastinum: Thoracic aortic atherosclerosis. Pleura: No appreciable effusion. No pneumothorax. Bones: Intact Upper abdomen: Unremarkable Other: Right upper extremity PICC tip projects over the proximal to mid superior vena cava. IMPRESSION: 1. Right upper extremity PICC tip projects over the proximal to mid superior vena cava . 2. Minimal patchy bibasilar opacities (atelectasis and/or infiltrate). Electronically signed by: Petty Parekh MD 02/27/2020 1:01 AM COMMODITY LEAD Due to temporary technical issues with the PACS/Fluency reporting system, reports are being signed by the in house radiologists without review as a courtesy to insure prompt reporting. The interpreting radiologist is fully responsible for the content of the report.
[2020-02-27] MEDS: ATORVASTATIN 20 MG TAB PO SCH (20:05)
[2020-02-28] MEDS: D5 0.9 NS 1,000 ML IV SCH (03:43)
--- NOTE | 2020-02-28 08:17 | P.PN ---
Subjective Date of Service: 02/28/20 Chief Complaint: Altered mental status; aphasia Physical Examination - Vital Signs Temperature: 96.8 F Blood Pressure: 174/85 Pulse: 78 Respirations: 16 Pulse Ox (%): 93 - Physical Exam General: Alert, Other (Expressive aphasia noted) Neck: Supple Respiratory: Clear to auscultation bilaterally, Normal air movement Cardiovascular: Normal pulses, Regular rate/rhythm Neurological: Normal strength at 5/5 x4 extr, Normal tone, Normal affect, Abnormal speech - Studies Medications List Reviewed: Yes Assessment & Plan Discharge Plan: Other (longterm facility) Plan to discharge in: 48 Hours Physician Review Additional Text: Impression: 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 Will need to consider skilled placement as the patient was positive for COVID. Await recommendations by physical therapy. Continue with Neurology recommendations. Hypertension: Continue medication Diabetes mellitus type 2: Monitor Accu-Cheks and sliding scale. Anemia of chronic disease: Monitor closely. COVID 19 positive: Continue steroid medication. Monitor CRP. Time Spent Managing Pts Care (In Minutes): 55
[2020-02-28] MEDS: CLOPIDOGREL 75 MG TABLET PO SCH (08:50)
[2020-02-28] MEDS: FAMOTIDINE 20 MG TAB PO SCH ×2 (08:50→20:07)
[2020-02-28] MEDS: ENOXAPARIN 40 MG/0.4 ML SQ SCH (08:50)
[2020-02-28] MEDS: predniSONE 10 MG TAB PO SCH (08:50)
[2020-02-28] MEDS: ASPIRIN EC 81 MG TAB PO SCH (08:50)
[2020-02-28] MEDS: ASCORBIC ACID 500 MG TABLET PO SCH ×2 (08:50→20:08)
[2020-02-28] MEDS: ZINC SULFATE 220 MG CAP PO SCH (08:50)
[2020-02-28 08:52] LABS: Absolute Lymphocytes (CBC) 0.5 K/uL (0.7-4.9); Basophils % 0.1 % (0-1.3); Hematocrit 33.5 % (36.0-45.0); Lymphocytes % 5.5 % (15.3-44.8); MPV 7.3 fL (7.6-11.3); RBC Red Blood Cell Count 3.98 M/uL (3.86-4.86)
[2020-02-28] MEDS ORDERED: NACHLORIDE 0.45% 1,000 ML IV SCH (09:00)
[2020-02-28 09:24] LABS: C-Reactive Protein 23.9 mg/L (<3.00); Ferritin 557.9 ng/mL (8-388); Magnesium 1.6 mg/dL (1.8-2.4); Potassium 3.2 mmol/L (3.5-5.1)
[2020-02-28 10:01] LABS: Platelet Estimate ADEQ; White Blood Cell Scan OK (OK)
[2020-02-28 10:02] LABS: Blood Morphology Comment NOT SEEN (NOT SEEN)
[2020-02-28] MEDS: ATORVASTATIN 80 MG TAB PO SCH ×2 (20:06→20:09)
[2020-02-28] MEDS: LOSARTAN POTASSIUM 50 MG TABLET PO SCH (20:06)
[2020-02-28] MEDS: TOPIRAMATE 25 MG TAB PO SCH (20:07)
[2020-02-28] MEDS: METOPROLOL XL 25 MG TAB PO SCH (20:08)
[2020-02-28] MEDS: GLUCERNA SHAKE 237 ML CAN PO SCH (20:10)
[2020-02-29] MEDS: ACETAMINOPHEN 500 MG TAB PO PRN (02:18)
[2020-02-29 04:56] LABS: Magnesium 1.5 mg/dL (1.8-2.4); Potassium 3.1 mmol/L (3.5-5.1)
[2020-02-29] MEDS ORDERED: METOPROLOL XL 25 MG TAB PO SCH (06:00)
[2020-02-29] MEDS ORDERED: Magnesium Sulfate 2gm IVPB 2 G/50 ML BAG IV ONE (06:15)
[2020-02-29] MEDS ORDERED: POTASSIUM CL 40 MEQ in NA CHLORIDE 0.9% 500 ML IV SCH (08:00)
[2020-02-29] MEDS: ASPIRIN EC 81 MG TAB PO SCH (08:59)
[2020-02-29] MEDS: ENOXAPARIN 40 MG/0.4 ML SQ SCH (08:59)
[2020-02-29] MEDS: FAMOTIDINE 20 MG TAB PO SCH ×2 (09:00→21:35)
[2020-02-29] MEDS: ZINC SULFATE 220 MG CAP PO SCH (09:00)
[2020-02-29] MEDS: LOSARTAN POTASSIUM 50 MG TABLET PO SCH ×2 (09:00→21:35)
[2020-02-29] MEDS: METOPROLOL XL 25 MG TAB PO SCH ×2 (09:00→21:35)
[2020-02-29] MEDS: DULOXETINE 30 MG CAP PO SCH (09:00)
[2020-02-29] MEDS ORDERED: HOME MED 1 EA UNK (Duloxetine Hcl [Duloxetine Hcl] 60 MG Capsule.Dr) PO SCH (09:00)
[2020-02-29] MEDS: GLUCERNA SHAKE 237 ML CAN PO SCH ×2 (09:00→21:35)
[2020-02-29] MEDS: PANTOPRAZOLE 40MG TABLET PO SCH (09:00)
[2020-02-29] MEDS: TOPIRAMATE 25 MG TAB PO SCH ×2 (09:01→21:35)
[2020-02-29] MEDS: ASCORBIC ACID 500 MG TABLET PO SCH ×3 (09:01→21:35)
[2020-02-29] MEDS: CLOPIDOGREL 75 MG TABLET PO SCH (09:01)
[2020-02-29] MEDS: predniSONE 10 MG TAB PO SCH (09:09)
[2020-02-29 13:47] LABS: Magnesium 1.9 mg/dL (1.8-2.4); Potassium 3.4 mmol/L (3.5-5.1)
--- NOTE | 2020-02-29 14:09 | EEG ---
CHART: [id number] TEST ID#: [id number] DATE OF STUDY: 02/24/2020 THE EEG WAS RECORDED PORTABLE IN THE PATIENT'S ROOM ON A 17 CHANNEL MACHINE. ELECTRODES WERE APPLIED IN THE USUAL MANNER USING THE INTERNATIONAL 10-20 SYSTEM. THE WAKING BACKGROUND RHYTHM IN THIS RECORD CONSISTS OF POORLY DEVELOPED AND POORLY ORGANIZED WAVES OF 6-7 HZ., IN A WIDE DISTRIBUTION WHICH ATTENUATE POORLY WITH EYE OPENING. MODERATE VOLTAGE 1.5-3 HZ ACTIVITY IS EXPRESSED IN THE FRONTAL REGIONS. THE EEG IS DOMINATED BY MUCH EMG ARTIFACT. THERE ARE NO FOCAL OR LATERALIZING FEATURES. NO EPILEPTIFORM ACTIVITY APPEARS. SLEEP DID NOT OCCUR. HYPERVENTILATION WAS NOT PERFORMED. PHOTIC STIMULATION PRODUCED NO DRIVING BILATERALLY. IMPRESSION: THIS IS A MODERATELY ABNORMAL EEG DUE TO A MODERATELY SLOW BACKGROUND. THIS IS A NON-SPECIFIC FINDING INDICATING THE PRESENCE OF A MODERATE DIFFUSE DISTURBANCE IN CEREBRAL ACTIVITY.
--- NOTE | 2020-02-29 17:26 | P.PN ---
Subjective Date of Service: 02/29/20 Chief Complaint: Altered mental status; aphasia Subjective: Demented Physical Examination - Vital Signs Temperature: 97.8 F Blood Pressure: 163/76 Pulse: 91 Respirations: 19 Pulse Ox (%): 93 - Physical Exam General: Alert, Demented HEENT: Atraumatic Neck: Supple Respiratory: Clear to auscultation bilaterally, Normal air movement Cardiovascular: Normal pulses, Regular rate/rhythm Gastrointestinal: Normal bowel sounds Neurological: Abnormal speech, Dementia - Studies Medications List Reviewed: Yes Assessment & Plan Discharge Plan: Home Plan to discharge in: 48 Hours Physician Review Additional Text: Impression: 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 Spoke with at length. Advance care planning address.-30 min. wants the patient to go home with home health and physical therapy at final discharge. He is wanting her to go to skilled facility. Patient cannot go to inpatient rehab due to her COVID status. Await recommendations by physical therapy. Continue with Neurology recommendations. All discuss with family welfare social work professor. Hypertension: Continue medication. will adjust blood pressure for better control Diabetes mellitus type 2: Monitor Accu-Cheks and sliding scale. Anemia of chronic disease: Monitor closely. COVID 19 positive: Decrease steroid medication. Monitor CRP. Time Spent Managing Pts Care (In Minutes): 55
[2020-02-29] MEDS: ATORVASTATIN 80 MG TAB PO SCH (21:35)
[2020-03-01] MEDS: ACETAMINOPHEN 500 MG TAB PO PRN ×2 (00:14→19:36)
[2020-03-01 06:05] LABS: Magnesium 2.1 mg/dL (1.8-2.4)
[2020-03-01 06:07] LABS: Potassium 2.8 mmol/L (3.5-5.1)
[2020-03-01] MEDS ORDERED: KCL 20 MEQ/100 mL IVPB 20 MEQ/100 ML BAG IV SCH (07:00)
[2020-03-01] MEDS ORDERED: POTASSIUM CL 40 MEQ in NA CHLORIDE 0.9% 500 ML IV SCH (08:00)
[2020-03-01] MEDS: ENOXAPARIN 40 MG/0.4 ML SQ SCH (08:40)
[2020-03-01] MEDS: ASPIRIN EC 81 MG TAB PO SCH (08:40)
[2020-03-01] MEDS: LOSARTAN POTASSIUM 50 MG TABLET PO SCH ×2 (08:42→20:53)
[2020-03-01] MEDS: predniSONE 5 MG TAB PO SCH (08:43)
[2020-03-01] MEDS: FAMOTIDINE 20 MG TAB PO SCH ×2 (08:43→19:38)
[2020-03-01] MEDS: DULOXETINE 30 MG CAP PO SCH (08:43)
[2020-03-01] MEDS: ZINC SULFATE 220 MG CAP PO SCH (08:43)
[2020-03-01] MEDS: PANTOPRAZOLE 40MG TABLET PO SCH (08:44)
[2020-03-01] MEDS: GLUCERNA SHAKE 237 ML CAN PO SCH ×3 (08:44→19:39)
[2020-03-01] MEDS: ASCORBIC ACID 500 MG TABLET PO SCH ×3 (08:44→19:38)
[2020-03-01] MEDS: TOPIRAMATE 25 MG TAB PO SCH ×2 (08:44→19:38)
[2020-03-01] MEDS: CLOPIDOGREL 75 MG TABLET PO SCH (08:44)
[2020-03-01] MEDS: METOPROLOL XL 25 MG TAB PO SCH ×2 (08:45→20:53)
--- NOTE | 2020-03-01 09:17 | P.PN ---
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 Best case scenario is for the patient to go to a skilled facility. is not want patient to go to a skilled facility. prefers home health with physical therapy at home. This may be difficult as most agencies will not accept COVID positive patient. Would like for the to come and visit with patient with physical therapy so that he can understand how difficult this will be for him. Encourage oral intake. Encourage participation by patient. Patient with some diarrhea today. Will need to monitor this closely. Will discuss with social professionals. Will also discuss with physical therapy. Her current status may be a new baseline for her. Other options would be hospice. Hypertension: Continue medication. Will continue to adjust medication Diabetes mellitus type 2: Monitor Accu-Cheks. Sliding scale in place. Anemia of chronic disease: Monitor closely. Overall stable COVID 19 positive: Steroid decreased yesterday. Hypokalemia: Will replace and monitor closely. Depression: Continue medication. Time Spent Managing Pts Care (In Minutes): 55
[2020-03-01] MEDS: KCL 20 MEQ/100 mL IVPB 20 MEQ/100 ML BAG IV SCH ×2 (16:04→18:00)
[2020-03-01] MEDS: ATORVASTATIN 80 MG TAB PO SCH (19:36)
[2020-03-01] MEDS: LACTOBACILLUS/ACIDOPHILUS TAB PO SCH (19:37)
[2020-03-02 04:14] LABS: Absolute Lymphocytes (CBC) 0.9 K/uL (0.7-4.9); Basophils % 0.1 % (0-1.3); Hematocrit 32.7 % (36.0-45.0); Lymphocytes % 11.9 % (15.3-44.8); MPV 7.4 fL (7.6-11.3); RBC Red Blood Cell Count 3.85 M/uL (3.86-4.86)
[2020-03-02 04:19] LABS: Potassium 3.4 mmol/L (3.5-5.1)
[2020-03-02] MEDS: KCL 20 MEQ/100 mL IVPB 20 MEQ/100 ML BAG IV SCH ×2 (04:42→06:13)
[2020-03-02] MEDS: METOPROLOL XL 25 MG TAB PO SCH ×2 (08:21→21:33)
[2020-03-02] MEDS: LOSARTAN POTASSIUM 50 MG TABLET PO SCH ×2 (08:21→21:32)
[2020-03-02] MEDS: ASPIRIN EC 81 MG TAB PO SCH (08:21)
[2020-03-02] MEDS: ASCORBIC ACID 500 MG TABLET PO SCH ×3 (08:22→21:33)
[2020-03-02] MEDS: CLOPIDOGREL 75 MG TABLET PO SCH (08:22)
[2020-03-02] MEDS: DULOXETINE 30 MG CAP PO SCH (08:22)
[2020-03-02] MEDS: LACTOBACILLUS/ACIDOPHILUS TAB PO SCH ×2 (08:22→21:33)
[2020-03-02] MEDS: FAMOTIDINE 20 MG TAB PO SCH ×2 (08:22→21:33)
[2020-03-02] MEDS: GLUCERNA SHAKE 237 ML CAN PO SCH ×2 (08:23→21:00)
[2020-03-02] MEDS: ENOXAPARIN 40 MG/0.4 ML SQ SCH (08:23)
[2020-03-02] MEDS: ZINC SULFATE 220 MG CAP PO SCH (08:23)
[2020-03-02] MEDS: PANTOPRAZOLE 40MG TABLET PO SCH (08:23)
[2020-03-02] MEDS: predniSONE 5 MG TAB PO SCH ×2 (08:23→21:32)
[2020-03-02] MEDS: TOPIRAMATE 25 MG TAB PO SCH ×2 (08:23→21:33)
--- NOTE | 2020-03-02 13:28 | P.PN ---
Subjective Date of Service: 03/02/20 Chief Complaint: Altered mental status; aphasia Subjective: Demented Physical Examination - Vital Signs Temperature: 96.7 F Blood Pressure: 163/80 Pulse: 75 Respirations: 24 Pulse Ox (%): 98 - Physical Exam General: Alert, Demented HEENT: Atraumatic Neck: Supple Respiratory: Clear to auscultation bilaterally, Normal air movement, Other (on nasal canula) Cardiovascular: Normal pulses, Regular rate/rhythm Gastrointestinal: Normal bowel sounds Neurological: Normal strength at 5/5 x4 extr, Normal tone, Dementia - Studies Medications List Reviewed: Yes Assessment & Plan Discharge Plan: Other (SNF) Plan to discharge in: 24 Hours Physician Review Additional Text: Impression: 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 Spoke with at length after he met with physical therapy yesterday. understands that patient will require skilled placement. to pursue skilled placement with social work. Awaiting approval. I explained to him this may be her new baseline. This case scenario is that she improves with physical therapy. She may decline in the future. Patient may require hospice. Will discuss with him. Await approval for skilled placement. Hypertension: Continue medication. Will continue to adjust medication Diabetes mellitus type 2: Monitor Accu-Cheks. Sliding scale in place. Anemia of chronic disease: Monitor closely. Overall stable COVID 19 positive: Patient requiring 2 L per nasal cannula. Will increase steroid. Check CRP and ferritin level. Will monitor this closely.. Hypokalemia: Will replace and monitor closely. Depression: Continue medication. Time Spent Managing Pts Care (In Minutes): 55
[2020-03-02 16:01] LABS: C-Reactive Protein 56.6 mg/L (<3.00); Ferritin 573.5 ng/mL (8-388)
[2020-03-02] MEDS ORDERED: predniSONE 5 MG TAB PO SCH (21:00)
[2020-03-02] MEDS: ATORVASTATIN 80 MG TAB PO SCH (21:32)
[2020-03-03 05:24] LABS: Absolute Lymphocytes (CBC) 0.6 K/uL (0.7-4.9); Basophils % 0.4 % (0-1.3); Hematocrit 30.8 % (36.0-45.0); Lymphocytes % 10.9 % (15.3-44.8); MPV 7.3 fL (7.6-11.3); RBC Red Blood Cell Count 3.59 M/uL (3.86-4.86)
[2020-03-03 05:42] LABS: Potassium 4.2 mmol/L (3.5-5.1)
[2020-03-03] MEDS: GLUCERNA SHAKE 237 ML CAN PO SCH ×2 (09:00→20:35)
[2020-03-03] MEDS: LOSARTAN POTASSIUM 50 MG TABLET PO SCH ×2 (09:33→20:33)
[2020-03-03] MEDS: METOPROLOL XL 25 MG TAB PO SCH ×2 (09:33→20:34)
[2020-03-03] MEDS: ENOXAPARIN 40 MG/0.4 ML SQ SCH (09:33)
[2020-03-03] MEDS: FAMOTIDINE 20 MG TAB PO SCH ×2 (09:37→20:34)
[2020-03-03] MEDS: DULOXETINE 30 MG CAP PO SCH (09:37)
[2020-03-03] MEDS: ASPIRIN EC 81 MG TAB PO SCH (09:38)
[2020-03-03] MEDS: TOPIRAMATE 25 MG TAB PO SCH ×2 (09:38→20:34)
[2020-03-03] MEDS: ASCORBIC ACID 500 MG TABLET PO SCH ×3 (09:38→20:32)
[2020-03-03] MEDS: CLOPIDOGREL 75 MG TABLET PO SCH (09:38)
[2020-03-03] MEDS: predniSONE 5 MG TAB PO SCH ×2 (09:38→20:32)
[2020-03-03] MEDS: LACTOBACILLUS/ACIDOPHILUS TAB PO SCH ×2 (09:38→20:33)
[2020-03-03] MEDS: ZINC SULFATE 220 MG CAP PO SCH (09:38)
[2020-03-03] MEDS: PANTOPRAZOLE 40MG TABLET PO SCH (09:39)
--- NOTE | 2020-03-03 11:46 | P.PN ---
Subjective Date of Service: 03/03/20 Chief Complaint: Altered mental status; aphasia Subjective: Improving, Doing well Physical Examination - Vital Signs Temperature: 98.1 F Blood Pressure: 176/87 Pulse: 60 Respirations: 22 Pulse Ox (%): 94 - Physical Exam General: Alert, Cooperative HEENT: Atraumatic Neck: Supple Respiratory: Clear to auscultation bilaterally, Normal air movement Cardiovascular: Normal pulses, Regular rate/rhythm Gastrointestinal: Normal bowel sounds Neurological: Normal strength at 5/5 x4 extr, Normal tone, Normal affect - Studies Medications List Reviewed: Yes Assessment & Plan Discharge Plan: Other (long-term facility) Plan to discharge in: 48 Hours Physician Review Additional Text: Impression: 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 Steroid was increased with improvement. Patient on nasal cannula. Continue physical therapy. Spoke with at length after he met with physical therapy the other day. understands that patient will require skilled placement. to pursue skilled placement with social work. I explained to him this may be her new baseline. Patient will likely require long-term care in the future. Will need to consider hospice in the future as well. Await approval for skilled placement. I will turn the service over to the hospitalist team tomorrow. Will plan care with him. Hypertension: Continue medication. Will continue to adjust medication for better blood pressure control Diabetes mellitus type 2: Monitor Accu-Cheks. Sliding scale in place. Anemia of chronic disease: Monitor closely. Overall stable COVID 19 positive: Steroid was increased yesterday. Overall improved. Now on room air. Continue to monitor CRP and ferritin level. Will monitor this closely.. Hypokalemia: Will replace and monitor closely. Depression: Continue medication. Time Spent Managing Pts Care (In Minutes): 55
[2020-03-03] MEDS: ATORVASTATIN 80 MG TAB PO SCH (20:33)
[2020-03-04 07:38] LABS: C-Reactive Protein 7.37 mg/L (<3.00); Ferritin 532.8 ng/mL (8-388)
[2020-03-04] MEDS: GLUCERNA SHAKE 237 ML CAN PO SCH ×2 (09:00→20:32)
[2020-03-04] MEDS: FAMOTIDINE 20 MG TAB PO SCH (09:00)
[2020-03-04] MEDS: ASPIRIN EC 81 MG TAB PO SCH (09:14)
[2020-03-04] MEDS: ZINC SULFATE 220 MG CAP PO SCH (09:14)
[2020-03-04] MEDS: predniSONE 5 MG TAB PO SCH ×2 (09:14→20:36)
[2020-03-04] MEDS: LOSARTAN POTASSIUM 50 MG TABLET PO SCH ×2 (09:14→20:31)
[2020-03-04] MEDS: LACTOBACILLUS/ACIDOPHILUS TAB PO SCH ×2 (09:14→20:32)
[2020-03-04] MEDS: PANTOPRAZOLE 40MG TABLET PO SCH (09:14)
[2020-03-04] MEDS: DULOXETINE 30 MG CAP PO SCH (09:14)
[2020-03-04] MEDS: CLOPIDOGREL 75 MG TABLET PO SCH (09:15)
[2020-03-04] MEDS: ASCORBIC ACID 500 MG TABLET PO SCH ×3 (09:15→20:31)
[2020-03-04] MEDS: ENOXAPARIN 40 MG/0.4 ML SQ SCH (09:16)
[2020-03-04] MEDS: TOPIRAMATE 25 MG TAB PO SCH ×2 (09:16→20:30)
[2020-03-04] MEDS: METOPROLOL XL 25 MG TAB PO SCH ×2 (09:23→20:31)
--- NOTE | 2020-03-04 12:28 | P.PN ---
Subjective Date of Service: 03/04/20 Chief Complaint: Altered mental status; aphasia Subjective: No new changes (no acute events overnight. 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 continue PT/OT wants to pursue skilled placement, SW working onthis, will likely need long-term care in the future. Possible hospice in the future as well awaiting approval for SNF Hypertension: Continue medication. adjust as needed Diabetes mellitus type 2: Monitor Accu-Cheks. continue SSI Anemia of chronic disease: Monitor closely. Overall stable COVID 19 positive: improved after pred increased to 10 BID, Now on room air. Continue to monitor CRP and ferritin level, improving Depression: Continue medication. Hypokalemia, resolved Dispo: awaiting SNF approval Time Spent Managing Pts Care (In Minutes): 35
[2020-03-04] MEDS: ATORVASTATIN 80 MG TAB PO SCH (20:30)
[2020-03-05 05:51] LABS: Albumin 2.4 g/dL (3.4-5.0); Bilirubin Total 0.4 mg/dL (0.2-1.0); C-Reactive Protein 5.31 mg/L (<3.00); Potassium 3.9 mmol/L (3.5-5.1); Protein, Total 7.5 g/dL (6.4-8.2)
[2020-03-05] MEDS ORDERED: KCL 20 MEQ/100 mL IVPB 20 MEQ/100 ML BAG IV SCH (09:00)
[2020-03-05] MEDS ORDERED: POTASSIUM CL SA 10 MEQ TAB PO ONE (09:00)
[2020-03-05] MEDS: PANTOPRAZOLE 40MG TABLET PO SCH (09:20)
[2020-03-05] MEDS: predniSONE 5 MG TAB PO SCH ×3 (09:21→21:00)
[2020-03-05] MEDS: LOSARTAN POTASSIUM 50 MG TABLET PO SCH (09:21)
[2020-03-05] MEDS: ASPIRIN EC 81 MG TAB PO SCH (09:21)
[2020-03-05] MEDS: CLOPIDOGREL 75 MG TABLET PO SCH (09:21)
[2020-03-05] MEDS: TOPIRAMATE 25 MG TAB PO SCH ×3 (09:21→21:00)
[2020-03-05] MEDS: LACTOBACILLUS/ACIDOPHILUS TAB PO SCH ×3 (09:21→21:00)
[2020-03-05] MEDS: DULOXETINE 30 MG CAP PO SCH (09:21)
[2020-03-05] MEDS: ZINC SULFATE 220 MG CAP PO SCH (09:21)
[2020-03-05] MEDS: METOPROLOL XL 25 MG TAB PO SCH ×3 (09:21→21:00)
[2020-03-05] MEDS: ASCORBIC ACID 500 MG TABLET PO SCH ×4 (09:22→21:00)
[2020-03-05] MEDS: ENOXAPARIN 40 MG/0.4 ML SQ SCH (09:22)
[2020-03-05] MEDS: GLUCERNA SHAKE 237 ML CAN PO SCH ×3 (09:23→21:00)
--- NOTE | 2020-03-05 15:29 | P.PN ---
Subjective Date of Service: 03/05/20 Chief Complaint: Altered mental status; aphasia Subjective: No new changes (alert, oriented to self. Not wanting to talk this morning. Reports no issues/complaints no acute events overnight) Review of Systems 10-point ROS is otherwise unremarkable Physical Examination - Vital Signs Temperature: 96.5 F Blood Pressure: 170/86 Pulse: 59 Respirations: 20 Pulse Ox (%): 95 - Physical Exam General: Alert, In no apparent distress, Oriented x1 HEENT: Sclerae nonicteric Respiratory: Clear to auscultation bilaterally Cardiovascular: No edema, Regular rate/rhythm Gastrointestinal: Soft and benign, No tenderness Musculoskeletal: No tenderness Integumentary: No rashes Neurological: Dementia - Studies Medications List Reviewed: Yes Assessment & Plan Physician Review Additional Text: 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 continue PT/OT - pt has refused at times Spoke with family at length today, want SNF placement, discussed will likely need long-term care in future. possible hospice in the future as well pt has at times refused to work with PT, refuses medications, and barely eating anything son states she will typically refuse any food that is not her husbands Hypertension: remains hypertensive 170-180s at times, increase losartan, continue metoprolol. Diabetes mellitus type 2: Monitor Accu-Cheks. continue SSI Anemia of chronic disease: Monitor closely. Overall stable COVID 19 positive: improved after pred increased to 10 BID, Now on room air. Continue to monitor CRP and ferritin level, improving Depression: Continue medication. Hypokalemia, resolved Dispo: awaiting SNF approval, discussed with family at length today Time Spent Managing Pts Care (In Minutes): 45
[2020-03-05] MEDS: ATORVASTATIN 80 MG TAB PO SCH ×2 (20:43→21:00)
[2020-03-05] MEDS ORDERED: LOSARTAN POTASSIUM 50 MG TABLET PO SCH (21:00)
[2020-03-06 06:49] LABS: Absolute Lymphocytes (CBC) 1.9 K/uL (0.7-4.9); Basophils % 0.1 % (0-1.3); Hematocrit 37.9 % (36.0-45.0); Lymphocytes % 14.9 % (15.3-44.8); MPV 7.5 fL (7.6-11.3); RBC Red Blood Cell Count 4.45 M/uL (3.86-4.86)
[2020-03-06 07:03] LABS: Magnesium 2.2 mg/dL (1.8-2.4); Potassium 3.6 mmol/L (3.5-5.1)
[2020-03-06] MEDS: PANTOPRAZOLE 40MG TABLET PO SCH (07:30)
[2020-03-06] MEDS: CLOPIDOGREL 75 MG TABLET PO SCH (09:00)
[2020-03-06] MEDS: GLUCERNA SHAKE 237 ML CAN PO SCH (09:00)
[2020-03-06] MEDS: TOPIRAMATE 25 MG TAB PO SCH (09:00)
[2020-03-06] MEDS: ASCORBIC ACID 500 MG TABLET PO SCH ×2 (09:00→13:32)
[2020-03-06] MEDS: ZINC SULFATE 220 MG CAP PO SCH (09:00)
[2020-03-06] MEDS: LACTOBACILLUS/ACIDOPHILUS TAB PO SCH (09:00)
[2020-03-06] MEDS: DULOXETINE 30 MG CAP PO SCH (09:00)
[2020-03-06] MEDS: ASPIRIN EC 81 MG TAB PO SCH (09:00)
[2020-03-06] MEDS: predniSONE 5 MG TAB PO SCH (09:00)
[2020-03-06] MEDS: METOPROLOL XL 25 MG TAB PO SCH (09:00)
[2020-03-06] MEDS: ENOXAPARIN 40 MG/0.4 ML SQ SCH (09:23)
[2020-03-06 10:19] LABS: Blood Morphology Comment NOT SEEN (NOT SEEN); Platelet Estimate INCR
[2020-03-06 13:35] VITALS: O2SAT 93
--- NOTE | 2020-03-06 13:46 | P.DS ---
Admission Date: 02/24/20 Discharge Date: 03/06/20 Disposition: TRANSFER TO SNF - REHAB Discharge Condition: FAIR Reason for Admission: Altered mental status; aphasia Consultations: Neurology - Dr. Gomez Procedures: CXR (02/23): No acute intrathoracic process suspected. CT Head (02/23): No acute intracranial abnormality. MRI Brain (02/23): No acute infarction changes identifiable. No hematoma, mass or mass effect seen. Encephalomalacia is present from a remote left posterior cerebral artery infarction involving the medial left occipital lobe and medial left temporal lobe. There is encephalomalacia that has developed at the site of infarction detailed October 2019 at the right temporal occipital junction. Underlying prominent atrophy and chronic ischemic change. MRI/MRA Brain (02/23): Significant irregular atherosclerotic narrowing of the right middle cerebral artery distal M1 branch and multiple M2 branches. This is progressive from the October 2019 study. Right middle cerebral artery branch occlusion would be the source for the right cerebral infarction that occurred October 2019. Truncation of the left posterior cerebral artery similar to comparison. This would be the vessel that supplies the area of infarction in the medial left occipital and temporal lobes. Significant atherosclerotic change in the distal most left internal carotid artery estimated at 50%. MRI/MRA Neck (02/23): No significant finding in the cervical carotid circulation. No changes from the October examination. Small left vertebral artery shows significant atherosclerotic change in the proximal few cm up to 70% in severity. CXR (02/25): Limited shallow inspiration film showing atelectasis or infiltrate left base. Small ill-defined infiltrate pattern in the left mid lung field could be atelectasis or early early infiltrate. This can be monitored on subsequent imaging. CXR (02/26): 1. Right upper extremity PICC tip projects over the proximal to mid superior vena cava. Minimal patchy bibasilar opacities (atelectasis and/or infiltrate). EEG (02/23): moderately abnormal EEG, moderately slow background. non-specific finding indication the presence of a moderate diffuse disturbance in cerbral activity. 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 Workup in ED revealed chronic strokes and no evidence of acute stroke, however was notable for encephalomalacia in the areas improtant for vision and language. She was admitted for further evaluation / treatment. Family also stated she was starting to get an upper respiratory infection and was taking cough medication for a few days. Hospital Course: Imaging workup as noted above. Neurology was consulted. Give her multiple strokes, moderate-advanced small vessel ischemic disease with vascular dementia, it was felt that she would benefit most from SNF for further PT/OT and would currently not benefit from acute inpatient rehab given her lower level of cognitive functioning. PT/OT evaluated patient and she was requiring moderate assistance to get out of bed and walk 12 steps. This was discussed at length with family. was initially hesitant and concerned for his , but ultimately agreed that she required significant assitance at this time and was agreeable to SNF placement for PT/OT, with hopes to return home in the near future. She was found to be COVID+ and was treated with PO Prednisone. She did not require oxygen supplementation and was discharge with 10 days of prednisone. Patient reported decreased appetite and at times would refuse medications and food. This was improved when she was offered home cooked food from her , however did not work every time. Firearms Specialist was consulted and recommended Glucerna supplementation. Vital Signs/Physical Exam: Temp Pulse Resp BP Pulse Ox 96.6 F L 94 H 24 H 138/80 96 03/06/20 12:00 03/06/20 12:00 03/06/20 12:00 03/06/20 12:03/06/20 12:00 General: Alert, In no apparent distress, Oriented x2 HEENT: Sclerae nonicteric Respiratory: Clear to auscultation bilaterally, Normal air movement Cardiovascular: No edema, Regular rate/rhythm Gastrointestinal: Soft and benign, Non-distended, No tenderness Integumentary: No rashes Neurological: Other (follows commands with moderate encouragement. moves all 4 extremities, did not want to participate with my exam today), Dementia Laboratory Data at Discharge: WBC 12.9 K/uL (4.3-10.9) H D 03/06/20 05:54 Hgb 12.5 g/dL (12.0-15.0) 03/06/20 05:54 Hct 37.9 % (36.0-45.0) D 03/06/20 05:54 Plt Count 510 K/uL (152-406) H D 03/06/20 05:54 PT 25.2 SECONDS (9.5-12.5) H 02/24/20 08:09 INR 2.17 02/24/20 08:09 Sodium 141 mmol/L (136-145) 03/06/20 05:54 Potassium 3.6 mmol/L (3.5-5.1) 03/06/20 05:54 BUN 28 mg/dL (7-18) H 03/06/20 05:54 Creatinine 1.04 mg/dL (0.55-1.3) 03/06/20 05:54 Glucose 126 mg/dL (74-106) H 03/06/20 05:54 Phosphorus 1.7 mg/dL (2.5-4.9) L 02/26/20 05:58 Magnesium 2.2 mg/dL (1.8-2.4) 03/06/20 05:54 Total Bilirubin 0.4 mg/dL (0.2-1.0) 03/05/20 04:50 AST 29 U/L (15-37) 03/05/20 04:50 ALT 31 U/L (12-78) 03/05/20 04:50 Alkaline Phosphatase 79 U/L (45-117) 03/05/20 04:50 Troponin I Cancelled 02/25/20 00:00 Triglycerides 85 mg/dL (<150) 02/26/20 05:58 Cholesterol 97 mg/dL (<200) 02/26/20 05:58 HDL Cholesterol 41 mg/dL (40-60) 02/26/20 05:58 Cholesterol/HDL Ratio 2.37 02/26/20 05:58 Home Medications: ALPRAZolam [Xanax*] 1 tab PO DAILY PRN 10/26/19 Aspirin [Lo-Dose Aspirin EC] 1 tab PO DAILY 10/26/19 Duloxetine HCl 1 cap PO DAILY 10/26/19 Losartan Potassium 50 mg PO SEECOM 10/26/19 Metformin HCl 1 tab PO BID 10/26/19 Pantoprazole Sodium 1 tab PO DAILY 10/26/19 Topiramate [Topamax] 1 tab PO BID 10/26/19 Apixaban [Eliquis] 5 mg PO BID #60 tablet 10/27/19 Clopidogrel Bisulfate [Plavix*] 75 mg PO DAILY #30 tablet 02/25/20 Atorvastatin Calcium [Lipitor] 80 mg PO BEDTIME 30 Days #30 tab 03/06/20 Glucerna Shake [Glucerna*] 237 ml PO BID can 03/06/20 Metoprolol Succinate [Toprol Xl*] 25 mg PO BID 30 Days #60 tab 03/06/20 predniSONE [Prednisone*] 10 mg PO DAILY 7 Days #7 tab 03/06/20 New Medications: Atorvastatin Calcium [Lipitor] 80 mg PO BEDTIME 30 Days #30 tab Clopidogrel Bisulfate [Plavix*] 75 mg PO DAILY #30 tablet predniSONE [Prednisone*] 10 mg PO DAILY 7 Days #7 tab Metoprolol Succinate [Toprol Xl*] 25 mg PO BID 30 Days #60 tab Patient Discharge Instructions: You were evaluated and imaging revealed no new stroke, but did have some encephalomalacia in the areas of your previous stroke which may be the cause of your symptoms. Your medications were changed - metoprolol twice a day, atorvastatin increased to 80mg, and you will be dsicharged with 7 days of prednisone to help with your breathing / COVID-19. Continue physical therapy at the [facility] facility. follow up with your PCP after discharge from [facility] facility, and follow up with Neurology (Dr. Gomez) in 4-6 weeks. Diet: Pureed Activity: Fall precautions Followup: Yordan Gomez MD [ASSOCIATE-ACTIVE - CAN ADMIT] - Unknown,U [Primary Care Provider] - Time spent managing pt's care (in minutes): 45
[2020-03-06 22:22] VITALS: BP 139/76; TEMP 97.3
== END 2020-03-06 23:50 | DRG 64 ==
LOC: ER 07:40 → ERHOLD 11:31 → 2ND 14:59 → 4TH 02-25 20:05
PROVIDERS: ADMIT Hospitalist; ATTEND Hospitalist
PROC: 02HV33Z Insertion of Infusion Device into Superior Vena Cava, Percutaneous Approach (ICD-10-PCS; principal; 2020-02-27)
DX: I63.9 Cerebral infarction, unspecified (principal); U07.1 COVID-19; J12.89 Other viral pneumonia; E44.1 Mild protein-calorie malnutrition; N17.9 Acute kidney failure, unspecified; Q62.11 Congenital occlusion of ureteropelvic junction; N39.0 Urinary tract infection, site not specified; E11.40 Type 2 diabetes mellitus with diabetic neuropathy, unspecified; E78.5 Hyperlipidemia, unspecified; I12.9 Hypertensive chronic kidney disease with stage 1 through stage 4 chronic kidney disease, or unspecified chronic kidney disease; N18.30 Chronic kidney disease, stage 3 unspecified; E11.22 Type 2 diabetes mellitus with diabetic chronic kidney disease; F01.50 Vascular dementia, unspecified severity, without behavioral disturbance, psychotic disturbance, mood disturbance, and anxiety; F80.2 Mixed receptive-expressive language disorder; Z68.29 Body mass index [BMI] 29.0-29.9, adult; Z88.5 Allergy status to narcotic agent; Z88.0 Allergy status to penicillin; Z79.82 Long term (current) use of aspirin; Z79.4 Long term (current) use of insulin; Z79.899 Other long term (current) drug therapy; Z90.710 Acquired absence of both cervix and uterus; Z90.49 Acquired absence of other specified parts of digestive tract; Z79.01 Long term (current) use of anticoagulants; Z96.642 Presence of left artificial hip joint; Z86.73 Personal history of transient ischemic attack (TIA), and cerebral infarction without residual deficits; Z87.891 Personal history of nicotine dependence; D64.9 Anemia, unspecified; E11.65 Type 2 diabetes mellitus with hyperglycemia; H47.619 Cortical blindness, unspecified side of brain; E87.6 Hypokalemia; F32.9 Major depressive disorder, single episode, unspecified
CPT/HCPCS: 36415; 36569; 51702; 70450; 70544; 70549; 70553; 71045; 80048; 80053; 80061; 80076; 80307; 81003; 82728; 82947; 83605; 83615; 83735; 83880; 84100; 84132; 84436; 84443; 84484; 85025; 85379; 85610; 85652; 86140; 87086; 87088; 92610; 93005; 93306; 94760; 95816; 97110; 97112; 97116; 97161; 97530; 99285; A9577; J1100; J1650; J3475; J3480; J7030; J7040; J7042; J7512; U0002; U0003

== ENCOUNTER 2021-01-17 08:27 | Inpatient (IN) | payer OTHER ==
[2021-01-17 08:46] LABS: Arterial Blood Carboxyhemoglob 0.7 % (0-1.5); Blood Gas Oxyhemoglobin 96.5 % (94-97); Blood O2 Saturation 98.3 % (92-98.5)
[2021-01-17] MEDS ORDERED: NA CHLORIDE 0.9% 2,000 ML ONE (08:47)
[2021-01-17] MEDS ORDERED: FENTANYL CITR 100 MCG/2 ML ONE (08:47)
[2021-01-17] MEDS ORDERED: ACETAMINOPHEN 650MG/RECT SUPP PR ONE (08:47)
[2021-01-17] MEDS ORDERED: CEFTRIAXONE 1000 MG/VIAL ONE (08:47)
[2021-01-17] MEDS ORDERED: propofoL 1,000 MG/100 ML VIAL IV ONE ×3 (08:47→22:03)
[2021-01-17 08:54] LABS: Absolute Lymphocytes (CBC) 1.2 K/uL (0.7-4.9); Basophils % 0.8 % (0-1.3); Hematocrit 30.6 % (36.0-45.0); Lymphocytes % 17.4 % (15.3-44.8); MPV 8.1 fL (7.6-11.3); RBC Red Blood Cell Count 3.63 M/uL (3.86-4.86)
[2021-01-17 08:59] LABS: Protime INR 1.4
[2021-01-17 09:04] LABS: Potassium 3.2 mmol/L (3.5-5.1); Sodium Level 144 mmol/L (136-145)
[2021-01-17 09:11] LABS: Urine Blood Negative (Negative); Urine Glucose Negative (Negative); Urine Protein Trace (Negative)
[2021-01-17 09:12] LABS: ALT/SGPT 20 U/L (12-78); AST/SGOT 16 U/L (15-37); Albumin 2.5 g/dL (3.4-5.0); Alkaline Phosphatase 82 U/L (45-117); BUN Blood Urea Nitrogen 15 mg/dL (7-18); Bicarbonate 24 mmol/L (21-32); Bilirubin Direct < 0.1 mg/dL (0-0.2); Bilirubin Total 0.3 mg/dL (0.2-1.0); C-Reactive Protein 6.12 mg/L (<3.00); Creatine Phosphokinase 110 U/L (26-192); Glucose Level 147 mg/dL (74-106); Lipase 30 U/L (73-393); Protein, Total 6.7 g/dL (6.4-8.2); Troponin (Emerg Dept Use Only) < 0.02 ng/mL (0.0-0.045)
[2021-01-17] MEDS ORDERED: VANCOMYCIN/NS 1 gm 1 GM/250 ML BAG IV ONE (09:15)
--- NOTE | 2021-01-17 09:42 | RAD REPORT ---
EXAM DESCRIPTION: CT - Head Brain Wo Cont - 01/17/2021 9:19 am CLINICAL HISTORY: SEIZURE COMPARISON: Head Brain Wo Cont dated 02/24/2020; Head Brain Wo Cont dated 10/25/2019; MRA Head Wo Con t dated 02/24/2020; Brain W/Wo Cont dated 02/24/2020 TECHNIQUE: All CT scans are performed using dose optimization technique as appropriate and may inclu de automated exposure control or mA/KV adjustment according to patient size. FINDINGS: No intracranial hemorrhage, hydrocephalus or extra-axial fluid collection.Remote infarcts including the right parietal and occipital lobes and medial left occipital temporal lobe. Chronic sma ll vessel ischemic changes. Endotracheal tube. Mild ethmoid air cell thickening. The paranasal sinuses and mastoids are clear. The calvarium is intact. IMPRESSION: No acute intracranial abnormality. Sequela of remote bilateral cerebral infarcts.
--- NOTE | 2021-01-17 09:43 | RAD REPORT ---
EXAM DESCRIPTION: RAD - Chest Single View - 01/17/2021 9:32 am CLINICAL HISTORY: Fever;Dyspnea COMPARISON: Chest Single View dated 02/27/2020; Chest Single View dated 02/26/2020; Chest Single Vie w dated 02/24/2020; Chest Single View dated 10/25/2019 FINDINGS: Lines: Endotracheal tube at the aortic arch in satisfactory position. Lungs: Elevated left hemidiaphragm with left basilar opacities. Pleural: No significant pleural effusions or pneumothorax. Cardiac: The heart size is within normal limits. Bones: No acute fractures. Other: IMPRESSION: Increased elevation of the left hemidiaphragm presumably secondary to atelectasis. The r ight lung is clear. Endotracheal tube in satisfactory position.
[2021-01-17] MEDS ORDERED: KCL 20 MEQ/100 mL IVPB 20 MEQ/100 ML BAG IV ONE (10:00)
--- NOTE | 2021-01-17 10:54 | EDPHYS ---
Physician Documentation [facility] Name: Sissy Padron Age: 75 yrs Sex: Female : 1945 Arrival Date: 01/17/2021 Time: 08:32 Bed 3 Private MD: ED Physician Linda Dhaliwal HPI: 01/17 08:36 This 75 yrs old Female presents to ER via Unassigned with complaints of jr8 AMS/Fever. 08:36 Onset: The symptoms/episode began/occurred acutely, today. Severity of symptoms: At jr8 their worst the symptoms were moderate in the emergency department the symptoms are unchanged. The patient has not experienced similar symptoms in the past. The patient has been recently seen by a physician:. This is a 75-year-old female patient that presented to the emergency room via EMS after called for them for uncontrollable like motions. EMS stated upon arrival to scene that they noticed the same movements which appeared to be tonic-clonic in nature. Per patient has no seizure-like history. Patient has a history of CVA, diabetes amongst several other medical conditions. Upon assessment of EMS it was found that patient had a 101 axillary fever. Patient recently put on antibiotics for urinary tract infection. Patient was given medication for the seizure prior to arrival. Patient continued to have ineffective breathing per EMS in which patient was intubated at that time. Patient upon arrival to emergency room intubated and sedated. Hemodynamically stable. No seizure-like activity at this time.. Historical: - Allergies: 08:40 Codeine; aa5 08:40 Morphine; aa5 08:40 PENICILLINS; aa5 - Home Meds: 09:53 aspirin 81 mg Oral TbEC 1 tab once daily [Active]; atorvastatin 80 mg oral tab once aa5 daily [Active]; Xanax 1 mg Oral tab PRN [Active]; Resource Oral liqd three times a day [Active]; multivitamin with minerals oral cap daily [Active]; metformin 500 mg Oral tab once a day [Active]; pantoprazole 40 mg oral grps once daily [Active]; topiramate 25 mg oral cp24 twice a day [Active]; losartan 25 mg oral tab once daily [Active]; Toprol XL 25 mg Oral Tb24 once daily [Active]; - PMHx: 08:35 Anxiety; Diabetes - IDDM; Hypertension; neuropathy; CVA; Aphasia; UTI; GERD; Chronic aa5 Kidney Disease; - Immunization history:: Adult Immunizations unknown. - Social history:: Smoking status: unknown. ROS: 10:47 Unable to obtain ROS due to patient is on ventilator. jr8 Exam: 10:53 Head/Face: Normocephalic, atraumatic. Eyes: Pupils equal round and reactive to light. jr8 Lids and lashes normal. Conjunctiva and sclera are non-icteric and not injected. Periorbital areas with no swelling, redness, or edema. ENT: Nares patent. No nasal discharge, no septal abnormalities noted. Oropharynx with no redness, swelling, or masses, exudates, or evidence of obstruction, uvula midline. Mucous membranes moist. Neck: Trachea midline, no thyromegaly or masses palpated, and no cervical lymphadenopathy. Supple, full range of motion without nuchal rigidity, or vertebral point tenderness. No Meningismus. Cardiovascular: Tachycardic with a normal S1 and S2. No gallops, murmurs, or rubs. Normal PMI, no JVD. No pulse deficits. Respiratory: Lungs have equal breath sounds bilaterally. Mid rhonchi noted bilaterally. No increased work of breathing, no retractions or nasal flaring. Mechanically ventilated at rate of 16 Abdomen/GI: Soft with normal bowel sounds. No distension or tympany Skin: Warm, dry with normal turgor. Normal color with no rashes, no lesions, and no evidence of cellulitis. MS/ Extremity: Pulses equal, no cyanosis 10:53 Neuro: Deep tendon reflexes are 2+ (normal) in the right bicep, right brachioradialis, right Achilles, left bicep, left brachioradialis and left Achilles, seizure activity, is not displayed by the patient, Abnormal movements: there are no abnormal movements. Vital Signs: 08:27 BP 134 / 83; Pulse 105; Resp 16 A; Temp 101.4(R); Pulse Ox 100% on ETT vent; Height 5 aa5 ft. 7 in. (170.18 cm); 08:30 BP 133 / 86; Pulse 105; Resp 14 A; Pulse Ox 100% on ETT vent; aa5 08:45 BP 171 / 92; Pulse 104; Resp 16 A; Pulse Ox 100% on 50% FiO2 ETT vent; aa5 08:50 Weight 68 kg; aa5 09:00 BP 169 / 88; Pulse 98; Resp 14 A; Pulse Ox 100% on 50% FiO2 ETT vent; aa5 09:15 BP 177 / 94; Pulse 97; Resp 14 A; Pulse Ox 100% on 50% FiO2 ETT vent; aa5 10:00 BP 177 / 92; Pulse 101; Resp 12 A; Temp 101.0(R); Pulse Ox 100% on 50% FiO2 ETT vent; aa5 11:00 BP 177 / 103; Pulse 99; Resp 15 A; Pulse Ox 100% on ETT vent; aa5 12:00 BP 175 / 95; Pulse 96; Resp 14 A; Temp 100.2(R); Pulse Ox 100% on ETT vent; aa5 12:45 BP 168 / 99; Pulse 95; Resp 12 A; Pulse Ox 100% on ETT vent; aa5 08:27 Body Mass Index 23.48 (68.00 kg, 170.18 cm) aa5 Zoila Coma Score: 10:53 Eye Response: none(1). Verbal Response: none(1). Motor Response: none(1). Modifying jr8 Factors: Intubated. Total: 3. Ventilator: 09:00 Fi02: 50%; Rate: 12min; T.V.: 480ml; Peep: 5cm; ET tube: 7.5 fr (Oral); aa5 MDM: 08:32 Patient medically screened. jr8 10:47 Data reviewed: vital signs, nurses notes, lab test result(s), EKG, radiologic studies, jr8 CT scan, plain films. Data interpreted: Pulse oximetry: on ventilator is 100 %. Interpretation: normal. Counseling: I had a detailed discussion with the patient and/or guardian regarding: the historical points, exam findings, and any diagnostic results supporting the discharge/admit diagnosis, lab results, radiology results, the need for further work-up and treatment in the hospital. ED course: arrived to emergency room and was able to discuss case with him. It was found that patient had a recent hemorrhagic stroke and was at the [facility] for a few days and was sent home initially for hospice but then had done remarkably better and was transitioned to home health care. Patient had been doing well up until about 4 days ago when she was diagnosed with a urinary tract infection. Cultures were obtained by her PCP and was started on another antibiotic post receiving the cultures. This was also discussed with neurology in which both him and I think that if there was a seizure component was probably most likely due to lower threshold given the recent hemorrhagic stroke and fever today. Patient has been started on antiepileptics amongst general antibiotic therapy and fluids. Patient remains more stable at this time and will be admitted to ICU.. 01/17 08:34 Order name: Basic Metabolic Panel; Complete Time: 09:13 01/17 08:34 Order name: Blood Culture Adult (2) 01/17 08:34 Order name: C-Reactive Protein; Complete Time: 09:01/17 08:34 Order name: CBC with Diff; Complete Time: 09:01/17 08:34 Order name: CPK; Complete Time: 09:13 01/17 08:34 Order name: LFT's; Complete Time: 09:13 01/17 08:34 Order name: Lactate; Complete Time: 09:15 01/17 08:34 Order name: Lipase; Complete Time: 09:13 01/17 08:34 Order name: Procalcitonin; Complete Time: 09:38 01/17 08:34 Order name: Protime (+inr); Complete Time: 09:13 01/17 08:34 Order name: Ptt, Activated; Complete Time: 09:13 01/17 08:34 Order name: Troponin (emerg Dept Use Only); Complete Time: 09:13 01/17 08:34 Order name: Urine Culture 01/17 08:34 Order name: Urine Microscopic Only 01/17 08:34 Order name: Chest Single View XRAY; Complete Time: 09:44 01/17 08:34 Order name: ABG; Complete Time: 10:56 01/17 08:38 Order name: CT Head Brain wo Cont; Complete Time: 09:43 01/17 08:56 Order name: Glucose, Ancillary Testing; Complete Time: 09:13 EDMS 01/17 09:10 Order name: Urine Dipstick-Ancillary; Complete Time: 09:13 EDMS 01/17 09:20 Order name: SARS-COV-2 RT PCR; Complete Time: 10:16 EDMS 01/17 08:34 Order name: Accucheck; Complete Time: 08:39 01/17 08:34 Order name: Cardiac monitoring; Complete Time: 08:39 01/17 08:34 Order name: Cath; Complete Time: 09:04 01/17 08:34 Order name: EKG - Nurse/Tech; Complete Time: 08:39 01/17 08:34 Order name: IV Saline Lock - Large Bore; Complete Time: 08:39 01/17 08:34 Order name: Labs collected and sent; Complete Time: 08:39 01/17 08:34 Order name: O2 Per Protocol; Complete Time: 08:39 01/17 08:34 Order name: O2 Sat Monitoring; Complete Time: 08:39 01/17 08:34 Order name: Urine Dipstick-Ancillary (obtain specimen); Complete Time: 08:59 01/17 12:03 Order name: CONS Physician Consult EDMS Administered Medications: 08:48 Drug: Acetaminophen Suppository 650 mg Route: NM; aa5 10:00 Follow up: Response: No adverse reaction; Temperature is decreased aa5 08:50 Drug: fentaNYL (PF) 50 mcg Route: IVP; Site: left hand; aa5 09:00 Follow up: Response: No adverse reaction aa5 08:54 Drug: Propofol 5 mcg/kg/min Route: IV; Rate: calculated rate; Site: left hand; aa5 10:00 Follow up: Drip currently at 25mcg/kg/min, pt was noted to be bucking the vent. aa5 13:00 Follow up: IV Status: Infusion continued upon admission aa5 08:55 Drug: Rocephin (cefTRIAXone) 2 grams Route: IV; Rate: calculated rate; Site: right aa5 forearm; 09:10 Follow up: Response: No adverse reaction aa5 08:55 Drug: NS 0.9% 1000 ml Route: IV; Rate: 1000 ml; Site: right forearm; aa5 10:00 Follow up: IV Status: Completed infusion; IV Intake: 1000ml aa5 09:10 Drug: NS 0.9% 1000 ml Route: IV; Rate: 100 ml/hr; Site: right forearm; aa5 10:00 Follow up: Infusion now being administered to L AC aa5 11:55 Follow up: Infusion continued to R upper arm. aa5 13:00 Follow up: IV Status: Infusion continued upon admission aa5 10:00 Drug: Potassium Chloride 20 mEq Route: IV; Rate: calculated rate; Site: left aa5 antecubital; 11:55 Follow up: Infusion continued to R upper arm. aa5 12:45 Follow up: Response: No adverse reaction; IV Status: Completed infusion aa5 10:10 Drug: vancoMYCIN 1 grams Route: IVPB; Infused Over: 2 hrs; Site: right forearm; aa5 10:30 Follow up: Response: No adverse reaction aa5 12:10 Follow up: Response: No adverse reaction; IV Status: Completed infusion aa5 11:10 Drug: Keppra (levETIRAcetam) 1000 mg Route: IV; Rate: calculated rate; Site: right aa5 forearm; 11:25 Follow up: Response: No adverse reaction; IV Status: Completed infusion aa5 Disposition Summary: 01/17/21 10:53 Hospitalization Ordered Hospitalization Status: Inpatient Admission [facility] Provider: Francis Lund Location: Intensive Care Unit [facility] Condition: Fair 8 Problem: new jr8 Symptoms: have improved jr8 Bed/Room Type: Standard [facility] Room Assignment: [facility] Diagnosis - Fever, unspecified jr8 - UTI/ Urinary tract infection, site not specified jr8 - Other seizures jr8 - Acute respiratory failure jr Forms: - Medication Reconciliation Form jr8 - SBAR form jr8 Addendum: 01/22/2021 05:26 Co-signature as Attending Physician, Linda Dhaliwal MD PA/DIRECTOR OF MOBILE MARKETING's history reviewed, m a2 patient interviewed, and examined. I agree with assessment and care plan and confirm the diagnosis (es) above. Signatures: Dispatcher [employer] [facility] Shea Jorge RN RN aa5 Melo Sands PA PA jr8 Linda Dhaliwal MD MD ma2 Corrections: (The following items were deleted from the chart) 01/17 09:20 08:48 CORONAVIRUS+ ordered. [facility] 11: 09:53 Home Meds: Plavix 75 mg Oral tab 1 tab once daily; 5 5 : 09:53 Home Meds: prednisone 10 mg Oral tab once daily; 5 11:21 09:53 Home Meds: Eliquis 5 mg oral tab 2 times per day; aa5 aa5
--- NOTE | 2021-01-17 10:54 | ER ---
Nurse's Notes [facility] Name: Sissy Padron Age: 75 yrs Sex: Female : 1945 Arrival Date: 01/17/2021 Time: 08:32 Bed 3 Private MD: Diagnosis: Fever, unspecified;UTI/ Urinary tract infection, site not specified;Other seizures;Acute respiratory failure Presentation: 01/17 08:25 Acuity: MARCELO 2 aa5 08:25 Coronavirus screen: fever. Ebola Screen: No symptoms or risks identified at this time. aa5 Initial Sepsis Screen: Does the patient meet any 2 criteria? Temp <36.0*C (96.8*F)) or > 38.3*C (100.9*F). HR > 90 bpm. Yes Does the patient have a suspected source of infection? Yes: Dysuria/Frequency/Urgency/UTI. Risk Assessment: Do you want to hurt yourself or someone else? Unable to obtain. Onset of symptoms was January 17, 2021. Care prior to arrival: Oral intubation, ET tube 7.5, 24 at the teeth. IV initiated. 18 GA, in the right forearm. 08:25 Method Of Arrival: EMS: [facility] aa5 08:25 Chief complaint: EMS states: Pt was found by having uncontrollable shaking, aa5 upon EMS arrival pt noted to be having a seizure and was given 5mg of Versed IM, pt was then unresponsive, O2 sat 91% and was then intubated to maintain airway. Pt was given 75mg of Succinylcholine and 175mg of Ketamine for intubation, post intubation pt was given 100mcg Fentanyl and 175mg of Ketamine. EMS reports pt had a temperature of 101.9 *F and it was reported to them that pt was recently diagnosed with UTI and currently taking Levaquin 500 mg. Historical: - Allergies: 08:40 Codeine; aa5 08:40 Morphine; aa5 08:40 PENICILLINS; aa5 - Home Meds: 09:53 aspirin 81 mg Oral TbEC 1 tab once daily [Active]; atorvastatin 80 mg oral tab once aa5 daily [Active]; Xanax 1 mg Oral tab PRN [Active]; Resource Oral liqd three times a day [Active]; multivitamin with minerals oral cap daily [Active]; metformin 500 mg Oral tab once a day [Active]; pantoprazole 40 mg oral grps once daily [Active]; topiramate 25 mg oral cp24 twice a day [Active]; losartan 25 mg oral tab once daily [Active]; Toprol XL 25 mg Oral Tb24 once daily [Active]; - PMHx: 08:35 Anxiety; Diabetes - IDDM; Hypertension; neuropathy; CVA; Aphasia; UTI; GERD; Chronic aa5 Kidney Disease; - Immunization history:: Adult Immunizations unknown. - Social history:: Smoking status: unknown. Screenin:50 Abuse screen: No signs of abuse noted. Nutritional screening: No deficits noted. aa5 Tuberculosis screening: unable to complete. Fall Risk Secondary diagnosis (15 points) CVA, IV access (20 points). Total Land Fall Scale indicates Low Risk Score (25-44 pts). Fall prevention measures have been instituted. Side Rails Up X 2 Placed close to Nursing Station. Assessment: 08:25 Pain: Unable to use pain scale. Patient is intubated. Neuro: Level of Consciousness is aa5 intubated and sedated . Pupils are round, equal, reactive to light, measuring 4 mm in size. . Cardiovascular: Heart tones S1 S2 present Rhythm is sinus tachycardia. Respiratory: Airway via oral intubation Respiratory pattern is symmetrical, Assisted ventilations via ventilator via ET tube. GI: Abdomen is round non-distended, Abd is soft X 4 quads. : EMS report pt is currently taking Levaquin for UTI. EENT: Top teeth noted, no bottom teeth noted. . Derm: Skin is pink, warm \T\ dry. Musculoskeletal: Range of motion: intact in all extremities. 09:04 Reassessment: chest x-ray completed at bedside . aa5 09:06 Reassessment: Pt taken to CT via stretcher, accompanied by me, RT, and power equipment technology instructor. aa5 09:25 Reassessment: Pt back from CT. . aa5 09:25 Neuro: Level of Consciousness is intubated and sedated, pt able to withdrawal to pain. aa5 . Respiratory: Airway via oral intubation Respiratory pattern is symmetrical. Derm: Skin is pink, warm \T\ dry. 10:25 Neuro: Level of Consciousness is intubated and sedated. Cardiovascular: Rhythm is sinus aa5 rhythm. Derm: Skin is pink, warm \T\ dry. 10:25 Respiratory: Respiratory effort is assisted Respiratory pattern is symmetrical. aa5 10:30 Reassessment: Pt's at bedside speaking to ROSARIO Strickland. aa5 10:42 Reassessment: Awaiting Michel from pharmacy. aa5 11:25 Neuro: Level of Consciousness is intubated and sedated. Pt bucking the vent aa5 intermittently, propofol titrated accordingly. . Cardiovascular: Rhythm is sinus rhythm. Respiratory: Respiratory effort is assisted. Derm: Skin is pink, warm \T\ dry. 12:20 Neuro: Level of Consciousness is intubated and sedated . Cardiovascular: Rhythm is aa5 sinus rhythm. Respiratory: Airway via oral intubation Respiratory effort is assisted Respiratory pattern is symmetrical. Derm: Skin is pink, warm \T\ dry. Vital Signs: 08:27 BP 134 / 83; Pulse 105; Resp 16 A; Temp 101.4(R); Pulse Ox 100% on ETT vent; Height 5 aa5 ft. 7 in. (170.18 cm); 08:30 BP 133 / 86; Pulse 105; Resp 14 A; Pulse Ox 100% on ETT vent; aa5 08:45 BP 171 / 92; Pulse 104; Resp 16 A; Pulse Ox 100% on 50% FiO2 ETT vent; aa5 08:50 Weight 68 kg; aa5 09:00 BP 169 / 88; Pulse 98; Resp 14 A; Pulse Ox 100% on 50% FiO2 ETT vent; aa5 09:15 BP 177 / 94; Pulse 97; Resp 14 A; Pulse Ox 100% on 50% FiO2 ETT vent; aa5 10:00 BP 177 / 92; Pulse 101; Resp 12 A; Temp 101.0(R); Pulse Ox 100% on 50% FiO2 ETT vent; aa5 11:00 BP 177 / 103; Pulse 99; Resp 15 A; Pulse Ox 100% on ETT vent; aa5 12:00 BP 175 / 95; Pulse 96; Resp 14 A; Temp 100.2(R); Pulse Ox 100% on ETT vent; aa5 12:45 BP 168 / 99; Pulse 95; Resp 12 A; Pulse Ox 100% on ETT vent; aa5 08:27 Body Mass Index 23.48 (68.00 kg, 170.18 cm) aa5 Zoila Coma Score: 10:53 Eye Response: none(1). Verbal Response: none(1). Motor Response: none(1). Modifying jr8 Factors: Intubated. Total: 3. ED Course: 08:25 Patient arrived in ED. aa5 08:25 fish fryer on. Pulse ox on. NIBP on. aa5 08:25 Arm band placed on. aa5 08:25 Patient has correct armband on for positive identification. Placed in gown. Side rails aa5 up X2. 08:30 Inserted saline lock: 18 gauge in left hand, using aseptic technique. aa5 08:30 Maintain EMS IV. Dressing intact. Good blood return noted. Site clean \T\ dry. Gauge \T\ aa 5 site: 18G R FA . 08:30 Initial lab(s) drawn, by me, sent to lab. aa5 08:30 First set of blood cultures drawn by me. aa5 08:32 Melo Sands PA is PHCP. jr8 08:32 Linda Dhaliwal MD is Attending Physician. jr8 08:40 Second set of blood cultures drawn by me. aa5 08:42 Initial lab(s) drawn, by ED staff, sent to lab. EKG done, by ED staff, reviewed by 5 Linda Dhaliwal MD COVID swab sent to lab. 08:43 ABG Sent. mh5 08:43 Basic Metabolic Panel Sent. mh5 08:43 Blood Culture Adult (2) Sent. mh5 08:43 C-Reactive Protein Sent. mh5 08:43 CBC with Diff Sent. mh5 08:43 CPK Sent. mh5 08:43 LFT's Sent. mh5 08:43 Lactate Sent. mh5 08:43 Lipase Sent. mh5 08:43 Procalcitonin Sent. mh5 08:43 Protime (+inr) Sent. mh5 08:44 Ptt, Activated Sent. mh5 08:44 Troponin (emerg Dept Use Only) Sent. mh5 08:48 Gramajo cath inserted, using sterile technique, [address] car mechanic, balloon inflated, to aa5 gravity drainage, urine specimen collected. 08:59 Urine Culture Sent. mh5 08:59 Urine Microscopic Only Sent. mh5 09:02 Shea Jorge, RN is Primary Nurse. aa5 09:19 CT Head Brain wo Cont In Process Unspecified. EDMS 09:32 Chest Single View XRAY In Process Unspecified. EDMS 09:36 Triage completed. aa5 10:00 Inserted saline lock: 20 gauge in left antecubital area, using aseptic technique. aa5 10:52 Francis Lund MD is Hospitalizing Provider. jr8 11:52 Swelling noted to 20G L AC IV site, IV dc'd, catheter intact, bleeding controlled. aa5 11:55 Inserted saline lock: 22 gauge in right upper arm, using aseptic technique. aa5 13:00 No provider procedures requiring assistance completed. Patient admitted, IV remains in aa5 place. Administered Medications: 08:48 Drug: Acetaminophen Suppository 650 mg Route: FL; aa5 10:00 Follow up: Response: No adverse reaction; Temperature is decreased aa5 08:50 Drug: fentaNYL (PF) 50 mcg Route: IVP; Site: left hand; aa5 09:00 Follow up: Response: No adverse reaction aa5 08:54 Drug: Propofol 5 mcg/kg/min Route: IV; Rate: calculated rate; Site: left hand; aa5 10:00 Follow up: Drip currently at 25mcg/kg/min, pt was noted to be bucking the vent. aa5 13:00 Follow up: IV Status: Infusion continued upon admission aa5 08:55 Drug: Rocephin (cefTRIAXone) 2 grams Route: IV; Rate: calculated rate; Site: right aa5 forearm; 09:10 Follow up: Response: No adverse reaction aa5 08:55 Drug: NS 0.9% 1000 ml Route: IV; Rate: 1000 ml; Site: right forearm; aa5 10:00 Follow up: IV Status: Completed infusion; IV Intake: 1000ml aa5 09:10 Drug: NS 0.9% 1000 ml Route: IV; Rate: 100 ml/hr; Site: right forearm; aa5 10:00 Follow up: Infusion now being administered to L AC aa5 11:55 Follow up: Infusion continued to R upper arm. aa5 13:00 Follow up: IV Status: Infusion continued upon admission aa5 10:00 Drug: Potassium Chloride 20 mEq Route: IV; Rate: calculated rate; Site: left aa5 antecubital; 11:55 Follow up: Infusion continued to R upper arm. aa5 12:45 Follow up: Response: No adverse reaction; IV Status: Completed infusion aa5 10:10 Drug: vancoMYCIN 1 grams Route: IVPB; Infused Over: 2 hrs; Site: right forearm; 5 10:30 Follow up: Response: No adverse reaction aa5 12:10 Follow up: Response: No adverse reaction; IV Status: Completed infusion 5 11:10 Drug: Keppra (levETIRAcetam) 1000 mg Route: IV; Rate: calculated rate; Site: right aa5 forearm; 11:25 Follow up: Response: No adverse reaction; IV Status: Completed infusion 5 Intake: 10:00 IV: 1000ml; Total: 1000ml. aa5 Ventilator: 09:00 Fi02: 50%; Rate: 12min; T.V.: 480ml; Peep: 5cm; ET tube: 7.5 fr (Oral); aa5 Outcome: 10:53 Decision to Hospitalize by Provider. jr8 13:00 Admitted to ICU accompanied by nurse, via stretcher, room ICU HOLD 11, report given to 5 ICU nurse., with oxygen, on monitor, with chart, Other accompanied by RT 13:00 Condition: stable 13:00 Instructed on the need for admit, to pt's . Demonstrated understanding of instructions. 13:00 Patient left the ED. [facility] Signatures: Dispatcher [employer] EDMS Shea Jorge RN RN 5 Melo Sands PA PA 8 Perla Barbosa [facility] Corrections: (The following items were deleted from the chart) 09:31 08:59 Gramajo cath inserted, using sterile technique, 16 Fr., by pr, balloon inflated, to aa5 gravity drainage, urine specimen collected. [facility] 09:31 08:59 Urine collected: Gramajo catheter specimen, wanda colored, Amount Returned: 350mL [place] [id number] 09:32 08:32 Patient arrived in ED. 8 [facility] 09:43 08:41 Patient has correct armband on for positive identification. Placed in gown. Bed aa5 in low position. Call light in reach. Side rails up X2. [facility] 43 08:41 Pillow given. 5 [facility] :43 08:41 fish fryer on. Pulse ox on. NIBP on. [place] [id number] : 09:53 Home Meds: Plavix 75 mg Oral tab 1 tab once daily; 5 5 09:53 Home Meds: prednisone 10 mg Oral tab once daily; aa5 aa5 11:21 09:53 Home Meds: Eliquis 5 mg oral tab 2 times per day; aa5 aa5 12:20 08:27 BP 134 / 83; Pulse 105bpm; Resp 16bpm; Assisted; Pulse Ox 100% ET / Ventilator; aa5 Temp 101.4F Rectal; aa5 13:09 13:09 Patient left the ED. aa5 aa5
[2021-01-17] MEDS ORDERED: levETIRAcetam 1,000 MG in NA CHLORIDE 0.9% 100 ML IV ONE (11:00)
--- NOTE | 2021-01-17 13:35 | P.HP ---
Certification for Inpatient Patient admitted to: Inpatient With expected LOS: >2 Midnights Practitioner: I am a practitioner with admitting privileges, knowledge of patient current condition, hospital course, and medical plan of care. 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 Patient was brought in by EMS due to concern for seizure versus stroke. Patient's found the patient shaking vigorously and movement responsive e matt this morning. She has never done this before. He was concerned she was having a stroke and called EMS. EMS noted some seizure-like activity with some tonic-clonic movements. Patient was given benzodiazepines and routes, and subsequently required intubation due to tachypnea/unable to protect airway. Patient unable to give history. Family reported patient was recently diagnosed with a UTI, and took 4 days of antibiotics. She was recently changed from what sounds like a cephalosporin to moxifloxacin according to the . In the ED, lab work rather unremarkable, chest x-ray without any signs of pneumonia, CT head negative for acute process. ER provider wishes to admit patient to ICU for further management/treatment. Allergies naproxen Allergy (Intermediate, Verified 10/25/19 21:59) Hives/Rash codeine Allergy (Verified 10/25/19 21:59) Itching/Hives/Rash Penicillins Allergy (Verified 10/25/19 21:59) Itching/Hives/Rash morphine Adverse Reaction (Mild, Verified 10/25/19 21:59) confusion Home Medications: ALPRAZolam [Xanax*] 1 tab PO DAILY PRN 10/26/19 Aspirin [Lo-Dose Aspirin EC] 1 tab PO DAILY 10/26/19 Duloxetine HCl 1 cap PO DAILY 10/26/19 Losartan Potassium 50 mg PO SEECOM 10/26/19 Metformin HCl 1 tab PO BID 10/26/19 Pantoprazole Sodium 1 tab PO DAILY 10/26/19 Topiramate [Topamax] 1 tab PO BID 10/26/19 Apixaban [Eliquis] 5 mg PO BID #60 tablet 10/27/19 Clopidogrel Bisulfate [Plavix*] 75 mg PO DAILY #30 tablet 02/25/20 Atorvastatin Calcium [Lipitor] 80 mg PO BEDTIME 30 Days #30 tab 03/06/20 Glucerna Shake [Glucerna*] 237 ml PO BID can 03/06/20 Metoprolol Succinate [Toprol Xl*] 25 mg PO BID 30 Days #60 tab 03/06/20 predniSONE [Prednisone*] 10 mg PO DAILY 7 Days #7 tab 03/06/20 - Past Medical/Surgical History Diabetic: Yes -: Hypertension -: Diabetes mellitus -: Hyperlipidemia -: Obesity -: cva L occipital lobe 07/06/19 -: neuropathy -: anxiety -: hysterectomy -: right knee surgery -: left hip replacement -: both wrist surgery -: cholecystectomy Psychosocial/ Personal History: Patient lives at home with her . - Family History Family History: Reviewed- Non-Contributory (Unable to be obtained) - Social History Smoking Status: Unknown if ever smoked Alcohol use: No CD- Drugs: No Caffeine use: Yes Place of Residence: Home Review of Systems is unable to be obtained Physical Examination - Vital Signs Temperature: 101.4 F Blood Pressure: 133/86 Pulse: 105 Respirations: 14 - Physical Exam General: Other (Intubated/sedated) HEENT: PERRLA, Sclerae nonicteric Neck: No LAD Respiratory: Clear to auscultation bilaterally, Normal air movement Cardiovascular: No edema, Regular rate/rhythm Capillary refill: <2 Seconds Gastrointestinal: Soft and benign, Non-distended Musculoskeletal: No erythema Integumentary: No rashes, No significant lesion Neurological: Other (Intubated/sedated, not following commands) Urinary: Gramajo catheter - Studies Laboratory Data (last 24 hrs) 01/17/21 08:30: PT 16.1 H, INR 1.40, APTT 26.4 01/17/21 08:30: WBC 7.10, Hgb 10.3 L, Hct 30.6 L, Plt Count 231 01/17/21 08:30: Sodium 144, Potassium 3.2 L, BUN 15, Creatinine 0.89, Glucose 147 H, Total Bilirubin 0.3, AST 16, ALT 20, Alkaline Phosphatase 82, Lipase 30 L Assessment and Plan - Advance Directives Does patient have a Living Will: Yes Does patient have a Durable POA for Healthcare: Yes Physician Review Additional Text: Problem list Possible new onset seizure Recent urinary tract infection NIDDM 2 Hypertension Multiple prior CVAs, with expressive aphasia and bedridden CKD 2 Patient intubated on route to the ER Neurology consulted Recommended loaded with Keppra, continue twice daily dosing Continue mechanical ventilation Lab work rather unremarkable, wean ventilator as tolerated Possible extubation tomorrow, pulmonology consulted for assistance with vent management/ICU Patient with recent stroke 1 month ago and recent UTI last few days undergoing treatment, this increases patient's risk even further for seizure activity CT head negative for new/acute stroke Family said patient's baseline is she can help somewhat with transfers but is essentially fully dependent, can sit up in a chair/wheelchair, significant expressive aphasia and difficult to understand. Unclear how oriented she is at baseline according to her son Review of EMR reveals last urine culture on 01/10 growing ESBL E. coli, will treat with meropenem for now. Code: DNR Dispo: Anticipate discharge in 2-3 days Time Spent Managing Pts Care (In Minutes): 60
[2021-01-17 15:01] VITALS: BMI 23.3
[2021-01-17] MEDS: propofoL 1,000 MG/100 ML VIAL IV PRN ×2 (15:45→22:09)
--- NOTE | 2021-01-17 16:22 | P.CNS ---
Date of Consult: 01/17/21 Reason for Consult: Resp failure Chief Complaint: Possible seizures, intubated History of Present Illness: PT found unresponsive poss seizures and was intubated, UTI AB for UTI recently. on vent Allergies naproxen Allergy (Intermediate, Verified 10/25/19 21:59) Hives/Rash codeine Allergy (Verified 10/25/19 21:59) Itching/Hives/Rash Penicillins Allergy (Verified 10/25/19 21:59) Itching/Hives/Rash morphine Adverse Reaction (Mild, Verified 10/25/19 21:59) confusion Home Medications: Atorvastatin Calcium [Lipitor] 40 mg PO BEDTIME 01/17/21 Metformin ER [Glucophage ER*] 500 mg PO BID 01/17/21 Metoprolol Tartrate 25 mg PO DAILY 01/17/21 - Past Medical/Surgical History Diabetic: Yes -: Hypertension -: Diabetes mellitus -: Hyperlipidemia -: Obesity -: cva L occipital lobe 07/06/19 -: neuropathy -: anxiety -: hysterectomy -: right knee surgery -: left hip replacement -: both wrist surgery -: cholecystectomy Psychosocial/ Personal History: Patient lives at home with her . - Social History Smoking Status: Unknown if ever smoked Alcohol use: No CD- Drugs: No Caffeine use: Yes Place of Residence: Home Review of Systems is unable to be obtained Physical Examination Temp Pulse Resp BP Pulse Ox 97.9 F 89 16 165/86 H 100 01/17/21 15:24 01/17/21 15:24 01/17/21 15:24 01/17/21 15:24 01/17/21 15:24 General: Unresponsive Neck: Supple Respiratory: Clear to auscultation bilaterally Gastrointestinal: Normal bowel sounds, Soft and benign Laboratory Data (last 24 hrs) 01/17/21 08:30: PT 16.1 H, INR 1.40, APTT 26.4 01/17/21 08:30: WBC 7.10, Hgb 10.3 L, Hct 30.6 L, Plt Count 231 01/17/21 08:30: Sodium 144, Potassium 3.2 L, BUN 15, Creatinine 0.89, Glucose 147 H, Total Bilirubin 0.3, AST 16, ALT 20, Alkaline Phosphatase 82, Lipase 30 L - Problems (1) Respiratory failure Current Visit: Yes Status: Acute Plan: AW poss seizures. Pton vent/ pt febrile/ labs reviewed PCT neg. CW present Tx. DW no prior Hx of seizures multiple strokes. High risk for seizures amarjit poss wean am .CXRy cardiomeg Vent settig reviewed Qualifiers: Chronicity: acute
[2021-01-17] MEDS ORDERED: INSULIN -REGULAR HUMAN 50 UNIT/0.5 ML ML SQ SCH (16:30)
[2021-01-17] MEDS ORDERED: NA CHLORIDE 0.9% 1,000 ML ONE (16:52)
[2021-01-17] MEDS: Meropenem 1,000 MG in NA CHLORIDE 0.9% 100 ML IV SCH (17:00)
[2021-01-17] MEDS: INSULIN -REGULAR HUMAN 50 UNIT/0.5 ML ML SQ SCH (18:00)
[2021-01-17] MEDS ORDERED: VITAL AF 1,000 ML BOT FT SCH (18:00)
--- NOTE | 2021-01-17 18:14 | RAD REPORT ---
EXAM DESCRIPTION: RAD - Abdomen 1 View (KUB) - 01/17/2021 5:58 pm CLINICAL HISTORY: feeding tube placement Pain COMPARISON: No comparisons FINDINGS: Tip of the enteric tube is in the distal stomach.
[2021-01-17] MEDS ORDERED: FAMOTIDINE 20 MG/2 ML VIAL IV ONE (20:13)
[2021-01-17] MEDS: levETIRAcetam 500 MG in NA CHLORIDE 0.9% 100 ML IV SCH (20:16)
[2021-01-17] MEDS: FAMOTIDINE 20 MG/2 ML VIAL IV SCH (20:16)
[2021-01-17] MEDS ORDERED: propofoL 0 MG/0 ML ML IV ONE (21:51)
[2021-01-18] MEDS: Meropenem 1,000 MG in NA CHLORIDE 0.9% 100 ML IV SCH ×2 (00:09→09:14)
[2021-01-18] MEDS ORDERED: propofoL 1,000 MG/100 ML VIAL IV ONE (04:04)
[2021-01-18] MEDS: propofoL 1,000 MG/100 ML VIAL IV PRN (04:08)
[2021-01-18 04:50] LABS: Absolute Lymphocytes (CBC) 2.2 K/uL (0.7-4.9); Basophils % 0.7 % (0-1.3); Hematocrit 30.9 % (36.0-45.0); Lymphocytes % 30.9 % (15.3-44.8); MPV 8.4 fL (7.6-11.3); RBC Red Blood Cell Count 3.65 M/uL (3.86-4.86)
[2021-01-18 05:03] LABS: Albumin 2.1 g/dL (3.4-5.0); Bilirubin Total 0.2 mg/dL (0.2-1.0); Protein, Total 5.9 g/dL (6.4-8.2)
[2021-01-18 05:10] LABS: Potassium 2.8 mmol/L (3.5-5.1)
[2021-01-18] MEDS ORDERED: Magnesium Sulfate 2gm IVPB 2 G/50 ML BAG IV ONE ×2 (05:29→05:36)
[2021-01-18] MEDS: INSULIN -REGULAR HUMAN 50 UNIT/0.5 ML ML SQ SCH ×5 (05:35→23:58)
[2021-01-18] MEDS ORDERED: KCL 20 MEQ/100 mL IVPB 20 MEQ/100 ML BAG IV ONE ×3 (05:36→10:15)
[2021-01-18] MEDS: KCL 20 MEQ/100 mL IVPB 20 MEQ/100 ML BAG IV SCH ×3 (05:38→10:27)
[2021-01-18] MEDS ORDERED: VANCOMYCIN 1.25 GM in NA CHLORIDE 0.9% 250 ML IVPB SCH (06:00)
[2021-01-18 06:23] LABS: Blood O2 Saturation 97.9 % (92-98.5)
[2021-01-18 06:24] LABS: Arterial Blood Carboxyhemoglob 0.9 % (0-1.5); Blood Gas Oxyhemoglobin 95.9 % (94-97)
--- NOTE | 2021-01-18 06:26 | P.PN ---
Date of Service: 01/18/21 Subjective: No acute events overnight, remains intubated/ventilated Dobbhoff placed yesterday, still on tube feeds Hypokalemic, hypomagnesemic this morning ROS: 10 point ROS as noted above, otherwise negative Physical exam General: Intubated/sedated HEENT: Sclerae nonicteric Respiratory: Clear to auscultation bilaterally, slightly diminished at left base Cardiovascular: No edema, Regular rate/rhythm Capillary refill: <2 Seconds Gastrointestinal: Soft and benign, Non-distended Musculoskeletal: No joint swelling Integumentary: No rashes, No significant lesion Urinary: Gramajo catheter Problem list Possible new onset seizure Recent urinary tract infection NIDDM 2 Hypertension Multiple prior CVAs, with expressive aphasia and bedridden CKD 2 Patient intubated on route to the ER to protect airway, and was tachypneic Remains on mechanical ventilation, suspect she will be able to be extubated this morning. Pulmonology consulted for assistance Neurology consulted in ED, patient was loaded with Keppra, and to continue with 500 mg twice daily dosing EEG ordered Patient with recent stroke 1 month ago and recent UTI last few days undergoing treatment, this increases patient's risk even further for seizure activity CT head negative for new/acute stroke Family said patient's baseline is she can help somewhat with transfers but is essentially fully dependent, can sit up in a chair/wheelchair, significant exp ressive aphasia and difficult to understand. Unclear how oriented she is at baseline according to her son Review of EMR reveals last urine culture on 01/10 growing ESBL E. coli, started meropenem on 01/17. Awaiting urine cultures. Infectious disease consulted. Fever possibly due to UTI versus seizure, no other source of infection on exam/imaging Code: DNR Dispo: Anticipate discharge in 2-3 days Time Spent Managing Pts Care (In Minutes): 35
[2021-01-18] MEDS ORDERED: FAMOTIDINE 20 MG/2 ML VIAL IV ONE ×2 (08:23→21:10)
[2021-01-18] MEDS: D5W 1,000 ML with POTASSIUM CL 20 MEQ IV SCH ×4 (09:14→19:09)
[2021-01-18] MEDS: levETIRAcetam 500 MG in NA CHLORIDE 0.9% 100 ML IV SCH ×2 (09:14→21:32)
[2021-01-18] MEDS: FAMOTIDINE 20 MG/2 ML VIAL IV SCH ×2 (09:15→21:24)
--- NOTE | 2021-01-18 09:42 | RAD REPORT ---
EXAM DESCRIPTION: RAD - Chest Single View - 01/18/2021 5:50 am CLINICAL HISTORY: Tube placement COMPARISON: Abdomen 1 View (KUB) dated 01/17/2021; Chest Single View dated 01/17/2021; Chest Single View dated 02/27/2020; Chest Single View dated 02/26/2020 FINDINGS: Lines: The endotracheal tube tip terminates at the aortic arch. The feeding tube enters th e stomach. Lungs: Similar left basilar opacities. There is some other faint opacities in the lungs bilaterally. Pleural: No significant pleural effusions or pneumothorax. Cardiac: The heart size is within normal limits. Bones: No acute fractures. Other: IMPRESSION: Endotracheal tube is in satisfactory position at the aortic arch. Feeding tube below the diaphragm. Mild increased basilar opacities bilaterally likely combination of atelectasis and either pneumonia or pneumonitis.
--- NOTE | 2021-01-18 10:47 | P.CNS ---
Date of Consult: 01/18/21 Reason for Consult: MALGORZ[place] Requesting Physician: Francis Lund Chief Complaint: Possible seizures, intubated History of Present Illness: 75-year-old female, PMH: Multiple CVAs with recent hemorrhagic stroke 1 month ago, NIDDM 2, hypertension, anemia, bedbound. Patient was brought in by EMS due to concern for seizure versus stroke. Patient's found the patient shaking vigorously and movement responsive earlier this morning. She has never done this before. He was concerned she was having a stroke and called EMS. EMS noted some seizure-like activity with some tonic-clonic movements. Patient was given benzodiazepines and routes, and subsequently required intubation due to tachypnea/unable to protect airway. Patient unable to give history. Family reported patient was recently diagnosed with a UTI, and took 4 days of antibiotics. She was recently changed from what sounds like a cephalosporin to moxifloxacin according to the . In the ED, lab work rather unremarkable, chest x-ray without any signs of pneumonia, CT head negative for acute process. ER provider wishes to admit patient to ICU for further management/treatment. 08:36 This 75 yrs old Female presents to ER via Unassigned with complaints of jr8 AMS/Fever. 08:36 Onset: The symptoms/episode began/occurred acutely, today. Severity of symptoms: At jr8 their worst the symptoms were moderate in the emergency department the symptoms are unchanged. The patient has not experienced similar symptoms in the past. The patient has been recently seen by a physician:. This is a 75-year-old female patient that presented to the emergency room via EMS after called for them for uncontrollable like motions. EMS stated upon arrival to scene that they noticed the same movements which appeared to be tonic-clonic in nature. Per p lindsay has no seizure-like history. Patient has a history of CVA, diabetes amongst several other medical conditions. Upon assessment of EMS it was found that patient had a 101 axillary fever. Patient recently put on antibiotics for urinary tract infection. Patient was given medication for the seizure prior to arrival. Patient continued to have ineffective breathing per EMS in which patient was intubated at that time. Patient upon arrival to emergency room intubated and sedated. Hemodynamically stable. No seizure-like activity at this time Allergies naproxen Allergy (Intermediate, Verified 10/25/19 21:59) Hives/Rash codeine Allergy (Verified 10/25/19 21:59) Itching/Hives/Rash Penicillins Allergy (Verified 10/25/19 21:59) Itching/Hives/Rash morphine Adverse Reaction (Mild, Verified 10/25/19 21:59) confusion Home medications list reviewed: Yes Home Medications: Atorvastatin Calcium [Lipitor] 40 mg PO BEDTIME 01/17/21 Metformin ER [Glucophage ER*] 500 mg PO BID 01/17/21 Metoprolol Tartrate 25 mg PO DAILY 01/17/21 - Past Medical/Surgical History Diabetic: Yes -: Hypertension -: Diabetes mellitus -: Hyperlipidemia -: Obesity -: cva L occipital lobe 07/06/19 -: neuropathy -: anxiety -: hysterectomy -: right knee surgery -: left hip replacement -: both wrist surgery -: cholecystectomy Psychosocial/ Personal History: Patient lives at home with her . - Social History Smoking Status: Unknown if ever smoked Alcohol use: No CD- Drugs: No Caffeine use: Yes Place of Residence: Home Review of Systems is unable to be obtained Physical Examination Temp Pulse Resp BP Pulse Ox 97.9 F 92 H 12 131/74 99 01/18/21 08:00 01/18/21 08:00 01/18/21 08:00 01/18/21 08:00 01/18/21 08:00 General: In no apparent distress, Cooperative HEENT: Atraumatic Neck: Supple Respiratory: Clear to auscultation bilaterally Cardiovascular: No edema, Regular rate/rhythm Gastrointestinal: Soft and benign, Non-distended Musculoskeletal: No clubbing, No contractures Integumentary: No rashes, No cyanosis Neurological: Abnormal speech Blood work reviewed in the chart. Imagings Data: EXAM DESCRIPTION: RAD - Chest Single View - 01/18/2021 5:50 am CLINICAL HISTORY: Tube placement COMPARISON: Abdomen 1 View (KUB) dated 01/17/2021; Chest Single View dated 01/17/2021; Chest Single View dated 02/27/2020; Chest Single View dated 02/26/2020 FINDINGS: Lines: The endotracheal tube tip terminates at the aortic arch. The feeding tube enters the stomach. Lungs: Similar left basilar opacities. There is some other faint opacities in the lungs bilaterally. Pleural: No significant pleural effusions or pneumothorax. Cardiac: The heart size is within normal limits. Bones: No acute fractures. Other: IMPRESSION: Endotracheal tube is in satisfactory position at the aortic arch. Feeding tube below the diaphragm. Mild increased basilar opacities bilaterally likely combination of atelectasis and either pneumonia or pneumonitis. EXAM DESCRIPTION: RAD - Abdomen 1 View (KUB) - 01/17/2021 5:58 pm CLINICAL HISTORY: feeding tube placement Pain COMPARISON: No comparisons FINDINGS: Tip of the enteric tube is in the distal stomach. Conclusions/Impression: Proteinuria -Start Enalaprilat Hypernatemia -Agree with the change in IVF to D5 w/K Hypokalemia -Replete with IV potassium -Repeat BMP today Hypocalcemia Hypomagnesemia -Replete with IV mag -Repeat Mag today HTN with CKD -Start Enalaprilat prn DM II with CKD -RISS Moderate malnutrition -Maintain tube feeding Anemia in chronic illness -Monitor H&H Acute ESBL cystitis -Continue Meropenem Acute respiratory failure -Intubated; Ventilatory support as ordered Thank you kindly for the consultation. Case reviewed with Dr. Lund. Critical Care: Yes (>30)
[2021-01-18] MEDS ORDERED: HYDRALAZINE HCL 20 MG/ML VIAL IV ONE (11:06)
[2021-01-18] MEDS ORDERED: HYDRALAZINE HCL 20 MG/ML VIAL ONE (11:12)
[2021-01-18] MEDS ORDERED: ENALAPRILAT 1.25 MG/ML VIAL IV PRN (11:41)
--- NOTE | 2021-01-18 11:43 | P.CNS ---
Date of Consult: 01/18/21 Chief Complaint: Possible seizures, intubated History of Present Illness: Patient is a 75-year-old female with a past medical history of multiple CVAs with recent hemorrhagic stroke with 1 month ago, hypertension, anemia, and bed- bound status who is brought in to the emergency department via EMS due to concern for seizure burst stroke. Patient's states that she found the patient shaking violently earlier that morning. Patient was brought into the emergency department is intubated to preserve her airway. not at bedside, all history obtained via chart review and talking with nursing/hospital staff. Patient was recently seen at this facility on 01/10 N the urine culture grew ESBL producing E coli. Patient was treated with a flex sig and 2 doses of moxifloxacin. Repeat urine analysis and urine culture on this visit are negative. Past such there is no clinical indication for antibiotics at this time. Patient intubated and sedated at bedside. Allergies naproxen Allergy (Intermediate, Verified 10/25/19 21:59) Hives/Rash codeine Allergy (Verified 10/25/19 21:59) Itching/Hives/Rash Penicillins Allergy (Verified 10/25/19 21:59) Itching/Hives/Rash morphine Adverse Reaction (Mild, Verified 10/25/19 21:59) confusion Home Medications: Atorvastatin Calcium [Lipitor] 40 mg PO BEDTIME 01/17/21 Metformin ER [Glucophage ER*] 500 mg PO BID 01/17/21 Metoprolol Tartrate 25 mg PO DAILY 01/17/21 - Past Medical/Surgical History Diabetic: Yes -: Hypertension -: Diabetes mellitus -: Hyperlipidemia -: Obesity -: cva L occipital lobe 07/06/19 -: neuropathy -: anxiety -: hysterectomy -: right knee surgery -: left hip replacement -: both wrist surgery -: cholecystectomy Psychosocial/ Personal History: Patient lives at home with her . - Social History Smoking Status: Unknown if ever smoked Alcohol use: No CD- Drugs: No Caffeine use: Yes Place of Residence: Home Review of Systems is unable to be obtained Physical Examination Temp Pulse Resp BP Pulse Ox 97.9 F 98 H 21 H 178/100 H 100 01/18/21 08:00 01/18/21 11:00 01/18/21 11:00 01/18/21 11:00 01/18/21 11:00 General: Other (Intubated and sedated) HEENT: Atraumatic, Normocephalic Neck: Supple Respiratory: Clear to auscultation bilaterally, Normal air movement Cardiovascular: No edema, Normal pulses Gastrointestinal: Normal bowel sounds, Soft and benign Integumentary: No rashes, No breakdown, No significant lesion Conclusions/Impression: Assessment/plan Previous ESBL E. coli UTI with concern for recurrent urinary tract infection Urinalysis/urine culture on this visit negative, no clinical indication for antibiotic therapy at this time. CKD Protein caloric malnutrition Anemia -medical management per primary team -plan of care discussed with Dr. Piper -thank you for consultation.
--- NOTE | 2021-01-18 12:37 | P.PN ---
Subjective Date of Service: 01/18/21 Chief Complaint: Possible seizures, intubated Subjective: Improving (Doign well on propofol drip hemodynm. stable no seizures) Review of Systems is unable to be obtained Physical Examination - Vital Signs Temperature: 97.9 F Blood Pressure: 158/88 Pulse: 112 Respirations: 19 Pulse Ox (%): 100 - Physical Exam General: Unresponsive Respiratory: Clear to auscultation bilaterally Cardiovascular: No edema, Regular rate/rhythm Assessment & Plan - Problems (Diagnosis) (1) Respiratory failure Current Visit: Yes Status: Acute Plan: Doign well on SBT pt wean off and extubate leave Dobhoff speech eval, Replace Kphos Hypernatremia. IV fluids CW anti seizure meds/ DC Antibiotics HX of Ecoli infection Qualifiers: Chronicity: acute Physician Review: Patient Assessed, Agree with Above Assessment and Plan
[2021-01-18 12:45] LABS: Arterial Blood Carboxyhemoglob 0.8 % (0-1.5); Blood Gas Oxyhemoglobin 96.7 % (94-97); Blood O2 Saturation 98.6 % (92-98.5)
[2021-01-18] MEDS: METOPROLOL TAR 25 MG TAB PO SCH (14:40)
[2021-01-18] MEDS ORDERED: METOPROLOL TAR 25 MG TAB ONE (15:09)
[2021-01-18 17:35] LABS: Potassium 4.8 mmol/L (3.5-5.1)
[2021-01-18 17:40] LABS: Magnesium 1.5 mg/dL (1.8-2.4)
[2021-01-18] MEDS ORDERED: ENALAPRILAT 1.25 MG/ML VIAL IV ONE (18:13)
[2021-01-18] MEDS ORDERED: METOPROLOL TARTRATE 5 MG/5 ML INJ IV PRN (20:08)
[2021-01-18] MEDS ORDERED: D5W 1,000 ML IV ONE (21:09)
[2021-01-18] MEDS: D5W 1,000 ML IV SCH (21:24)
[2021-01-18] MEDS ORDERED: LEVETIRACETAM 500 MG/5 ML VIAL IV ONE (21:28)
[2021-01-18] MEDS ORDERED: NA CHLORIDE 0.9% 100 ML ONE (21:28)
[2021-01-19 04:30] LABS: Absolute Lymphocytes (CBC) 2.2 K/uL (0.7-4.9); Basophils % 0.9 % (0-1.3); Lymphocytes % 31.3 % (15.3-44.8); MPV 7.9 fL (7.6-11.3); RBC Red Blood Cell Count 3.65 M/uL (3.86-4.86)
[2021-01-19 04:56] LABS: ALT/SGPT 19 U/L (12-78); AST/SGOT 19 U/L (15-37); Albumin 2.2 g/dL (3.4-5.0); Alkaline Phosphatase 68 U/L (45-117); BUN Blood Urea Nitrogen 6 mg/dL (7-18); Bicarbonate 24 mmol/L (21-32); Bilirubin Total 0.3 mg/dL (0.2-1.0); Glucose Level 119 mg/dL (74-106); Magnesium 1.5 mg/dL (1.8-2.4); Potassium 3.4 mmol/L (3.5-5.1); Protein, Total 6.1 g/dL (6.4-8.2); Sodium Level 146 mmol/L (136-145)
[2021-01-19] MEDS ORDERED: MAGNESIUM SULFATE 1 gm IVPB 1 GM/100 ML BAG IV ONE ×2 (05:30→05:37)
[2021-01-19] MEDS: INSULIN -REGULAR HUMAN 50 UNIT/0.5 ML ML SQ SCH ×3 (05:34→18:00)
[2021-01-19] MEDS ORDERED: METOPROLOL TAR 25 MG TAB ONE (05:36)
--- NOTE | 2021-01-19 06:14 | P.PN ---
Date of Service: 01/19/21 Subjective: extubated yesterday, passed swallow eval More alert, Following basic commands able to say good morning today ROS: unable to fully obtain/difficult due to aphasia Physical exam General: AOx1, follows basic commands HEENT: Sclerae nonicteric Respiratory: Clear to auscultation bilaterally, slightly diminished at left base Cardiovascular: No edema, Regular rate/rhythm Gastrointestinal: Soft and benign, Non-distended Integumentary: No rashes, No significant lesion Urinary: Gramajo catheter Problem list Possible new onset seizure Recent urinary tract infection NIDDM 2 Hypertension Multiple prior CVAs, with expressive aphasia and bedridden CKD 2 Patient intubated en route to the ER to protect airway, and was tachypneic extubated 01/18 AM without incident improving, doing well. mentation getting back to her baseline difficult to fully assess neuro exam given h/o strokes and prior deficits. Can obtain MRI to r/u new stroke Neurology consulted in ED, patient was loaded with Keppra, and to continue with 500 mg twice daily dosing EEG ordered Patient with recent stroke 1 month ago and recent UTI last few days undergoing treatment, this increases patient's risk even further for seizure activity CT head negative for new/acute stroke Family said patient's baseline is she can help somewhat with transfers but is essentially fully dependent, can sit up in a chair/wheelchair, significant expressive aphasia and difficult to understand. Unclear how oriented she is at baseline according to her son Review of EMR reveals last urine culture on 01/10 growing ESBL E. coli, started meropenem on 01/17. ID consulted, Ur culture negative, discontinued antibiotics Fever likely secondary to seizure PT consulted Code: DNR Dispo: Anticipate discharge in 2-3 days Time Spent Managing Pts Care (In Minutes): 35
[2021-01-19] MEDS: METOPROLOL TAR 25 MG TAB PO SCH (06:21)
[2021-01-19] MEDS ORDERED: FAMOTIDINE 20 MG/2 ML VIAL IV ONE ×2 (08:30→20:43)
[2021-01-19] MEDS ORDERED: METOPROLOL TARTRATE 5 MG/5 ML INJ IV ONE (08:30)
[2021-01-19] MEDS ORDERED: D5W 1,000 ML IV ONE ×2 (08:30→19:24)
[2021-01-19] MEDS: FAMOTIDINE 20 MG/2 ML VIAL IV SCH ×2 (08:38→20:44)
[2021-01-19] MEDS: D5W 1,000 ML IV SCH ×2 (08:39→19:26)
[2021-01-19] MEDS ORDERED: POTASSIUM PHOS IN 0.9 % NACL 15 MMOL/250 ML BAG IV ONE (09:00)
[2021-01-19] MEDS: levETIRAcetam 500 MG in NA CHLORIDE 0.9% 100 ML IV SCH ×3 (09:00→21:23)
[2021-01-19] MEDS ORDERED: HYDRALAZINE HCL 20 MG/ML VIAL ONE ×2 (10:20→18:21)
[2021-01-19] MEDS: HYDRALAZINE HCL 20 MG/ML VIAL IV PRN ×2 (10:22→18:22)
[2021-01-19] MEDS ORDERED: POTASSIUM 25 MEQ EFFERV TAB PO ONE (11:23)
[2021-01-19] MEDS ORDERED: POTASSIUM 25 MEQ EFFERV TAB ONE (11:45)
--- NOTE | 2021-01-19 16:33 | CON ---
Reason For Consultation: Consultation called because of possible seizure. History Of Present Illness: Ms. 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 She also has hyper tension, noninsulin-dependent diabetes mellitus, and chronic anemia, who has been bed-bound. Her hus band noted seizure-like activity when he found her shaking unresponsively early on the morning of 12/2020. She was seen by the EMS and they noted some clonic tonic activity and she was treated with benzodiazepines and she got to [facility]. She was unable to protect her airway and was the refore intubated in the field and [facility]. She was found to have a urinary tract infecti on and was treated with multiple antibiotics. Her head CT scan showed evidence of prior strokes in t he posterior circulation, but no acute ischemic or hemorrhagic findings. She has since been off any ventilatory support and breathing independently at the time of my evaluation. She did alert and turn ed towards me and did answer at least one question. I did see her about a year ago, which not likely that she recalls. She did not have any tonic or clonic activity. She was holding the left hand at the side and was moving the fingers. Right hand across her chest and the legs held in relaxed positi on. Past Medical History: As indicated including dyslipidemia, strokes in bilateral occipital regions, peripheral neuropathy, and anxiety. Past Surgical History: Hysterectomy, right knee surgery, left hip replacement, cholecystectomy, and wrist surgery. Medications: Prednisone 10 mg daily, Toprol XL 25 mg twice daily, Glucerna 237 mg twice daily, Lipit or 80 mg daily, and Plavix 75 mg daily. She is also on Eliquis 5 mg twice daily, Topamax one tablet twice daily, pantoprazole daily, metformin twice daily, losartan 50 mg daily, duloxetine daily, aspir in 81 mg daily, and Xanax 1 mg daily. Allergies: NAPROSYN, CODEINE, PENICILLIN, AND MORPHINE. Family History: Noncontributory. Social History: The patient lives with at home. No alcohol, tobacco, or IV drug use. Review of Systems: No recent fevers or chills, myalgias, or arthralgias. No rash or headache. Otherwise, negative. Re view of systems other than mentioned above. Physical Examination: Vital Signs: Blood pressure 138 to 141 over 69 to 79, pulse is 69 to 87, temperature 98.9, oxygen sa turation 99%, and respiratory rate 16 to 20. General: Ms. Padron is in ICU bed. Eyes half closed, but she alerted to sound and turned and did answ er to her name, but did not answer other questions. HEENT: She appeared normocephalic, atraumatic and oropharynx moist. Abdomen: Soft. Extremities: Show no significant edema or cyanosis. Neurologic: Again, alerted to the name. She did not follow commands to do movement of the arms and legs independently. She did voluntarily have her left arm held up and was moving her fingers around left hand. Cranial nerves, she did not respond to visual threat. Could not identify fingers and did not respond to request to identify fingers. She had a symmetric face. Her motor examination unable to fully assess as the patient is just moving the left upper extremity. 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 She does have normal tone in the upper and lower extremitie s, and she has been nonambulatory. Laboratory Studies: Complete blood count with differential shows normal white blood cell count of 7. 1, hemoglobin 10.1, hematocrit 31, and platelets 225. Coagulation panel shows INR 1.4. Blood gas fr om yesterday; pH 7.41, pCO2 32.6, and pO2 124. Chemistries now show corrected potassiums yesterday o f 4.8, today still down to 3.4, sodium 146, creatinine 0.6, glucose ranged from 111 to 123, calcium 8 .5, and magnesium 1.5. Liver function studies are normal. Urinalysis shows trace protein, 1+ estera se, and 1+ ketones. COVID-19 test is negative. Chest x-ray from the shows no unexpected findin gs. Assessment: Ms. Padron is a 75-year-old patient with multiple posterior circulation strokes and possib le localization-related complex partial seizures. She has now had Keppra and is on the maintenance o f 500 mg twice daily. No additional seizure-like activity. 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 She has comorbid conditions as managed by primary team. At this point, blood level for Keppra will be done. She did have an EEG. It showed a diffusely slow background. There was no epileptifor m activity. There were frontal biphasic, consistent with a diffuse disturbance in cerebral function. She may once able to swallow and be back to her baseline be discharged to her 's care. Consid er follow up with Dr. Gomez's clinic in two weeks. AIDAN/SAMUEL Voice ID: [id number] Report ID: [id number]
--- NOTE | 2021-01-19 16:57 | P.PN ---
Date of Service: 01/19/21 Vital Signs Temp Pulse Resp BP Pulse Ox 98.9 F 82 21 H 141/79 H 99 01/19/21 13:00 01/19/21 15:00 01/19/21 15:00 01/19/21 15:00 01/19/21 15:00 Medications Famotidine (Famotidine 20 Mg/2 Ml Vial) 20 mg IV BID [facility] Last Admin: 01/19/21 08:38 Dose: 20 mg Documented by: Hydralazine HCl (Hydralazine Hcl 20 Mg/Ml Vial) 10 mg IV Q6HP PRN PRN Reason: Titrate to SBP (MUST DEFINE) Last Admin: 01/19/21 10:22 Dose: 10 mg Documented by: Dextrose/Water (Dextrose In Water (1-Liter)) 1,000 mls @ 100 mls/hr IV .Q10H [facility] Last Admin: 01/19/21 08:39 Dose: 1,000 mls Documented by: Levetiracetam 500 mg/ Sodium (Chloride) 105 mls @ 420 mls/hr IV BID [facility] Last Admin: 01/19/21 09:57 Dose: 105 mls Documented by: Insulin Human Regular (Insulin -Regular Human 50 Unit/0.5 Ml Ml) 0 unit SQ Q6HR [facility]; Protocol Last Admin: 01/19/21 12:00 Dose: Not Given Documented by: Metoprolol Tartrate (Metoprolol Tar 25 Mg Tab) 25 mg PO [id number] [facility] Last Admin: 01/19/21 06:21 Dose: 25 mg Documented by: Metoprolol Tartrate (Metoprolol Tartrate 5 Mg/5 Ml Inj) 2.5 mg IV Q6H PRN PRN Reason: Titrate to SBP (MUST DEFINE) Last Admin: 01/19/21 08:39 Dose: 2.5 mg Documented by: Sodium Chloride (Flush Normal Saline 10 Ml) 10 ml IV BID [facility] Last Admin: 01/19/21 08:38 Dose: 10 ml Documented by: Lab Results (last 24 hrs) 01/17/21 08:34: Urine RBC Cancelled, Urine WBC Cancelled, Ur Squamous Epith Cells Cancelled, Ur Urothelial Cells Cancelled, Calcium Oxalate Crystal Cancelled, Uric Acid Crystals Cancelled, Triple Phos Crystals Cancelled, Other Crystals Cancelled, Amorphous Sediment Cancelled, Glitter Cells Cancelled, Urine Bacteria Cancelled, Hyaline Casts Cancelled, Fine Granular Casts Cancelled, Coarse Granular Casts Cancelled, Waxy Casts Cancelled, RBC Casts Cancelled, WBC Casts Cancelled, Urine Mucus Cancelled, Urine Other Cancelled, Urine Trichomonas Cancelled, Urine Yeast Cancelled, Ur Yeast w Hyphae Cancelled, Urine Yeast (Budding) Cancelled, Urine Sperm Cancelled, Urine Culture Reflexed Cancelled, Urine Total Volume Cancelled Microbiology Results 01/17/21 09:05 Catheterized Urine [place] Count - Final No growth. 01/17/21 09:05 Catheterized Urine - Final No growth. 01/17/21 08:40 Blood - Blood Aerobic Blood Culture - Preliminary No growth in 24 hours. 01/17/21 08:40 Blood - Blood Anaerobic Blood Culture - Preliminary No growth in 24 hours. 01/17/21 08:30 Blood - Blood Aerobic Blood Culture - Preliminary No growth in 24 hours. 01/17/21 08:30 Blood - Blood Anaerobic Blood Culture - Preliminary No growth in 24 hours. Assessment/ Plan: Nephrology No dyspnea No chest pain No acute events overnight Limited IH/ROS due to aphasia. Vitals, medications, blood work and imaging reviewed in the chart General: In no apparent distress, Cooperative HEENT: Atraumatic Neck: Supple Respiratory: Clear to auscultation bilaterally Cardiovascular: No edema, Regular rate/rhythm Gastrointestinal: Soft and benign, Non-distended Musculoskeletal: No clubbing, No contractures Integumentary: No rashes, No cyanosis Neurological: Abnormal speech Blood work reviewed in the chart. Imagings Data: EXAM DESCRIPTION: RAD - Chest Single View - 01/18/2021 5:50 am CLINICAL HISTORY: Tube placement COMPARISON: Abdomen 1 View (KUB) dated 01/17/2021; Chest Single View dated 01/17/2021; Chest Single View dated 02/27/2020; Chest Single View dated 02/26/2020 FINDINGS: Lines: The endotracheal tube tip terminates at the aortic arch. The feeding tube enters the stomach. Lungs: Similar left basilar opacities. There is some other faint opacities in the lungs bilaterally. Pleural: No significant pleural effusions or pneumothorax. Cardiac: The heart size is within normal limits. Bones: No acute fractures. Other: IMPRESSION: Endotracheal tube is in satisfactory position at the aortic arch. Feeding tube below the diaphragm. Mild increased basilar opacities bilaterally likely combination of atelectasis and either pneumonia or pneumonitis. EXAM DESCRIPTION: RAD - Abdomen 1 View (KUB) - 01/17/2021 5:58 pm CLINICAL HISTORY: feeding tube placement Pain COMPARISON: No comparisons FINDINGS: Tip of the enteric tube is in the distal stomach. Conclusions/Impression: Proteinuria -Start Ramipril qhs and titrate as needed Hypernatemia -Continue D5W Hypokalemia -Replete with IV potassium Hypocalcemia Hypomagnesemia -Replete with IV mag HypoPO4 -Replete with IV KPhos HTN with CKD -Start Ramipril qhs DM II with CKD -RISS Moderate malnutrition -Encourage nutrition Anemia in chronic illness -Monitor H&H Acute ESBL cystitis -Continue Meropenem
[2021-01-19] MEDS ORDERED: ALPRAZOLAM 1 MG TABLET ONE (18:15)
[2021-01-19] MEDS: ALPRAZOLAM 1 MG TABLET PO PRN (18:20)
--- NOTE | 2021-01-19 18:20 | RAD REPORT ---
EXAM DESCRIPTION: MRI - Brain Wo Cont - 01/19/2021 4:26 pm CLINICAL HISTORY: r/o new CVA COMPARISON: Brain W/Wo Cont dated 02/24/2020; MRA Head Wo Cont dated 02/24/2020; MRA Head Wo Cont da madhu 10/27/2019; Brain Wo Cont dated 10/26/2019; Head Brain Wo Cont dated 01/17/2021 TECHNIQUE: Sagittal T1-weighted images were obtained along with PD/heavily T2-weighted and T2-FLAIR images. Axial DWI and ADC mapping sequences were also obtained along with coronal heavily T2-weighted images were obtained. FINDINGS: No acute intracranial hemorrhage. No mass effect or midline shift. Sequela of remote right parietal, left temporal, and left occipital lobe infarcts with ex vacuo dilatation of the ventricula r system. Chronic small vessel ischemic changes are noted. Age advanced cerebral atrophy. Intrinsic T 1 gyral hyperintensity at the infarct locations likely due to petechial hemorrhage and/or laminar nec rosis. No acute infarct identified. Mastoid air cells and paranasal sinuses are clear. IMPRESSION: No acute intracranial abnormality or infarct identified. Sequela of chronic bilateral ce rebral infarcts with petechial hemorrhage/ laminar necrosis which is not unexpected. .
[2021-01-19] MEDS ORDERED: FAMOTIDINE 20 MG TAB ONE (20:33)
--- NOTE | 2021-01-19 20:45 | EKG ---
Test Date: 2021-01-17 Test Time: 08:39:21 Accordion Tuner: HAILEY MEASUREMENT RESULTS: Intervals: Rate: 107 NC: 172 QRSD: 80 QT: 346 QTc: 461 [place]: P: 72 NC: 172 QRS: -51 T: 96 INTERPRETIVE STATEMENTS: Sinus tachycardia Left axis deviation Inferior infarct, age undetermined Anteroseptal infarct, age undetermined T wave abnormality, consider lateral ischemia Abnormal ECG Compared to ECG 02/24/2020 08:03:10 T-wave abnormality now present Possible ischemia now present Sinus rhythm no longer present Myocardial infarct finding still present Electronically Signed On 01-19-21 20:35:57 [employer] by Spencer Marquez
[2021-01-19] MEDS ORDERED: LEVETIRACETAM 500 MG/5 ML VIAL IV ONE (21:22)
[2021-01-19] MEDS ORDERED: NA CHLORIDE 0.9% 100 ML ONE (21:22)
[2021-01-20] MEDS ORDERED: HYDRALAZINE HCL 20 MG/ML VIAL ONE (00:33)
[2021-01-20] MEDS: HYDRALAZINE HCL 20 MG/ML VIAL IV PRN (00:34)
[2021-01-20] MEDS ORDERED: D5W 1,000 ML IV ONE ×2 (03:58→11:22)
[2021-01-20] MEDS: D5W 1,000 ML IV SCH ×3 (04:00→23:55)
[2021-01-20 05:42] LABS: Absolute Lymphocytes (CBC) 1.1 K/uL (0.7-4.9); Basophils % 0.7 % (0-1.3); Hematocrit 36.2 % (36.0-45.0); Lymphocytes % 10.9 % (15.3-44.8); RBC Red Blood Cell Count 4.25 M/uL (3.86-4.86)
[2021-01-20 06:00] LABS: Albumin 2.5 g/dL (3.4-5.0); Bilirubin Total 0.3 mg/dL (0.2-1.0); Magnesium 1.7 mg/dL (1.8-2.4); Phosphorus 2.8 mg/dL (2.5-4.9); Protein, Total 7.1 g/dL (6.4-8.2)
[2021-01-20] MEDS: INSULIN -REGULAR HUMAN 50 UNIT/0.5 ML ML SQ SCH ×4 (06:00→17:51)
[2021-01-20] MEDS ORDERED: METOPROLOL TAR 25 MG TAB ONE (06:01)
[2021-01-20] MEDS: METOPROLOL TAR 25 MG TAB PO SCH (06:04)
--- NOTE | 2021-01-20 06:23 | P.PN ---
Date of Service: 01/20/21 Subjective: continues to improve. no acute events overnight ROS: unable to fully obtain/difficult due to aphasia Physical exam General: AOx1, follows basic commands HEENT: Sclerae nonicteric Respiratory: Clear to auscultation bilaterally, slightly diminished at left base Cardiovascular: No edema, Regular rate/rhythm Gastrointestinal: Soft and benign, Non-distended Integumentary: No rashes, No significant lesion Urinary: Gramajo catheter Problem list new onset seizure Recent urinary tract infection NIDDM 2 Hypertension Multiple prior CVAs, with expressive aphasia and bedridden CKD 2 Patient intubated en route to the ER to protect airway, and was tachypneic extubated 01/18 AM without incident improving, doing well. mentation getting back to her baseline CT head negative for new/acute stroke. MRI negative for acute findings Neurology consulted in ED, patient was loaded with Keppra, and to continue with 500 mg twice daily dosing Patient with recent stroke 1 month ago and recent UTI last few days undergoing treatment, this increases patient's risk even further for seizure activity Family said patient's baseline is she can help somewhat with transfers but is essentially fully dependent, can sit up in a chair/wheelchair, significant expressive aphasia and difficult to understand. Unclear how oriented she is at baseline according to her son Review of EMR reveals last urine culture on 01/10 growing ESBL E. coli, started meropenem on 01/17. ID consulted, Ur culture negative, discontinued antibiotics Fever likely secondary to seizure PT consulted Code: DNR Dispo: Anticipate discharge in 1-2 days, home with home health. family do not want SNF Time Spent Managing Pts Care (In Minutes): 35
[2021-01-20] MEDS: levETIRAcetam 500 MG TAB PO SCH ×2 (09:00→20:56)
[2021-01-20] MEDS ORDERED: MAGNESIUM SULFATE 1 gm IVPB 1 GM/100 ML BAG IV ONE ×2 (09:00→09:54)
[2021-01-20] MEDS: FAMOTIDINE 20 MG/2 ML VIAL IV SCH ×2 (09:00→20:56)
[2021-01-20] MEDS ORDERED: levETIRAcetam 500 MG TAB ONE (09:53)
[2021-01-20] MEDS ORDERED: FAMOTIDINE 20 MG/2 ML VIAL IV ONE (09:53)
--- OUTSIDE RECORDS SUMMARY | 2021-01-20 18:56 | XMS REPORT | Continuity of Care Document ---
:1945 Author Organization [facility] t Address [address] [place] [address] Care Team Providers Name Role Phone Shahrzad LUNA Attending Clinician Unavailable Payers Payer Name Policy Type Policy Number Effective Date Expiration Date S reagan MEDICARE PART A [id number] 2011 \T\ B 00:00:00 [employer] INDEMNITY [id number] 2013 00:00:00 Problems This patient has no known problems. Allergies, Adverse Reactions, Alerts Allergy Allergy Status Severity Reaction(s) Onset Inactive Treating Comm ents Source Name Type Date Date Clinician CODEINE DRUG Active Rash 2020-0 [facility] IN[facility]I 3-18 ity of 00:00: [address] PENICILL DRUG Active Rash 2020-0 [facility] IN INGREDI 3-18 ity of 00:00: [address] TRAMADOL DRUG Active Hallucinates 2020-0 Un cary INGREDI 3-18 ity of 00:00: [address] NO KNOWN Drug Active [facility] ALLERGIE Class ity of [facility] Medications This patient has no known medications. Procedures This patient has no known procedures. Encounters Start End Encounter Admission Attending Care Care Encounter Source Date/Time Date/Time Type Type Clinicians Facility Department ID 2020-10-21 Inpatient E [facility] MED [id number] [facility] H 14:16:00 2020-10-21 2020-10-21 Outpatient [facility] JULISSA [id number] [facility] 15:12:00 15:12:00 2020-05-25 2020-05-25 Outpatient Maikel LUNA [facility] [id number] [facility] 13:15:00 13:15:00 JOSE ALFREDO ithelio [facility] Results This patient has no known results.
--- NOTE | 2021-01-20 20:49 | P.PN ---
Date of Service: 01/20/21 Vital Signs Temp Pulse Resp BP Pulse Ox 98.3 F 107 H 16 168/83 H 99 01/20/21 18:28 01/20/21 18:28 01/20/21 18:28 01/20/21 18:28 01/20/21 18:28 Medications Alprazolam (Alprazolam 1 Mg Tablet) 1 mg PO DAILY PRN PRN Reason: ANXIETY Last Admin: 01/19/21 18:20 Dose: 1 mg Documented by: Famotidine (Famotidine 20 Mg/2 Ml Vial) 20 mg IV BID [facility] Last Admin: 01/20/21 09:00 Dose: 20 mg Documented by: Hydralazine HCl (Hydralazine Hcl 20 Mg/Ml Vial) 10 mg IV Q6HP PRN PRN Reason: Titrate to SBP (MUST DEFINE) Last Admin: 01/20/21 00:34 Dose: 10 mg Documented by: Dextrose/Water (Dextrose In Water (1-Liter)) 1,000 mls @ 100 mls/hr IV .Q10H [facility] Last Admin: 01/20/21 11:23 Dose: 1,000 mls Documented by: Insulin Human Regular (Insulin -Regular Human 50 Unit/0.5 Ml Ml) 0 unit SQ Q6HR [facility]; Protocol Last Admin: 01/20/21 17:51 Dose: Not Given Documented by: Levetiracetam (Levetiracetam 500 Mg Tab) 500 mg PO BID [facility] Last Admin: 01/20/21 09:00 Dose: 500 mg Documented by: Metoprolol Tartrate (Metoprolol Tar 25 Mg Tab) 25 mg PO [id number] [facility] Last Admin: 01/20/21 06:04 Dose: 25 mg Documented by: Metoprolol Tartrate (Metoprolol Tartrate 5 Mg/5 Ml Inj) 2.5 mg IV Q6H PRN PRN Reason: Titrate to SBP (MUST DEFINE) Last Admin: 01/19/21 08:39 Dose: 2.5 mg Documented by: Ramipril (Ramipril 2.5 Mg Cap) 2.5 mg PO BEDTIME [facility] Last Admin: 01/19/21 20:39 Dose: 2.5 mg Documented by: Sodium Chloride (Flush Normal Saline 10 Ml) 10 ml IV BID [facility] Last Admin: 01/20/21 09:00 Dose: 10 ml Documented by: Microbiology Results 01/17/21 09:05 Catheterized Urine [place] Count - Final No growth. 01/17/21 09:05 Catheterized Urine - Final No growth. 01/17/21 08:40 Blood - Blood Aerobic Blood Culture - Preliminary No growth in 24 hours. 01/17/21 08:40 Blood - Blood Anaerobic Blood Culture - Preliminary No growth in 24 hours. 01/17/21 08:30 Blood - Blood Aerobic Blood Culture - Preliminary No growth in 24 hours. 01/17/21 08:30 Blood - Blood Anaerobic Blood Culture - Preliminary No growth in 24 hours. Assessment/ Plan: Nephrology No dyspnea No chest pain No acute events overnight Limited IH/ROS due to aphasia. Vitals, medications, blood work and imaging reviewed in the chart General: In no apparent distress, Cooperative HEENT: Atraumatic Neck: Supple Respiratory: Clear to auscultation bilaterally Cardiovascular: No edema, Regular rate/rhythm Gastrointestinal: Soft and benign, Non-distended Musculoskeletal: No clubbing, No contractures Integumentary: No rashes, No cyanosis Neurological: Abnormal speech Blood work reviewed in the chart. Imagings Data: EXAM DESCRIPTION: RAD - Chest Single View - 01/18/2021 5:50 am CLINICAL HISTORY: Tube placement COMPARISON: Abdomen 1 View (KUB) dated 01/17/2021; Chest Single View dated 01/08; Chest Single View dated 02/27/2020; Chest Single View dated 02/26/2020 FINDINGS: Lines: The endotracheal tube tip terminates at the aortic arch. The feeding tube enters the stomach. Lungs: Similar left basilar opacities. There is some other faint opacities in the lungs bilaterally. Pleural: No significant pleural effusions or pneumothorax. Cardiac: The heart size is within normal limits. Bones: No acute fractures. Other: IMPRESSION: Endotracheal tube is in satisfactory position at the aortic arch. Feeding tube below the diaphragm. Mild increased basilar opacities bilaterally likely combination of atelectasis and either pneumonia or pneumonitis. EXAM DESCRIPTION: RAD - Abdomen 1 View (KUB) - 01/17/2021 5:58 pm CLINICAL HISTORY: feeding tube placement Pain COMPARISON: No comparisons FINDINGS: Tip of the enteric tube is in the distal stomach. Conclusions/Impression: Proteinuria -Continue Ramipril qhs Hypernatemia Hypokalemia Hypocalcemia Hypomagnesemia -Replete with IV mag prn HypoPO4 -Encourage nutrition HTN with CKD -Continue Ramipril qhs DM II with CKD -RISS Moderate malnutrition -Encourage nutrition Anemia in chronic illness -Monitor H&H Acute ESBL cystitis -Continue Meropenem
[2021-01-21 05:58] LABS: Absolute Lymphocytes (CBC) 3.4 K/uL (0.7-4.9); Hematocrit 35.2 % (36.0-45.0); Lymphocytes % 36.2 % (15.3-44.8); MPV 8.4 fL (7.6-11.3); RBC Red Blood Cell Count 4.13 M/uL (3.86-4.86)
[2021-01-21] MEDS: INSULIN -REGULAR HUMAN 50 UNIT/0.5 ML ML SQ SCH ×4 (06:00→18:00)
--- NOTE | 2021-01-21 06:00 | P.PN ---
Date of Service: 01/21/21 Subjective: No acute events overnight. With significant improvement in mentation states this is the best she has been in several weeks. Able to have conversations much more alert denies any pain / sob / cough / nausea ROS: unable to fully obtain/difficult due to aphasia Physical exam General: AOx2, follows commands, HEENT: Sclerae nonicteric Respiratory: Clear to auscultation bilaterally, nonlabored respirations on room air Cardiovascular: No edema, Regular rate/rhythm Gastrointestinal: Soft and benign, Non-distended Integumentary: No rashes, No significant lesion Urinary: Gramajo catheter Problem list new onset seizure Recent urinary tract infection NIDDM 2 Hypertension Multiple prior CVAs, with expressive aphasia and bedridden CKD 2 Patient intubated en route to the ER to protect airway, and was tachypneic extubated 01/18 AM without incident Has been improving daily, now able to have more of a conversation CT head negative for new/acute stroke. MRI negative for acute findings Neurology consulted in ED, patient was loaded with Keppra, and to continue with 500 mg twice daily dosing Patient with recent stroke ~month ago and recent UTI last few days undergoing treatment, this increases patient's risk even further for seizure activity Family said patient's baseline is she can help somewhat with transfers but is essentially fully dependent, can sit up in a chair/wheelchair, significant expressive aphasia and difficult to understand. Unclear how oriented she is at baseline according to her son Hypertension, tachyarrhythmiarestarted patient's home Toprol-XL, restart home lisinopril 01/21, pt's states they take PRN at home Review of EMR reveals last urine culture on 01/10 growing ESBL E. coli, started meropenem on 01/17. ID consulted, Ur culture negative, discontinued antibiotics Fever likely secondary to seizure Remains afebrile since discontinuation of antibiotics days ago PT consulted Patient with significant improvement, to work with physical therapy today Plan to go home likely in the next 24 hours, once she can somewhat participate Code: DNR Dispo: Anticipate discharge home in ~24hrs, home with home health. family do not want SNF Time Spent Managing Pts Care (In Minutes): 35
[2021-01-21 06:12] LABS: ALT/SGPT 19 U/L (12-78); AST/SGOT 14 U/L (15-37); Albumin 2.2 g/dL (3.4-5.0); Alkaline Phosphatase 74 U/L (45-117); BUN Blood Urea Nitrogen 9 mg/dL (7-18); Bicarbonate 25 mmol/L (21-32); Bilirubin Total 0.3 mg/dL (0.2-1.0); Glucose Level 116 mg/dL (74-106); Phosphorus 2.8 mg/dL (2.5-4.9); Potassium 3.7 mmol/L (3.5-5.1); Protein, Total 6.3 g/dL (6.4-8.2); Sodium Level 148 mmol/L (136-145)
[2021-01-21 08:31] LABS: Blood Morphology Comment NOT SEEN (NOT SEEN); Platelet Estimate ADEQ
[2021-01-21] MEDS: levETIRAcetam 500 MG TAB PO SCH ×2 (08:45→20:39)
[2021-01-21] MEDS: METOPROLOL XL 25 MG TAB PO SCH (08:45)
[2021-01-21] MEDS: FAMOTIDINE 20 MG/2 ML VIAL IV SCH (08:54)
[2021-01-21] MEDS ORDERED: POTASSIUM 25 MEQ EFFERV TAB PO ONE (09:00)
[2021-01-21] MEDS: LOSARTAN POTASSIUM 50 MG TABLET PO SCH (18:47)
[2021-01-21] MEDS: ALPRAZOLAM 1 MG TABLET PO PRN (20:39)
[2021-01-21] MEDS ORDERED: ATORVASTATIN 40 MG TAB PO SCH (21:00)
[2021-01-22 04:11] LABS: BUN Blood Urea Nitrogen 10 mg/dL (7-18); Bicarbonate 26 mmol/L (21-32); Glucose Level 104 mg/dL (74-106); Magnesium 1.9 mg/dL (1.8-2.4); Potassium 3.7 mmol/L (3.5-5.1); Sodium Level 148 mmol/L (136-145)
[2021-01-22] MEDS: INSULIN -REGULAR HUMAN 50 UNIT/0.5 ML ML SQ SCH ×3 (06:00→12:00)
[2021-01-22] MEDS: levETIRAcetam 500 MG TAB PO SCH (08:14)
[2021-01-22] MEDS: LOSARTAN POTASSIUM 50 MG TABLET PO SCH (08:15)
[2021-01-22] MEDS: METOPROLOL XL 25 MG TAB PO SCH (08:15)
[2021-01-22] MEDS ORDERED: POTASSIUM 25 MEQ EFFERV TAB PO ONE (09:00)
[2021-01-22] MEDS ORDERED: FAMOTIDINE 20 MG TAB PO SCH (09:00)
--- NOTE | 2021-01-22 10:08 | EEG ---
CHART: [id number] TEST ID#: [id number] DATE OF STUDY: 01/18/2021 THE EEG WAS RECORDED PORTABLE IN THE EMERGENCY ROOM (ICU HOLD) ON A 17 CHANNEL MACHINE. ELECTRODES WERE APPLIED IN THE USUAL MANNER USING THE INTERNATIONAL 10-20 SYSTEM. THE WAKING BACKGROUND RHYTHM IN THIS RECORD CONSISTS OF WELL DEVELOPED AND WELL ORGANIZED WAVES OF 5 - 7 HZ., IN A WIDE DISTRIBUTION WHICH ATTENUATE NORMALLY WITH EYE OPENING. MODERATE VOLTAGE 1.5-3 HZ ACTIVITY IS EXPRESSED IN THE FRONTAL AND CENTRAL REGIONS. DIAPHASIC ACTIVITY IS EXPRESSED IN THE FRONTAL REGIONS. THERE ARE NO FOCAL OR LATERALIZING FEATURES. NO EPILEPTIFORM ACTIVITY APPEARS. SLEEP DID NOT OCCUR. IN ADDITION NORMAL SLEEP PATTERNS ARE PRESENT. HYPERVENTILATION WAS NOT PERFORMED. PHOTIC STIMULATION PRODUCED NO DRIVING BILATERALLY. IMPRESSION: THIS IS A MILD TO MODERATELY ABNORMAL EEG DUE TO A MILD TO MODERATE SLOW BACKGROUND WITH FRONTAL DIAPHASIC ACTIVITY. THESE FINDINGS INDICATE THE PRESENCE OF A MODERATE DIFFUSE NON-SPECIFIC DISTURBANCE IN CEREBRAL ACTIVITY. NO EPILEPTIFORM ACTIVITY WAS RECORDED.
[2021-01-22 13:59] VITALS: BP 153/86; TEMP 97.1
--- NOTE | 2021-01-22 14:07 | P.DS ---
Admission Date: 01/17/21 Discharge Date: 01/22/21 Disposition: DC HOME/HOME HEALTH CARE Discharge Condition: GOOD Reason for Admission: Possible seizures, intubated Consultations: Pulmonology - Dr. Alatorre Neurology - Dr. Gomez Nephrology - Dr. Barron Infectious disease - Dr. Piper Procedures: CXR (01/17): IMPRESSION: Increased elevation of the left hemidiaphragm presumably secondary to atelectasis. The right lung is clear. Endotracheal tube in satisfactory position. CT head (03/19): IMPRESSION: No acute intracranial abnormality. Sequela of remote bilateral cerebral infarcts. KUB (01/17): FINDINGS: Tip of the enteric tube is in the distal stomach. CXR (01/18): IMPRESSION: Endotracheal tube is in satisfactory position at the aortic arch. Feeding tube below the diaphragm. Mild increased basilar opacities bilaterally likely combination of atelectasis and either pneumonia or pneumonitis. MRI brain (01/19): IMPRESSION: No acute intracranial abnormality or infarct identified. Sequela of chronic bilateral cerebral infarcts with petechial hemorrhage/ laminar necrosis which is not unexpected. . Problem list new onset seizure Recent urinary tract infection NIDDM 2 Hypertension Multiple prior CVAs, with expressive aphasia and bedridden CKD 2 Brief History of Present Illness: 75-year-old female, PMH: Multiple CVAs with recent hemorrhagic stroke 1 month ago, NIDDM 2, hypertension, anemia, bedbound. Patient was brought in by EMS due to concern for seizure versus stroke. Patient's found the patient shaking vigorously and movement responsive earlier this morning. She has never done this before. He was concerned she was having a stroke and called EMS. EMS noted some seizure-like activity with some tonic-clonic movements. Patient was given benzodiazepines and routes, and subsequently required intubation due to tachypnea/unable to protect airway. Patient unable to give history. Family reported patient was recently diagnosed with a UTI, and took 4 days of antibiotics. She was recently changed from what sounds like a cephalosporin to moxifloxacin according to the . In the ED, lab work rather unremarkable, chest x-ray without any signs of pneumonia, CT head negative for acute process. ER provider wishes to admit patient to ICU for further management/treatment. Hospital Course: Patient was monitored overnight in the ICU, and subsequently extubated the following morning without complication. She was empirically covered with meropenem due to recent UTI culture results are growing ESBL E. coli. Her urine culture on time of admission did not grow any bacteria, patient's antibiotic was discontinued on day 2. She remained afebrile and continued to improve throughout the remainder of her hospitalization. Patient had multiple electrolyte abnormalities on day 2, which were repleted, nephrology assisted with. These remained stable throughout the hospitalization as well. Neurology was consulted, and it is felt that the patient most likely had a seizure. She was started on Keppra with a loading dose on admission, subsequently continued on 500 mg twice daily. A blood level was obtained (is a send out). She is to continue this medication and follow-up with neurology. CT and MRI of her head were negative for any acute pathologic process. Patient's actually reported patient had improved beyond any prior functioning capacity in the last 6 months. On day of discharge, patient's was conversing with multiple word sentences, alert, oriented x12. Patient's requested review of her medications and wanted the patient to go home on the regimen she was receiving in the hospital. After brief review of the medical history provided by the and trying to avoid any medications that could have led to her decreased mentation over the last few months however medication were discontinued. Pantoprazole was discontinued as this has been shown to have multiple side effects from prolonged use and in the elderly. Recommend H2 leydi stepdown therapy. Advised to discontinue melatonin. Patient has not been eating significantly well, blood glucose levels have been normal. A1c was checked and was less than 6. Recommend discontinuing Metformin for now. To continue checking blood glucose levels at home, keep a diary, follow-up with PCP. May need to be restarted in the near future once she is eating better. Discharge home with home health and physical therapy. Vital Signs/Physical Exam: Physical exam General: AOx2, follows commands, HEENT: Sclerae nonicteric Respiratory: Clear to auscultation bilaterally, nonlabored respirations on room air Cardiovascular: No edema, Regular rate/rhythm Gastrointestinal: Soft and benign, Non-distended Integumentary: No rashes, No significant lesion Temp Pulse Resp BP Pulse Ox 97.1 F 79 20 153/86 H 99 01/22/21 12:00 01/22/21 12:00 01/22/21 12:00 01/22/21 12:00 01/22/21 12:00 Laboratory Data at Discharge: WBC 9.30 K/uL (4.3-10.9) 01/21/21 05:09 Hgb 11.8 g/dL (12.0-15.0) L 01/21/21 05:09 Hct 35.2 % (36.0-45.0) L 01/21/21 05:09 Plt Count 269 K/uL (152-406) 01/21/21 05:09 PT 16.1 SECONDS (9.5-12.5) H 01/17/21 08:30 INR 1.40 01/17/21 08:30 APTT 26.4 SECONDS (24.3-36.9) 01/17/21 08:30 Sodium 148 mmol/L (136-145) H 01/22/21 03:18 Potassium 3.7 mmol/L (3.5-5.1) 01/22/21 03:18 BUN 10 mg/dL (7-18) 01/22/21 03:18 Creatinine 0.64 mg/dL (0.55-1.3) 01/22/21 03:18 Glucose 104 mg/dL (74-106) 01/22/21 03:18 Phosphorus 2.8 mg/dL (2.5-4.9) 01/21/21 05:09 Magnesium 1.9 mg/dL (1.8-2.4) 01/22/21 03:18 Total Bilirubin 0.3 mg/dL (0.2-1.0) 01/21/21 05:09 AST 14 U/L (15-37) L 01/21/21 05:09 ALT 19 U/L (12-78) 01/21/21 05:09 Alkaline Phosphatase 74 U/L (45-117) 01/21/21 05:09 Lipase 30 U/L (73-393) L 01/17/21 08:30 Home Medications: Atorvastatin Calcium [Lipitor] 40 mg PO BEDTIME 01/17/21 Losartan Potassium 50 mg PO DAILY 01/19/21 Alprazolam [Xanax] 1 mg PO DAILY PRN 01/20/21 Metoprolol Succinate [Toprol Xl] 25 mg PO DAILY 01/20/21 Famotidine [Pepcid*] 20 mg PO DAILY 30 Days #30 tab 01/22/21 levETIRAcetam [Keppra*] 500 mg PO BID 30 Days #60 tab 01/22/21 New Medications: levETIRAcetam [Keppra*] 500 mg PO BID 30 Days #60 tab Famotidine [Pepcid*] 20 mg PO DAILY 30 Days #30 tab Physician Discharge Instructions: You likely had a seizure. To protect your airway, or intubated by EMS en route to the hospital. You are able to be extubated the following day without complications. He had gradual improvement with treatment with IV fluids, antiseizure medication, and eventually resumed on some of your home medications. CT of the brain and MRI of the brain revealed no acute/new bleed, no stroke, no infection. Your initially started on antibiotics as a precaution since he r ecently had a urinary tract infection, however your urine on admission to the ER did not reveal any infection/bacteria, and this was discontinued on day 2. You are evaluated by speech therapy, recommend soft/chopped, bite sized food, eat slowly and upright. As you has been stated, you are doing better now than you have in the last 6 months. After review of your medications, pantoprazole is discontinued, and recommend Pepcid or similar instead of this medication. Your blood glucose levels were within normal range, your hemoglobin A1c is down to 5.9. Recommend discontinuing the Metformin. Please continue to check your fasting blood glucose levels, as you continue to feel better and eat more, these may increase. Follow-up with your PCP, they may restart the Metformin in the near future. No reported no history of migraines, and your Topamax was held during the hospitalization. This can be discontinued as well. Discussed with your physician if you begin to have migraines more frequently. Do not take your Eliquis, continue to follow-up with your physicians. Diet: soft, chop Activity: Fall precautions Followup: Yordan Gomez MD [ASSOCIATE-ACTIVE - CAN ADMIT] - (neurologist- call to schedule an appointment ) Rolando Ward MD [Primary Care Provider] - 1-2 Weeks (call to schedule an appointment ) Time spent managing pt's care (in minutes): 45
[2021-01-22 16:07] VITALS: O2SAT 97
--- NOTE | 2021-01-22 18:51 | P.PN ---
Date of Service: 01/22/21 Vital Signs Temp Pulse Resp BP Pulse Ox 97.1 F 79 20 153/86 H 99 01/22/21 12:00 01/22/21 12:00 01/22/21 12:00 01/22/21 12:00 01/22/21 12:00 Microbiology Results 01/17/21 08:30 Blood - Blood Aerobic Blood Culture - Final No growth in 5 days. 01/17/21 08:30 Blood - Blood Anaerobic Blood Culture - Final No growth in 5 days. 01/17/21 08:40 Blood - Blood Aerobic Blood Culture - Final No growth in 5 days. 01/17/21 08:40 Blood - Blood Anaerobic Blood Culture - Final No growth in 5 days. 01/17/21 09:05 Catheterized Urine [place] Count - Final No growth. 01/17/21 09:05 Catheterized Urine - Final No growth. Assessment/ Plan: Nephrology No dyspnea No chest pain No acute events overnight Feeling better with improved speech Vitals, medications, blood work and imaging reviewed in the chart General: In no apparent distress, Cooperative HEENT: Atraumatic Neck: Supple Respiratory: Clear to auscultation bilaterally Cardiovascular: No edema, Regular rate/rhythm Gastrointestinal: Soft and benign, Non-distended Musculoskeletal: No clubbing, No contractures Integumentary: No rashes, No cyanosis Neurological: Abnormal speech Blood work reviewed in the chart. Imagings Data: EXAM DESCRIPTION: RAD - Chest Single View - 01/18/2021 5:50 am CLINICAL HISTORY: Tube placement COMPARISON: Abdomen 1 View (KUB) dated 01/17/2021; Chest Single View dated 01/17/2021; Chest Single View dated 02/27/2020; Chest Single View dated 02/26/2020 FINDINGS: Lines: The endotracheal tube tip terminates at the aortic arch. The feeding tube enters the stomach. Lungs: Similar left basilar opacities. There is some other faint opacities in the lungs bilaterally. Pleural: No significant pleural effusions or pneumothorax. Cardiac: The heart size is within normal limits. Bones: No acute fractures. Other: IMPRESSION: Endotracheal tube is in satisfactory position at the aortic arch. Feeding tube below the diaphragm. Mild increased basilar opacities bilaterally likely combination of atelectasis and either pneumonia or pneumonitis. EXAM DESCRIPTION: RAD - Abdomen 1 View (KUB) - 01/17/2021 5:58 pm CLINICAL HISTORY: feeding tube placement Pain COMPARISON: No comparisons FINDINGS: Tip of the enteric tube is in the distal stomach. Conclusions/Impression: Proteinuria -Continue Losartan Hypernatemia Hypokalemia Hypocalcemia Hypomagnesemia -Replete with IV mag prn HypoPO4 -Encourage nutrition HTN with CKD -Continue Losartan DM II with CKD -RISS Moderate malnutrition -Encourage nutrition Anemia in chronic illness -Monitor H&H Acute ESBL cystitis -Continue Meropenem
== END 2021-01-22 16:30 | disposition home health service (06) | DRG 100 ==
LOC: ER 08:27 → ERHOLD 12:02 → 2ND 01-20 18:21
PROVIDERS: ADMIT Hospitalist; ATTEND Hospitalist
PROC: 5A1935Z Respiratory Ventilation, Less than 24 Consecutive Hours (ICD-10-PCS; principal; 2021-01-17)
PROC: 0BH17EZ Insertion of Endotracheal Airway into Trachea, Via Natural or Artificial Opening (ICD-10-PCS; 2021-01-17)
DX: G40.89 Other seizures (principal); J96.00 Acute respiratory failure, unspecified whether with hypoxia or hypercapnia; E87.0 Hyperosmolality and hypernatremia; E44.0 Moderate protein-calorie malnutrition; K21.9 Gastro-esophageal reflux disease without esophagitis; I12.9 Hypertensive chronic kidney disease with stage 1 through stage 4 chronic kidney disease, or unspecified chronic kidney disease; N18.2 Chronic kidney disease, stage 2 (mild); E11.22 Type 2 diabetes mellitus with diabetic chronic kidney disease; E11.40 Type 2 diabetes mellitus with diabetic neuropathy, unspecified; E78.5 Hyperlipidemia, unspecified; I69.320 Aphasia following cerebral infarction; Z88.0 Allergy status to penicillin; Z79.82 Long term (current) use of aspirin; Z79.84 Long term (current) use of oral hypoglycemic drugs; Z88.5 Allergy status to narcotic agent; Z79.899 Other long term (current) drug therapy; Z20.822 Contact with and (suspected) exposure to COVID-19; Z74.01 Bed confinement status; Z88.8 Allergy status to other drugs, medicaments and biological substances; Z79.01 Long term (current) use of anticoagulants; Z79.52 Long term (current) use of systemic steroids; Z90.710 Acquired absence of both cervix and uterus; Z96.642 Presence of left artificial hip joint; Z90.49 Acquired absence of other specified parts of digestive tract; Z66 Do not resuscitate; E87.6 Hypokalemia; Z68.23 Body mass index [BMI] 23.0-23.9, adult; D63.8 Anemia in other chronic diseases classified elsewhere; H47.619 Cortical blindness, unspecified side of brain; E21.1 Secondary hyperparathyroidism, not elsewhere classified
CPT/HCPCS: 36415; 51702; 70450; 70551; 71045; 74018; 80048; 80053; 80076; 80177; 81003; 82550; 82805; 82947; 83036; 83605; 83690; 83735; 84100; 84145; 84484; 85025; 85610; 85730; 86140; 87040; 87086; 87088; 92526; 92610; 93005; 94002; 95819; 97110; 97161; 97530; 99285; J0360; J1953; J2185; J2704; J3010; J3370; J3475; J3480; J7030; J7050; U0003

== ENCOUNTER 2023-12-10 02:28 | Emergency (ER) | payer OTHER ==
--- OUTSIDE RECORDS SUMMARY | 2023-12-10 02:31 | XMS REPORT | Continuity of Care Document ---
Author Name Unknown Address [address] [facility] [place] [address] [facility] thconnect Address [address] [facility] [place] [address] Care Team Providers Care Slope Hoist Operator Name Role Phone ANGELA DE LEON Primary Care Physician Unav BRANDAN Valdez Attending Clinician ANGELA Dawkins Attending Clinician JOSE ALFREDO Sanabria Attending Clinician ROMÁN Mondragon Admitting Clinician Unavail le Payers Payer Name Policy Type Policy Number Effective Date Expirati on Date Source MEDICARE PART A \T\ B [id number] 2011 00:00:00 [employer] IN[employer] [id number] 2013 00:00:00 2020 00:00:00 Allergies, Adverse Reactions, Alerts Allergy Name Allergy Type Status Severity Reaction(s) Onset Date Inactive Date Treating Clinician Comments Source CODEINE DRUG INGREDI Active Rash 18 00:00: 00 [facility] PENICILL IN DRUG INGREDI Active Rash -18 00:00: 00 [facility] TRAMADOL DRUG INGREDI Active Hallucinates 18 00:00: 00 [facility] NO KNOWN ALLERGIE S Drug Class Active [facility] Encounters Start Date/Time End Date/Time Encounter Type Admission Type Attending Clinicians Care Facility Care Department Encounter ID Source 2020-10-21 14:16:00 2020-10-27 13:25:00 Inpatient E BRANDAN GARCIA [facility] MED [id number] [facility] 2020-10-21 15:12:00 2020-10-21 23:59:00 Outpatient ANGELA GARCIA [facility] JULISSA [id number] [facility] 2020-05-25 14:07:22 2020-05-25 23:59:00 Outpatient JOSE ALFREDO WANG [facility] [id number] [facility]
[2023-12-10 02:56] LABS: Absolute Eosinophils 0.2 K/uL (0-0.5); Absolute Lymphocytes (CBC) 0.4 K/uL (0.7-4.9); Absolute Monocytes 0.5 K/uL (0.1-1.3); Absolute Neutrophil 6.5 K/uL (1.8-8.0); Basophils % 0.5 % (0-1.3); Eosinophils % 2.9 % (0-4.4); Hematocrit 38.2 % (36.0-45.0); Hemoglobin 12.8 g/dL (12.0-15.0); Lymphocytes % 5.4 % (15.3-44.8); MCH 29.3 pg (27.0-35.0); MCHC 33.5 g/dL (32.0-36.0); MCV 87.7 fL (80-100); MPV 7.7 fL (7.6-11.3); Neutrophils % 85.2 % (41.7-73.7); Platelets 231 thou/uL (152-406); RBC Red Blood Cell Count 4.35 M/uL (3.86-4.86); Red Cell Distribution Width 13.4 % (12.1-15.2)
[2023-12-10 03:00] LABS: PT Prothrombin Time 11.7 SECONDS (9.4-12.5); PTT, Activated Partial Thromb 30.5 SECONDS (24.3-36.9); Protime INR 1.05
[2023-12-10 03:12] LABS: ALT/SGPT 15 U/L (13-56); Albumin 3.6 g/dL (3.4-5.0); Albumin/Globulin Ratio 0.7 (1.1-1.8); Alkaline Phosphatase 84 U/L (45-117); Anion Gap 6.5 mEq/L (5.0-15.0); BUN Blood Urea Nitrogen 20 mg/dL (7-18); Bicarbonate 26 mEq/L (21-32); Bilirubin Total 0.3 mg/dL (0.2-1.0); Globulin 4.9 g/dL (2.3-3.5); Glomerular Filtration Rate 33 ml/min (=/>90); Glucose Level 184 mg/dL (74-106); Magnesium 1.7 mg/dL (1.6-2.4); Potassium 4.5 mEq/L (3.5-5.1); Protein, Total 8.5 g/dL (6.4-8.2); Sodium Level 137 mEq/L (136-145); Troponin High Sensitivity 7.4 pg/mL (<58.9)
[2023-12-10 03:13] LABS: AST/SGOT < 10 U/L (15-37); Bilirubin Direct < 0.2 mg/dL (0-0.2); Bilirubin Indirect, Calculated 0.1 mg/dL (0.2-0.8)
--- NOTE | 2023-12-10 03:30 | RAD REPORT ---
ADDENDUM #1 These critical findings were discussed with Mateo Kay, the Charge Nurse on 12/10/2023 at 3: 40 AM ce ntral time. Electronically signed by: Shania Cruz DO 12/10/2023 03:55 AM CDT End of Addendum EXAM: CT head without IV contrast CLINICAL DATA: 78 years Female STROKE ALERT TECHNICAL DATA: Multiple axial CT images of the brain were performed followed by sagittal and coronal reconstructed i mages. The CT study is performed according to ALARA (as low as reasonably achievable) or ALARA/IMAGE GENTLY, with automatic adjustment of mA and/or kV according to patient size. Performed on: 12/10/2023 at 3:06 AM Comparisons: Head CT performed on 01/17/2021 and brain MRI performed on 02/24/2020. Brain MRI repor t from 01/19/2021 FINDINGS: Brain: There is no evidence of mass, acute mass effect or midline shift. There are no acute extra-axi al fluid collections. There is no evidence of acute intracranial hemorrhage. The cerebral sulci and ventricles are prominent consistent with moderate cerebral volume loss. There are scattered areas of decreased attenuation within the subcortical and periventricular white matter most consistent with chronic moderate microangiopathy. There is encephalomalacia in the left temporal occipital lobe consistent with an old cortical infarct. There is also encephalomalacia within the right parieto-occipital lobe consistent with an old infarct. Paranasal Sinuses and Mastoids: There is no significant mucosal thickening of the paranasal sinuses. The mastoid air cells are clear. Orbits: The orbital contents are grossly unremarkable. Bones: No acute osseous abnormalities are identified. Soft Tissues: No focal soft tissue abnormalities are identified. IMPRESSION: 1. There is no evidence of acute intracranial pathology. 2. Moderate cerebral atrophy with findings compatible with chronic microangiopathy and old cortical infarcts in the left temporal occipital lobe and right parieto-occipital lobe. Electronically signed by: Shania Cruz DO 12/10/2023 03:27 AM CDT Due to temporary technical issues with the [email or web address] reporting system, reports are being britany d by the in-house radiologist without review as a courtesy to ensure prompt reporting the interpreting radiologist is fully responsible for the content of the report. Transcribed Date/Time: 12/10/2023 7:18 AM
[2023-12-10 03:51] LABS: Band Neutrophils 6 % (0-1); Blood Morphology Comment NOT SEEN (NOT SEEN); Differential Total Cells Count 100; Eosinophils 6 % (0-3); Lymphocytes 4 % (15-42); Monocytes 5 % (0-10); Platelet Estimate ADEQ; Reactive Lymphocytes 4 %; Segmented Neutrophils 74 % (40-80)
[2023-12-10 03:57] LABS: SARS-CoV-2 Antigen CONTROL BLUE LINE VIS/BG OK; SARS-CoV-2 Antigen Rapid Res Negative (Negative)
--- NOTE | 2023-12-10 03:58 | RAD REPORT ---
EXAM: 1. CT neck angiography with intravenous contrast. 2. CT head angiography with intravenous contrast. CLINICAL DATA: 78 years Female STROKE ALERT. Mild right-sided deficit which has since resolved. TECHNICAL DATA: Following dynamic intravenous nonionic contrast infusion, multiple axial helical CT images with multi planar reconstructions were obtained through the head and neck. Coronal and sagittal MIP images were performed. The CT study is performed according to ALARA (as low as reasonably achievable) or ALA RA/IMAGE GENTLY, with automatic adjustment of mA and/or kV according to patient size. Performed on: 12/10/2023 at 3:07 AM COMPARISONS: MRA head and neck performed on 02/24/2020 FINDINGS: CTA NECK: AORTA: The aortic arch is well imaged and demonstrates conventional branching. The origins of the left sub clavian artery, left common carotid artery and innominate artery are patent. The aortic arch is incompletely visualized and appears to demonstrate moderate atherosclerotic disease. There are modera te atherosclerotic calcifications along the proximal left subclavian artery as well as atherosclerotic calcifications along the proximal right brachiocephalic artery and left common caroti d artery. VERTEBRAL ARTERIES: The LEFT vertebral artery demonstrates faint opacification at its origin and occludes proximally. The re is reconstitution of the left vertebral artery at approximately the level of C3-C4. The left vertebral artery extends to the skull base and intradurally. The distal left vertebral artery is vick sly normal in caliber. The RIGHT vertebral artery is patent and is grossly normal in caliber and contour throughout its cour se. There are atherosclerotic calcifications along the proximal right vertebral artery. The right vertebral artery is dominant. CAROTID ARTERIES: The LEFT common carotid artery is unremarkable. There are minimal atherosclerotic calcifications nikita g the distal left common carotid artery. There is no evidence of stenosis, dissection or occlusion The carotid bulb demonstrates moderate calcified atherosclerotic plaque resulting in a mild stenosis of the proximal left ICA measuring just less than 50%. The LEFT internal carotid artery is otherwise normal in caliber and contour without evidence of significant stenosis, dissection or occlu wero. The LEFT external carotid artery is unremarkable. The RIGHT common carotid artery is unremarkable. There are minimal atherosclerotic calcifications rukhsana ng the right common carotid artery. There is no evidence of stenosis, dissection or occlusion. The carotid bulb demonstrates moderate calcified atherosclerotic plaque resulting in mild stenosis of the proximal right ICA measuring less than 50%. The RIGHT internal carotid artery is otherwise unremarkable. There is no evidence of stenosis, dissection or occlusion. The RIGHT external carotid a rtery is unremarkable. CTA HEAD: LEFT: INTERNAL CAROTID ARTERY: The distal internal carotid artery is unremarkable. There are mild atherosclerotic calcifications rukhsana ng the cavernous left ICA. ANTERIOR CEREBRAL ARTERY: The A1 segment is normal in caliber and contour. The A2 segment is normal i n caliber and contour. The region of the anterior communicating artery is unremarkable. MIDDLE CEREBRAL ARTERY: The M1 segment is normal in caliber and contour. The M2 branches are normal i n caliber and contour. POSTERIOR CEREBRAL ARTERY: The P1 segment is normal in caliber and contour. The P2 segment is normal in caliber and contour. The left posterior communicating artery is hypoplastic. VERTEBRAL ARTERY: The intradural left vertebral artery is normal in caliber and contour. RIGHT: INTERNAL CAROTID ARTERY: The distal internal carotid artery is unremarkable. There are mild atherosclerotic calcifications rukhsana ng the cavernous right ICA. ANTERIOR CEREBRAL ARTERY: The A1 segment is normal in caliber and contour. The A2 segment is normal i n caliber and contour. MIDDLE CEREBRAL ARTERY: The M1 segment is normal in caliber and contour. The M2 branches are normal i n caliber and contour. POSTERIOR CEREBRAL ARTERY: The P1 segment is normal in caliber and contour. The P2 segment is normal in caliber and contour. The right posterior communicating artery is hypoplastic. VERTEBRAL ARTERY: The intradural right vertebral artery is normal in caliber and contour. BASILAR ARTERY: The basilar artery is normal in caliber and contour. DURAL VENOUS SINUSES: The dural venous sinuses are patent. NON-ANGIOGRAPHIC FINDINGS: The visualized lung apices are grossly clear. The thyroid gland is normal in size and configuration. There are degenerative changes along the cervical spine most pronounced from C3-C4 through C7-T1 the paranasal sinuses are grossly clear. The mastoid air cells and middle ear cavities are grossly cl ear. The orbital contents are within normal limits. IMPRESSION: CTA NECK: 1. There is faint opacification of the left vertebral artery at its origin with occlusion proximall y. There is reconstitution of the left vertebral artery at approximately the level of C3-C4. A patent normal sized left vertebral artery extends to the skull base and intradurally. 2. The right vertebral artery is dominant. 3. Moderate atherosclerotic calcifications along the carotid bulb regions bilaterally resulting in mild stenoses of the proximal internal carotid arteries measuring just less than 50% bilaterally. 4. There is moderate atherosclerotic disease along the proximal left subclavian artery. CTA HEAD: 1. Mild atherosclerotic calcifications along the cavernous internal carotid arteries bilaterally. 2. Otherwise, normal intracranial CTA. There is no evidence of large vessel occlusion, significant stenosis, aneurysm or other vascular malformation. These critical findings were discussed with Mateo Kay, the Charge Nurse, on 12/10/2023 at 3: 40 AM c entral time Electronically signed by: Shania Cruz DO 12/10/2023 03:54 AM CDT RP Due to temporary technical issues with the [employer]ACS/[employer] reporting system, reports are being britany d by the in-house radiologist without review as a courtesy to ensure prompt reporting the interpreting radiologist is fully responsible for the content of the report. Transcribed Date/Time: 12/10/2023 3:58 AM
[2023-12-10] MEDS ORDERED: NA CHLORIDE 0.9% 1,000 ML ONE (05:19)
[2023-12-10 05:29] LABS: Sqamous Epithelial <5 /HPF (None Seen); Urine Bacteria None Seen /HPF (<20); Urine Bilirubin NEGATIVE (Negative); Urine Blood Negative (Negative); Urine Clarity Clear (Clear); Urine Color Colorless (Yellow); Urine Culture Reflex Order NOT NEEDED; Urine Glucose NEGATIVE (Negative); Urine Ketones NEGATIVE (Negative); Urine Micro Reflex YN NO BILL MICROSCOPIC; Urine Nitrite NEGATIVE (Negative); Urine Protein NEGATIVE (Negative); Urine RBC <5 /HPF (None Seen); Urine Urobilinogen Normal (Normal); Urine WBC <5 /HPF (<5); Urine pH 7.5 (5.0-7.0)
[2023-12-10] MEDS ORDERED: Levofloxacin500mg IV 500 MG/100 ML BAG IV ONE (05:35)
--- NOTE | 2023-12-10 05:46 | EDPHYS ---
Physician Documentation [facility] Name: Sissy Padron Age: 78 yrs Sex: Female : 1945 Arrival Date: 12/10/2023 Time: 02:28 Bed 7 Private MD: ED Physician Jonathan Noonan HPI: 12/09 04:09 This 78 yrs old Female presents to ER via EMS with complaints of Altered Mental Status. sp3 04:09 78-year-old female with a history of prior CVA presents with altered mental status and sp3 generalized weakness for several days. EMS was activated to find patient confused and aphasic. states now the she is improving. Possible fever for EMS coupled with tachycardia. Limited ROS, history and physical at this time.. Historical: - Allergies: 02:38 Codeine; kj2 02:38 Morphine; kj2 02:38 PENICILLINS; kj2 - Immunization history:: Adult Immunizations unknown. - Infectious Disease History:: Denies. - Social history:: Smoking status: Patient denies any tobacco usage or history of. ROS: 04:15 Unable to obtain ROS due to altered mental status, sp3 Exam: 04:16 Head/Face: Normocephalic, atraumatic. Neck: Trachea midline, no thyromegaly or masses sp3 palpated, and no cervical lymphadenopathy. Supple, full range of motion without nuchal rigidity, or vertebral point tenderness. No Meningismus. Chest/axilla: Normal chest wall appearance and motion. Nontender with no deformity. No lesions are appreciated. Cardiovascular: Regular rate and rhythm with a normal S1 and S2. No gallops, murmurs, or rubs. Normal PMI, no JVD. No pulse deficits. Respiratory: Lungs have equal breath sounds bilaterally, clear to auscultation and percussion. No rales, rhonchi or wheezes noted. No increased work of breathing, no retractions or nasal flaring. Abdomen/GI: Soft, non-tender, with normal bowel sounds. No distension or tympany. No guarding or rebound. No evidence of tenderness throughout. Back: No spinal tenderness. No costovertebral tenderness. Full range of motion. Skin: Warm, dry with normal turgor. Normal color with no rashes, no lesions, and no evidence of cellulitis. 04:16 Neuro: Limited neurological exam. Patient is aphasic but moves all extremities. No gross defects noted. Patient is ambulatory., Vital Signs: 02:30 BP 133 / 101; Pulse 123; Resp 15; Temp 98.4; Pulse Ox 96% ; Weight 90.26 kg; Height 5 bm8 ft. 7 in. ; Pain 0/10; 02:36 BP 133 / 101; Pulse 123; Resp 20; Pulse Ox 100% on R/A; kj2 02:54 Weight 90.26 kg; Height 5 ft. 7 in. ; kj2 03:53 BP 169 / 94; Pulse 112; Resp 16; Temp 98.4; Pulse Ox 96% on R/A; Pain 0/10; bm8 04:36 BP 160 / 95; Pulse 116; Resp 20; Temp 98.4; Pulse Ox 97% ; Pain 0/10; bm8 05:39 BP 149 / 89; Pulse 113; Resp 20; Temp 98.4; Pulse Ox 97% on R/A; Pain 0/10; bm8 02:54 Body Mass Index 31.17 (90.26 kg, 170.18 cm) kj2 02:30 Pain Scale: Adult bm8 03:53 Pain Scale: Adult bm8 04:36 Pain Scale: Adult bm8 05:39 Pain Scale: Adult bm8 NIH Stroke Scale Scores: 02:38 NIHSS Score: 4 bm8 03:53 NIHSS Score: 4 bm8 [place] Coma Score: 03:53 Eye Response: spontaneous(4). Motor Response: obeys commands(6). Verbal Response: bm8 oriented(5). Total: 15. 04:36 Eye Response: spontaneous(4). Motor Response: obeys commands(6). Verbal Response: bm8 oriented(5). Total: 15. 05:39 Eye Response: spontaneous(4). Motor Response: obeys commands(6). Verbal Response: bm8 oriented(5). Total: 15. MDM: 02:38 Patient medically screened. sp3 04:16 Data reviewed: vital signs, nurses notes, lab test result(s), EKG, radiologic studies. sp3 ED course: 78-year-old female with altered mental status. Differential diagnosis includes infection, UTI, pneumonia, electrolyte abnormality to a lesser degree neurological insult, among others. I am not highly suspicious of acute coronary syndrome, PE, vascular pathology or any other similar process. Workup will include CT scan of the head, angiograms, EKG, laboratory values, urine analysis, swabs, cultures and general supportive care with disposition pending workup and patient course with probable transfer due to this facility being at capacity as per management instructions.. 05:32 ED course: Patient at her baseline according to . Baseline creatinine 0.9 with sp3 current creatinine 1.6. Heart rate remains at 110. Probable UTI. I have urged patient to be transferred for admission however patient wants to not be transferred and chooses to get as much treatment as they can in the ED prior to discharge. Hospital at capacity and we cannot keep patient here. We will administer normal saline 1 L and Levaquin 500 milligram IV with discharge home on copious p.o. intake and continue p.o. antibiotics with close PCP follow-up. If patient changes her mind she may return at any time. understands risks and benefits of doing this and is okay being discharged. They adamantly refused transfer due to logistical concerns. Bandemia present. UA does not demonstrably show infection however we will treat prophylactically. Especially given patient wanting to go home. Final diagnosis dehydration with probable infection that will be treated with broad-spectrum antibiotic Levaquin. This will be an informed discharge as opposed to an AGAINST MEDICAL ADVICE. However patient is leaving AGAINST MEDICAL ADVICE as an informed discharge.. 10 02:39 Order name: Basic Metabolic Panel; Complete Time: 03:39 sp3 12/09 02:39 Order name: CBC with Diff; Complete Time: 03:59 sp3 12/09 02:39 Order name: Hepatic Function; Complete Time: 03:39 sp3 12/09 02:39 Order name: High Sensitivity Troponin; Complete Time: 03:39 sp3 12/09 02:39 Order name: Magnesium; Complete Time: 03:39 sp3 12/09 02:39 Order name: Protime (+inr); Complete Time: 03:39 sp3 12/09 02:39 Order name: Ptt, Activated; Complete Time: 03:39 sp3 12/09 02:43 Order name: UAM; Complete Time: 05:44 sp3 12/09 02:43 Order name: Blood Culture Adult (2) sp3 12/09 02:43 Order name: Lactate w/ 2H reflex if indic.; Complete Time: 04:54 sp3 12/09 02:43 Order name: Strep; Complete Time: 03:59 sp3 12/09 02:43 Order name: Flu; Complete Time: 04:54 sp3 12/09 02:43 Order name: SARS RAPID; Complete Time: 03:59 sp3 12/09 02:59 Order name: Manual Differential; Complete Time: 03:59 EDMS 12/09 03:23 Order name: Glucose, Ancillary Testing; Complete Time: 03:39 EDMS 10 04:01 Order name: Throat Culture EDMS 12/09 02:39 Order name: CT Neck Angio sp3 12/09 02:39 Order name: CT Stroke Brain w/o Contrast sp3 12/09 02:39 Order name: Stroke CXR 1 View sp3 12/09 03:03 Order name: Head angio EDMS 12/09 02:39 Order name: Cardiac monitoring; Complete Time: 03:42 sp3 12/09 02:39 Order name: EKG - Nurse/Tech; Complete Time: 03:42 sp3 12/09 02:39 Order name: IV Saline Lock; Complete Time: 03:42 sp3 12/09 02:39 Order name: Labs collected and sent; Complete Time: 03:43 sp3 12/09 02:39 Order name: NPO; Complete Time: 03:43 sp3 12/09 02:39 Order name: O2 Per Protocol; Complete Time: 03:43 sp3 12/09 02:39 Order name: O2 Sat Monitoring; Complete Time: 03:43 sp3 12/09 02:39 Order name: Stroke Swallow Screen; Complete Time: 03:43 sp3 Administered Medications: 05:23 Drug: NS 0.9% IV 1000 ml IV at 1 bolus Per protocol; 1000 mL bolus Route: IV; Rate: 1 bm8 bolus; Site: right antecubital; 06:14 Follow up: Response: No adverse reaction; IV Status: Completed infusion bm8 06:17 Follow up: IV Status: Completed infusion; IV Intake: 1000ml kj2 05:40 Drug: levofloxacin IVPB 500 mg 100 ml IVPB once over 30 mins Volume: 100 ml; Route: bm8 IVPB; Infused Over: 30 mins; Site: right antecubital; 06:14 Follow up: Response: No adverse reaction; IV Status: Completed infusion bm8 06:18 Follow up: Response: No adverse reaction kj2 Point of Care Testing: Blood Glucose: 03:23 Blood Glucose: 154 mg/dL; bm8 Ranges: Critical Glucose Levels:Adult <50 mg/dl or >400 mg/dl <40 mg/dl or >180 mg/dl Disposition Summary: 12/10/23 05:45 Discharge Ordered Notes: Location: Home sp3 Condition: Stable sp3 Diagnosis - Dehydration, leukocytosis/bandemia sp3 Followup: sp3 - With: Private Physician - When: Upon discharge from the Emergency Department - Reason: Continuance of care Discharge Instructions: - Discharge Summary Sheet sp3 - Sepsis, Diagnosis, Adult sp3 Forms: - Medication Reconciliation Form sp3 - Antibiotic Education sp3 - Prescription Opioid Use sp3 - Patient Portal Instructions sp3 - Leadership Thank You Letter sp3 Prescriptions: - levofloxacin 500 mg Oral tablet - take 1 tablet ORAL route once daily for 7 days; 7 tablet; Refills: 0, Product sp3 Selection Permitted NIH Stroke Scale - NIH Stroke Score Date: 12/10/2023 Time: 02:38 Total Score = 4 10. Dysarthria (speech clarity - read or repeat words) - 1(Mild to Moderate) 11. Extinction and Inattention (visual/tactile/auditory/spatial/personal) - 0(No abnormality) 1a. Level of Consciousness (LOC) - 0(Alert) 1b. Level of Consciousness (LOC) (Month \T\ Age) - 2(Neither) 1c. LOC Commands (Open \T\ Closes Eyes/Research Food Technologist) 2. Best Gaze (Lateral Gaze Paresis) - 0(Normal) 3. Visual Field Loss - 0(No visual loss) 4. Facial Palsy - 0(Normal) 5a. Left Arm: Motor (10-second hold) - 0(No drift) 5b. Right Arm: Motor (10-second hold) - 0(No drift) 6a. Left Leg: Motor (5-second hold - always test supine) - 0(No drift) 6b. Right Leg: Motor (5-second hold - always test supine) - 0(No drift) 7. Limb Ataxia (finger/nose \T\ heel/[place] - test with eyes open) - 0(Absent) 8. Sensory Loss (pinprick arms/legs/face) - 0(Normal) 9. Best Language: Aphasia (description/naming/reading) - 1(Mild to moderate aphasia) Initials: bm8 NIH Stroke Scale - NIH Stroke Score Date: 12/10/2023 Time: 03:53 Total Score = 4 10. Dysarthria (speech clarity - read or repeat words) - 1(Mild to Moderate) 11. Extinction and Inattention (visual/tactile/auditory/spatial/personal) - 0(No abnormality) 1a. Level of Consciousness (LOC) - 0(Alert) 1b. Level of Consciousness (LOC) (Month \T\ Age) - 2(Neither) 1c. LOC Commands (Open \T\ Closes Eyes/Research Food Technologist) - 0(Both) 2. Best Gaze (Lateral Gaze Paresis) - 0(Normal) 3. Visual Field Loss - 0(No visual loss) 4. Facial Palsy - 0(Normal) 5a. Left Arm: Motor (10-second hold) - 0(No drift) 5b. Right Arm: Motor (10-second hold) - 0(No drift) 6a. Left Leg: Motor (5-second hold - always test supine) - 0(No drift) 6b. Right Leg: Motor (5-second hold - always test supine) - 0(No drift) 7. Limb Ataxia (finger/nose \T\ heel/[place] - test with eyes open) - 0(Absent) 8. Sensory Loss (pinprick arms/legs/face) - 0(Normal) 9. Best Language: Aphasia (description/naming/reading) - 1(Mild to moderate aphasia) Initials: bm8 Signatures: Dispatcher [employer] EDMS Jonathan Noonan MD MD sp3 Vick Glass RN RN bm8 Elizabeth Conrad RN RN kj2 Corrections: (The following items were deleted from the chart) 02:40 02:40 BASIC METABOLIC PANEL+C.LAB.BRZ ordered. EDMS EDMS 02:40 02:40 CBC+H.LAB.BRZ ordered. EDMS EDMS 02:40 02:40 HEPATIC FUNCTION+C.LAB.BRZ ordered. EDMS EDMS 02:40 02:40 Troponin High Sensitivity+C.LAB.BRZ ordered. EDMS EDMS 02:40 02:40 MAGNESIUM+C.LAB.BRZ ordered. EDMS EDMS 02:40 02:40 PROTIME (+INR)+COAG.LAB.BRZ ordered. EDMS EDMS 02:40 02:40 PTT, ACTIVATED+COAG.LAB.BRZ ordered. [facility] 02:40 02:40 Neck Angio+CT.RAD.BRZ ordered. [facility] 02:40 02:40 CT-STROKE BRAIN W/O CONTRAST+CT.RAD.BRZ ordered. [facility] 02:40 02:40 Chest Single View+RAD.RAD.BRZ ordered. [facility] 05:45 05:32 ED course: Patient at her baseline according to . Baseline sp3 creatinine 0.9 with current creatinine 1.6. Heart rate remains at 110. Probable UTI. I have urged patient to be transferred for admission however patient wants to not be transferred and chooses to get as much treatment as they can in the ED prior to discharge. Hospital at capacity and we cannot keep patient here. We will administer normal saline 1 L and Levaquin 500 milligram IV with discharge home on copious p.o. intake and continue p.o. antibiotics with close PCP follow-up. If patient changes her mind she may return at any time. understands risks and benefits of doing this and is okay being discharged. They adamantly refused transfer due to logistical concerns.. sp3 05:47 05:32 ED course: Patient at her baseline according to . Baseline sp3 creatinine 0.9 with current creatinine 1.6. Heart rate remains at 110. Probable UTI. I have urged patient to be transferred for admission however patient wants to not be transferred and chooses to get as much treatment as they can in the ED prior to discharge. Hospital at capacity and we cannot keep patient here. We will administer normal saline 1 L and Levaquin 500 milligram IV with discharge home on copious p.o. intake and continue p.o. antibiotics with close PCP follow-up. If patient changes her mind she may return at any time. understands risks and benefits of doing this and is okay being discharged. They adamantly refused transfer due to logistical concerns. Bandemia present. UA does not demonstrably show infection however we will treat prophylactically. Especially given patient wanting to go home. Final diagnosis dehydration with probable infection that will be treated with broad-spectrum antibiotic Levaquin.. sp3
--- NOTE | 2023-12-10 05:46 | ER ---
Nurse's Notes [facility] Name: Sissy Padron Age: 78 yrs Sex: Female : 1945 Arrival Date: 12/10/2023 Time: 02:28 Bed 7 Private MD: Diagnosis: Dehydration, leukocytosis/bandemia Presentation: 12/09 02:28 Method Of Arrival: EMS: [facility] kj2 02:28 Coronavirus screen: At this time, the client does not indicate any symptoms associated kj2 with coronavirus-19. Ebola Screen: No symptoms or risks identified at this time. Initial Sepsis Screen: Does the patient meet any 2 criteria?. Risk Assessment: Do you want to hurt yourself or someone else? Patient reports no desire to harm self or others. Onset of symptoms was December 09, 2023. 02:28 Acuity: MARCELO 2 kj2 02:38 Chief complaint: EMS states: high blood pressure, urinated on herself which is not kj2 normal for her, confused but answered to yes and no questions. 02:38 Initial Sepsis Screen: Does the patient have a suspected source of infection? No. bm8 Patient's initial sepsis screen is negative. 03:44 No acute neurological deficit is noted. The patients blood glucose was checked prior to bm8 arriving to the hospital and was found to be hyperglycemic. The charge nurse has been notified. Triage Assessment: 02:30 The onset of the patients symptoms was at an unknown time. The onset of the patients bm8 symptoms was. General: Appears in no apparent distress. comfortable, obese, well groomed, well developed, well nourished, Behavior is calm, appropriate for age. Pain: Denies pain. EENT: No deficits noted. No signs and/or symptoms were reported regarding the EENT system. Neuro: Level of Consciousness is awake, alert, confused, Oriented to person, Cleat Feeder are equal bilaterally Moves all extremities. Gait is shuffling, Speech with expressive aphasia noted, Facial symmetry appears normal, Pupils are PERRLA, Pupil Size: 3 MM Reports NA. Cardiovascular: Heart tones S1 S2 present Capillary refill < 3 seconds in bilateral fingers toes Patient's skin is warm and dry. Rhythm is sinus tachycardia. Respiratory: Airway is patent Trachea midline Respiratory effort is even, unlabored, Respiratory pattern is regular, symmetrical, Breath sounds are clear bilaterally. GI: No signs and/or symptoms were reported involving the gastrointestinal system. : No signs and/or symptoms were reported regarding the genitourinary system. Derm: No signs and/or symptoms reported regarding the dermatologic system. Musculoskeletal: No signs and/or symptoms reported regarding the musculoskeletal system. 02:30 The onset of the patients symptoms was at an unknown time. bm8 02:38 General: Appears in no apparent distress. Behavior is calm. Neuro: Level of kj2 Consciousness is confused, Oriented to person. Cardiovascular: Patient's skin is warm and dry. Respiratory: Airway is patent Respiratory effort is unlabored. GI: No signs and/or symptoms were reported involving the gastrointestinal system. : No signs and/or symptoms were reported regarding the genitourinary system. 02:45 The onset of the patients symptoms was less than three hours ago. kj2 Stroke Activation: Symtpom onset >3 hours and < 6 hours Physician: ED Attending; Name: MENA; Notified At: 02:37; Arrived At: 02:38 Physician: Mid-Level Provider; Name: ; Notified At: 02:37; Arrived At: Physician: [not used]; Name: ; Notified At: ; Arrived At: Physician: [not used]; Name: ; Notified At: ; Arrived At: Physician: [not used]; Name: ; Notified At: ; Arrived At: Historical: - Allergies: 02:38 Codeine; kj2 02:38 Morphine; kj2 02:38 PENICILLINS; kj2 - Immunization history:: Adult Immunizations unknown. - Infectious Disease History:: Denies. - Social history:: Smoking status: Patient denies any tobacco usage or history of. Screenin:56 [facility] ED Fall Risk Assessment (Adult) History of falling in the last 3 months, kj2 including since admission No falls in past 3 months (0 pts) Confusion or Disorientation Yes (5 pts) Intoxicated or Sedated No (0 pts) Impaired Gait Yes (1 pt) Mobility Assist Device Used Yes (1 pt) Altered Elimination No (0 pt) Score/Fall Risk Level 3 or more points = High Risk Maintained a safe environment, Educated pt \T\ family on fall prevention, incl call for assistance when getting out of bed, Hourly rounding (assess needs \T\ fall precautionary measures) done, Utilized family, sitter, or virtual quality compliance coordinator as indicated. Abuse screen: Denies threats or abuse. Denies injuries from another. Nutritional screening: No deficits noted. Tuberculosis screening: No symptoms or risk factors identified. Assessment: 03:53 VAN Scoring: Arm Drift: Patients demonstrates NO arm weakness. Patient is VAN Negative. bm8 Visual Disturbance: No visual disturbance noted. Aphasia: Expressive aphasia noted. Provider notified of +VAN scoring. VAN Scoring: Neglect: No neglect noted. [place] Swallow Protocol Exclusion Criteria: Unable to remain alert for testing: No NPO for medical/surgical reason by provider order No Head-of-bed restricted <30 degrees Tracheostomy tube present No No thin liquids due to preexisting dysphagia/baseline modified diet thickened liquids No Exclusion Criteria Result: Proceed Brief Cognitive Screen What is your name? Abnormal Where are you right now? Abnormal What year is it? Abnormal Oral Mechanism Examination Facial Symmetry: Normal, Motion: Normal, Lip Closure: Normal, Oral Mechanism Result: Normal. 3 oz Water Swallow Challenge: Pt able to drink all water without stopping, coughing, choking or throat clearing: Yes Result: PASS Notified: Jonathan Noonan MD. TNKase (Tenecteplase) Screening: Not Applicable. Reassessment: Patient appears in no apparent distress at this time. Patient and/or family updated on plan of care and expected duration. Pain level reassessed. Patient is alert, oriented x 3, equal unlabored respirations, skin warm/dry/pink. Patient denies pain at this time. STATES THAT THIS IS HER NORMAL SPEECH PATTERN AFTER HAVING TWO PREVIOUS STROKES. SHE HAS TROUBLE FINDING THE RIGHT WORDS TO USE.. General: Appears in no apparent distress. comfortable, Behavior is calm, cooperative, appropriate for age. Pain: Denies pain. Neuro: Level of Consciousness is awake, alert, obeys commands, Oriented to person, PT ANSWERS YES/ NO QUESTIONS BUT FINDS IT DIFFICULT TO ANSWER QUESTIONS THAT REQUIRE A DIFFERENT WORD.. Cardiovascular: Denies chest pain, Heart tones S1 S2 present Rhythm is sinus tachycardia. Respiratory: Airway is patent Respiratory effort is even, unlabored, Respiratory pattern is regular, symmetrical, Breath sounds are clear bilaterally. GI: No signs and/or symptoms were reported involving the gastrointestinal system. : No signs and/or symptoms were reported regarding the genitourinary system. EENT: No signs and/or symptoms were reported regarding the EENT system. Derm: No signs and/or symptoms reported regarding the dermatologic system. Musculoskeletal: No signs and/or symptoms reported regarding the musculoskeletal system. 04:36 Reassessment: Patient appears in no apparent distress at this time. No changes from bm8 previously documented assessment. Patient and/or family updated on plan of care and expected duration. Pain level reassessed. Patient is alert, oriented x 3, equal unlabored respirations, skin warm/dry/pink. 05:39 Reassessment: Patient appears in no apparent distress at this time. No changes from bm8 previously documented assessment. Patient and/or family updated on plan of care and expected duration. Pain level reassessed. Patient is alert, oriented x 3, equal unlabored respirations, skin warm/dry/pink. Patient denies pain at this time. Patient states symptoms have improved. 05:51 Reassessment: pt to finish out antibiotics and then be discharged. bm8 Vital Signs: 02:30 BP 133 / 101; Pulse 123; Resp 15; Temp 98.4; Pulse Ox 96% ; Weight 90.26 kg; Height 5 bm8 ft. 7 in. ; Pain 0/10; 02:36 BP 133 / 101; Pulse 123; Resp 20; Pulse Ox 100% on R/A; kj2 02:54 Weight 90.26 kg; Height 5 ft. 7 in. ; kj2 03:53 BP 169 / 94; Pulse 112; Resp 16; Temp 98.4; Pulse Ox 96% on R/A; Pain 0/10; bm8 04:36 BP 160 / 95; Pulse 116; Resp 20; Temp 98.4; Pulse Ox 97% ; Pain 0/10; bm8 05:39 BP 149 / 89; Pulse 113; Resp 20; Temp 98.4; Pulse Ox 97% on R/A; Pain 0/10; bm8 02:54 Body Mass Index 31.17 (90.26 kg, 170.18 cm) kj2 02:30 Pain Scale: Adult bm8 03:53 Pain Scale: Adult bm8 04:36 Pain Scale: Adult bm8 05:39 Pain Scale: Adult bm8 Zoila Coma Score: 03:53 Eye Response: spontaneous(4). Motor Response: obeys commands(6). Verbal Response: bm8 oriented(5). Total: 15. 04:36 Eye Response: spontaneous(4). Motor Response: obeys commands(6). Verbal Response: bm8 oriented(5). Total: 15. 05:39 Eye Response: spontaneous(4). Motor Response: obeys commands(6). Verbal Response: bm8 oriented(5). Total: 15. NIH Stroke Scale Scores: 02:38 NIHSS Score: 4 bm8 03:53 NIHSS Score: 4 bm8 ED Course: 02:38 Patient arrived in ED. sp3 02:38 Jonathan Noonan MD is Attending Physician. sp3 02:45 Initial lab(s) drawn, by me. Patient maintains SpO2 saturation greater than 95% on room bm8 air. 02:47 Elizabeth Conrad, FRAN is Primary Nurse. kj2 02:53 Triage completed. kj2 02:57 Patient has correct armband on for positive identification. Bed in low position. Call kj2 light in reach. Adult w/ patient. Provided Education on: call light. 02:58 Arm band placed on Patient placed in an exam room. kj2 02:58 No provider procedures requiring assistance completed. kj2 03:11 CT Neck Angio In Process Unspecified. EDMS 03:11 CT Stroke Brain w/o Contrast In Process Unspecified. EDMS 03:11 Head angio In Process Unspecified. EDMS 03:17 Stroke CXR 1 View In Process Unspecified. EDMS 03:53 Client placed on continuous cardiac and pulse oximetry monitoring. NIBP monitoring bm8 applied. playground monitor on. Pulse ox on. NIBP on. Door closed. Noise minimized. Warm blanket given. Pillow given. Verbal reassurance given. Head of bed elevated. 06:15 IV discontinued, intact, bleeding controlled, No redness/swelling at site. Pressure bm8 dressing applied. Administered Medications: 05:23 Drug: NS 0.9% IV 1000 ml IV at 1 bolus Per protocol; 1000 mL bolus Route: IV; Rate: 1 bm8 bolus; Site: right antecubital; 06:14 Follow up: Response: No adverse reaction; IV Status: Completed infusion bm8 06:17 Follow up: IV Status: Completed infusion; IV Intake: 1000ml kj2 05:40 Drug: levofloxacin IVPB 500 mg 100 ml IVPB once over 30 mins Volume: 100 ml; Route: bm8 IVPB; Infused Over: 30 mins; Site: right antecubital; 06:14 Follow up: Response: No adverse reaction; IV Status: Completed infusion bm8 06:18 Follow up: Response: No adverse reaction kj2 Medication: 02:57 VIS not applicable for this client. kj2 Point of Care Testing: Blood Glucose: 03:23 Blood Glucose: 154 mg/dL; bm8 Ranges: Intake: 06:17 IV: 1000ml; Total: 1000ml. kj2 Outcome: 05:45 Discharge ordered by sp3 06:00 Discharged to home via wheelchair, kj2 06:00 Condition: stable 06:00 Discharge instructions given to patient, family, Instructed on discharge instructions, follow up and referral plans. Demonstrated understanding of instructions, follow-up care, medications, 06:15 Patient left the ED. bm8 NIH Stroke Scale - NIH Stroke Score Date: 12/10/2023 Time: 02:38 Total Score = 4 10. Dysarthria (speech clarity - read or repeat words) - 1(Mild to Moderate) 11. Extinction and Inattention (visual/tactile/auditory/spatial/personal) - 0(No abnormality) 1a. Level of Consciousness (LOC) - 0(Alert) 1b. Level of Consciousness (LOC) (Month \T\ Age) - 2(Neither) 1c. LOC Commands (Open \T\ Closes Eyes/Rug[employer] Footballer) 2. Best Gaze (Lateral Gaze Paresis) - 0(Normal) 3. Visual Field Loss - 0(No visual loss) 4. Facial Palsy - 0(Normal) 5a. Left Arm: Motor (10-second hold) - 0(No drift) 5b. Right Arm: Motor (10-second hold) - 0(No drift) 6a. Left Leg: Motor (5-second hold - always test supine) - 0(No drift) 6b. Right Leg: Motor (5-second hold - always test supine) - 0(No drift) 7. Limb Ataxia (finger/nose \T\ heel/[place] - test with eyes open) - 0(Absent) 8. Sensory Loss (pinprick arms/legs/face) - 0(Normal) 9. Best Language: Aphasia (description/naming/reading) - 1(Mild to moderate aphasia) Initials: bm8 NIH Stroke Scale - NIH Stroke Score Date: 12/10/2023 Time: 03:53 Total Score = 4 10. Dysarthria (speech clarity - read or repeat words) - 1(Mild to Moderate) 11. Extinction and Inattention (visual/tactile/auditory/spatial/personal) - 0(No abnormality) 1a. Level of Consciousness (LOC) - 0(Alert) 1b. Level of Consciousness (LOC) (Month \T\ Age) - 2(Neither) 1c. LOC Commands (Open \T\ Closes Eyes/[employer] Footballer) - 0(Both) 2. Best Gaze (Lateral Gaze Paresis) - 0(Normal) 3. Visual Field Loss - 0(No visual loss) 4. Facial Palsy - 0(Normal) 5a. Left Arm: Motor (10-second hold) - 0(No drift) 5b. Right Arm: Motor (10-second hold) - 0(No drift) 6a. Left Leg: Motor (5-second hold - always test supine) - 0(No drift) 6b. Right Leg: Motor (5-second hold - always test supine) - 0(No drift) 7. Limb Ataxia (finger/nose \T\ heel/[place] - test with eyes open) - 0(Absent) 8. Sensory Loss (pinprick arms/legs/face) - 0(Normal) 9. Best Language: Aphasia (description/naming/reading) - 1(Mild to moderate aphasia) Initials: bm8 Signatures: Dispatcher [employer] Jonathan Reyes MD MD sp3 Vick Glass RN RN bm8 Elizabeth Conrad RN RN kj2
--- NOTE | 2023-12-10 06:06 | RAD REPORT ---
EXAM: XR Chest, 1 View CLINICAL HISTORY: The patient is 78 years old and is Female; Code stroke. TECHNIQUE: Single view of the chest. COMPARISON: No relevant prior studies available. FINDINGS: Lungs: No fluid overload or consolidation. Pleural space: Unremarkable. No pneumothorax. Heart: The cardiac silhouette is enlarged versus artifact of AP technique. Mediastinum: Unremarkable. Bones/joints: No acute fracture. Upper abdomen: No free air in the visualized upper abdomen. IMPRESSION: No fluid overload or consolidation. Electronically signed by: Delphine Sanchez MD 12/10/2023 05:05 AM CDT RP ND Due to temporary technical issues with the PACS/Polar OLED reporting system, reports are being britany d by the in-house radiologist without review as a courtesy to ensure prompt reporting the interpreting radiologist is fully responsible for the content of the report. Transcribed Date/Time: 12/10/2023 6:06 AM
--- NOTE | 2023-12-10 12:55 | EKG ---
Test Date: 2023-12-10 Test Time: 03:18:27 Airplane Cover Maker: JIM MEASUREMENT RESULTS: Intervals: Rate: 115 AL: 182 QRSD: 78 QT: 334 QTc: 462 Holly: P: 46 AL: 182 QRS: -35 T: 54 INTERPRETIVE STATEMENTS: Sinus tachycardia Left axis deviation Low voltage QRS Inferior infarct, age undetermined Cannot rule out Anteroseptal infarct, age undetermined Abnormal ECG Compared to ECG 01/17/2021 08:39:21 Low QRS voltage now present T-wave abnormality no longer present Possible ischemia no longer present Myocardial infarct finding still present Electronically Signed On 12-10-23 12:54:01 CDT by Chris Adams
[2023-12-10 20:14] VITALS: TEMP 98.4
[2023-12-10 20:20] VITALS: O2SAT 97
[2023-12-10 20:22] VITALS: BP 149/89
== END 2023-12-10 06:15 | disposition home or self-care (01) ==
LOC: ER 02:28
DX: R41.82 Altered mental status, unspecified (principal); E86.0 Dehydration; D72.825 Bandemia; R53.1 Weakness; Z88.0 Allergy status to penicillin; Z88.5 Allergy status to narcotic agent; Z86.73 Personal history of transient ischemic attack (TIA), and cerebral infarction without residual deficits; Z11.52 Encounter for screening for COVID-19
CPT/HCPCS: 96365; 93005; 87040 ×2; 87070; 85025; 81001; 80048; 36415; 83735; 85610; 82947; 80076; 87081; 83605; 85730; 84484; 87804 ×2; 70496; 70498; 70450; 71045; 99285; 87811; Q9967; J7030